=== PATIENT | male | born 1940 | race African-American/Black ===

== ENCOUNTER → 2016-07-04 | Outpatient (CLI) | payer MEDICARE | LOC: RAD 06-27 13:49 | PROVIDERS: ATTEND Internal Medicine | DX: R41.3 Other amnesia (principal) | CPT/HCPCS: 70551 ==

== ENCOUNTER → 2016-07-05 | Outpatient (CLI) | payer MEDICARE ==
[2016-07-05 15:16] LABS: ABSOLUTE EOSINOPHILS # (AUTO) 0.2 10^3/uL (0.0-0.6); ABSOLUTE MONOCYTES (AUTO) 0.3 10^3/uL (0.1-1.4); BASOPHILS % (AUTO) 0.5 % (0-2); EOSINOPHILS % (AUTO) 6.9 % (0-6); HEMATOCRIT 28.9 % (37.9-51.0); HEMOGLOBIN 9.1 g/dL (13.5-17.0); HGB HCT DIFFERENCE -1.6; LYMPHOCYTES % (AUTO) 28.4 % (13-45); MEAN CORPUSCULAR HEMOGLOBIN 24.8 pg (27.0-33.4); MEAN CORPUSCULAR HGB CONC 31.3 g/dL (32.0-36.0); MEAN CORPUSCULAR VOLUME 79 fl (80-97); MONOCYTES % (AUTO) 7.5 % (3-13); RED BLOOD COUNT 3.65 10^6/uL (4.35-5.55); RED CELL DISTRIBUTION WIDTH 19.8 % (11.5-14.0); SEGMENTED NEUTROPHILS % (AUTO) 56.7 % (42-78); WHITE BLOOD COUNT 3.6 10^3/uL (4.0-10.5)
[2016-07-05 15:27] LABS: ALBUMIN 4.4 g/dL (3.5-5.0); ANION GAP 15 (5-19); BLOOD UREA NITROGEN 38 mg/dL (7-20); CALCIUM 9.3 mg/dL (8.4-10.2); CARBON DIOXIDE 21 mmol/L (22-30); CHLORIDE 108 mmol/L (98-107); CREATININE RESULT 4.19 mg/dL (0.52-1.25); GLUCOSE 121 mg/dL (75-110); PHOSPHORUS 4.4 mg/dL (2.5-4.5); POTASSIUM 4.7 mmol/L (3.6-5.0); SODIUM 144.3 mmol/L (137-145)
[2016-07-07 10:19] LABS: VITAMIN D 25-HYDROXY 26.8 ng/mL (30.0-100.0)
== END ==
LOC: OD 14:27
PROVIDERS: ATTEND Internal Medicine Nephrology
DX: N17.9 Acute kidney failure, unspecified (principal); R80.9 Proteinuria, unspecified; N18.4 Chronic kidney disease, stage 4 (severe); D63.8 Anemia in other chronic diseases classified elsewhere; N25.81 Secondary hyperparathyroidism of renal origin; E55.9 Vitamin D deficiency, unspecified
CPT/HCPCS: 36415; 80048; 82040; 82306; 83970; 84100; 85025

== ENCOUNTER 2016-09-03 11:25 | Inpatient (IN) | payer MEDICARE ==
[2016-09-03 11:46] LABS: ABSOLUTE LYMPHOCYTES (AUTO) 0.8 10^3/uL (0.5-4.7); ABSOLUTE MONOCYTES (AUTO) 0.3 10^3/uL (0.1-1.4); ABSOLUTE NEUT (AUTO) 2.7 10^3/uL (1.7-8.2); BASOPHILS % (AUTO) 1.1 % (0-2); EOSINOPHILS % (AUTO) 0.8 % (0-6); HEMOGLOBIN 10.9 g/dL (13.5-17.0); HGB HCT DIFFERENCE -0.3; MEAN CORPUSCULAR HEMOGLOBIN 26.3 pg (27.0-33.4); MEAN CORPUSCULAR HGB CONC 33.2 g/dL (32.0-36.0); MEAN CORPUSCULAR VOLUME 79 fl (80-97); MONOCYTES % (AUTO) 6.9 % (3-13); RED BLOOD COUNT 4.16 10^6/uL (4.35-5.55); RED CELL DISTRIBUTION WIDTH 17.6 % (11.5-14.0); SEGMENTED NEUTROPHILS % (AUTO) 71.2 % (42-78); WHITE BLOOD COUNT 3.8 10^3/uL (4.0-10.5)
[2016-09-03 12:07] LABS: ALANINE AMINOTRANSFERASE 19 U/L (21-72); ALBUMIN 4.2 g/dL (3.5-5.0); ALKALINE PHOSPHATASE 61 U/L (38-126); ANION GAP 13 (5-19); ASPARTATE AMINO TRANSFERASE 20 U/L (17-59); BILIRUBIN,DIRECT 0.3 mg/dL (0.0-0.4); BILIRUBIN,TOTAL 0.7 mg/dL (0.2-1.3); BLOOD UREA NITROGEN 40 mg/dL (7-20); CALCIUM 9.3 mg/dL (8.4-10.2); CARBON DIOXIDE 22 mmol/L (22-30); CHLORIDE 116 mmol/L (98-107); CREATININE RESULT 3.61 mg/dL (0.52-1.25); GLUCOSE 122 mg/dL (75-110); POTASSIUM 3.9 mmol/L (3.6-5.0); SODIUM 151.4 mmol/L (137-145); TOTAL PROTEIN 7.9 g/dL (6.3-8.2)
[2016-09-03] MEDS ORDERED: NORMAL SALINE 1000 ML 1,000 ML IV ONE ×2 (12:22→13:32)
[2016-09-03] MEDS ORDERED: HYDRALAZINE HCL INJ/PF 20 MG/1 ML SDV IV ONE (13:35)
--- NOTE | 2016-09-03 13:39 | EKG REPORT ---
SEVERITY:- ABNORMAL ECG - SINUS RHYTHM FIRST DEGREE AV BLOCK LEFT ANTERIOR FASCICULAR BLOCK NONSPECIFIC T ABNORMALITIES, ANTERIOR LEADS BORDERLINE PROLONGED QT INTERVAL : Confirmed by: Nilson Tesfaye MD 03-Sep-2016 13:39:02
--- NOTE | 2016-09-03 14:46 | ER Document Report ---
ED General - General Chief Complaint: Diarrhea Stated Complaint: DIARRHEA,WEAKNESS Mode of Arrival: Ambulatory Information source: Patient Notes: 75-year-old male presents with complaints of one week duration of diarrhea. Patient notes that he has had decreased appetite and does not feel like he can eat anything. Patient has not eaten since . Patient denies any fevers or chills denies any vomiting but admits nausea TRAVEL OUTSIDE OF THE [place] IN LAST 30 DAYS: No - HPI Onset: Last week Onset/Duration: Persistent Quality of pain: Achy Severity: Mild Pain Level: 1 Associated symptoms: Diarrhea, Nausea, Weakness Exacerbated by: Denies Relieved by: Denies Similar symptoms previously: Yes Recently seen / treated by doctor: Yes - Related Data Allergies/Adverse Reactions: No Known Allergies Allergy (Verified 09/03/16 11:41) Past Medical History - Social History Smoking Status: Never Smoker Cigarette use (# per day): No Chew tobacco use (# tins/day): No Smoking Education Provided: No Frequency of alcohol use: None Drug Abuse: None Family History: DM Patient has suicidal ideation: No Patient has homicidal ideation: No - Past Medical History Cardiac Medical History: Reports: Hx Heart Attack - 30 years ago, Hx Hypercholesterolemia, Hx Hypertension, Hx Heart Murmur Pulmonary Medical History: Reports: Hx Pneumonia Denies: Hx Tuberculosis Renal/ Medical History: Denies: Hx Peritoneal Dialysis GI Medical History: Reports: Hx Gastroesophageal Reflux Disease, Hx Ulcer Past Surgical History: Reports: Hx Abdominal Surgery - abdominal aneurysm repair , Hx Cholecystectomy. Denies: Hx Pacemaker - Immunizations Hx Diphtheria, Pertussis, Tetanus Vaccination: - Pt unsure Hx Pneumococcal Vaccination: 06/25/07 Review of Systems - Review of Systems Notes: REVIEW OF SYSTEMS: CONSTITUTIONAL : Denies fever, chills, or sweats. Denies recent illness. EENT: Denies eye, ear, throat, or mouth pain or symptoms. Denies nasal or sinus congestion or discharge. Denies throat, tongue, or mouth swelling or difficulty swallowing. CARDIOVASCULAR: Denies chest pain. Denies palpitations or racing or irregular heart beat. Denies ankle edema. RESPIRATORY: Denies cough, cold, or chest congestion. Denies shortness of breath, difficulty breathing, or wheezing. GASTROINTESTINAL: Admits to abdominal pain nausea diarrhea GENITOURINARY: Denies difficulty urinating, painful urination, burning, frequency, blood in urine, or discharge. MUSCULOSKELETAL: Denies back or neck pain or stiffness. Denies joint pain or swelling. SKIN: Denies rash, lesions or sores. HEMATOLOGIC : Denies easy bruising or bleeding. LYMPHATIC: Denies swollen, enlarged glands. NEUROLOGICAL: Admits to generalized weakness PSYCHIATRIC: Denies anxiety or stress. Denies depression, suicidal ideation, or homicidal ideation. ALL OTHER SYSTEMS REVIEWED AND NEGATIVE. Dictation was performed using [employer] ([employer] voice recognition software PHYSICAL EXAMINATION: GENERAL: Well-appearing, well-nourished and in no acute distress. HEAD: Atraumatic, normocephalic. EYES: Pupils equal round and reactive to light, extraocular movements intact, sclera anicteric, conjunctiva are normal. ENT: Edentulous NECK: Normal range of motion, supple without lymphadenopathy LUNGS: Breath sounds clear to auscultation bilaterally and equal. No wheezes rales or rhonchi. HEART: Regular rate and rhythm without murmurs ABDOMEN: Soft, nontender, nondistended abdomen. No guarding, no rebound. No masses appreciated. Musculoskeletal: Normal range of motion, no pitting or edema. No cyanosis. NEUROLOGICAL: Cranial nerves grossly intact. Normal speech, normal gait. Normal sensory, motor exams PSYCH: Normal mood, normal affect. SKIN: Warm, Dry, normal turgor, no rashes or lesions noted. Physical Exam - Vital signs Vitals: Resp Pulse Ox 13 100 09/03/16 11:42 09/03/16 11:42 Course - Re-evaluation Re-evalutation: 09/03/16 15:16 Patient's lab work notes continued chronic kidney disease. No acute abnormalities are noted. Patient was given fluids and notes continued decreased appetite. I spoke with the patient's primary care physician who had recently seen the patient last week and he requests observation overnight - Vital Signs Vital signs: Temp Pulse Resp BP Pulse Ox 99.2 F 14 212/91 H 100 09/03/16 11:59 09/03/16 12:01 09/03/16 12:01 09/03/16 12:01 - Laboratory Result Diagrams: 09/03/16 11:35 09/03/16 11:35 Laboratory results interpreted by me: 09/03/16 09/03/16 11:35 11:35 WBC 3.8 L RBC 4.16 L Hgb 10.9 L Hct 33.0 L MCV 79 L MCH 26.3 L RDW 17.6 H Plt Count 121 L Sodium 151.4 H Chloride 116 H BUN 40 H Creatinine 3.61 H Est GFR ( Amer) 20 L Est GFR (Non-Af Amer) 17 L Glucose 122 H ALT 19 L Discharge - Discharge Clinical Impression: decreased po intake HTN (hypertension) Qualifiers: Hypertension type: essential hypertension Qualified Code(s): I10 - Essential ( primary) hypertension CKD (chronic kidney disease) Qualifiers: Chronic kidney disease stage: stage 3 (moderate) Qualified Code(s): N18.3 - Chronic kidney disease, stage 3 (moderate) Diarrhea Qualifiers: Diarrhea type: unspecified type Qualified Code(s): R19.7 - Diarrhea, unspecified Condition: Stable Disposition: ADMITTED OBSERVATION Admitting Provider: Shweta Unit Admitted: Telemetry Referrals: BETSY POOL MD [Primary Care Provider] - Follow up as needed
[2016-09-03 15:07] LABS: APPEARANCE,URINE CLEAR; BILIRUBIN,URINE NEGATIVE (NEGATIVE); GLUCOSE, URINE NEGATIVE (NEGATIVE); KETONES,URINE NEGATIVE (NEGATIVE); LEUKOCYTE ESTERASE,URINE NEGATIVE (NEGATIVE); NITRITE,URINE NEGATIVE (NEGATIVE); PROTEIN,URINE 100 mg/dL (NEGATIVE); URINE SPECIFIC GRAVITY 1.009; UROBILINOGEN,URINE NEGATIVE mg/dL (<2.0)
[2016-09-03 21:23] LABS: PARTIAL THROMBOPLASTIN TIME 31.7 SEC (23.5-35.8); PROTHROMBIN TIME 14.8 SEC (11.4-15.4)
[2016-09-03 21:37] LABS: LIPASE 97.5 U/L (23-300); MAGNESIUM 2.1 mg/dL (1.6-2.3); PHOSPHORUS 3.1 mg/dL (2.5-4.5)
[2016-09-03 21:47] LABS: CREATINE KINASE MB 0.58 ng/mL (<4.55); TROPONIN I 0.057 ng/mL
[2016-09-03 22:04] LABS: THYROID STIMULATING HORMONE 1.75 uIU/mL (0.47-4.68)
[2016-09-03] MEDS: DEXTROSE 5%-WATER 1000 ML 1,000 ML IV PRN (22:17)
[2016-09-04] MEDS: HEPARIN SOD (PORCINE) 5,000 UNIT/ML 1 ML SYRINGE SUBCUT SCH ×4 (00:02→22:33)
[2016-09-04] MEDS: NITROGLYCERIN/D5W 250 ML IV PRN (00:05)
[2016-09-04 08:03] LABS: APPEARANCE,URINE CLEAR; BILIRUBIN,URINE NEGATIVE (NEGATIVE); GLUCOSE, URINE NEGATIVE (NEGATIVE); KETONES,URINE NEGATIVE (NEGATIVE); LEUKOCYTE ESTERASE,URINE NEGATIVE (NEGATIVE); NITRITE,URINE NEGATIVE (NEGATIVE); PROTEIN,URINE >=500 mg/dL (NEGATIVE); URINE SPECIFIC GRAVITY 1.015; UROBILINOGEN,URINE NEGATIVE mg/dL (<2.0)
[2016-09-04] MEDS: DEXTROSE 5%-WATER 1000 ML 1,000 ML IV PRN ×2 (08:14→18:45)
--- NOTE | 2016-09-04 19:02 | PDOC H&P ---
History of Present Illness Admission Date/PCP: 09/03/16 20:07 BETSY POOL MD History of Present Illness: LUPE ZURITA is a 75 year old male with history of chronic kidney disease stage IV, hypertension, multiple myeloma in remission, he came to emergency room with family because he has not been eating for the last 5 days, anorexia, he also said he had diarrhea for the last couple of days. He was seen and evaluated in the emergency room. The initial blood work that was done including comprehensive metabolic panel was abnormal, serum sodium 151.4, serum creatinine 3.6, glucose 122 that was also associated hypertensive emergency the blood pressure was over 200 systolic. Family said he has not had food since last week . He has multiple comorbid conditions including history of AAA, status post endovascular grafting, mild cognitive impairment, hypernatremia is considered a poor prognostic sign because of hypernatremia is a strong stimulus for thirst and a normal functioning brain cannot maintain state of hypernatremia. Past Medical History Cardiac Medical History: Reports: Coronary Artery Disease, Myocardial Infarction - 30 years ago, Hyperlipidema, Hypertension, Heart Murmur, Other - Abdominal aortic aneurysm Pulmonary Medical History: Reports: Pneumonia Renal/ Medical History: Reports: Chronic Kidney Disease - Chronic kidney disease stage IV Malignancy Medical History: Reports: Other - History of multiple myeloma in remission GI Medical History: Reports: Gastroesophageal Reflux Disease Psychiatric Medical History: Reports: Other - Mild cognitive impairment Past Surgical History Past Surgical History: Reports: Cholecystectomy, Vascular Surgery - Abdominal aortic aneurysm repair Social History Information Source: Patient Lives with: Parents Smoking Status: Former Smoker Last Time Smoked: 06/17/2000 Frequency of Alcohol Use: None Hx Recreational Drug Use: No Drugs: None Hx Prescription Drug Abuse: No - Advance Directive Resuscitation Status: Full Code Family History Family History: DM Parental Family History Reviewed: Yes Children Family History Reviewed: Yes Sibling(s) Family History Reviewed.: Yes Medication/Allergy Home Medications: Amlodipine Besylate [Norvasc 10 mg Tablet] 10 mg PO DAILY 09/03/16 Aspirin [Aspirin 81 mg Chewable Tablet] 81 mg PO DAILY 09/03/16 Atorvastatin Calcium [Lipitor 80 mg Tablet] 80 mg PO QHS 09/03/16 Carvedilol [Coreg 25 mg Tablet] 1 tab PO Q12 09/03/16 Clopidogrel Bisulfate [Plavix 75 mg Tablet] 75 mg PO DAILY 09/03/16 Cyanocobalamin (Vitamin B-12) [Vitamin B-12 SL 2500 mcg Tablet] 2,500 mcg SL DAILY 09/03/16 Hydralazine HCl [Apresoline 50 mg Tablet] 50 mg PO Q8 09/03/16 Isosorbide Mononitrate [Isosorbide Mononitrate ER] 30 mg PO DAILY 09/03/16 Megestrol Acetate 40 mg PO BID 09/03/16 Memantine HCl/Donepezil HCl [Namzaric 28 mg-10 mg Capsule] 1 cap PO QPM Nitroglycerin [Nitrostat 0.4 mg (1/150 Gr) Tabs 25/Bottle] 1 tab SL Q2 09/03/16 Oxycodone HCl [Oxy-Ir 5 mg Tablet] 10 mg PO DAILY 09/03/16 Oxycodone HCl [Oxycontin Sr 10 mg Tablet] 10 mg PO DAILY 09/03/16 Pantoprazole Sodium [Protonix] 40 mg PO DAILY 09/03/16 Pregabalin [Lyrica 75 mg Capsule] 150 mg PO Q12 09/03/16 Allergies/Adverse Reactions: No Known Allergies Allergy (Verified 09/03/16 11:41) Review of Systems Constitutional: PRESENT: anorexia Ears: ABSENT: hearing changes Cardiovascular: ABSENT: chest pain, dyspnea on exertion, edema, orthropnea, palpitations Respiratory: ABSENT: cough, hemoptysis Gastrointestinal: PRESENT: diarrhea Genitourinary: ABSENT: dysuria, hematuria Musculoskeletal: ABSENT: joint swelling Integumentary: ABSENT: rash, wounds Neurological: ABSENT: abnormal gait, abnormal speech, confusion, dizziness, focal weakness, syncope Psychiatric: ABSENT: anxiety, depression, homidical ideation, suicidal ideation Endocrine: ABSENT: cold intolerance, heat intolerance, menstrual abnormalities, polydipsia, polyuria Hematologic/Lymphatic: ABSENT: easy bleeding, easy bruising, lymphadenopathy Physical Exam Vital Signs: Temp Pulse Resp BP Pulse Ox 98.5 F 57 L 18 149/68 H 100 09/04/16 15:57 09/04/16 18:00 09/04/16 15:57 09/04/16 18:07 09/04/16 15:57 Intake & Output 09/03/16 09/04/16 09/05/16 06:59 06:59 06:59 Intake Total 600 1050 Output Total 0 Balance 600 1050 Weight 76.2 kg General appearance: PRESENT: mild distress Head exam: PRESENT: atraumatic, normocephalic Eye exam: PRESENT: conjunctiva pink, EOMI, PERRLA Neck exam: PRESENT: full ROM Respiratory exam: PRESENT: clear to auscultation checo Cardiovascular exam: PRESENT: RRR, +S1, +S2 Vascular exam: PRESENT: normal capillary refill GI/Abdominal exam: PRESENT: normal bowel sounds, soft Rectal exam: PRESENT: deferred Neurological exam: PRESENT: alert, awake, oriented to person, oriented to place , oriented to time, oriented to situation, CN II-XII grossly intact Psychiatric exam: PRESENT: appropriate affect, normal mood Skin exam: PRESENT: dry, intact, warm Results Laboratory Results: 09/03/16 09/03/16 09/03/16 21:06 21:06 21:06 Phosphorus 3.1 Magnesium 2.1 Ammonia < 8.7 L Amylase 77 Lipase 97.5 TSH 1.75 Free T4 0.89 Urine Color Urine Appearance Urine pH Ur Specific [place] Urine Protein Urine Glucose (UA) Urine Ketones Urine Blood Urine Nitrite Ur Leukocyte Esterase Urine WBC (Auto) Urine RBC (Auto) 09/04/16 06:15 Phosphorus Magnesium Ammonia Amylase Lipase TSH Free T4 Urine Color YELLOW Urine Appearance CLEAR Urine pH 6.0 Ur Specific [place] 1.015 Urine Protein >=500 H Urine Glucose (UA) NEGATIVE Urine Ketones NEGATIVE Urine Blood NEGATIVE Urine Nitrite NEGATIVE Ur Leukocyte Esterase NEGATIVE Urine WBC (Auto) 2 Urine RBC (Auto) 2 09/03/16 09/03/16 09/03/16 21:06 21:06 21:06 Creatine Kinase 425 H CK-MB (CK-2) 0.58 Troponin I 0.057 NT-Pro-B Natriuret Pep 29 Assessment & Plan - Diagnosis (1) Hypertensive emergency Is this a current diagnosis for this admission?: YesPlan: The blood pressure is severely elevated with over 200 systolic there is associated acute kidney injury, he be started on intravenous nitroglycerin drip to control blood pressure with a goal of below 140 systolic (2) Hypernatremia Is this a current diagnosis for this admission?: YesPlan: He has hypernatremia, he be treated with 5% dextrose (3) Acute kidney injury superimposed on chronic kidney disease Is this a current diagnosis for this admission?: YesPlan: He has underlining chronic kidney disease, history of diarrhea, there is associated prerenal component (4) Diarrhea Qualifiers: Diarrhea type: unspecified type Qualified Code(s): R19.7 - Diarrhea , unspecified Is this a current diagnosis for this admission?: Yes
[2016-09-04] MEDS ORDERED: (PENDING PHARMACY ID) (Megestrol Acetate [Megestrol Acetate] 40 MG) PO SCH (19:30)
[2016-09-04] MEDS ORDERED: (PENDING PHARMACY ID) (Cyanocobalamin (Vitamin B-12) [Vitamin B-12 Sl 2500 Mcg Tablet] 2,5 SL SCH (19:30)
[2016-09-04] MEDS ORDERED: (PENDING PHARMACY ID) (Carvedilol [Coreg 25 Mg Tablet] 1 TAB) PO SCH (19:30)
[2016-09-04] MEDS ORDERED: (PENDING PHARMACY ID) (Memantine Hcl/Donepezil Hcl [Namzaric 28 Mg-10 Mg Capsule] 1 CAP) PO SCH (19:30)
[2016-09-04] MEDS ORDERED: OXYCODONE HCL SR 10 MG TABLET PO ONE (20:00)
[2016-09-04] MEDS ORDERED: PREGABALIN 75 MG CAPSULE PO ONE (20:00)
[2016-09-04] MEDS ORDERED: AMLODIPINE BESYLATE 10 MG TABLET PO ONE (20:00)
[2016-09-04] MEDS ORDERED: HYDRALAZINE HCL 50 MG TABLET PO ONE (20:00)
[2016-09-04] MEDS ORDERED: CLOPIDOGREL BISULFATE 75 MG TABLET PO ONE (20:00)
[2016-09-04] MEDS ORDERED: ISOSORBIDE MONONITRATE 30 MG TAB.ER.24H PO ONE (20:00)
[2016-09-04] MEDS ORDERED: CYANOCOBALAMIN (VITAMIN B-12) 1,000 MCG TABLET PO ONE (20:00)
[2016-09-04] MEDS ORDERED: ASPIRIN 81 MG TABLET, CHEWABLE PO ONE (20:00)
[2016-09-04 20:01] LABS: ABSOLUTE MONOCYTES (AUTO) 0.3 10^3/uL (0.1-1.4); ABSOLUTE NEUT (AUTO) 2.2 10^3/uL (1.7-8.2); BASOPHILS % (AUTO) 0.6 % (0-2); EOSINOPHILS % (AUTO) 0.9 % (0-6); HEMATOCRIT 28.9 % (37.9-51.0); HEMOGLOBIN 9.4 g/dL (13.5-17.0); HGB HCT DIFFERENCE -0.7; LYMPHOCYTES % (AUTO) 27.4 % (13-45); MEAN CORPUSCULAR HEMOGLOBIN 25.9 pg (27.0-33.4); MEAN CORPUSCULAR HGB CONC 32.5 g/dL (32.0-36.0); MEAN CORPUSCULAR VOLUME 80 fl (80-97); MONOCYTES % (AUTO) 8.3 % (3-13); RED BLOOD COUNT 3.63 10^6/uL (4.35-5.55); RED CELL DISTRIBUTION WIDTH 17.7 % (11.5-14.0); SEGMENTED NEUTROPHILS % (AUTO) 62.8 % (42-78); WHITE BLOOD COUNT 3.5 10^3/uL (4.0-10.5)
[2016-09-04 20:18] LABS: ALANINE AMINOTRANSFERASE 27 U/L (21-72); ALBUMIN 3.5 g/dL (3.5-5.0); ALKALINE PHOSPHATASE 48 U/L (38-126); ANION GAP 13 (5-19); ASPARTATE AMINO TRANSFERASE 18 U/L (17-59); BILIRUBIN,DIRECT 0.3 mg/dL (0.0-0.4); BILIRUBIN,TOTAL 0.8 mg/dL (0.2-1.3); BLOOD UREA NITROGEN 31 mg/dL (7-20); CALCIUM 8.5 mg/dL (8.4-10.2); CARBON DIOXIDE 19 mmol/L (22-30); CHLORIDE 110 mmol/L (98-107); CREATININE RESULT 3.03 mg/dL (0.52-1.25); GLUCOSE 131 mg/dL (75-110); POTASSIUM 3.7 mmol/L (3.6-5.0); SODIUM 141.9 mmol/L (137-145); TOTAL PROTEIN 6.7 g/dL (6.3-8.2)
[2016-09-04] MEDS ORDERED: MEGESTROL ACETATE 20 MG TABLET PO ONE (20:30)
--- NOTE | 2016-09-04 21:19 | PDOC PROGRESS REPORT ---
Subjective Progress Note for:: 09/04/16 Subjective:: Patient was admitted yesterday because of hypernatremia, and hypertensive emergency with acute kidney injury, he was seen by the bedside Physical Exam Vital Signs: Temp Pulse Resp BP Pulse Ox 98.8 F 57 L 20 138/69 H 99 09/04/16 20:27 09/04/16 20:27 09/04/16 20:27 09/04/16 20:27 09/04/16 20:27 Intake & Output 09/03/16 09/04/16 09/05/16 06:59 06:59 06:59 Intake Total 600 1170 Output Total 0 Balance 600 1170 Weight 76.2 kg General appearance: PRESENT: no acute distress Eye exam: PRESENT: PERRLA Respiratory exam: PRESENT: clear to auscultation checo Cardiovascular exam: PRESENT: +S1, +S2 GI/Abdominal exam: PRESENT: soft Neurological exam: PRESENT: alert, CN II-XII grossly intact Results Laboratory Results: 09/04/16 19:54 09/04/16 19:54 09/03/16 09/03/16 09/03/16 21:06 21:06 21:06 WBC RBC Hgb Hct MCV MCH MCHC RDW Plt Count Seg Neutrophils % Lymphocytes % Monocytes % Eosinophils % Basophils % Absolute Neutrophils Absolute Lymphocytes Absolute Monocytes Absolute Eosinophils Absolute Basophils Sodium Potassium Chloride Carbon Dioxide Anion Gap BUN Creatinine Est GFR ( Amer) Est GFR (Non-Af Amer) Glucose Calcium Phosphorus 3.1 Magnesium 2.1 Total Bilirubin AST ALT Alkaline Phosphatase Ammonia < 8.7 L Total Protein Albumin Amylase 77 Lipase 97.5 TSH 1.75 Free T4 0.89 Urine Color Urine Appearance Urine pH Ur Specific [place] Urine Protein Urine Glucose (UA) Urine Ketones Urine Blood Urine Nitrite Ur Leukocyte Esterase Urine WBC (Auto) Urine RBC (Auto) 09/04/16 09/04/16 09/04/16 06:15 19:54 19:54 WBC 3.5 L RBC 3.63 L Hgb 9.4 L Hct 28.9 L MCV 80 MCH 25.9 L MCHC 32.5 RDW 17.7 H Plt Count 102 L Seg Neutrophils % 62.8 Lymphocytes % 27.4 Monocytes % 8.3 Eosinophils % 0.9 Basophils % 0.6 Absolute Neutrophils 2.2 Absolute Lymphocytes 1.0 Absolute Monocytes 0.3 Absolute Eosinophils 0.0 Absolute Basophils 0.0 Sodium 141.9 Potassium 3.7 Chloride 110 H Carbon Dioxide 19 L Anion Gap 13 BUN 31 H Creatinine 3.03 H Est GFR ( Amer) 24 L Est GFR (Non-Af Amer) 20 L Glucose 131 H Calcium 8.5 Phosphorus Magnesium Total Bilirubin 0.8 AST 18 ALT 27 Alkaline Phosphatase 48 Ammonia Total Protein 6.7 Albumin 3.5 Amylase Lipase TSH Free T4 Urine Color YELLOW Urine Appearance CLEAR Urine pH 6.0 Ur Specific [place] 1.015 Urine Protein >=500 H Urine Glucose (UA) NEGATIVE Urine Ketones NEGATIVE Urine Blood NEGATIVE Urine Nitrite NEGATIVE Ur Leukocyte Esterase NEGATIVE Urine WBC (Auto) 2 Urine RBC (Auto) 2 09/03/16 09/03/16 09/03/16 21:06 21:06 21:06 Creatine Kinase 425 H CK-MB (CK-2) 0.58 Troponin I 0.057 NT-Pro-B Natriuret Pep 29 Assessment & Plan - Diagnosis (1) Hypertensive emergency Is this a current diagnosis for this admission?: YesPlan: Patient presently on nitroglycerin infusion, we start p.o. medication and gradually weaned off the nitroglycerin (2) Hypernatremia Is this a current diagnosis for this admission?: YesPlan: This is resolved with hydration (3) Acute kidney injury superimposed on chronic kidney disease Is this a current diagnosis for this admission?: YesPlan: There is improving kidney function with hydration suggesting prerenal component. (4) Diarrhea Qualifiers: Diarrhea type: unspecified type Qualified Code(s): R19.7 - Diarrhea , unspecified Is this a current diagnosis for this admission?: Yes
[2016-09-04] MEDS: ATORVASTATIN CALCIUM 80 MG TABLET PO SCH (22:33)
[2016-09-04] MEDS: CARVEDILOL 12.5 MG TABLET PO SCH (23:00)
[2016-09-05] MEDS: NITROGLYCERIN/D5W 250 ML IV PRN (00:38)
[2016-09-05] MEDS: DEXTROSE 5%-WATER 1000 ML 1,000 ML IV PRN ×2 (05:05→14:36)
[2016-09-05 05:31] LABS: HEMATOCRIT 28.7 % (37.9-51.0); HEMOGLOBIN 9.5 g/dL (13.5-17.0); HGB HCT DIFFERENCE -0.2; MEAN CORPUSCULAR HEMOGLOBIN 26.2 pg (27.0-33.4); MEAN CORPUSCULAR HGB CONC 33.2 g/dL (32.0-36.0); MEAN CORPUSCULAR VOLUME 79 fl (80-97); RED BLOOD COUNT 3.64 10^6/uL (4.35-5.55); RED CELL DISTRIBUTION WIDTH 17.2 % (11.5-14.0); WHITE BLOOD COUNT 4.5 10^3/uL (4.0-10.5)
[2016-09-05 05:49] LABS: ALANINE AMINOTRANSFERASE 18 U/L (21-72); ALBUMIN 3.6 g/dL (3.5-5.0); ALKALINE PHOSPHATASE 48 U/L (38-126); ANION GAP 11 (5-19); ASPARTATE AMINO TRANSFERASE 16 U/L (17-59); BILIRUBIN,DIRECT 0.2 mg/dL (0.0-0.4); BILIRUBIN,TOTAL 0.8 mg/dL (0.2-1.3); BLOOD UREA NITROGEN 29 mg/dL (7-20); CALCIUM 8.8 mg/dL (8.4-10.2); CARBON DIOXIDE 23 mmol/L (22-30); CHLORIDE 107 mmol/L (98-107); CREATININE RESULT 3.19 mg/dL (0.52-1.25); GLUCOSE 98 mg/dL (75-110); POTASSIUM 3.5 mmol/L (3.6-5.0); SODIUM 141.1 mmol/L (137-145); TOTAL PROTEIN 6.9 g/dL (6.3-8.2)
[2016-09-05] MEDS: HYDRALAZINE HCL 50 MG TABLET PO SCH ×3 (05:49→21:13)
[2016-09-05] MEDS: HEPARIN SOD (PORCINE) 5,000 UNIT/ML 1 ML SYRINGE SUBCUT SCH ×3 (05:52→21:15)
[2016-09-05 05:55] LABS: BASOPHILS % (MANUAL) 0 % (0-2); EOSINOPHILS % (MANUAL) 3 % (0-6); LYMPHOCYTES % (MANUAL) 33 % (13-45); NUCLEATED RED BLOOD CELLS 1 /100 WBC (0); TOTAL CELLS COUNTED 100
[2016-09-05 05:57] LABS: ANISOCYTOSIS 1+; TOXIC GRANULATION SLIGHT
[2016-09-05] MEDS: CLOPIDOGREL BISULFATE 75 MG TABLET PO SCH (09:39)
[2016-09-05] MEDS: ISOSORBIDE MONONITRATE 30 MG TAB.ER.24H PO SCH (09:40)
[2016-09-05] MEDS: MEGESTROL ACETATE 20 MG TABLET PO SCH ×2 (09:42→17:10)
[2016-09-05] MEDS: ASPIRIN 81 MG TABLET, CHEWABLE PO SCH (09:42)
[2016-09-05] MEDS: PREGABALIN 75 MG CAPSULE PO SCH ×2 (09:42→21:14)
[2016-09-05] MEDS: AMLODIPINE BESYLATE 10 MG TABLET PO SCH (09:42)
[2016-09-05] MEDS: CARVEDILOL 12.5 MG TABLET PO SCH ×2 (09:43→21:15)
[2016-09-05] MEDS: CYANOCOBALAMIN (VITAMIN B-12) 1,000 MCG TABLET PO SCH (09:43)
[2016-09-05] MEDS: OXYCODONE HCL SR 10 MG TABLET PO SCH (09:43)
--- NOTE | 2016-09-05 16:39 | PDOC PROGRESS REPORT ---
Subjective Progress Note for:: 09/05/16 Subjective:: Patient was seen by the bedside this past was in the room, his appetite is improved, the hypernatremia is improved and the kidney function is improved with hydration Physical Exam Vital Signs: Temp Pulse Resp BP Pulse Ox 98.7 F 60 18 155/64 H 97 09/05/16 12:00 09/05/16 16:00 09/05/16 12:00 09/05/16 16:01 09/05/16 12:00 Intake & Output 09/04/16 09/05/16 09/06/16 06:59 06:59 06:59 Intake Total 600 2375 711 Output Total 0 0 Balance 600 2375 711 Weight 76.2 kg 78.7 kg General appearance: PRESENT: no acute distress Head exam: PRESENT: atraumatic, normocephalic Eye exam: PRESENT: conjunctiva pink, EOMI, PERRLA Ear exam: PRESENT: normal external ear exam Mouth exam: PRESENT: moist, tongue midline Neck exam: PRESENT: full ROM Respiratory exam: PRESENT: clear to auscultation checo Cardiovascular exam: PRESENT: RRR, +S1, +S2 Pulses: PRESENT: normal dorsalis pedis pul, +2 pedal pulses bilateral Vascular exam: PRESENT: normal capillary refill GI/Abdominal exam: PRESENT: normal bowel sounds, soft Rectal exam: PRESENT: deferred Neurological exam: PRESENT: alert, awake, oriented to person, oriented to place , oriented to time, oriented to situation, CN II-XII grossly intact Psychiatric exam: PRESENT: appropriate affect, normal mood Skin exam: PRESENT: dry, intact, warm Results Laboratory Results: 09/05/16 04:26 09/05/16 04:26 09/04/16 09/04/16 09/05/16 19:54 19:54 04:26 WBC 3.5 L 4.5 RBC 3.63 L 3.64 L Hgb 9.4 L 9.5 L Hct 28.9 L 28.7 L MCV 80 79 L MCH 25.9 L 26.2 L MCHC 32.5 33.2 RDW 17.7 H 17.2 H Plt Count 102 L 108 L Seg Neutrophils % 62.8 Not Reportable Lymphocytes % 27.4 Not Reportable Monocytes % 8.3 Not Reportable Eosinophils % 0.9 Not Reportable Basophils % 0.6 Not Reportable Absolute Neutrophils 2.2 Not Reportable Absolute Lymphocytes 1.0 Not Reportable Absolute Monocytes 0.3 Not Reportable Absolute Eosinophils 0.0 Not Reportable Absolute Basophils 0.0 Not Reportable Sodium 141.9 Potassium 3.7 Chloride 110 H Carbon Dioxide 19 L Anion Gap 13 BUN 31 H Creatinine 3.03 H Est GFR ( Amer) 24 L Est GFR (Non-Af Amer) 20 L Glucose 131 H Calcium 8.5 Total Bilirubin 0.8 AST 18 ALT 27 Alkaline Phosphatase 48 Total Protein 6.7 Albumin 3.5 09/05/16 04:26 WBC RBC Hgb Hct MCV MCH MCHC RDW Plt Count Seg Neutrophils % Lymphocytes % Monocytes % Eosinophils % Basophils % Absolute Neutrophils Absolute Lymphocytes Absolute Monocytes Absolute Eosinophils Absolute Basophils Sodium 141.1 Potassium 3.5 L Chloride 107 Carbon Dioxide 23 Anion Gap 11 BUN 29 H Creatinine 3.19 H Est GFR ( Amer) 23 L Est GFR (Non-Af Amer) 19 L Glucose 98 Calcium 8.8 Total Bilirubin 0.8 AST 16 L ALT 18 L Alkaline Phosphatase 48 Total Protein 6.9 Albumin 3.6 09/03/16 09/03/16 09/03/16 21:06 21:06 21:06 Creatine Kinase 425 H CK-MB (CK-2) 0.58 Troponin I 0.057 NT-Pro-B Natriuret Pep 29 Assessment & Plan - Diagnosis (1) Hypertensive emergency Is this a current diagnosis for this admission?: YesPlan: Patient is still on nitro infusion for the blood pressure, yesterday he was started on his regular home medication for blood pressure in addition to the nitro infusion, the natural infusion is gradually being weaned off (2) Hypernatremia Is this a current diagnosis for this admission?: YesPlan: The hypernatremia is resolved (3) Acute kidney injury superimposed on chronic kidney disease Is this a current diagnosis for this admission?: Yes (4) Diarrhea Qualifiers: Diarrhea type: unspecified type Qualified Code(s): R19.7 - Diarrhea , unspecified Is this a current diagnosis for this admission?: Yes
[2016-09-05] MEDS: ATORVASTATIN CALCIUM 80 MG TABLET PO SCH (21:13)
[2016-09-06 05:17] LABS: ABSOLUTE EOSINOPHILS # (AUTO) 0.2 10^3/uL (0.0-0.6); ABSOLUTE MONOCYTES (AUTO) 0.4 10^3/uL (0.1-1.4); ABSOLUTE NEUT (AUTO) 2.7 10^3/uL (1.7-8.2); BASOPHILS % (AUTO) 0.5 % (0-2); EOSINOPHILS % (AUTO) 3.9 % (0-6); HEMATOCRIT 29.3 % (37.9-51.0); HEMOGLOBIN 9.8 g/dL (13.5-17.0); HGB HCT DIFFERENCE 0.1; LYMPHOCYTES % (AUTO) 23.9 % (13-45); MEAN CORPUSCULAR HEMOGLOBIN 25.9 pg (27.0-33.4); MEAN CORPUSCULAR HGB CONC 33.4 g/dL (32.0-36.0); MEAN CORPUSCULAR VOLUME 78 fl (80-97); MONOCYTES % (AUTO) 9.5 % (3-13); RED BLOOD COUNT 3.78 10^6/uL (4.35-5.55); RED CELL DISTRIBUTION WIDTH 17.3 % (11.5-14.0); SEGMENTED NEUTROPHILS % (AUTO) 62.2 % (42-78); WHITE BLOOD COUNT 4.3 10^3/uL (4.0-10.5)
[2016-09-06 05:30] LABS: ALANINE AMINOTRANSFERASE 19 U/L (21-72); ALBUMIN 3.2 g/dL (3.5-5.0); ALKALINE PHOSPHATASE 54 U/L (38-126); ANION GAP 11 (5-19); ASPARTATE AMINO TRANSFERASE 14 U/L (17-59); BILIRUBIN,DIRECT 0.2 mg/dL (0.0-0.4); BILIRUBIN,TOTAL 0.5 mg/dL (0.2-1.3); BLOOD UREA NITROGEN 35 mg/dL (7-20); CALCIUM 8.3 mg/dL (8.4-10.2); CARBON DIOXIDE 18 mmol/L (22-30); CHLORIDE 106 mmol/L (98-107); CREATININE RESULT 3.12 mg/dL (0.52-1.25); GLUCOSE 91 mg/dL (75-110); POTASSIUM 3.5 mmol/L (3.6-5.0); SODIUM 135.4 mmol/L (137-145); TOTAL PROTEIN 6.4 g/dL (6.3-8.2)
[2016-09-06] MEDS: HYDRALAZINE HCL 50 MG TABLET PO SCH ×3 (06:34→21:42)
[2016-09-06] MEDS: HEPARIN SOD (PORCINE) 5,000 UNIT/ML 1 ML SYRINGE SUBCUT SCH ×3 (06:35→21:43)
[2016-09-06] MEDS: DEXTROSE 5%-WATER 1000 ML 1,000 ML IV PRN ×2 (07:33→16:01)
[2016-09-06] MEDS: CLOPIDOGREL BISULFATE 75 MG TABLET PO SCH (10:56)
[2016-09-06] MEDS: PREGABALIN 75 MG CAPSULE PO SCH ×2 (10:56→21:43)
[2016-09-06] MEDS: OXYCODONE HCL SR 10 MG TABLET PO SCH (10:57)
[2016-09-06] MEDS: AMLODIPINE BESYLATE 10 MG TABLET PO SCH (10:57)
[2016-09-06] MEDS: MEGESTROL ACETATE 20 MG TABLET PO SCH ×2 (10:57→17:13)
[2016-09-06] MEDS: CARVEDILOL 12.5 MG TABLET PO SCH ×2 (10:58→21:42)
[2016-09-06] MEDS: ISOSORBIDE MONONITRATE 30 MG TAB.ER.24H PO SCH (10:58)
[2016-09-06] MEDS: CYANOCOBALAMIN (VITAMIN B-12) 1,000 MCG TABLET PO SCH (10:59)
[2016-09-06] MEDS: ASPIRIN 81 MG TABLET, CHEWABLE PO SCH (10:59)
[2016-09-06] MEDS: ATORVASTATIN CALCIUM 80 MG TABLET PO SCH (21:43)
[2016-09-07] MEDS: HEPARIN SOD (PORCINE) 5,000 UNIT/ML 1 ML SYRINGE SUBCUT SCH ×2 (05:24→13:47)
[2016-09-07] MEDS: DEXTROSE 5%-WATER 1000 ML 1,000 ML IV PRN ×2 (05:24→15:29)
[2016-09-07] MEDS: HYDRALAZINE HCL 50 MG TABLET PO SCH ×2 (05:24→13:48)
[2016-09-07] MEDS: PREGABALIN 75 MG CAPSULE PO SCH (09:32)
[2016-09-07] MEDS: MEGESTROL ACETATE 20 MG TABLET PO SCH ×2 (09:33→17:16)
[2016-09-07] MEDS: CARVEDILOL 12.5 MG TABLET PO SCH (09:33)
[2016-09-07] MEDS: CLOPIDOGREL BISULFATE 75 MG TABLET PO SCH (09:33)
[2016-09-07] MEDS: OXYCODONE HCL SR 10 MG TABLET PO SCH (09:34)
[2016-09-07] MEDS: ASPIRIN 81 MG TABLET, CHEWABLE PO SCH (09:34)
[2016-09-07] MEDS: AMLODIPINE BESYLATE 10 MG TABLET PO SCH (09:34)
[2016-09-07] MEDS: CYANOCOBALAMIN (VITAMIN B-12) 1,000 MCG TABLET PO SCH (09:35)
[2016-09-07] MEDS: ISOSORBIDE MONONITRATE 30 MG TAB.ER.24H PO SCH (09:35)
[2016-09-07 16:41] VITALS: BP 132/60
[2016-09-07 18:48] LABS: ABSOLUTE EOSINOPHILS # (AUTO) 0.2 10^3/uL (0.0-0.6); ABSOLUTE MONOCYTES (AUTO) 0.4 10^3/uL (0.1-1.4); ABSOLUTE NEUT (AUTO) 2.6 10^3/uL (1.7-8.2); BASOPHILS % (AUTO) 0.4 % (0-2); EOSINOPHILS % (AUTO) 4.3 % (0-6); HEMATOCRIT 28.7 % (37.9-51.0); HEMOGLOBIN 9.4 g/dL (13.5-17.0); HGB HCT DIFFERENCE -0.5; LYMPHOCYTES % (AUTO) 23.4 % (13-45); MEAN CORPUSCULAR HEMOGLOBIN 25.8 pg (27.0-33.4); MEAN CORPUSCULAR HGB CONC 32.7 g/dL (32.0-36.0); MEAN CORPUSCULAR VOLUME 79 fl (80-97); MONOCYTES % (AUTO) 9.6 % (3-13); RED BLOOD COUNT 3.64 10^6/uL (4.35-5.55); RED CELL DISTRIBUTION WIDTH 17.4 % (11.5-14.0); SEGMENTED NEUTROPHILS % (AUTO) 62.3 % (42-78); WHITE BLOOD COUNT 4.2 10^3/uL (4.0-10.5)
[2016-09-07 19:09] LABS: ALANINE AMINOTRANSFERASE 18 U/L (21-72); ALBUMIN 3.4 g/dL (3.5-5.0); ALKALINE PHOSPHATASE 63 U/L (38-126); ANION GAP 13 (5-19); ASPARTATE AMINO TRANSFERASE 13 U/L (17-59); BILIRUBIN,DIRECT 0.3 mg/dL (0.0-0.4); BILIRUBIN,TOTAL 0.3 mg/dL (0.2-1.3); BLOOD UREA NITROGEN 44 mg/dL (7-20); CALCIUM 8.6 mg/dL (8.4-10.2); CARBON DIOXIDE 17 mmol/L (22-30); CHLORIDE 105 mmol/L (98-107); CREATININE RESULT 3.48 mg/dL (0.52-1.25); GLUCOSE 112 mg/dL (75-110); POTASSIUM 3.8 mmol/L (3.6-5.0); SODIUM 135.3 mmol/L (137-145); TOTAL PROTEIN 6.5 g/dL (6.3-8.2)
--- NOTE | 2016-09-07 19:23 | PDOC PROGRESS REPORT ---
Subjective Progress Note for:: 09/06/16 Subjective:: Patient seen by the bedside he continues to improve with hydration, hopefully he will be discharged home in 24 hours Physical Exam Vital Signs: Temp Pulse Resp BP Pulse Ox 98.4 F 67 18 132/60 H 100 09/07/16 18:16 09/07/16 18:16 09/07/16 18:16 09/07/16 18:16 09/07/16 18:16 Intake & Output 09/06/16 09/07/16 09/08/16 06:59 06:59 06:59 Intake Total 3624 3341 1100 Output Total 100 450 200 Balance 3524 2891 900 Weight 78.7 kg 81.1 kg General appearance: PRESENT: no acute distress Eye exam: PRESENT: PERRLA Cardiovascular exam: PRESENT: +S1, +S2 GI/Abdominal exam: PRESENT: soft Neurological exam: PRESENT: alert Results Laboratory Results: 09/07/16 18:30 09/07/16 18:30 09/07/16 09/07/16 18:30 18:30 WBC 4.2 RBC 3.64 L Hgb 9.4 L Hct 28.7 L MCV 79 L MCH 25.8 L MCHC 32.7 RDW 17.4 H Plt Count 131 L Seg Neutrophils % 62.3 Lymphocytes % 23.4 Monocytes % 9.6 Eosinophils % 4.3 Basophils % 0.4 Absolute Neutrophils 2.6 Absolute Lymphocytes 1.0 Absolute Monocytes 0.4 Absolute Eosinophils 0.2 Absolute Basophils 0.0 Sodium 135.3 L Potassium 3.8 Chloride 105 Carbon Dioxide 17 L Anion Gap 13 BUN 44 H Creatinine 3.48 H Est GFR ( Amer) 21 L Est GFR (Non-Af Amer) 17 L Glucose 112 H Calcium 8.6 Total Bilirubin 0.3 AST 13 L ALT 18 L Alkaline Phosphatase 63 Total Protein 6.5 Albumin 3.4 L 09/03/16 09/03/16 09/03/16 21:06 21:06 21:06 Creatine Kinase 425 H CK-MB (CK-2) 0.58 Troponin I 0.057 NT-Pro-B Natriuret Pep 29 Assessment & Plan - Diagnosis (1) Hypertensive emergency Is this a current diagnosis for this admission?: Yes (2) Hypernatremia Is this a current diagnosis for this admission?: Yes (3) Acute kidney injury superimposed on chronic kidney disease Is this a current diagnosis for this admission?: Yes (4) Diarrhea Qualifiers: Diarrhea type: unspecified type Qualified Code(s): R19.7 - Diarrhea , unspecified Is this a current diagnosis for this admission?: Yes
--- NOTE | 2016-09-07 19:27 | PDOC DISCHARGE SUMMARY ---
General - Admit/Disc Date/PCP Admission Date/Primary Care Provider: 09/03/16 20:07 BETSY POOL MD Discharge Date: 09/07/16 - Discharge Diagnosis (1) Hypertensive emergency Is this a current diagnosis for this admission?: Yes (2) Hypernatremia Is this a current diagnosis for this admission?: Yes (3) Acute kidney injury superimposed on chronic kidney disease Is this a current diagnosis for this admission?: Yes (4) Diarrhea Is this a current diagnosis for this admission?: Yes (5) Anorexia Is this a current diagnosis for this admission?: YesSummary: The anorexia is most likely due to his chronic kidney disease - Additional Information Resuscitation Status: Full Code Discharge Activity: Activity As Tolerated Home Medications: Amlodipine Besylate [Norvasc 10 mg Tablet] 10 mg PO DAILY 09/03/16 Aspirin [Aspirin 81 mg Chewable Tablet] 81 mg PO DAILY 09/03/16 Atorvastatin Calcium [Lipitor 80 mg Tablet] 80 mg PO QHS 09/03/16 Carvedilol [Coreg 25 mg Tablet] 1 tab PO Q12 09/03/16 Clopidogrel Bisulfate [Plavix 75 mg Tablet] 75 mg PO DAILY 09/03/16 Cyanocobalamin (Vitamin B-12) [Vitamin B-12 SL 2500 mcg Tablet] 2,500 mcg SL DAILY 09/03/16 Hydralazine HCl [Apresoline 50 mg Tablet] 50 mg PO Q8 09/03/16 Isosorbide Mononitrate [Isosorbide Mononitrate ER] 30 mg PO DAILY 09/03/16 Megestrol Acetate 40 mg PO BID 09/03/16 Memantine HCl/Donepezil HCl [Namzaric 28 mg-10 mg Capsule] 1 cap PO QPM Nitroglycerin [Nitrostat 0.4 mg (1/150 Gr) Tabs 25/Bottle] 1 tab SL Q2 09/03/16 Oxycodone HCl [Oxy-Ir 5 mg Tablet] 10 mg PO DAILY 09/03/16 Oxycodone HCl [Oxycontin Sr 10 mg Tablet] 10 mg PO DAILY 09/03/16 Pantoprazole Sodium [Protonix] 40 mg PO DAILY 09/03/16 Pregabalin [Lyrica 75 mg Capsule] 150 mg PO Q12 09/03/16 Pregabalin [Lyrica 75 mg Capsule] 150 mg PO Q12 #0 capsule 09/07/16 History of Present Illness History of Present Illness: LUPE ZURITA is a 75 year old male with history of chronic kidney disease stage IV, hypertension, multiple myeloma in remission, he came to emergency room with family because he has not been eating for the last 5 days, anorexia, he also said he had diarrhea for the last couple of days. He was seen and evaluated in the emergency room. The initial blood work that was done including comprehensive metabolic panel was abnormal, serum sodium 151.4, serum creatinine 3.6, glucose 122 that was also associated hypertensive emergency the blood pressure was over 200 systolic. Family said he has not had food since last week . He has multiple comorbid conditions including history of AAA, status post endovascular grafting, mild cognitive impairment, hypernatremia is considered a poor prognostic sign because of hypernatremia is a strong stimulus for thirst and a normal functioning brain cannot maintain state of hypernatremia. Hospital Course Hospital Course: Patient was admitted into the hospital because of, hypernatremia, hypertensive emergency, acute kidney injury and diarrhea. He was treated with intravenous nitroglycerin infusion for the hypertensive emergency, he also added 5% dextrose for correction of the hyper.natremia patient is known to have baseline chronic kidney disease that was superimposed acute kidney injury which is prerenal, with hydration there was improvement in kidney function. He was ultimately transitioned to his p.o. medication for the control of his blood pressure, and he was slowly weaned off the nitroglycerin infusion. On admission he had loss of appetite is appetite improved on this admission Physical Exam Vital Signs: Temp Pulse Resp BP Pulse Ox 98.4 F 67 18 132/60 H 100 09/07/16 18:16 09/07/16 18:16 09/07/16 18:16 09/07/16 18:16 09/07/16 18:16 Intake & Output 09/06/16 09/07/16 09/08/16 06:59 06:59 06:59 Intake Total 3624 3341 1100 Output Total 100 450 200 Balance 3524 2891 900 Weight 78.7 kg 81.1 kg General appearance: PRESENT: no acute distress Head exam: PRESENT: atraumatic, normocephalic Neck exam: PRESENT: full ROM Cardiovascular exam: PRESENT: RRR, +S1, +S2 Vascular exam: PRESENT: normal capillary refill GI/Abdominal exam: PRESENT: normal bowel sounds, soft Rectal exam: PRESENT: deferred Neurological exam: PRESENT: alert. ABSENT: motor sensory deficit Skin exam: PRESENT: dry, intact, warm Results Laboratory Results: 09/07/16 18:30 09/07/16 18:30 09/07/16 09/07/16 18:30 18:30 WBC 4.2 RBC 3.64 L Hgb 9.4 L Hct 28.7 L MCV 79 L MCH 25.8 L MCHC 32.7 RDW 17.4 H Plt Count 131 L Seg Neutrophils % 62.3 Lymphocytes % 23.4 Monocytes % 9.6 Eosinophils % 4.3 Basophils % 0.4 Absolute Neutrophils 2.6 Absolute Lymphocytes 1.0 Absolute Monocytes 0.4 Absolute Eosinophils 0.2 Absolute Basophils 0.0 Sodium 135.3 L Potassium 3.8 Chloride 105 Carbon Dioxide 17 L Anion Gap 13 BUN 44 H Creatinine 3.48 H Est GFR ( Amer) 21 L Est GFR (Non-Af Amer) 17 L Glucose 112 H Calcium 8.6 Total Bilirubin 0.3 AST 13 L ALT 18 L Alkaline Phosphatase 63 Total Protein 6.5 Albumin 3.4 L 09/03/16 09/03/16 09/03/16 21:06 21:06 21:06 Creatine Kinase 425 H CK-MB (CK-2) 0.58 Troponin I 0.057 NT-Pro-B Natriuret Pep 29
== END 2016-09-07 19:50 | disposition home health service (06) | DRG 305 ==
LOC: ER 11:25 → UNDOADMIN 15:12 → EH 15:12 → 4W 20:02 → EH 20:02 → 4W 20:07 → 3N 22:27 → 4S 09-07 11:15
PROVIDERS: ADMIT Internal Medicine; ATTEND Internal Medicine
DX: I16.1 Hypertensive emergency (principal); N18.4 Chronic kidney disease, stage 4 (severe); N17.9 Acute kidney failure, unspecified; E87.0 Hyperosmolality and hypernatremia; C90.01 Multiple myeloma in remission; I12.9 Hypertensive chronic kidney disease with stage 1 through stage 4 chronic kidney disease, or unspecified chronic kidney disease; R19.7 Diarrhea, unspecified; R63.0 Anorexia; Z68.26 Body mass index [BMI] 26.0-26.9, adult; I25.10 Atherosclerotic heart disease of native coronary artery without angina pectoris; I25.2 Old myocardial infarction; E78.5 Hyperlipidemia, unspecified; R01.1 Cardiac murmur, unspecified; K21.9 Gastro-esophageal reflux disease without esophagitis; Z90.49 Acquired absence of other specified parts of digestive tract; Z79.899 Other long term (current) drug therapy; Z87.891 Personal history of nicotine dependence; Z83.3 Family history of diabetes mellitus; Z79.82 Long term (current) use of aspirin
CPT/HCPCS: 36415; 80048; 80053; 80076; 81001; 82140; 82150; 82550; 82553; 83690; 83735; 83880; 84100; 84439; 84443; 84484; 85025; 85610; 85730; 87040; 87077; 87086; 87088; 87186; 93005; 93010; 96374; 99285; J0360; J1644; J3490; J7030; J7060

== ENCOUNTER 2016-10-10 19:51 | Inpatient (IN) | payer MEDICARE ==
[2016-10-10] MEDS ORDERED: IPRATROPIUM/ALBUTEROL 0.5-2.5 MG/3 ML AMPUL NEB ONE (20:08)
[2016-10-10] MEDS ORDERED: METHYLPREDNISOLONE INJ 125 MG/2 ML SDV IV ONE (20:08)
--- NOTE | 2016-10-10 20:13 | ER Document Report ---
ED General - General Stated Complaint: WEAKNESS Time seen by provider: 20:05 Notes: Patient is a 75-year-old male that comes by EMS for chief complaint of cough and feeling progressively weaker for one week, he states he has started to cough up colored sputum, he also has some runny nose, he denies fever, he reports some shortness of breath. Patient denies chest pain, abdominal pain, headache, or any sources of pain. He is a former smoker, denies COPD. He lives at home with his family. Past medical history including chronic kidney disease, hypertension, CAD, multiple myeloma in remission, AAA graft, mild MR. TRAVEL OUTSIDE OF THE [place] IN LAST 30 DAYS: No - Related Data Allergies/Adverse Reactions: No Known Allergies Allergy (Verified 09/03/16 11:41) Home Medications: Current Home Medications Amlodipine Besylate [Norvasc 5 mg Tablet] 5 mg PO DAILY 10/10/16 [History] Cholecalciferol (Vitamin D3) [Vitamin D3 1000 Unit Tablet] 1,000 unit PO DAILY 10/10/16 [History] Cyanocobalamin (Vitamin B-12) [Vitamin B-12 1000 Mcg Tablet] 1,000 mcg PO DAILY 10/10/16 [History] Ferrous Sulfate [Feosol 325 mg Tablet] 325 mg PO DAILY 10/10/16 [History] Pregabalin [Lyrica] 150 mg PO Q12 10/10/16 [History] Vitamin E (Dl, Acetate) [Vitamin E 400 Unit Capsule] 400 unit PO DAILY 10/10/16 [History] Past Medical History - General Information source: Patient, Emergency Med Personnel - Social History Smoking Status: Former Smoker Frequency of alcohol use: None Drug Abuse: None Lives with: Family Family History: Reviewed & Not Pertinent, DM - Past Medical History Cardiac Medical History: Reports: Hx Coronary Artery Disease, Hx Heart Attack - 30 years ago, Hx Hypercholesterolemia, Hx Hypertension, Hx Heart Murmur Pulmonary Medical History: Reports: Hx Pneumonia Denies: Hx Tuberculosis Renal/ Medical History: Denies: Hx Peritoneal Dialysis GI Medical History: Reports: Hx Gastroesophageal Reflux Disease, Hx Ulcer Past Surgical History: Reports: Hx Abdominal Surgery - abdominal aneurysm repair , Hx Cholecystectomy, Hx Vascular Surgery - Abdominal aortic aneurysm repair. Denies: Hx Pacemaker - Immunizations Hx Diphtheria, Pertussis, Tetanus Vaccination: - Pt unsure Hx Pneumococcal Vaccination: 06/25/07 Review of Systems - Review of Systems Constitutional: See HPI EENT: See HPI Cardiovascular: No symptoms reported Respiratory: See HPI Gastrointestinal: No symptoms reported Genitourinary: No symptoms reported Male Genitourinary: No symptoms reported Musculoskeletal: No symptoms reported Skin: No symptoms reported Hematologic/Lymphatic: No symptoms reported Neurological/Psychological: No symptoms reported Physical Exam - Vital signs Vitals: Temp Pulse Resp BP Pulse Ox 98.9 F 80 24 H 180/85 H 91 L 10/10/16 20:05 10/10/16 20:05 10/10/16 20:05 10/10/16 20:05 10/10/16 20:05 Interpretation: Normal - General General appearance: Other - Patient appears somewhat under the weather, however he is alert and cooperative and does not appear to be in distress - HEENT Head: Normocephalic, Atraumatic Eyes: Normal Conjunctiva: Other - Small amount of discolored discharge noted at the medial canthus bilaterally, no significant injection, no persistent discharge Extraocular movements intact: Yes Eyelashes: Normal Pupils: PERRL Sinus: Normal Nasal: Normal Mouth/Lips: Normal Mucous membranes: Normal Pharynx: Erythema - Very mild Neck: Normal - Respiratory Respiratory status: Tachypnea - Mild tachypnea Chest status: Nontender Breath sounds: Decreased air movement - Decreased with scattered rhonchi and expiratory wheezes throughout, Nonproductive cough - Fairly frequent nonproductive cough on examination, Rhonchi, Wheezing Chest palpation: Normal - Cardiovascular Rhythm: Regular. No: Tachycardia Heart sounds: Normal auscultation, S1 appreciated, S2 appreciated Murmur: Yes - Abdominal Inspection: Normal Distension: No distension Bowel sounds: Normal Tenderness: Nontender. No: Tender Organomegaly: No organomegaly - Back Back: Normal, Nontender - Extremities General upper extremity: Normal inspection, Nontender, Normal color, Normal ROM , Normal temperature General lower extremity: Other - no swelling, good distal pulses/sensation, able to lift both legs off the bed but not able to ambulate at initial evaluation - Neurological Neuro grossly intact: Yes Cognition: Normal Orientation: AAOx4 Ricky Coma Scale Eye Opening: Spontaneous [place] Coma Scale Verbal: Oriented [place] Coma Scale Motor: Obeys Commands Ricky Coma Scale Total: 15 Speech: Normal Motor strength normal: LUE, RUE, LLE, RLE Sensory: Normal - Psychological Associated symptoms: Normal affect, Normal mood - Skin Skin Temperature: Warm Skin Moisture: Dry Skin Color: Normal Course - Re-evaluation Re-evalutation: On examination patient with tachypnea, wheezing, rhonchi, mild hypoxia on room air. Patient placed on nasal cannula oxygen, provided with DuoNeb, Solu-Medrol , on reexamination wheezing has almost completely resolved, tachypnea has resolved, patient is resting much more comfortably. No leukocytosis, however chest x-ray with obvious right-sided pneumonia per my read, confirmed infiltrate by radiologist. Patient clinically presents with pneumonia symptoms. Patient is very weak, he is unable to stand. Patient was hospitalized about 30 days ago, as a result he will be covered for hospital- acquired pneumonia. Blood cultures pending. Blood gas does not show elevated CO2 or low oxygen. Renal functioning is slightly worse than before with patient 's chronic kidney disease, bicarbonate is low. Potassium is normal. Patient given 500 cc bolus. Because of weakness, pneumonia, comorbidities, patient was discussed with family and also with his provider Dr. Rock. Discussed with Dr. Shook. Patient will be admitted to the hospital. - Vital Signs Vital signs: Temp Pulse Resp BP Pulse Ox 98.9 F 80 18 144/74 H 97 10/10/16 20:05 10/10/16 20:05 10/10/16 23:01 10/10/16 23:01 10/10/16 23:01 - Laboratory Result Diagrams: 10/10/16 21:00 10/10/16 21:43 Laboratory results interpreted by me: 10/10/16 10/10/16 10/10/16 21:00 21:43 21:43 RBC 3.94 L Hgb 9.8 L Hct 30.5 L MCV 78 L MCH 25.0 L RDW 18.0 H Seg Neutrophils % 78.2 H Lymphocytes % 9.2 L VBG pCO2 34.1 L VBG HCO3 17.2 L Sodium 149.7 H Chloride 114 H Carbon Dioxide 17 L BUN 48 H Creatinine 4.87 H Est GFR ( Amer) 14 L Est GFR (Non-Af Amer) 12 L Glucose 130 H Direct Bilirubin 0.6 H Discharge - Discharge Clinical Impression: Weakness, Productive cough, [id number] renal failure Pneumonia Qualifiers: Pneumonia type: due to unspecified organism Laterality: right Lung location: unspecified part of lung Qualified Code(s): J18.9 - Pneumonia, unspecified organism Condition: Stable Disposition: ADMITTED INPATIENT Admitting Provider: [facility] Admitted: Telemetry
[2016-10-10 21:14] LABS: ABSOLUTE LYMPHOCYTES (AUTO) 0.9 10^3/uL (0.5-4.7); ABSOLUTE MONOCYTES (AUTO) 1.1 10^3/uL (0.1-1.4); ABSOLUTE NEUT (AUTO) 7.6 10^3/uL (1.7-8.2); BASOPHILS % (AUTO) 0.5 % (0-2); EOSINOPHILS % (AUTO) 0.3 % (0-6); HEMATOCRIT 30.5 % (37.9-51.0); HEMOGLOBIN 9.8 g/dL (13.5-17.0); HGB HCT DIFFERENCE -1.1; LYMPHOCYTES % (AUTO) 9.2 % (13-45); MEAN CORPUSCULAR HGB CONC 32.2 g/dL (32.0-36.0); MEAN CORPUSCULAR VOLUME 78 fl (80-97); MONOCYTES % (AUTO) 11.8 % (3-13); RED BLOOD COUNT 3.94 10^6/uL (4.35-5.55); SEGMENTED NEUTROPHILS % (AUTO) 78.2 % (42-78); WHITE BLOOD COUNT 9.7 10^3/uL (4.0-10.5)
--- NOTE | 2016-10-10 21:16 | EKG REPORT ---
SEVERITY:- ABNORMAL ECG - SINUS RHYTHM LEFT ANTERIOR FASCICULAR BLOCK BORDERLINE PROLONGED QT INTERVAL : Confirmed by: Tonia Diaz 10-Oct-2016 21:15:10
[2016-10-10] MEDS ORDERED: LEVOFLOXACIN 750 MG/D5W RTU 150 ML IV ONE (21:19)
[2016-10-10 22:00] LABS: VENOUS BLOOD BASE EXCESS -7.6 mmol/L; VENOUS BLOOD HCO3 17.2 mmol/L (20-32); VENOUS BLOOD PCO2 34.1 mmHg (35-63); VENOUS BLOOD PH 7.32 (7.30-7.42)
[2016-10-10 22:19] LABS: ALANINE AMINOTRANSFERASE 22 U/L (21-72); ALBUMIN 3.6 g/dL (3.5-5.0); ALKALINE PHOSPHATASE 91 U/L (38-126); ASPARTATE AMINO TRANSFERASE 21 U/L (17-59); BILIRUBIN,DIRECT 0.6 mg/dL (0.0-0.4); BILIRUBIN,TOTAL 0.8 mg/dL (0.2-1.3); BLOOD UREA NITROGEN 48 mg/dL (7-20); CALCIUM 8.8 mg/dL (8.4-10.2); CREATINE KINASE 88 U/L (55-170); CREATININE RESULT 4.87 mg/dL (0.52-1.25); GLUCOSE 130 mg/dL (75-110)
[2016-10-10 22:28] LABS: ANION GAP 19 (5-19); CARBON DIOXIDE 17 mmol/L (22-30); CHLORIDE 114 mmol/L (98-107); SODIUM 149.7 mmol/L (137-145)
[2016-10-10 22:31] LABS: CREATINE KINASE MB 1.32 ng/mL (<4.55); TROPONIN I 0.06 ng/mL
[2016-10-10] MEDS ORDERED: CEFEPIME 2 GM/D5W RTU 50 ML IV ONE (22:52)
[2016-10-10] MEDS ORDERED: NORMAL SALINE 1000 ML 500 ML IV ONE (23:41)
[2016-10-11] MEDS ORDERED: IPRATROPIUM/ALBUTEROL 0.5-2.5 MG/3 ML AMPUL NEB PRN (06:16)
[2016-10-11] MEDS: LANSOPRAZOLE 30 MG TAB.RAP.DR PO SCH (07:03)
[2016-10-11] MEDS: VITAMIN E (DL, ACETATE) 400 UNIT CAPSULE PO SCH (11:00)
[2016-10-11] MEDS: AMLODIPINE BESYLATE 5 MG TABLET PO SCH (11:01)
[2016-10-11] MEDS: CHOLECALCIFEROL (D3) 1,000 UNIT TABLET PO SCH (11:01)
[2016-10-11] MEDS: MEGESTROL ACETATE 20 MG TABLET PO SCH ×2 (11:01→17:43)
[2016-10-11] MEDS: OXYCODONE HCL SR 10 MG TABLET PO SCH (11:01)
[2016-10-11] MEDS: CARVEDILOL 12.5 MG TABLET PO SCH ×2 (11:02→22:42)
[2016-10-11] MEDS: ASPIRIN 81 MG TABLET, CHEWABLE PO SCH (11:02)
[2016-10-11] MEDS: ISOSORBIDE MONONITRATE 30 MG TAB.ER.24H PO SCH (11:33)
[2016-10-11] MEDS: CYANOCOBALAMIN (VITAMIN B-12) 1,000 MCG TABLET PO SCH (11:34)
[2016-10-11] MEDS: FERROUS SULFATE 325 MG TABLET PO SCH (11:34)
[2016-10-11] MEDS: HYDRALAZINE HCL 50 MG TABLET PO SCH ×2 (11:34→22:45)
[2016-10-11] MEDS: PREGABALIN 75 MG CAPSULE PO SCH ×2 (11:35→22:41)
[2016-10-11] MEDS: AZITHROMYCIN 500 MG in DEXTROSE 5%-WATER 250 ML IV SCH (12:54)
[2016-10-11] MEDS: CEFEPIME HCL 2 GM in DEXTROSE 5%-WATER 50 ML IV SCH (15:25)
[2016-10-11 19:23] LABS: HEMATOCRIT 27.6 % (37.9-51.0); HGB HCT DIFFERENCE -0.6; MEAN CORPUSCULAR HEMOGLOBIN 25.2 pg (27.0-33.4); MEAN CORPUSCULAR HGB CONC 32.5 g/dL (32.0-36.0); MEAN CORPUSCULAR VOLUME 78 fl (80-97); RED BLOOD COUNT 3.56 10^6/uL (4.35-5.55); RED CELL DISTRIBUTION WIDTH 18.8 % (11.5-14.0); WHITE BLOOD COUNT 7.4 10^3/uL (4.0-10.5)
[2016-10-11 19:32] LABS: PROTHROMBIN TIME 17.5 SEC (11.4-15.4)
[2016-10-11 19:33] LABS: PARTIAL THROMBOPLASTIN TIME 42.1 SEC (23.5-35.8)
[2016-10-11 19:42] LABS: CREATININE RESULT 4.72 mg/dL (0.52-1.25)
--- NOTE | 2016-10-11 20:59 | PDOC H&P ---
History of Present Illness Admission Date/PCP: 10/10/16 23:10 BETSY POOL MD History of Present Illness: LUPE ZURITA is a 75 year old male, is well-known to me he can emergency room because of cough, shortness of breath, chest x-ray was done he showed patchy consolidation in the right lung, multifocal type. He has multiple comorbid conditions including chronic kidney disease stage IV, hypertension, mild dementia, abdominal aortic aneurysm status post repair, history of multiple myeloma in remission, chronic pain syndrome Past Medical History Cardiac Medical History: Reports: Coronary Artery Disease, Myocardial Infarction - 30 years ago, Hyperlipidema, Hypertension, Heart Murmur Pulmonary Medical History: Reports: Pneumonia Malignancy Medical History: Reports: Other - Multiple myeloma in remission GI Medical History: Reports: Gastroesophageal Reflux Disease Past Surgical History Past Surgical History: Reports: Cholecystectomy, Vascular Surgery - Abdominal aortic aneurysm repair Denies: Pacemaker Social History Lives with: Family Smoking Status: Former Smoker Frequency of Alcohol Use: None Hx Recreational Drug Use: No Drugs: None Hx Prescription Drug Abuse: No - Advance Directive Resuscitation Status: Full Code Family History Family History: Reviewed & Not Pertinent, DM Parental Family History Reviewed: Yes Children Family History Reviewed: Yes Sibling(s) Family History Reviewed.: Yes Medication/Allergy Home Medications: Aspirin [Aspirin 81 mg Chewable Tablet] 81 mg PO DAILY 09/03/16 Atorvastatin Calcium [Lipitor 80 mg Tablet] 80 mg PO QHS 09/03/16 Carvedilol [Coreg 25 mg Tablet] 25 mg PO Q12 09/03/16 Hydralazine HCl [Apresoline 50 mg Tablet] 50 mg PO Q12 09/03/16 Isosorbide Mononitrate [Isosorbide Mononitrate ER] 30 mg PO DAILY 09/03/16 Megestrol Acetate 40 mg PO BID 09/03/16 Memantine HCl/Donepezil HCl [Namzaric 28 mg-10 mg Capsule] 1 cap PO QPM Oxycodone HCl [Oxycontin Sr 10 mg Tablet] 10 mg PO DAILY 09/03/16 Pantoprazole Sodium [Protonix] 40 mg PO DAILY 09/03/16 Amlodipine Besylate [Norvasc 5 mg Tablet] 5 mg PO DAILY 10/10/16 Cholecalciferol (Vitamin D3) [Vitamin D3 1000 Unit Tablet] 1,000 unit PO DAILY 10/10/16 Cyanocobalamin (Vitamin B-12) [Vitamin B-12 1000 Mcg Tablet] 1,000 mcg PO DAILY 10/10/16 Ferrous Sulfate [Feosol 325 mg Tablet] 325 mg PO DAILY 10/10/16 Pregabalin [Lyrica] 150 mg PO Q12 10/10/16 Vitamin E (Dl, Acetate) [Vitamin E 400 Unit Capsule] 400 unit PO DAILY 10/10/16 Allergies/Adverse Reactions: No Known Allergies Allergy (Verified 09/03/16 11:41) Review of Systems Constitutional: ABSENT: chills, fever(s), headache(s), weight gain, weight loss Eyes: ABSENT: visual disturbances Ears: ABSENT: hearing changes Cardiovascular: ABSENT: chest pain, dyspnea on exertion, edema, orthropnea, palpitations Respiratory: PRESENT: cough Gastrointestinal: ABSENT: abdominal pain, constipation, diarrhea, hematemesis, hematochezia, nausea, vomiting Genitourinary: ABSENT: dysuria, hematuria Musculoskeletal: ABSENT: joint swelling Integumentary: ABSENT: rash, wounds Neurological: ABSENT: abnormal gait, abnormal speech, confusion, dizziness, focal weakness, syncope Psychiatric: ABSENT: anxiety, depression, homidical ideation, suicidal ideation Endocrine: ABSENT: cold intolerance, heat intolerance, menstrual abnormalities, polydipsia, polyuria Hematologic/Lymphatic: ABSENT: easy bleeding, easy bruising, lymphadenopathy Physical Exam Vital Signs: Temp Pulse Resp BP Pulse Ox 98.0 F 72 20 126/51 H 98 10/11/16 15:28 10/11/16 15:28 10/11/16 15:28 10/11/16 15:28 10/11/16 15:28 Intake & Output 10/10/16 10/11/16 10/12/16 06:59 06:59 06:59 Intake Total 0 650 Output Total 300 Balance 0 350 Weight 75.6 kg General appearance: PRESENT: mild distress Head exam: PRESENT: atraumatic, normocephalic Eye exam: PRESENT: PERRLA Mouth exam: PRESENT: moist Neck exam: PRESENT: full ROM Respiratory exam: PRESENT: crackles Cardiovascular exam: PRESENT: RRR, +S1, +S2 GI/Abdominal exam: PRESENT: normal bowel sounds Rectal exam: PRESENT: deferred Neurological exam: PRESENT: alert, awake, oriented to person, oriented to place , oriented to time, oriented to situation, CN II-XII grossly intact Psychiatric exam: PRESENT: appropriate affect, normal mood Skin exam: PRESENT: dry, intact, warm Results Laboratory Results: 10/11/16 19:10 10/11/16 19:10 10/11/16 10/11/16 19:10 19:10 WBC 7.4 RBC 3.56 L Hgb 9.0 L Hct 27.6 L MCV 78 L MCH 25.2 L MCHC 32.5 RDW 18.8 H Plt Count 151 Creatinine 4.72 H Est GFR ( Amer) 15 L Est GFR (Non-Af Amer) 12 L Impressions: Chest X-Ray 10/10/16 20:06 IMPRESSION: Patchy consolidation in the right lung, multifocal. Assessment & Plan - Diagnosis (1) Multifocal pneumonia Is this a current diagnosis for this admission?: YesPlan: Patient is admitted to be treated for community-acquired pneumonia (2) Pneumonia Qualifiers: Pneumonia type: due to unspecified organism Laterality: right Lung location: middle lobe of lung Qualified Code(s): J18.1 - Lobar pneumonia , unspecified organism Is this a current diagnosis for this admission?: Yes
[2016-10-11] MEDS: ATORVASTATIN CALCIUM 80 MG TABLET PO SCH (22:40)
[2016-10-11] MEDS: HEPARIN SOD (PORCINE) 5,000 UNIT/ML 1 ML SYRINGE SUBCUT SCH (22:46)
[2016-10-12] MEDS: IPRATROPIUM/ALBUTEROL 0.5-2.5 MG/3 ML AMPUL NEB PRN ×2 (00:46→22:49)
[2016-10-12] MEDS: HEPARIN SOD (PORCINE) 5,000 UNIT/ML 1 ML SYRINGE SUBCUT SCH ×3 (05:08→21:54)
[2016-10-12] MEDS: LANSOPRAZOLE 30 MG TAB.RAP.DR PO SCH (05:30)
[2016-10-12] MEDS: ASPIRIN 81 MG TABLET, CHEWABLE PO SCH (10:38)
[2016-10-12] MEDS: OXYCODONE HCL SR 10 MG TABLET PO SCH (10:38)
[2016-10-12] MEDS: PREGABALIN 75 MG CAPSULE PO SCH ×2 (10:38→21:40)
[2016-10-12] MEDS: MEGESTROL ACETATE 20 MG TABLET PO SCH ×2 (10:38→18:03)
[2016-10-12] MEDS: FERROUS SULFATE 325 MG TABLET PO SCH (10:39)
[2016-10-12] MEDS: CARVEDILOL 12.5 MG TABLET PO SCH ×2 (10:39→21:41)
[2016-10-12] MEDS: CHOLECALCIFEROL (D3) 1,000 UNIT TABLET PO SCH (10:39)
[2016-10-12] MEDS: AMLODIPINE BESYLATE 5 MG TABLET PO SCH (10:39)
[2016-10-12] MEDS: AZITHROMYCIN 500 MG in DEXTROSE 5%-WATER 250 ML IV SCH (10:40)
[2016-10-12] MEDS: ISOSORBIDE MONONITRATE 30 MG TAB.ER.24H PO SCH (10:40)
[2016-10-12] MEDS: CEFEPIME HCL 2 GM in DEXTROSE 5%-WATER 50 ML IV SCH (10:40)
[2016-10-12] MEDS: HYDRALAZINE HCL 50 MG TABLET PO SCH ×2 (10:40→21:41)
[2016-10-12] MEDS: CYANOCOBALAMIN (VITAMIN B-12) 1,000 MCG TABLET PO SCH (10:40)
[2016-10-12] MEDS: VITAMIN E (DL, ACETATE) 400 UNIT CAPSULE PO SCH (10:42)
[2016-10-12 15:18] LABS: ABSOLUTE LYMPHOCYTES (AUTO) 1.1 10^3/uL (0.5-4.7); ABSOLUTE MONOCYTES (AUTO) 0.8 10^3/uL (0.1-1.4); ABSOLUTE NEUT (AUTO) 12.4 10^3/uL (1.7-8.2); BASOPHILS % (AUTO) 0.1 % (0-2); HEMATOCRIT 26.3 % (37.9-51.0); HEMOGLOBIN 8.6 g/dL (13.5-17.0); HGB HCT DIFFERENCE -0.5; LYMPHOCYTES % (AUTO) 7.7 % (13-45); MEAN CORPUSCULAR HEMOGLOBIN 25.1 pg (27.0-33.4); MEAN CORPUSCULAR HGB CONC 32.7 g/dL (32.0-36.0); MEAN CORPUSCULAR VOLUME 77 fl (80-97); MONOCYTES % (AUTO) 5.8 % (3-13); RED BLOOD COUNT 3.42 10^6/uL (4.35-5.55); RED CELL DISTRIBUTION WIDTH 18.3 % (11.5-14.0); SEGMENTED NEUTROPHILS % (AUTO) 86.4 % (42-78); WHITE BLOOD COUNT 14.4 10^3/uL (4.0-10.5)
[2016-10-12 15:41] LABS: ALANINE AMINOTRANSFERASE 22 U/L (21-72); ALKALINE PHOSPHATASE 67 U/L (38-126); ANION GAP 16 (5-19); ASPARTATE AMINO TRANSFERASE 17 U/L (17-59); BILIRUBIN,DIRECT 0.4 mg/dL (0.0-0.4); BILIRUBIN,TOTAL 0.4 mg/dL (0.2-1.3); BLOOD UREA NITROGEN 53 mg/dL (7-20); CARBON DIOXIDE 17 mmol/L (22-30); CHLORIDE 110 mmol/L (98-107); CREATININE RESULT 4.94 mg/dL (0.52-1.25); GLUCOSE 179 mg/dL (75-110); POTASSIUM 4.2 mmol/L (3.6-5.0); SODIUM 143.1 mmol/L (137-145); TOTAL PROTEIN 6.7 g/dL (6.3-8.2)
--- NOTE | 2016-10-12 20:49 | PDOC PROGRESS REPORT ---
Subjective Progress Note for:: 10/12/16 Subjective:: Patient was seen by the bedside he was admitted yesterday because of acquired pneumonia sputum culture grew haemophilus influenza Physical Exam Vital Signs: Temp Pulse Resp BP Pulse Ox 98.2 F 71 18 148/63 H 99 10/12/16 19:38 10/12/16 19:38 10/12/16 19:38 10/12/16 19:38 10/12/16 19:38 Intake & Output 10/11/16 10/12/16 10/13/16 06:59 06:59 06:59 Intake Total 0 1116 560 Output Total 700 Balance 0 416 560 Weight 75.6 kg General appearance: PRESENT: mild distress Eye exam: PRESENT: PERRLA Respiratory exam: PRESENT: crackles Cardiovascular exam: PRESENT: +S1, +S2 GI/Abdominal exam: PRESENT: soft Neurological exam: PRESENT: alert Results Laboratory Results: 10/12/16 15:05 10/12/16 15:05 10/12/16 10/12/16 15:05 15:05 WBC 14.4 H RBC 3.42 L Hgb 8.6 L Hct 26.3 L MCV 77 L MCH 25.1 L MCHC 32.7 RDW 18.3 H Plt Count 160 Seg Neutrophils % 86.4 H Lymphocytes % 7.7 L Monocytes % 5.8 Eosinophils % 0.0 Basophils % 0.1 Absolute Neutrophils 12.4 H Absolute Lymphocytes 1.1 Absolute Monocytes 0.8 Absolute Eosinophils 0.0 Absolute Basophils 0.0 Sodium 143.1 Potassium 4.2 Chloride 110 H Carbon Dioxide 17 L Anion Gap 16 BUN 53 H Creatinine 4.94 H Est GFR ( Amer) 14 L Est GFR (Non-Af Amer) 11 L Glucose 179 H Calcium 8.0 L Total Bilirubin 0.4 AST 17 ALT 22 Alkaline Phosphatase 67 Total Protein 6.7 Albumin 3.0 L Impressions: Chest X-Ray 10/10/16 20:06 IMPRESSION: Patchy consolidation in the right lung, multifocal. Assessment & Plan - Diagnosis (1) Multifocal pneumonia Is this a current diagnosis for this admission?: YesPlan: Continue IV antibiotic (2) Pneumonia Qualifiers: Pneumonia type: due to unspecified organism Laterality: right Lung location: middle lobe of lung Qualified Code(s): J18.1 - Lobar pneumonia , unspecified organism Is this a current diagnosis for this admission?: Yes
[2016-10-12] MEDS: ATORVASTATIN CALCIUM 80 MG TABLET PO SCH (21:41)
[2016-10-13] MEDS: HEPARIN SOD (PORCINE) 5,000 UNIT/ML 1 ML SYRINGE SUBCUT SCH ×3 (05:38→22:08)
[2016-10-13] MEDS: LANSOPRAZOLE 30 MG TAB.RAP.DR PO SCH (06:16)
[2016-10-13 08:05] LABS: ABSOLUTE LYMPHOCYTES (AUTO) 1.6 10^3/uL (0.5-4.7); ABSOLUTE NEUT (AUTO) 10.3 10^3/uL (1.7-8.2); BASOPHILS % (AUTO) 0.1 % (0-2); EOSINOPHILS % (AUTO) 0.3 % (0-6); HEMATOCRIT 26.3 % (37.9-51.0); HEMOGLOBIN 8.6 g/dL (13.5-17.0); HGB HCT DIFFERENCE -0.5; LYMPHOCYTES % (AUTO) 12.6 % (13-45); MEAN CORPUSCULAR HEMOGLOBIN 24.9 pg (27.0-33.4); MEAN CORPUSCULAR HGB CONC 32.6 g/dL (32.0-36.0); MEAN CORPUSCULAR VOLUME 76 fl (80-97); MONOCYTES % (AUTO) 7.6 % (3-13); RED BLOOD COUNT 3.45 10^6/uL (4.35-5.55); RED CELL DISTRIBUTION WIDTH 18.1 % (11.5-14.0); SEGMENTED NEUTROPHILS % (AUTO) 79.4 % (42-78)
[2016-10-13 08:28] LABS: ALANINE AMINOTRANSFERASE 24 U/L (21-72); ALBUMIN 2.8 g/dL (3.5-5.0); ALKALINE PHOSPHATASE 64 U/L (38-126); ANION GAP 15 (5-19); ASPARTATE AMINO TRANSFERASE 17 U/L (17-59); BILIRUBIN,DIRECT 0.2 mg/dL (0.0-0.4); BILIRUBIN,TOTAL 0.3 mg/dL (0.2-1.3); BLOOD UREA NITROGEN 57 mg/dL (7-20); CALCIUM 8.2 mg/dL (8.4-10.2); CARBON DIOXIDE 18 mmol/L (22-30); CHLORIDE 111 mmol/L (98-107); CREATININE RESULT 4.67 mg/dL (0.52-1.25); GLUCOSE 91 mg/dL (75-110); POTASSIUM 3.8 mmol/L (3.6-5.0); SODIUM 144.3 mmol/L (137-145); TOTAL PROTEIN 6.1 g/dL (6.3-8.2)
[2016-10-13] MEDS: AZITHROMYCIN 500 MG in DEXTROSE 5%-WATER 250 ML IV SCH (09:41)
[2016-10-13] MEDS: CEFEPIME HCL 2 GM in DEXTROSE 5%-WATER 50 ML IV SCH (09:42)
[2016-10-13] MEDS: CYANOCOBALAMIN (VITAMIN B-12) 1,000 MCG TABLET PO SCH (09:43)
[2016-10-13] MEDS: PREGABALIN 75 MG CAPSULE PO SCH ×2 (09:43→22:07)
[2016-10-13] MEDS: FERROUS SULFATE 325 MG TABLET PO SCH (09:43)
[2016-10-13] MEDS: ASPIRIN 81 MG TABLET, CHEWABLE PO SCH (09:43)
[2016-10-13] MEDS: CARVEDILOL 12.5 MG TABLET PO SCH ×2 (09:43→22:07)
[2016-10-13] MEDS: HYDRALAZINE HCL 50 MG TABLET PO SCH ×2 (09:44→22:07)
[2016-10-13] MEDS: MEGESTROL ACETATE 20 MG TABLET PO SCH ×2 (09:44→18:07)
[2016-10-13] MEDS: AMLODIPINE BESYLATE 5 MG TABLET PO SCH (09:45)
[2016-10-13] MEDS: VITAMIN E (DL, ACETATE) 400 UNIT CAPSULE PO SCH (09:45)
[2016-10-13] MEDS: ISOSORBIDE MONONITRATE 30 MG TAB.ER.24H PO SCH (09:45)
[2016-10-13] MEDS: CHOLECALCIFEROL (D3) 1,000 UNIT TABLET PO SCH (09:45)
[2016-10-13] MEDS: OXYCODONE HCL SR 10 MG TABLET PO SCH (09:45)
--- NOTE | 2016-10-13 17:06 | PDOC PROGRESS REPORT ---
Subjective Progress Note for:: 10/13/16 Subjective:: He has chronic kidney disease stage IV, he was admitted because of hemophilius influenza the pneumonia of the right lung he complaint of insomnia Physical Exam Vital Signs: Temp Pulse Resp BP Pulse Ox 98.1 F 71 17 138/60 H 100 10/13/16 15:09 10/13/16 15:09 10/13/16 15:09 10/13/16 15:09 10/13/16 15:09 Intake & Output 10/12/16 10/13/16 10/14/16 06:59 06:59 06:59 Intake Total 1116 1240 360 Output Total 700 200 200 Balance 416 1040 160 General appearance: PRESENT: no acute distress Eye exam: PRESENT: PERRLA Respiratory exam: PRESENT: rhonchi Cardiovascular exam: PRESENT: +S1, +S2 GI/Abdominal exam: PRESENT: soft Neurological exam: PRESENT: alert Results Laboratory Results: 10/13/16 07:28 10/13/16 07:28 10/13/16 10/13/16 07:28 07:28 WBC 13.0 H RBC 3.45 L Hgb 8.6 L Hct 26.3 L MCV 76 L MCH 24.9 L MCHC 32.6 RDW 18.1 H Plt Count 170 Seg Neutrophils % 79.4 H Lymphocytes % 12.6 L Monocytes % 7.6 Eosinophils % 0.3 Basophils % 0.1 Absolute Neutrophils 10.3 H Absolute Lymphocytes 1.6 Absolute Monocytes 1.0 Absolute Eosinophils 0.0 Absolute Basophils 0.0 Sodium 144.3 Potassium 3.8 Chloride 111 H Carbon Dioxide 18 L Anion Gap 15 BUN 57 H Creatinine 4.67 H Est GFR ( Amer) 15 L Est GFR (Non-Af Amer) 12 L Glucose 91 Calcium 8.2 L Total Bilirubin 0.3 AST 17 ALT 24 Alkaline Phosphatase 64 Total Protein 6.1 L Albumin 2.8 L Impressions: Chest X-Ray 10/10/16 20:06 IMPRESSION: Patchy consolidation in the right lung, multifocal. Assessment & Plan - Diagnosis (1) Haemophilus influenzae pneumonia Qualifiers: Laterality: right Lung location: middle lobe of lung Qualified Code(s): J14 - Pneumonia due to Hemophilus influenzae Is this a current diagnosis for this admission?: YesPlan: We will continue present IV antibiotic (2) Multifocal pneumonia Is this a current diagnosis for this admission?: Yes (3) Chronic kidney disease, stage IV (severe) Is this a current diagnosis for this admission?: Yes
[2016-10-13] MEDS: ATORVASTATIN CALCIUM 80 MG TABLET PO SCH (22:07)
[2016-10-13] MEDS: DOXEPIN HCL 10 MG CAPSULE PO SCH (22:07)
[2016-10-14] MEDS: HEPARIN SOD (PORCINE) 5,000 UNIT/ML 1 ML SYRINGE SUBCUT SCH ×3 (06:00→21:18)
[2016-10-14] MEDS: LANSOPRAZOLE 30 MG TAB.RAP.DR PO SCH (06:05)
[2016-10-14 08:30] LABS: HEMATOCRIT 27.7 % (37.9-51.0); HGB HCT DIFFERENCE -0.7; MEAN CORPUSCULAR HEMOGLOBIN 24.7 pg (27.0-33.4); MEAN CORPUSCULAR HGB CONC 32.4 g/dL (32.0-36.0); MEAN CORPUSCULAR VOLUME 76 fl (80-97); RED BLOOD COUNT 3.63 10^6/uL (4.35-5.55); RED CELL DISTRIBUTION WIDTH 18.1 % (11.5-14.0); WHITE BLOOD COUNT 11.9 10^3/uL (4.0-10.5)
[2016-10-14 08:49] LABS: BASOPHILS % (MANUAL) 0 % (0-2); EOSINOPHILS % (MANUAL) 0 % (0-6); LYMPHOCYTES % (MANUAL) 13 % (13-45); TOTAL CELLS COUNTED 100
[2016-10-14 08:50] LABS: HYPOCHROMASIA SLIGHT
[2016-10-14 08:51] LABS: ANISOCYTOSIS 1+; BURR CELLS SLIGHT; HELMET CELLS SLIGHT; MICROCYTOSIS 1+; OVALOCYTES SLIGHT; POIKILOCYTOSIS 1+
[2016-10-14 08:55] LABS: ALANINE AMINOTRANSFERASE 19 U/L (21-72); ALBUMIN 2.8 g/dL (3.5-5.0); ALKALINE PHOSPHATASE 59 U/L (38-126); ANION GAP 16 (5-19); ASPARTATE AMINO TRANSFERASE 18 U/L (17-59); BILIRUBIN,DIRECT 0.2 mg/dL (0.0-0.4); BILIRUBIN,TOTAL 0.3 mg/dL (0.2-1.3); BLOOD UREA NITROGEN 63 mg/dL (7-20); CALCIUM 8.5 mg/dL (8.4-10.2); CARBON DIOXIDE 17 mmol/L (22-30); CHLORIDE 113 mmol/L (98-107); CREATININE RESULT 4.64 mg/dL (0.52-1.25); GLUCOSE 86 mg/dL (75-110); POTASSIUM 4.2 mmol/L (3.6-5.0); SODIUM 146.1 mmol/L (137-145); TOTAL PROTEIN 6.2 g/dL (6.3-8.2)
[2016-10-14] MEDS: AZITHROMYCIN 500 MG in DEXTROSE 5%-WATER 250 ML IV SCH (09:39)
[2016-10-14] MEDS: CEFEPIME HCL 2 GM in DEXTROSE 5%-WATER 50 ML IV SCH (09:39)
[2016-10-14] MEDS: CARVEDILOL 12.5 MG TABLET PO SCH ×2 (09:40→21:12)
[2016-10-14] MEDS: PREGABALIN 75 MG CAPSULE PO SCH ×2 (09:40→21:12)
[2016-10-14] MEDS: VITAMIN E (DL, ACETATE) 400 UNIT CAPSULE PO SCH (09:40)
[2016-10-14] MEDS: ASPIRIN 81 MG TABLET, CHEWABLE PO SCH (09:40)
[2016-10-14] MEDS: OXYCODONE HCL SR 10 MG TABLET PO SCH (09:41)
[2016-10-14] MEDS: CYANOCOBALAMIN (VITAMIN B-12) 1,000 MCG TABLET PO SCH (09:41)
[2016-10-14] MEDS: CHOLECALCIFEROL (D3) 1,000 UNIT TABLET PO SCH (09:42)
[2016-10-14] MEDS: MEGESTROL ACETATE 20 MG TABLET PO SCH ×2 (09:42→17:46)
[2016-10-14] MEDS: ISOSORBIDE MONONITRATE 30 MG TAB.ER.24H PO SCH (09:42)
[2016-10-14] MEDS: HYDRALAZINE HCL 50 MG TABLET PO SCH ×2 (09:42→21:12)
[2016-10-14] MEDS: FERROUS SULFATE 325 MG TABLET PO SCH (09:43)
[2016-10-14] MEDS: AMLODIPINE BESYLATE 5 MG TABLET PO SCH (09:43)
[2016-10-14] MEDS: IPRATROPIUM/ALBUTEROL 0.5-2.5 MG/3 ML AMPUL NEB PRN (14:51)
--- NOTE | 2016-10-14 18:14 | PDOC PROGRESS REPORT ---
Subjective Progress Note for:: 10/14/16 Subjective:: The nurses said he was very weak and it took many hospital staff to transferring from bed to chair, he may need rehabilitation on discharge. His GFR is 14-15 consistent with CKD stage V though no immediate need for renal replacement therapy, he has been following with Dr. Mckeon nephrology I will get consultation from her Physical Exam Vital Signs: Temp Pulse Resp BP Pulse Ox 98.3 F 84 15 144/86 H 97 10/14/16 15:40 10/14/16 15:40 10/14/16 15:40 10/14/16 15:40 10/14/16 15:40 Intake & Output 10/13/16 10/14/16 10/15/16 06:59 06:59 06:59 Intake Total 1240 1450 360 Output Total 200 200 Balance 1040 1250 360 General appearance: PRESENT: no acute distress Eye exam: PRESENT: PERRLA Respiratory exam: PRESENT: crackles, rhonchi Cardiovascular exam: PRESENT: +S1, +S2 GI/Abdominal exam: PRESENT: soft Neurological exam: PRESENT: alert Results Laboratory Results: 10/14/16 08:09 10/14/16 08:09 10/14/16 10/14/16 08:09 08:09 WBC 11.9 H RBC 3.63 L Hgb 9.0 L Hct 27.7 L MCV 76 L MCH 24.7 L MCHC 32.4 RDW 18.1 H Plt Count 176 Seg Neutrophils % Not Reportable Lymphocytes % Not Reportable Monocytes % Not Reportable Eosinophils % Not Reportable Basophils % Not Reportable Absolute Neutrophils Not Reportable Absolute Lymphocytes Not Reportable Absolute Monocytes Not Reportable Absolute Eosinophils Not Reportable Absolute Basophils Not Reportable Sodium 146.1 H Potassium 4.2 Chloride 113 H Carbon Dioxide 17 L Anion Gap 16 BUN 63 H Creatinine 4.64 H Est GFR ( Amer) 15 L Est GFR (Non-Af Amer) 12 L Glucose 86 Calcium 8.5 Total Bilirubin 0.3 AST 18 ALT 19 L Alkaline Phosphatase 59 Total Protein 6.2 L Albumin 2.8 L Impressions: Chest X-Ray 10/10/16 20:06 IMPRESSION: Patchy consolidation in the right lung, multifocal. Assessment & Plan - Diagnosis (1) Haemophilus influenzae pneumonia Qualifiers: Laterality: right Lung location: middle lobe of lung Qualified Code(s): J14 - Pneumonia due to Hemophilus influenzae Is this a current diagnosis for this admission?: YesPlan: Continue present IV antibiotic, the haemophilus influenza bacteria that was cultured is positive for beta-lactamase ,patient is on intravenous cefepime and azithromycin, we still continue the cefepime because gram-negative organisms were also cultured in the sputum (2) Multifocal pneumonia Is this a current diagnosis for this admission?: Yes (3) Chronic kidney disease (CKD) stage G5/A1, glomerular filtration rate (GFR) less than or equal to 15 mL/min/1.73 square meter and albuminuria creatinine ratio less than 30 mg/g Is this a current diagnosis for this admission?: YesPlan: Consultation from nephrology will be ordered
[2016-10-14] MEDS: DOXEPIN HCL 10 MG CAPSULE PO SCH (21:12)
[2016-10-14] MEDS: ATORVASTATIN CALCIUM 80 MG TABLET PO SCH (21:12)
[2016-10-15] MEDS: HEPARIN SOD (PORCINE) 5,000 UNIT/ML 1 ML SYRINGE SUBCUT SCH ×3 (05:21→22:26)
[2016-10-15] MEDS: LANSOPRAZOLE 30 MG TAB.RAP.DR PO SCH (06:47)
[2016-10-15 07:30] LABS: ABSOLUTE EOSINOPHILS # (AUTO) 0.3 10^3/uL (0.0-0.6); ABSOLUTE LYMPHOCYTES (AUTO) 1.6 10^3/uL (0.5-4.7); BASOPHILS % (AUTO) 0.3 % (0-2); EOSINOPHILS % (AUTO) 2.6 % (0-6); HEMATOCRIT 25.8 % (37.9-51.0); HEMOGLOBIN 8.6 g/dL (13.5-17.0); LYMPHOCYTES % (AUTO) 13.5 % (13-45); MEAN CORPUSCULAR HEMOGLOBIN 25.1 pg (27.0-33.4); MEAN CORPUSCULAR HGB CONC 33.2 g/dL (32.0-36.0); MEAN CORPUSCULAR VOLUME 76 fl (80-97); MONOCYTES % (AUTO) 8.4 % (3-13); RED BLOOD COUNT 3.41 10^6/uL (4.35-5.55); RED CELL DISTRIBUTION WIDTH 17.9 % (11.5-14.0); SEGMENTED NEUTROPHILS % (AUTO) 75.2 % (42-78)
[2016-10-15 07:48] LABS: ALANINE AMINOTRANSFERASE 33 U/L (21-72); ALBUMIN 2.7 g/dL (3.5-5.0); ALKALINE PHOSPHATASE 65 U/L (38-126); ANION GAP 16 (5-19); ASPARTATE AMINO TRANSFERASE 33 U/L (17-59); BILIRUBIN,DIRECT 0.4 mg/dL (0.0-0.4); BILIRUBIN,TOTAL 0.4 mg/dL (0.2-1.3); BLOOD UREA NITROGEN 77 mg/dL (7-20); CALCIUM 8.5 mg/dL (8.4-10.2); CARBON DIOXIDE 16 mmol/L (22-30); CHLORIDE 112 mmol/L (98-107); CREATININE RESULT 5.13 mg/dL (0.52-1.25); GLUCOSE 84 mg/dL (75-110); POTASSIUM 4.5 mmol/L (3.6-5.0); SODIUM 144.2 mmol/L (137-145); TOTAL PROTEIN 6.4 g/dL (6.3-8.2)
[2016-10-15] MEDS: AMLODIPINE BESYLATE 5 MG TABLET PO SCH (09:32)
[2016-10-15] MEDS: CARVEDILOL 12.5 MG TABLET PO SCH ×2 (09:32→22:26)
[2016-10-15] MEDS: VITAMIN E (DL, ACETATE) 400 UNIT CAPSULE PO SCH (09:33)
[2016-10-15] MEDS: MEGESTROL ACETATE 20 MG TABLET PO SCH ×2 (09:33→18:02)
[2016-10-15] MEDS: ASPIRIN 81 MG TABLET, CHEWABLE PO SCH (09:33)
[2016-10-15] MEDS: OXYCODONE HCL SR 10 MG TABLET PO SCH (09:33)
[2016-10-15] MEDS: ISOSORBIDE MONONITRATE 30 MG TAB.ER.24H PO SCH (09:33)
[2016-10-15] MEDS: HYDRALAZINE HCL 50 MG TABLET PO SCH ×2 (09:33→22:26)
[2016-10-15] MEDS: PREGABALIN 75 MG CAPSULE PO SCH ×3 (09:34→22:27)
[2016-10-15] MEDS: FERROUS SULFATE 325 MG TABLET PO SCH (09:34)
[2016-10-15] MEDS: CYANOCOBALAMIN (VITAMIN B-12) 1,000 MCG TABLET PO SCH (09:34)
[2016-10-15] MEDS: CHOLECALCIFEROL (D3) 1,000 UNIT TABLET PO SCH (09:34)
[2016-10-15] MEDS: AZITHROMYCIN 500 MG in DEXTROSE 5%-WATER 250 ML IV SCH (09:42)
[2016-10-15] MEDS: CEFEPIME HCL 2 GM in DEXTROSE 5%-WATER 50 ML IV SCH (09:43)
[2016-10-15] MEDS ORDERED: CYANOCOBALAMIN (VITAMIN B-12) 1,000 MCG TABLET PO SCH (18:45)
[2016-10-15] MEDS ORDERED: (PENDING PHARMACY ID) (Memantine Hcl/Donepezil Hcl [Namzaric 28 Mg-10 Mg Capsule] 1 CAP) PO SCH (18:45)
[2016-10-15 19:24] LABS: ARTERIAL BLOOD BASE EXCESS -11.2 mmol/L; ARTERIAL BLOOD O2 SATURATION 96.7 % (94-98)
--- NOTE | 2016-10-15 20:13 | PDOC PROGRESS REPORT ---
Subjective Progress Note for:: 10/15/16 Subjective:: Patient looks very drowsy and sleepy, a stat ABG was done in room air, pH 7.33, PO2 92.3, PCO2 25.9, bicarbonate 13.2, this suggests metabolic acidosis with respiratory compensation, a stat CT head is ordered and also CT Chest Physical Exam Vital Signs: Temp Pulse Resp BP Pulse Ox 98.2 F 73 18 130/54 H 99 10/15/16 16:09 10/15/16 16:09 10/15/16 16:09 10/15/16 16:09 10/15/16 16:09 Intake & Output 10/14/16 10/15/16 10/16/16 06:59 06:59 06:59 Intake Total 1450 760 225 Output Total 200 Balance 1250 760 225 General appearance: PRESENT: mild distress Eye exam: PRESENT: PERRLA Respiratory exam: PRESENT: wheezes Cardiovascular exam: PRESENT: +S1, +S2 GI/Abdominal exam: PRESENT: soft Neurological exam: PRESENT: altered Results Laboratory Results: 10/15/16 07:00 10/15/16 07:00 10/15/16 10/15/16 10/15/16 07:00 07:00 19:10 WBC 12.0 H RBC 3.41 L Hgb 8.6 L Hct 25.8 L MCV 76 L MCH 25.1 L MCHC 33.2 RDW 17.9 H Plt Count 164 Seg Neutrophils % 75.2 Lymphocytes % 13.5 Monocytes % 8.4 Eosinophils % 2.6 Basophils % 0.3 Absolute Neutrophils 9.0 H Absolute Lymphocytes 1.6 Absolute Monocytes 1.0 Absolute Eosinophils 0.3 Absolute Basophils 0.0 Carbonic Acid 0.78 L HCO3/H2CO3 Ratio 16:1 ABG pH 7.33 L ABG pCO2 25.9 L ABG pO2 92.3 ABG HCO3 13.2 L ABG O2 Saturation 96.7 ABG Base Excess -11.2 FiO2 ROOM AIR Sodium 144.2 Potassium 4.5 Chloride 112 H Carbon Dioxide 16 L Anion Gap 16 BUN 77 H Creatinine 5.13 H Est GFR ( Amer) 13 L Est GFR (Non-Af Amer) 11 L Glucose 84 Calcium 8.5 Total Bilirubin 0.4 AST 33 ALT 33 Alkaline Phosphatase 65 Total Protein 6.4 Albumin 2.7 L Impressions: Chest X-Ray 10/10/16 20:06 IMPRESSION: Patchy consolidation in the right lung, multifocal. Assessment & Plan - Diagnosis (1) Haemophilus influenzae pneumonia Qualifiers: Laterality: right Lung location: middle lobe of lung Qualified Code(s): J14 - Pneumonia due to Hemophilus influenzae Is this a current diagnosis for this admission?: Yes (2) Multifocal pneumonia Is this a current diagnosis for this admission?: Yes (3) Chronic kidney disease (CKD) stage G5/A1, glomerular filtration rate (GFR) less than or equal to 15 mL/min/1.73 square meter and albuminuria creatinine ratio less than 30 mg/g Is this a current diagnosis for this admission?: Yes (4) Wheezing Is this a current diagnosis for this admission?: YesPlan: Start DuoNeb every 2 hours for 24 hours then every 6 as needed
[2016-10-15] MEDS: IPRATROPIUM/ALBUTEROL 0.5-2.5 MG/3 ML AMPUL NEB SCH (21:45)
[2016-10-15] MEDS: ATORVASTATIN CALCIUM 80 MG TABLET PO SCH ×2 (22:26→22:27)
[2016-10-15] MEDS: DOXEPIN HCL 10 MG CAPSULE PO SCH (22:26)
[2016-10-16] MEDS: IPRATROPIUM/ALBUTEROL 0.5-2.5 MG/3 ML AMPUL NEB SCH ×6 (00:07→10:33)
[2016-10-16] MEDS: IPRATROPIUM/ALBUTEROL 0.5-2.5 MG/3 ML AMPUL NEB PRN (04:04)
[2016-10-16] MEDS: LANSOPRAZOLE 30 MG TAB.RAP.DR PO SCH (06:10)
[2016-10-16] MEDS: HEPARIN SOD (PORCINE) 5,000 UNIT/ML 1 ML SYRINGE SUBCUT SCH ×3 (06:11→22:59)
[2016-10-16 09:23] LABS: ABSOLUTE BASOPHILS # (AUTO) 0.1 10^3/uL (0.0-0.2); ABSOLUTE EOSINOPHILS # (AUTO) 0.3 10^3/uL (0.0-0.6); ABSOLUTE LYMPHOCYTES (AUTO) 1.6 10^3/uL (0.5-4.7); ABSOLUTE MONOCYTES (AUTO) 0.9 10^3/uL (0.1-1.4); ABSOLUTE NEUT (AUTO) 7.7 10^3/uL (1.7-8.2); BASOPHILS % (AUTO) 0.5 % (0-2); EOSINOPHILS % (AUTO) 2.7 % (0-6); HEMATOCRIT 25.6 % (37.9-51.0); HEMOGLOBIN 8.6 g/dL (13.5-17.0); HGB HCT DIFFERENCE 0.2; LYMPHOCYTES % (AUTO) 15.4 % (13-45); MEAN CORPUSCULAR HEMOGLOBIN 25.2 pg (27.0-33.4); MEAN CORPUSCULAR HGB CONC 33.5 g/dL (32.0-36.0); MEAN CORPUSCULAR VOLUME 75 fl (80-97); MONOCYTES % (AUTO) 8.4 % (3-13); RED CELL DISTRIBUTION WIDTH 18.5 % (11.5-14.0); WHITE BLOOD COUNT 10.5 10^3/uL (4.0-10.5)
[2016-10-16 09:43] LABS: ALANINE AMINOTRANSFERASE 32 U/L (21-72); ALBUMIN 2.8 g/dL (3.5-5.0); ALKALINE PHOSPHATASE 65 U/L (38-126); ANION GAP 15 (5-19); ASPARTATE AMINO TRANSFERASE 27 U/L (17-59); BILIRUBIN,DIRECT 0.4 mg/dL (0.0-0.4); BILIRUBIN,TOTAL 0.4 mg/dL (0.2-1.3); BLOOD UREA NITROGEN 85 mg/dL (7-20); CALCIUM 8.9 mg/dL (8.4-10.2); CARBON DIOXIDE 16 mmol/L (22-30); CHLORIDE 113 mmol/L (98-107); CREATININE RESULT 5.52 mg/dL (0.52-1.25); GLUCOSE 82 mg/dL (75-110); POTASSIUM 4.9 mmol/L (3.6-5.0); SODIUM 144.2 mmol/L (137-145); TOTAL PROTEIN 6.6 g/dL (6.3-8.2)
[2016-10-16] MEDS ORDERED: CHOLECALCIFEROL (D3) 1,000 UNIT TABLET PO SCH (10:00)
[2016-10-16] MEDS ORDERED: CYANOCOBALAMIN (VITAMIN B-12) 1,000 MCG TABLET PO SCH (10:00)
[2016-10-16] MEDS: HYDRALAZINE HCL 50 MG TABLET PO SCH ×2 (10:28→22:57)
[2016-10-16] MEDS: MEGESTROL ACETATE 20 MG TABLET PO SCH ×2 (10:28→17:14)
[2016-10-16] MEDS: VITAMIN E (DL, ACETATE) 400 UNIT CAPSULE PO SCH (10:28)
[2016-10-16] MEDS: ISOSORBIDE MONONITRATE 30 MG TAB.ER.24H PO SCH (10:29)
[2016-10-16] MEDS: AZITHROMYCIN 250 MG TABLET PO SCH (10:29)
[2016-10-16] MEDS: AMLODIPINE BESYLATE 5 MG TABLET PO SCH (10:29)
[2016-10-16] MEDS: CHOLECALCIFEROL (D3) 1,000 UNIT TABLET PO SCH (10:29)
[2016-10-16] MEDS: FERROUS SULFATE 325 MG TABLET PO SCH (10:29)
[2016-10-16] MEDS: PREGABALIN 75 MG CAPSULE PO SCH ×4 (10:29→22:59)
[2016-10-16] MEDS: ASPIRIN 81 MG TABLET, CHEWABLE PO SCH (10:30)
[2016-10-16] MEDS: CARVEDILOL 12.5 MG TABLET PO SCH ×2 (10:30→22:57)
[2016-10-16] MEDS: CYANOCOBALAMIN (VITAMIN B-12) 1,000 MCG TABLET PO SCH (10:30)
[2016-10-16] MEDS: OXYCODONE HCL SR 10 MG TABLET PO SCH (10:33)
[2016-10-16] MEDS: CEFEPIME HCL 2 GM in DEXTROSE 5%-WATER 50 ML IV SCH (10:34)
--- NOTE | 2016-10-16 20:32 | PDOC PROGRESS REPORT ---
Subjective Progress Note for:: 10/16/16 Subjective:: Patient was seen by the bedside, is acidotic he was seen today by nephrology Dr. Mckeon, he would need hemodialysis on this admission Physical Exam Vital Signs: Temp Pulse Resp BP Pulse Ox 98.6 F 74 16 121/51 L 94 10/16/16 15:40 10/16/16 18:42 10/16/16 18:42 10/16/16 15:40 10/16/16 18:42 Intake & Output 10/15/16 10/16/16 10/17/16 06:59 06:59 06:59 Intake Total 760 225 60 Balance 760 225 60 Weight 71.6 kg General appearance: PRESENT: no acute distress Eye exam: PRESENT: PERRLA Cardiovascular exam: PRESENT: +S1, +S2 GI/Abdominal exam: PRESENT: soft Neurological exam: PRESENT: alert, CN II-XII grossly intact Results Laboratory Results: 10/16/16 08:46 10/16/16 08:46 10/16/16 10/16/16 08:46 08:46 WBC 10.5 RBC 3.40 L Hgb 8.6 L Hct 25.6 L MCV 75 L MCH 25.2 L MCHC 33.5 RDW 18.5 H Plt Count 148 L Seg Neutrophils % 73.0 Lymphocytes % 15.4 Monocytes % 8.4 Eosinophils % 2.7 Basophils % 0.5 Absolute Neutrophils 7.7 Absolute Lymphocytes 1.6 Absolute Monocytes 0.9 Absolute Eosinophils 0.3 Absolute Basophils 0.1 Sodium 144.2 Potassium 4.9 Chloride 113 H Carbon Dioxide 16 L Anion Gap 15 BUN 85 H Creatinine 5.52 H Est GFR ( Amer) 12 L Est GFR (Non-Af Amer) 10 L Glucose 82 Calcium 8.9 Total Bilirubin 0.4 AST 27 ALT 32 Alkaline Phosphatase 65 Total Protein 6.6 Albumin 2.8 L Impressions: Chest X-Ray 10/10/16 20:06 IMPRESSION: Patchy consolidation in the right lung, multifocal. Chest CT 10/15/16 00:00 IMPRESSION: Patchy airspace disease is present in the right lower lobe and posterior aspects of the right upper and middle lobe. Small right pleural effusion. Head CT 10/15/16 00:00 IMPRESSION: CHRONIC CHANGES OF ATROPHY AND MICROVASCULAR ISCHEMIA. Law- sinusitis. Assessment & Plan - Diagnosis (1) Haemophilus influenzae pneumonia Qualifiers: Laterality: right Lung location: middle lobe of lung Qualified Code(s): J14 - Pneumonia due to Hemophilus influenzae Is this a current diagnosis for this admission?: Yes (2) Multifocal pneumonia Is this a current diagnosis for this admission?: Yes (3) Chronic kidney disease (CKD) stage G5/A1, glomerular filtration rate (GFR) less than or equal to 15 mL/min/1.73 square meter and albuminuria creatinine ratio less than 30 mg/g Is this a current diagnosis for this admission?: Yes (4) Wheezing Is this a current diagnosis for this admission?: Yes - Plan Summary Plan Summary: Patient seen by the bedside ,consultation from nephrology appreciated
--- NOTE | 2016-10-16 21:10 | PDOC CONSULTATION ---
Consultation Consult Date: 10/16/16 Attending physician:: BETSY POOL Consult reason:: I was asked by Dr. Pool to see this patient because of progressive worsening of kidney function with persistent metabolic acidosis. History of Present Illness Admission Date/PCP: 10/10/16 23:10 BETSY POOL MD History of Present Illness: The patient is a 75-year-old -Irish gentleman known to me with history of chronic kidney disease baseline stage IV, coronary artery disease, hypertension, multiple myeloma in remission who was admitted on October 10 for multilobar pneumonia. Patient has been treated with IV antibiotics since admission. The patient and his and daughter at bedside confirms to me that the patient has been feeling weak and worse for the last 3 weeks prior to admission. Daughter describes the patient is unable to feed himself, unable to get up, and unable to walk. In about few days prior to admission he developed cough productive of greenish phlegm without any fever nor chills nor shortness of breath. Patient denies any nausea nor vomiting nor diarrhea. He also denies any problems with urination although he does seem to be incontinent. Patient has a very noticeable hand tremors which according to the has been getting worse recently. Patient has baseline chronic kidney disease stage IV which has been progressive for the last several years. On 09/07/2016 he had a BUN of 44 creatinine 3.48 with estimated GFR of 21. Upon admission on the October 10, he has a BUN of 48 and creatinine of 4.87 with estimated GFR 14. Today he has a BUN of 85 and creatinine of 5.52 with estimated GFR of only 12. There are nor precipitating or triggering factors for worsening of kidney function. He seems to be euvolemic and normotensive. He has not had any nephrotoxic medications. Patient has also been persistently acidotic. He also has chronic anemia. Dr. Pool is concerned that patient might need dialysis during this admission. Past Medical History Cardiac Medical History: Reports: Coronary Artery Disease, Heart Murmur, Hyperlipidemia, Hypertension-primary, Myocardial Infarction - 30 years ago Pulmonary Medical History: Reports: Pneumonia Malignancy Medical History: Reports: Other - Multiple myeloma in remission GI Medical History: Reports: Gastroesophageal Reflux Disease Past Surgical History Past Surgical History: Reports: Cholecystectomy, Vascular Surgery - Abdominal aortic aneurysm repair Social History Lives with: Family - and daughter Smoking Status: Former Smoker Frequency of Alcohol Use: None Hx Recreational Drug Use: No Drugs: None Hx Prescription Drug Abuse: No - Advance Directive Resuscitation Status: Full Code Family History Family History: Reviewed & Not Pertinent Parental Family History Reviewed: Yes Children Family History Reviewed: Yes Sibling(s) Family History Reviewed.: Yes Medication/Allergy Home Medications: Aspirin [Aspirin 81 mg Chewable Tablet] 81 mg PO DAILY 09/03/16 Atorvastatin Calcium [Lipitor 80 mg Tablet] 80 mg PO QHS 09/03/16 Carvedilol [Coreg 25 mg Tablet] 25 mg PO Q12 09/03/16 Hydralazine HCl [Apresoline 50 mg Tablet] 50 mg PO Q12 09/03/16 Isosorbide Mononitrate [Isosorbide Mononitrate ER] 30 mg PO DAILY 09/03/16 Megestrol Acetate 40 mg PO BID 09/03/16 Memantine HCl/Donepezil HCl [Namzaric 28 mg-10 mg Capsule] 1 cap PO QPM Oxycodone HCl [Oxycontin Sr 10 mg Tablet] 10 mg PO DAILY 09/03/16 Pantoprazole Sodium [Protonix] 40 mg PO DAILY 09/03/16 Amlodipine Besylate [Norvasc 5 mg Tablet] 5 mg PO DAILY 10/10/16 Cholecalciferol (Vitamin D3) [Vitamin D3 1000 Unit Tablet] 1,000 unit PO DAILY 10/10/16 Cyanocobalamin (Vitamin B-12) [Vitamin B-12 1000 Mcg Tablet] 1,000 mcg PO DAILY 10/10/16 Ferrous Sulfate [Feosol 325 mg Tablet] 325 mg PO DAILY 10/10/16 Pregabalin [Lyrica] 150 mg PO Q12 10/10/16 Vitamin E (Dl, Acetate) [Vitamin E 400 Unit Capsule] 400 unit PO DAILY 10/10/16 Allergies/Adverse Reactions: No Known Allergies Allergy (Verified 09/03/16 11:41) Review of Systems All systems: reviewed and no additional remarkable complaints except as stated Review of Systems: Constitutional: ABSENT: chills, fever(s), headache(s), weight gain, weight loss ; admits fatigue and progressive weakness Eyes: ABSENT: visual disturbances Ears: ABSENT: hearing changes Cardiovascular: ABSENT: chest pain, dyspnea on exertion, edema, orthropnea, palpitations Respiratory: ABSENT: dyspnea, hemoptysis; admits cough Gastrointestinal: ABSENT: abdominal pain, constipation, diarrhea, hematemesis, hematochezia, nausea, vomiting Genitourinary: ABSENT: dysuria, hematuria Musculoskeletal: ABSENT: joint swelling Integumentary: ABSENT: rash, wounds Neurological: ABSENT: abnormal gait, abnormal speech, confusion, dizziness, focal weakness, numbness, syncope; admits tremors Psychiatric: ABSENT: anxiety, depression Endocrine: ABSENT: cold intolerance, heat intolerance, polydipsia, polyuria Hematologic/Lymphatic: ABSENT: easy bleeding, easy bruising, lymphadenopathy Physical Exam Vital Signs: Temp Pulse Resp BP Pulse Ox 98.6 F 74 16 121/51 L 94 10/16/16 15:40 10/16/16 18:42 10/16/16 18:42 10/16/16 15:40 10/16/16 18:42 Intake & Output 10/15/16 10/16/16 10/17/16 06:59 06:59 06:59 Intake Total 760 225 60 Balance 760 225 60 Weight 71.6 kg Exam: General appearance: no acute distress, cooperative, well-developed, well- nourished Head exam: PRESENT: atraumatic, normocephalic Eye exam: PRESENT: Conjunctiva pale, EOMI, PERRLA. ABSENT: conjunctival injection, scleral icterus Mouth exam: PRESENT: moist, neck supple, tongue midline Neck exam: PRESENT: full ROM. ABSENT: carotid bruit, JVD, lymphadenopathy, thyromegaly Respiratory exam: PRESENT: Diminished to auscultation bilaterally. ABSENT: rales, rhonchi, stridor, wheezes Cardiovascular exam: PRESENT: RRR, +S1, +S2. ABSENT: systolic murmur Pulses: PRESENT: normal radial pulses, normal dorsalis pedis pulses GI/Abdominal exam: PRESENT: normal bowel sounds, soft. ABSENT: guarding, mass, tenderness Rectal exam: deferred Extremities exam: PRESENT: full ROM. ABSENT: calf tenderness, pedal edema Musculoskeletal: PRESENT: full ROM. ABSENT: deformity Neurological exam: PRESENT: alert, Awake, Oriented to person, Oriented to place , Oriented to time, reflexes normal, CN II-XII grossly intact. He has asterixis bilateral arms and hands ABSENT: motor sensory deficit Psychiatric exam: PRESENT: appropriate affect, normal mood. ABSENT: homicidal ideation, suicidal ideation Skin exam: PRESENT: intact, dry, warm. ABSENT: rash Results Laboratory Results: 10/16/16 08:46 10/16/16 08:46 10/16/16 10/16/16 08:46 08:46 WBC 10.5 RBC 3.40 L Hgb 8.6 L Hct 25.6 L MCV 75 L MCH 25.2 L MCHC 33.5 RDW 18.5 H Plt Count 148 L Seg Neutrophils % 73.0 Lymphocytes % 15.4 Monocytes % 8.4 Eosinophils % 2.7 Basophils % 0.5 Absolute Neutrophils 7.7 Absolute Lymphocytes 1.6 Absolute Monocytes 0.9 Absolute Eosinophils 0.3 Absolute Basophils 0.1 Sodium 144.2 Potassium 4.9 Chloride 113 H Carbon Dioxide 16 L Anion Gap 15 BUN 85 H Creatinine 5.52 H Est GFR ( Amer) 12 L Est GFR (Non-Af Amer) 10 L Glucose 82 Calcium 8.9 Total Bilirubin 0.4 AST 27 ALT 32 Alkaline Phosphatase 65 Total Protein 6.6 Albumin 2.8 L Impressions: Chest X-Ray 10/10/16 20:06 IMPRESSION: Patchy consolidation in the right lung, multifocal. Chest CT 10/15/16 00:00 IMPRESSION: Patchy airspace disease is present in the right lower lobe and posterior aspects of the right upper and middle lobe. Small right pleural effusion. Head CT 10/15/16 00:00 IMPRESSION: CHRONIC CHANGES OF ATROPHY AND MICROVASCULAR ISCHEMIA. Law- sinusitis. Assessment & Plan - Diagnosis (1) Chronic kidney disease, stage V requiring chronic dialysis Is this a current diagnosis for this admission?: YesPlan: The patient is progressively deteriorating kidney function for several years. Currently there is no acute precipitating factor for worsening of the kidney function. I think the patient's worsening kidney function is just a natural deterioration this progressive kidney disease. Patient has some starting uremic symptoms including weakness and asterixis. He also has severe metabolic acidosis and anemia. All of these are complications of progressive deterioration of his chronic kidney disease currently now at a stage V. Currently is not fluid overloaded. So today I talked to the patient in the presence of his and daughter regarding initiation of renal replacement therapy in the form of hemodialysis. Discussed benefits and risk to include but not limited to bleeding, infection, hemodynamic instability during dialysis which infrequently could also lead to . The benefits of which is to improve his sense of well-being through solute and volume clearance. Patient, his and daughter all agreed to proceed with hemodialysis. I answered all their questions. So tonight I consulted our vascular surgeon Dr. Cuca Bertrand. He told me that he will place a vascular access tomorrow for dialysis. I also talked to Dr. Pool who is in agreement with the plan. I will get a kidney ultrasound just to make sure there is no obstructive uropathy. We will get hepatitis panel and check the patient's PTH, phosphorus, and urine for protein and creatinine. Will place PPD in preparation for chronic outpatient hemodialysis. (2) Uremia Is this a current diagnosis for this admission?: YesPlan: Plan for initiation of hemodialysis as above. (3) Metabolic acidosis Is this a current diagnosis for this admission?: YesPlan: Dialysis would help this. (4) Anemia in chronic kidney disease (CKD) Is this a current diagnosis for this admission?: YesPlan: We'll start the patient on Procrit on dialysis. We will also check his iron panel. (5) Haemophilus influenzae pneumonia Qualifiers: Laterality: right Lung location: middle lobe of lung Qualified Code(s): J14 - Pneumonia due to Hemophilus influenzae Is this a current diagnosis for this admission?: Yes (6) Multifocal pneumonia Is this a current diagnosis for this admission?: Yes - Notes Notes: Thank you very much for this consultation. I will follow the patient with you. - Time Time Spent: Greater than 70 Minutes
[2016-10-16] MEDS ORDERED: TUBERCULIN,PURIF.PROT.DERIV. 5 TU/0.1 ML TEST 1 ML VIAL ID ONE (22:00)
[2016-10-16] MEDS: ATORVASTATIN CALCIUM 80 MG TABLET PO SCH ×2 (22:57→22:59)
[2016-10-16] MEDS: DOXEPIN HCL 10 MG CAPSULE PO SCH (22:59)
[2016-10-17 05:03] LABS: HEMATOCRIT 23.8 % (37.9-51.0); HGB HCT DIFFERENCE 0.2; MEAN CORPUSCULAR HEMOGLOBIN 25.4 pg (27.0-33.4); MEAN CORPUSCULAR HGB CONC 33.6 g/dL (32.0-36.0); MEAN CORPUSCULAR VOLUME 76 fl (80-97); RED BLOOD COUNT 3.15 10^6/uL (4.35-5.55); RED CELL DISTRIBUTION WIDTH 18.1 % (11.5-14.0); WHITE BLOOD COUNT 9.5 10^3/uL (4.0-10.5)
[2016-10-17 05:06] LABS: ALANINE AMINOTRANSFERASE 33 U/L (21-72); ALBUMIN 2.7 g/dL (3.5-5.0); ALKALINE PHOSPHATASE 62 U/L (38-126); ANION GAP 16 (5-19); ASPARTATE AMINO TRANSFERASE 30 U/L (17-59); BILIRUBIN,DIRECT 0.5 mg/dL (0.0-0.4); BILIRUBIN,TOTAL 0.5 mg/dL (0.2-1.3); BLOOD UREA NITROGEN 91 mg/dL (7-20); CALCIUM 8.5 mg/dL (8.4-10.2); CARBON DIOXIDE 16 mmol/L (22-30); CHLORIDE 111 mmol/L (98-107); CREATININE RESULT 6.21 mg/dL (0.52-1.25); GLUCOSE 94 mg/dL (75-110); MAGNESIUM 1.9 mg/dL (1.6-2.3); PHOSPHORUS 8.2 mg/dL (2.5-4.5); SODIUM 142.9 mmol/L (137-145); TOTAL PROTEIN 6.6 g/dL (6.3-8.2)
[2016-10-17 05:56] LABS: BASOPHILS % (MANUAL) 0 % (0-2); EOSINOPHILS % (MANUAL) 4 % (0-6); LYMPHOCYTES % (MANUAL) 14 % (13-45); MICROCYTOSIS 1+; TOTAL CELLS COUNTED 100
[2016-10-17] MEDS: LANSOPRAZOLE 30 MG TAB.RAP.DR PO SCH (05:56)
[2016-10-17] MEDS: HEPARIN SOD (PORCINE) 5,000 UNIT/ML 1 ML SYRINGE SUBCUT SCH ×3 (05:56→22:28)
[2016-10-17 05:57] LABS: ANISOCYTOSIS 1+; BURR CELLS SLIGHT; HYPOCHROMASIA SLIGHT; OVALOCYTES SLIGHT; POIKILOCYTOSIS 1+; POLYCHROMASIA SLIGHT; SCHISTOCYTES SLIGHT; TEAR DROP CELLS SLIGHT
[2016-10-17 06:10] LABS: FOLATE 6.39 ng/mL (>2.76)
[2016-10-17] MEDS ORDERED: LIDOCAINE 0.5% INJ-PF (5 MG/ML) 50 ML SDV ONE (07:23)
[2016-10-17] MEDS: VITAMIN E (DL, ACETATE) 400 UNIT CAPSULE PO SCH (09:03)
[2016-10-17] MEDS: HYDRALAZINE HCL 50 MG TABLET PO SCH ×2 (09:03→22:27)
[2016-10-17] MEDS: AMLODIPINE BESYLATE 5 MG TABLET PO SCH (09:04)
[2016-10-17] MEDS: OXYCODONE HCL SR 10 MG TABLET PO SCH (09:04)
[2016-10-17] MEDS: MEGESTROL ACETATE 20 MG TABLET PO SCH ×2 (09:04→17:20)
[2016-10-17] MEDS: CARVEDILOL 12.5 MG TABLET PO SCH ×2 (09:04→22:27)
[2016-10-17] MEDS: AZITHROMYCIN 250 MG TABLET PO SCH (09:05)
[2016-10-17] MEDS: CHOLECALCIFEROL (D3) 1,000 UNIT TABLET PO SCH (09:05)
[2016-10-17] MEDS: PREGABALIN 75 MG CAPSULE PO SCH ×4 (09:05→22:28)
[2016-10-17] MEDS: ASPIRIN 81 MG TABLET, CHEWABLE PO SCH (09:05)
[2016-10-17] MEDS: CYANOCOBALAMIN (VITAMIN B-12) 1,000 MCG TABLET PO SCH (09:05)
[2016-10-17] MEDS: FERROUS SULFATE 325 MG TABLET PO SCH (09:05)
[2016-10-17] MEDS: ISOSORBIDE MONONITRATE 30 MG TAB.ER.24H PO SCH (09:05)
[2016-10-17] MEDS: CEFEPIME HCL 2 GM in DEXTROSE 5%-WATER 50 ML IV SCH (09:13)
[2016-10-17] MEDS ORDERED: EPOETIN ALFA INJ 20000 UNIT/1 ML VIAL (RENAL) IV PRN (10:46)
--- NOTE | 2016-10-17 16:04 | PDOC PROGRESS REPORT ---
Subjective Progress Note for:: 10/17/16 Subjective:: Patient is getting hemodialysis today Physical Exam Vital Signs: Temp Pulse Resp BP Pulse Ox 98.3 F 75 18 112/54 L 96 10/17/16 11:32 10/17/16 14:25 10/17/16 14:25 10/17/16 11:32 10/17/16 14:25 Intake & Output 10/16/16 10/17/16 10/18/16 06:59 06:59 06:59 Intake Total 225 300 120 Balance 225 300 120 Weight 71.6 kg General appearance: PRESENT: no acute distress Eye exam: PRESENT: PERRLA Respiratory exam: PRESENT: rhonchi Cardiovascular exam: PRESENT: +S1, +S2 Neurological exam: PRESENT: alert Results Laboratory Results: 10/17/16 04:29 10/17/16 04:29 10/17/16 10/17/16 10/17/16 04:29 04:29 09:22 WBC 9.5 RBC 3.15 L Hgb 8.0 L Hct 23.8 L MCV 76 L MCH 25.4 L MCHC 33.6 RDW 18.1 H Plt Count 136 L Seg Neutrophils % Not Reportable Lymphocytes % Not Reportable Monocytes % Not Reportable Eosinophils % Not Reportable Basophils % Not Reportable Absolute Neutrophils Not Reportable Absolute Lymphocytes Not Reportable Absolute Monocytes Not Reportable Absolute Eosinophils Not Reportable Absolute Basophils Not Reportable Retic Count (auto) 0.90 Absolute Retic 0.028 Sodium 142.9 Potassium 5.0 Chloride 111 H Carbon Dioxide 16 L Anion Gap 16 BUN 91 H Creatinine 6.21 H Est GFR ( Amer) 11 L Est GFR (Non-Af Amer) 9 L Glucose 94 Calcium 8.5 Phosphorus 8.2 H Magnesium 1.9 Iron 23.4 L TIBC 192 L % Saturation 12 Ferritin 177.00 Total Bilirubin 0.5 AST 30 ALT 33 Alkaline Phosphatase 62 Total Protein 6.6 Albumin 2.7 L Vitamin B12 > 1000.0 H Folate 6.39 Blood Type O POSITIVE Antibody Screen NEGATIVE Impressions: Chest X-Ray 10/10/16 20:06 IMPRESSION: Patchy consolidation in the right lung, multifocal. Chest CT 10/15/16 00:00 IMPRESSION: Patchy airspace disease is present in the right lower lobe and posterior aspects of the right upper and middle lobe. Small right pleural effusion. Head CT 10/15/16 00:00 IMPRESSION: CHRONIC CHANGES OF ATROPHY AND MICROVASCULAR ISCHEMIA. Law- sinusitis. Renal Ultrasound 10/16/16 00:00 IMPRESSION: No evidence for hydronephrosis is seen. There is bilateral cortical thinning. Other findings as noted above Assessment & Plan - Diagnosis (1) Haemophilus influenzae pneumonia Qualifiers: Laterality: right Lung location: middle lobe of lung Qualified Code(s): J14 - Pneumonia due to Hemophilus influenzae Is this a current diagnosis for this admission?: Yes (2) Multifocal pneumonia Is this a current diagnosis for this admission?: Yes (3) Chronic kidney disease (CKD) stage G5/A1, glomerular filtration rate (GFR) less than or equal to 15 mL/min/1.73 square meter and albuminuria creatinine ratio less than 30 mg/g Is this a current diagnosis for this admission?: Yes (4) Wheezing Is this a current diagnosis for this admission?: Yes
[2016-10-17 16:43] LABS: AMORPHOUS SEDIMENT,URINE TRACE /HPF; APPEARANCE,URINE CLOUDY; BILIRUBIN,URINE NEGATIVE (NEGATIVE); GLUCOSE, URINE NEGATIVE (NEGATIVE); KETONES,URINE NEGATIVE (NEGATIVE); LEUKOCYTE ESTERASE,URINE NEGATIVE (NEGATIVE); NITRITE,URINE NEGATIVE (NEGATIVE); PROTEIN,URINE 100 mg/dL (NEGATIVE); URINE SPECIFIC GRAVITY 1.012; UROBILINOGEN,URINE NEGATIVE mg/dL (<2.0)
[2016-10-17 17:01] LABS: URINE CREATININE 123.5 mg/dL (22-328); URINE PROTEIN 144.7 mg/dL (<12)
--- NOTE | 2016-10-17 17:42 | PDOC PROGRESS REPORT ---
Subjective Progress Note for:: 10/17/16 Subjective:: I'm seeing the patient during his first hemodialysis treatment. He said he is scared because he doesn't know what to expect but otherwise comfortable. We are giving blood transfusion with 2 units packed RBC during dialysis today. Patient understood the dialysis process. He'll be monitored closely during dialysis treatment and blood transfusion. He denies any chest pain or shortness of breath and has been answering questions appropriately. Physical Exam Vital Signs: Temp Pulse Resp BP Pulse Ox 97.5 F 74 14 139/59 H 97 10/17/16 17:15 10/17/16 17:15 10/17/16 17:15 10/17/16 17:15 10/17/16 17:15 Intake & Output 10/16/16 10/17/16 10/18/16 06:59 06:59 06:59 Intake Total 225 300 520 Balance 225 300 520 Weight 71.6 kg Vital signs during dialysis: Blood pressure 141/77, heart rate 73, blood flow rate of 200 mL per minute, dialysate flow rate 500 mL per minute. Exam: General appearance: PRESENT: no acute distress, cooperative, well-developed, well-nourished Head exam: PRESENT: atraumatic, normocephalic Eye exam: PRESENT: conjunctiva pale, PERRLA. ABSENT: scleral icterus Neck exam: ABSENT: JVD Respiratory exam: PRESENT: Diminished breath sounds. ABSENT: crackles, rales, rhonchi, unlabored, wheezes Cardiovascular exam: PRESENT: Regular rate rhythm -+S1, +S2. ABSENT: diastolic murmur, systolic murmur GI/Abdominal exam: PRESENT: normal bowel sounds, soft. ABSENT: guarding, mass, tenderness Extremities exam: ABSENT: No edema Neurological exam: PRESENT: alert, awake, oriented to person, place and time. Skin exam: PRESENT: dry, warm, Results Laboratory Results: 10/17/16 04:29 10/17/16 04:29 10/17/16 10/17/16 10/17/16 04:29 04:29 09:22 WBC 9.5 RBC 3.15 L Hgb 8.0 L Hct 23.8 L MCV 76 L MCH 25.4 L MCHC 33.6 RDW 18.1 H Plt Count 136 L Seg Neutrophils % Not Reportable Lymphocytes % Not Reportable Monocytes % Not Reportable Eosinophils % Not Reportable Basophils % Not Reportable Absolute Neutrophils Not Reportable Absolute Lymphocytes Not Reportable Absolute Monocytes Not Reportable Absolute Eosinophils Not Reportable Absolute Basophils Not Reportable Retic Count (auto) 0.90 Absolute Retic 0.028 Sodium 142.9 Potassium 5.0 Chloride 111 H Carbon Dioxide 16 L Anion Gap 16 BUN 91 H Creatinine 6.21 H Est GFR ( Amer) 11 L Est GFR (Non-Af Amer) 9 L Glucose 94 Calcium 8.5 Phosphorus 8.2 H Magnesium 1.9 Iron 23.4 L TIBC 192 L % Saturation 12 Ferritin 177.00 Total Bilirubin 0.5 AST 30 ALT 33 Alkaline Phosphatase 62 Total Protein 6.6 Albumin 2.7 L Vitamin B12 > 1000.0 H Folate 6.39 Urine Color Urine Appearance Urine pH Ur Specific [place] Urine Protein Urine Glucose (UA) Urine Ketones Urine Blood Urine Nitrite Ur Leukocyte Esterase Urine WBC (Auto) Urine RBC (Auto) Blood Type O POSITIVE Antibody Screen NEGATIVE 10/17/16 16:00 WBC RBC Hgb Hct MCV MCH MCHC RDW Plt Count Seg Neutrophils % Lymphocytes % Monocytes % Eosinophils % Basophils % Absolute Neutrophils Absolute Lymphocytes Absolute Monocytes Absolute Eosinophils Absolute Basophils Retic Count (auto) Absolute Retic Sodium Potassium Chloride Carbon Dioxide Anion Gap BUN Creatinine Est GFR ( Amer) Est GFR (Non-Af Amer) Glucose Calcium Phosphorus Magnesium Iron TIBC % Saturation Ferritin Total Bilirubin AST ALT Alkaline Phosphatase Total Protein Albumin Vitamin B12 Folate Urine Color YELLOW Urine Appearance CLOUDY Urine pH 5.0 Ur Specific [place] 1.012 Urine Protein 100 H Urine Glucose (UA) NEGATIVE Urine Ketones NEGATIVE Urine Blood NEGATIVE Urine Nitrite NEGATIVE Ur Leukocyte Esterase NEGATIVE Urine WBC (Auto) 4 Urine RBC (Auto) 4 Blood Type Antibody Screen Impressions: Chest X-Ray 10/10/16 20:06 IMPRESSION: Patchy consolidation in the right lung, multifocal. Chest CT 10/15/16 00:00 IMPRESSION: Patchy airspace disease is present in the right lower lobe and posterior aspects of the right upper and middle lobe. Small right pleural effusion. Head CT 10/15/16 00:00 IMPRESSION: CHRONIC CHANGES OF ATROPHY AND MICROVASCULAR ISCHEMIA. Law- sinusitis. Renal Ultrasound 10/16/16 00:00 IMPRESSION: No evidence for hydronephrosis is seen. There is bilateral cortical thinning. Other findings as noted above Assessment & Plan - Diagnosis (1) Chronic kidney disease, stage V requiring chronic dialysis Is this a current diagnosis for this admission?: YesPlan: The patient has progressively deteriorating kidney function for several years. Currently there is no acute precipitating factor for worsening of the kidney function. I think the patient's worsening kidney function is just a natural deterioration this progressive kidney disease. Patient has some starting uremic symptoms including weakness and asterixis. He also has severe metabolic acidosis and anemia. All of these are complications of progressive deterioration of his chronic kidney disease currently now at a stage V. Currently is not fluid overloaded. He has urine protein/ creatinine ratio of 1.2. We will do dialysis today for 2.5 hours, using the patient's right femoral trialysis catheter, with 2 potassium bath, blood flow rate of 200-250 mL per minute, dialysate flow rate of 500 mL per minute, ultrafiltration 1 L as tolerated, no heparin and Procrit with 20,000 units during dialysis intravenously. Monitor the patient during dialysis. We'll continue hemodialysis support while here in the hospital. We'll consult certifed refrigeration operator to arrange outpatient dialysis at [facility]. (2) Uremia Is this a current diagnosis for this admission?: YesPlan: Hemodialysis today. (3) Metabolic acidosis Is this a current diagnosis for this admission?: YesPlan: Dialysis would help this. (4) Anemia in chronic kidney disease (CKD) Is this a current diagnosis for this admission?: YesPlan: We'll start the patient on Procrit on dialysis. He will receive 2 units packed RBC during dialysis today. We will start him on IV iron during next dialysis treatment. (5) Iron deficiency anemia Is this a current diagnosis for this admission?: YesPlan: As above. (6) Hyperphosphatemia Is this a current diagnosis for this admission?: YesPlan: Start PhosLo 2 capsules with meals. (7) Haemophilus influenzae pneumonia Qualifiers: Laterality: right Lung location: middle lobe of lung Qualified Code(s): J14 - Pneumonia due to Hemophilus influenzae Is this a current diagnosis for this admission?: Yes (8) Multifocal pneumonia Is this a current diagnosis for this admission?: Yes - Time Time with patient: 15-25 minutes
[2016-10-17] MEDS ORDERED: HEPARIN SOD (PORCINE) 1,000 UNIT/ML 10 ML VIAL IV PRN (17:45)
[2016-10-17] MEDS ORDERED: CALCIUM ACETATE 667 MG CAPSULE PO ONE (18:30)
[2016-10-17] MEDS: ATORVASTATIN CALCIUM 80 MG TABLET PO SCH (22:26)
[2016-10-17] MEDS: DOXEPIN HCL 10 MG CAPSULE PO SCH (22:27)
[2016-10-18] MEDS: LANSOPRAZOLE 30 MG TAB.RAP.DR PO SCH (05:39)
[2016-10-18] MEDS: HEPARIN SOD (PORCINE) 5,000 UNIT/ML 1 ML SYRINGE SUBCUT SCH ×3 (05:39→22:00)
[2016-10-18 07:34] LABS: TRANSFERRIN 143 mg/dL (200-370)
[2016-10-18 08:05] LABS: ABSOLUTE BASOPHILS # (AUTO) 0.1 10^3/uL (0.0-0.2); ABSOLUTE EOSINOPHILS # (AUTO) 0.2 10^3/uL (0.0-0.6); ABSOLUTE LYMPHOCYTES (AUTO) 1.4 10^3/uL (0.5-4.7); ABSOLUTE MONOCYTES (AUTO) 1.1 10^3/uL (0.1-1.4); ABSOLUTE NEUT (AUTO) 5.7 10^3/uL (1.7-8.2); BASOPHILS % (AUTO) 0.6 % (0-2); EOSINOPHILS % (AUTO) 2.4 % (0-6); HGB HCT DIFFERENCE 0.3; LYMPHOCYTES % (AUTO) 16.7 % (13-45); MEAN CORPUSCULAR HEMOGLOBIN 26.3 pg (27.0-33.4); MEAN CORPUSCULAR HGB CONC 33.7 g/dL (32.0-36.0); MEAN CORPUSCULAR VOLUME 78 fl (80-97); MONOCYTES % (AUTO) 12.7 % (3-13); RED BLOOD COUNT 3.84 10^6/uL (4.35-5.55); RED CELL DISTRIBUTION WIDTH 18.3 % (11.5-14.0); SEGMENTED NEUTROPHILS % (AUTO) 67.6 % (42-78); WHITE BLOOD COUNT 8.4 10^3/uL (4.0-10.5)
[2016-10-18 08:20] LABS: HEMOGLOBIN 10.1 g/dL (13.5-17.0)
[2016-10-18 08:29] LABS: ALANINE AMINOTRANSFERASE 56 U/L (21-72); ALBUMIN 2.9 g/dL (3.5-5.0); ALKALINE PHOSPHATASE 67 U/L (38-126); ANION GAP 18 (5-19); ASPARTATE AMINO TRANSFERASE 71 U/L (17-59); BILIRUBIN,DIRECT 0.4 mg/dL (0.0-0.4); BILIRUBIN,TOTAL 0.5 mg/dL (0.2-1.3); BLOOD UREA NITROGEN 71 mg/dL (7-20); CALCIUM 8.5 mg/dL (8.4-10.2); CARBON DIOXIDE 21 mmol/L (22-30); CHLORIDE 104 mmol/L (98-107); CREATININE RESULT 5.34 mg/dL (0.52-1.25); GLUCOSE 87 mg/dL (75-110); POTASSIUM 4.7 mmol/L (3.6-5.0); SODIUM 142.6 mmol/L (137-145); TOTAL PROTEIN 6.9 g/dL (6.3-8.2)
[2016-10-18] MEDS: CALCIUM ACETATE 667 MG CAPSULE PO SCH ×3 (08:35→18:32)
[2016-10-18 10:59] LABS: PTH INTACT 111 pg/mL (15-65)
[2016-10-18] MEDS: MEGESTROL ACETATE 20 MG TABLET PO SCH ×2 (12:50→18:03)
[2016-10-18] MEDS: HYDRALAZINE HCL 50 MG TABLET PO SCH ×2 (12:50→22:54)
[2016-10-18] MEDS: CHOLECALCIFEROL (D3) 1,000 UNIT TABLET PO SCH (12:50)
[2016-10-18] MEDS: VITAMIN E (DL, ACETATE) 400 UNIT CAPSULE PO SCH (12:51)
[2016-10-18] MEDS: CYANOCOBALAMIN (VITAMIN B-12) 1,000 MCG TABLET PO SCH (12:51)
[2016-10-18] MEDS: FERROUS SULFATE 325 MG TABLET PO SCH (12:51)
[2016-10-18] MEDS: ISOSORBIDE MONONITRATE 30 MG TAB.ER.24H PO SCH (12:51)
[2016-10-18] MEDS: PREGABALIN 75 MG CAPSULE PO SCH ×3 (12:51→22:54)
[2016-10-18] MEDS: ASPIRIN 81 MG TABLET, CHEWABLE PO SCH (12:57)
[2016-10-18] MEDS: CARVEDILOL 12.5 MG TABLET PO SCH ×2 (12:57→22:54)
[2016-10-18] MEDS: AMLODIPINE BESYLATE 5 MG TABLET PO SCH (13:00)
--- NOTE | 2016-10-18 14:00 | Operative Report ---
Operative Report DATE OF SURGERY: 10/17/16 PREOPERATIVE DIAGNOSIS: #1 renal failure. POSTOPERATIVE DIAGNOSIS: #1 renal failure. OPERATION: #1 ultrasound evaluation of the right common femoral vein. #2 ultrasound-guided real-time access in right femoral vein. #3 temperature dialysis catheter insertion via right femoral vein. SURGEON: AISSATOU QUIÑONES IMPORT CUSTOMER SERVICE MANAGER: none ANESTHESIA: Local TISSUE REMOVED OR ALTERED: Not applicable. COMPLICATIONS: None ESTIMATED BLOOD LOSS: 5 mL. INTRAOPERATIVE FINDINGS: Of a satisfactory right femoral vein to support catheter, estimated to be about 2 cm in diameter. Satisfactory access in position. Easy egress of blood and ingress of heparinized solution through all 3 ports. Overall the procedure well tolerated. PROCEDURE: After obtaining informed consent, the patient was positioned supine at bedside. The left groin and adjacent areas] were prepared with chlorhexidine and draped out with sterile linen. After the universal timeout the procedure commenced. A steriley sheathed ultrasound probe was used to evaluate the right femoral vein. Local anesthesia was infiltrated adjacent to the probe. Access into the right femoral was accomplished using a micropuncture needle followed, by micropuncture wire and then with a micropuncture catheter. This was followed by introduction of a 0.035 guidewire, the skin opening was enlarged slightly, serially larger dilators were now placed followed by introduction of a triaysis catheter. All of these transitions were smooth. Each lumen was aspirated of blood and irrigated with heparinized solution. The catheter was now sutured to the skin using 3-0 nylon. A Bio A patch was now applied, followed by sterile dressings. Caps were placed on the end of the each of the lumens. The procedure concluded. Copies dictated operative report to Dr. Aissatou Bertrand MD.
--- NOTE | 2016-10-18 19:11 | PDOC PROGRESS REPORT ---
Subjective Progress Note for:: 10/18/16 Subjective:: Patient was seen by the bedside, he has some tremors, he was hemodialyzed yesterday Physical Exam Vital Signs: Temp Pulse Resp BP Pulse Ox 98.6 F 66 20 118/58 L 98 10/18/16 16:18 10/18/16 16:18 10/18/16 16:18 10/18/16 16:18 10/18/16 16:18 Intake & Output 10/17/16 10/18/16 10/19/16 06:59 06:59 06:59 Intake Total 300 1140 160 Output Total 1800 Balance 300 -660 160 Weight 70.8 kg General appearance: PRESENT: no acute distress Eye exam: PRESENT: PERRLA Respiratory exam: PRESENT: clear to auscultation checo Cardiovascular exam: PRESENT: +S1, +S2 Neurological exam: PRESENT: alert, CN II-XII grossly intact Results Laboratory Results: 10/18/16 07:43 10/18/16 07:43 10/17/16 10/17/16 10/18/16 04:29 09:22 07:43 WBC 8.4 RBC 3.84 L Hgb 10.1 L D Hct 30.0 L MCV 78 L MCH 26.3 L MCHC 33.7 RDW 18.3 H Plt Count 133 L Seg Neutrophils % 67.6 Lymphocytes % 16.7 Monocytes % 12.7 Eosinophils % 2.4 Basophils % 0.6 Absolute Neutrophils 5.7 Absolute Lymphocytes 1.4 Absolute Monocytes 1.1 Absolute Eosinophils 0.2 Absolute Basophils 0.1 Sodium Potassium Chloride Carbon Dioxide Anion Gap BUN Creatinine Est GFR ( Amer) Est GFR (Non-Af Amer) Glucose Calcium Transferrin 143 L Total Bilirubin AST ALT Alkaline Phosphatase Total Protein Albumin PTH Intact 111 H Blood Type O POSITIVE Antibody Screen NEGATIVE 10/18/16 07:43 WBC RBC Hgb Hct MCV MCH MCHC RDW Plt Count Seg Neutrophils % Lymphocytes % Monocytes % Eosinophils % Basophils % Absolute Neutrophils Absolute Lymphocytes Absolute Monocytes Absolute Eosinophils Absolute Basophils Sodium 142.6 Potassium 4.7 Chloride 104 Carbon Dioxide 21 L Anion Gap 18 BUN 71 H Creatinine 5.34 H Est GFR ( Amer) 13 L Est GFR (Non-Af Amer) 11 L Glucose 87 Calcium 8.5 Transferrin Total Bilirubin 0.5 AST 71 H ALT 56 Alkaline Phosphatase 67 Total Protein 6.9 Albumin 2.9 L PTH Intact Blood Type Antibody Screen Impressions: Chest X-Ray 10/10/16 20:06 IMPRESSION: Patchy consolidation in the right lung, multifocal. Chest CT 10/15/16 00:00 IMPRESSION: Patchy airspace disease is present in the right lower lobe and posterior aspects of the right upper and middle lobe. Small right pleural effusion. Head CT 10/15/16 00:00 IMPRESSION: CHRONIC CHANGES OF ATROPHY AND MICROVASCULAR ISCHEMIA. Law- sinusitis. Renal Ultrasound 10/16/16 00:00 IMPRESSION: No evidence for hydronephrosis is seen. There is bilateral cortical thinning. Other findings as noted above Assessment & Plan - Diagnosis (1) Haemophilus influenzae pneumonia Qualifiers: Laterality: right Lung location: middle lobe of lung Qualified Code(s): J14 - Pneumonia due to Hemophilus influenzae Is this a current diagnosis for this admission?: Yes (2) Multifocal pneumonia Is this a current diagnosis for this admission?: Yes (3) Chronic kidney disease (CKD) stage G5/A1, glomerular filtration rate (GFR) less than or equal to 15 mL/min/1.73 square meter and albuminuria creatinine ratio less than 30 mg/g Is this a current diagnosis for this admission?: Yes (4) Wheezing Is this a current diagnosis for this admission?: Yes
[2016-10-18] MEDS: ATORVASTATIN CALCIUM 80 MG TABLET PO SCH (22:54)
[2016-10-18] MEDS: DOXEPIN HCL 10 MG CAPSULE PO SCH (22:54)
[2016-10-19 05:38] LABS: ABSOLUTE BASOPHILS # (AUTO) 0.1 10^3/uL (0.0-0.2); ABSOLUTE EOSINOPHILS # (AUTO) 0.2 10^3/uL (0.0-0.6); ABSOLUTE LYMPHOCYTES (AUTO) 1.9 10^3/uL (0.5-4.7); ABSOLUTE MONOCYTES (AUTO) 0.9 10^3/uL (0.1-1.4); ABSOLUTE NEUT (AUTO) 4.9 10^3/uL (1.7-8.2); EOSINOPHILS % (AUTO) 2.9 % (0-6); HEMATOCRIT 32.1 % (37.9-51.0); HEMOGLOBIN 10.6 g/dL (13.5-17.0); HGB HCT DIFFERENCE -0.3; LYMPHOCYTES % (AUTO) 23.7 % (13-45); MEAN CORPUSCULAR HEMOGLOBIN 26.2 pg (27.0-33.4); MEAN CORPUSCULAR HGB CONC 33.2 g/dL (32.0-36.0); MEAN CORPUSCULAR VOLUME 79 fl (80-97); MONOCYTES % (AUTO) 11.3 % (3-13); RED BLOOD COUNT 4.06 10^6/uL (4.35-5.55); RED CELL DISTRIBUTION WIDTH 18.3 % (11.5-14.0); SEGMENTED NEUTROPHILS % (AUTO) 61.1 % (42-78); WHITE BLOOD COUNT 8.1 10^3/uL (4.0-10.5)
[2016-10-19 05:55] LABS: ALANINE AMINOTRANSFERASE 64 U/L (21-72); ALBUMIN 3.1 g/dL (3.5-5.0); ALKALINE PHOSPHATASE 72 U/L (38-126); ASPARTATE AMINO TRANSFERASE 63 U/L (17-59); BILIRUBIN,DIRECT 0.4 mg/dL (0.0-0.4); BILIRUBIN,TOTAL 0.4 mg/dL (0.2-1.3); CALCIUM 8.8 mg/dL (8.4-10.2); CREATININE RESULT 6.22 mg/dL (0.52-1.25); GLUCOSE 90 mg/dL (75-110); POTASSIUM 5.4 mmol/L (3.6-5.0); TOTAL PROTEIN 7.3 g/dL (6.3-8.2)
[2016-10-19 06:06] LABS: BLOOD UREA NITROGEN 93 mg/dL (7-20)
[2016-10-19 06:11] LABS: CARBON DIOXIDE 17 mmol/L (22-30); CHLORIDE 106 mmol/L (98-107); SODIUM 142.7 mmol/L (137-145)
[2016-10-19 06:14] LABS: ANION GAP 20 (5-19)
[2016-10-19] MEDS ORDERED: HEPARIN SOD (PORCINE) 1,000 UNIT/ML 10 ML VIAL MC PRN (08:40)
[2016-10-19] MEDS: CALCIUM ACETATE 667 MG CAPSULE PO SCH ×3 (08:49→17:29)
[2016-10-19] MEDS: LANSOPRAZOLE 30 MG TAB.RAP.DR PO SCH (08:55)
[2016-10-19] MEDS: HEPARIN SOD (PORCINE) 5,000 UNIT/ML 1 ML SYRINGE SUBCUT SCH ×3 (08:55→22:29)
[2016-10-19] MEDS: PREGABALIN 75 MG CAPSULE PO SCH ×2 (10:34→17:30)
[2016-10-19] MEDS: MEGESTROL ACETATE 20 MG TABLET PO SCH ×2 (10:34→17:30)
[2016-10-19] MEDS: HYDRALAZINE HCL 50 MG TABLET PO SCH ×2 (10:34→22:31)
[2016-10-19] MEDS: CHOLECALCIFEROL (D3) 1,000 UNIT TABLET PO SCH (10:34)
[2016-10-19] MEDS: ASPIRIN 81 MG TABLET, CHEWABLE PO SCH (10:34)
[2016-10-19] MEDS: CYANOCOBALAMIN (VITAMIN B-12) 1,000 MCG TABLET PO SCH (10:34)
[2016-10-19] MEDS: ISOSORBIDE MONONITRATE 30 MG TAB.ER.24H PO SCH (10:34)
[2016-10-19] MEDS: FERROUS SULFATE 325 MG TABLET PO SCH (10:34)
[2016-10-19] MEDS: CARVEDILOL 12.5 MG TABLET PO SCH ×2 (10:34→22:30)
[2016-10-19] MEDS: VITAMIN E (DL, ACETATE) 400 UNIT CAPSULE PO SCH (10:34)
[2016-10-19] MEDS: AMLODIPINE BESYLATE 5 MG TABLET PO SCH (10:34)
--- NOTE | 2016-10-19 14:38 | PDOC PROGRESS REPORT ---
Subjective Progress Note for:: 10/19/16 Subjective:: I saw the patient is morning during dialysis at around 8:45 AM. Patient is doing well on dialysis and has no complaints. He claims that he feels better after dialysis 2 days ago. His tremors seems better. He is tolerating dialysis well. Physical Exam Vital Signs: Temp Pulse Resp BP Pulse Ox 99.1 F 71 19 151/73 H 94 10/19/16 12:47 10/19/16 12:47 10/19/16 12:47 10/19/16 12:47 10/19/16 12:47 Intake & Output 10/18/16 10/19/16 10/20/16 06:59 06:59 06:59 Intake Total 1140 170 118 Output Total 1800 1800 Balance -660 170 -1682 Weight 70.8 kg 74.8 kg Vitals during dialysis this morning: Blood pressure 160/80, heart rate 75, blood flow rate of 250 mL per minute using his trialysis catheter, dialysate flow rate of 500 mL per minute. Exam: General appearance: PRESENT: no acute distress, cooperative, well-developed, well-nourished Head exam: PRESENT: atraumatic, normocephalic Eye exam: PRESENT: conjunctiva slightly pale, PERRLA. ABSENT: scleral icterus Neck exam: ABSENT: JVD Respiratory exam: PRESENT: Diminished breath sounds. ABSENT: crackles, rales, rhonchi, unlabored, wheezes Cardiovascular exam: PRESENT: Regular rate rhythm -+S1, +S2. ABSENT: diastolic murmur, systolic murmur GI/Abdominal exam: PRESENT: normal bowel sounds, soft. ABSENT: guarding, mass, tenderness Extremities exam: ABSENT: No edema Neurological exam: PRESENT: alert, awake, oriented to person, place and time. He has less tremors and asterixis. Skin exam: PRESENT: dry, warm, Results Laboratory Results: 10/19/16 05:26 10/19/16 05:26 10/19/16 10/19/16 05:26 05:26 WBC 8.1 RBC 4.06 L Hgb 10.6 L Hct 32.1 L MCV 79 L MCH 26.2 L MCHC 33.2 RDW 18.3 H Plt Count 152 Seg Neutrophils % 61.1 Lymphocytes % 23.7 Monocytes % 11.3 Eosinophils % 2.9 Basophils % 1.0 Absolute Neutrophils 4.9 Absolute Lymphocytes 1.9 Absolute Monocytes 0.9 Absolute Eosinophils 0.2 Absolute Basophils 0.1 Sodium 142.7 Potassium 5.4 H Chloride 106 Carbon Dioxide 17 L Anion Gap 20 H BUN 93 H D Creatinine 6.22 H Est GFR ( Amer) 11 L Est GFR (Non-Af Amer) 9 L Glucose 90 Calcium 8.8 Total Bilirubin 0.4 AST 63 H ALT 64 Alkaline Phosphatase 72 Total Protein 7.3 Albumin 3.1 L Impressions: Chest X-Ray 10/10/16 20:06 IMPRESSION: Patchy consolidation in the right lung, multifocal. Chest CT 10/15/16 00:00 IMPRESSION: Patchy airspace disease is present in the right lower lobe and posterior aspects of the right upper and middle lobe. Small right pleural effusion. Head CT 10/15/16 00:00 IMPRESSION: CHRONIC CHANGES OF ATROPHY AND MICROVASCULAR ISCHEMIA. Law- sinusitis. Renal Ultrasound 10/16/16 00:00 IMPRESSION: No evidence for hydronephrosis is seen. There is bilateral cortical thinning. Other findings as noted above Assessment & Plan - Diagnosis (1) Chronic kidney disease, stage V requiring chronic dialysis Is this a current diagnosis for this admission?: YesPlan: The patient has progressively deteriorating kidney function for several years. Currently there is no acute precipitating factor for worsening of the kidney function. I think the patient's worsening kidney function is just a natural deterioration this progressive kidney disease. Patient has some starting uremic symptoms including weakness and asterixis. He also has severe metabolic acidosis and anemia. All of these are complications of progressive deterioration of his chronic kidney disease currently now at a stage V. Currently is not fluid overloaded. He has urine protein/ creatinine ratio of 1.2. We will do dialysis today for 3 hours, using the patient's right femoral trialysis catheter, with 2 potassium bath, blood flow rate of 200-250 mL per minute, dialysate flow rate of 500 mL per minute, ultrafiltration 1-2 L as tolerated, no heparin and no Procrit during dialysis. Monitor the patient during dialysis. We'll continue hemodialysis support while here in the hospital. Patient will have a PermCath placement on Saturday by Dr. Bertrand. Once the patient is arranged for rehabilitation placement and PermCath is placed, I think he can be discharged. We'll consult party planner to arrange outpatient dialysis at [facility]. (2) Uremia Is this a current diagnosis for this admission?: YesPlan: Hemodialysis today. Much improved. (3) Metabolic acidosis Is this a current diagnosis for this admission?: YesPlan: Dialysis would help this. (4) Anemia in chronic kidney disease (CKD) Is this a current diagnosis for this admission?: YesPlan: Procrit as needed during dialysis. (5) Iron deficiency anemia Is this a current diagnosis for this admission?: YesPlan: As above. (6) Hyperphosphatemia Is this a current diagnosis for this admission?: YesPlan: Start PhosLo 2 capsules with meals. (7) Haemophilus influenzae pneumonia Qualifiers: Laterality: right Lung location: middle lobe of lung Qualified Code(s): J14 - Pneumonia due to Hemophilus influenzae Is this a current diagnosis for this admission?: Yes (8) Multifocal pneumonia Is this a current diagnosis for this admission?: Yes - Time Time with patient: 15-25 minutes
[2016-10-19 15:38] LABS: HEPATITIS C QUANTITATION HCV Not Detected IU/mL (.)
--- NOTE | 2016-10-19 19:01 | PDOC PROGRESS REPORT ---
Subjective Progress Note for:: 10/19/16 Subjective:: He had hemodialysis today, he will need rehabilitation on discharge Physical Exam Vital Signs: Temp Pulse Resp BP Pulse Ox 99.1 F 77 19 151/73 H 94 10/19/16 12:47 10/19/16 14:00 10/19/16 12:47 10/19/16 12:47 10/19/16 12:47 Intake & Output 10/18/16 10/19/16 10/20/16 06:59 06:59 06:59 Intake Total 1140 170 738 Output Total 1800 2000 Balance -660 170 -1262 Weight 70.8 kg 74.8 kg General appearance: PRESENT: no acute distress Head exam: PRESENT: atraumatic, normocephalic Eye exam: PRESENT: PERRLA Ear exam: PRESENT: normal external ear exam Mouth exam: PRESENT: moist, tongue midline Neck exam: PRESENT: full ROM Respiratory exam: PRESENT: clear to auscultation checo Cardiovascular exam: PRESENT: +S1, +S2 Pulses: PRESENT: normal dorsalis pedis pul, +2 pedal pulses bilateral Vascular exam: PRESENT: normal capillary refill GI/Abdominal exam: PRESENT: soft Rectal exam: PRESENT: deferred Neurological exam: PRESENT: alert, CN II-XII grossly intact Psychiatric exam: PRESENT: appropriate affect, normal mood. ABSENT: homicidal ideation, suicidal ideation Skin exam: PRESENT: dry, intact, warm Results Laboratory Results: 10/19/16 05:26 10/19/16 05:26 10/19/16 10/19/16 05:26 05:26 WBC 8.1 RBC 4.06 L Hgb 10.6 L Hct 32.1 L MCV 79 L MCH 26.2 L MCHC 33.2 RDW 18.3 H Plt Count 152 Seg Neutrophils % 61.1 Lymphocytes % 23.7 Monocytes % 11.3 Eosinophils % 2.9 Basophils % 1.0 Absolute Neutrophils 4.9 Absolute Lymphocytes 1.9 Absolute Monocytes 0.9 Absolute Eosinophils 0.2 Absolute Basophils 0.1 Sodium 142.7 Potassium 5.4 H Chloride 106 Carbon Dioxide 17 L Anion Gap 20 H BUN 93 H D Creatinine 6.22 H Est GFR ( Amer) 11 L Est GFR (Non-Af Amer) 9 L Glucose 90 Calcium 8.8 Total Bilirubin 0.4 AST 63 H ALT 64 Alkaline Phosphatase 72 Total Protein 7.3 Albumin 3.1 L Impressions: Chest X-Ray 10/10/16 20:06 IMPRESSION: Patchy consolidation in the right lung, multifocal. Chest CT 10/15/16 00:00 IMPRESSION: Patchy airspace disease is present in the right lower lobe and posterior aspects of the right upper and middle lobe. Small right pleural effusion. Head CT 10/15/16 00:00 IMPRESSION: CHRONIC CHANGES OF ATROPHY AND MICROVASCULAR ISCHEMIA. Law- sinusitis. Renal Ultrasound 10/16/16 00:00 IMPRESSION: No evidence for hydronephrosis is seen. There is bilateral cortical thinning. Other findings as noted above Assessment & Plan - Diagnosis (1) Haemophilus influenzae pneumonia Qualifiers: Laterality: right Lung location: middle lobe of lung Qualified Code(s): J14 - Pneumonia due to Hemophilus influenzae Is this a current diagnosis for this admission?: Yes (2) Multifocal pneumonia Is this a current diagnosis for this admission?: Yes (3) Chronic kidney disease (CKD) stage G5/A1, glomerular filtration rate (GFR) less than or equal to 15 mL/min/1.73 square meter and albuminuria creatinine ratio less than 30 mg/g Is this a current diagnosis for this admission?: Yes (4) Wheezing Is this a current diagnosis for this admission?: Yes - Plan Summary Plan Summary: Continue present treatment
[2016-10-19] MEDS: ATORVASTATIN CALCIUM 80 MG TABLET PO SCH (22:29)
[2016-10-19] MEDS: DOXEPIN HCL 10 MG CAPSULE PO SCH (22:30)
[2016-10-20] MEDS: LANSOPRAZOLE 30 MG TAB.RAP.DR PO SCH (05:32)
[2016-10-20] MEDS: HEPARIN SOD (PORCINE) 5,000 UNIT/ML 1 ML SYRINGE SUBCUT SCH ×3 (05:33→21:45)
[2016-10-20 07:44] LABS: ABSOLUTE BASOPHILS # (AUTO) 0.1 10^3/uL (0.0-0.2); ABSOLUTE EOSINOPHILS # (AUTO) 0.2 10^3/uL (0.0-0.6); ABSOLUTE LYMPHOCYTES (AUTO) 1.8 10^3/uL (0.5-4.7); ABSOLUTE MONOCYTES (AUTO) 1.1 10^3/uL (0.1-1.4); ABSOLUTE NEUT (AUTO) 4.8 10^3/uL (1.7-8.2); BASOPHILS % (AUTO) 0.6 % (0-2); EOSINOPHILS % (AUTO) 2.1 % (0-6); HEMATOCRIT 33.5 % (37.9-51.0); HEMOGLOBIN 11.3 g/dL (13.5-17.0); HGB HCT DIFFERENCE 0.4; LYMPHOCYTES % (AUTO) 22.8 % (13-45); MEAN CORPUSCULAR HGB CONC 33.6 g/dL (32.0-36.0); MEAN CORPUSCULAR VOLUME 78 fl (80-97); RED BLOOD COUNT 4.33 10^6/uL (4.35-5.55); RED CELL DISTRIBUTION WIDTH 18.5 % (11.5-14.0); SEGMENTED NEUTROPHILS % (AUTO) 60.5 % (42-78)
[2016-10-20 08:00] LABS: ALANINE AMINOTRANSFERASE 89 U/L (21-72); ALBUMIN 3.3 g/dL (3.5-5.0); ALKALINE PHOSPHATASE 77 U/L (38-126); ANION GAP 18 (5-19); ASPARTATE AMINO TRANSFERASE 90 U/L (17-59); BILIRUBIN,DIRECT 0.4 mg/dL (0.0-0.4); BILIRUBIN,TOTAL 0.4 mg/dL (0.2-1.3); BLOOD UREA NITROGEN 72 mg/dL (7-20); CARBON DIOXIDE 23 mmol/L (22-30); CHLORIDE 101 mmol/L (98-107); CREATININE RESULT 5.37 mg/dL (0.52-1.25); GLUCOSE 91 mg/dL (75-110); POTASSIUM 4.6 mmol/L (3.6-5.0); SODIUM 141.9 mmol/L (137-145); TOTAL PROTEIN 7.8 g/dL (6.3-8.2)
[2016-10-20] MEDS: CALCIUM ACETATE 667 MG CAPSULE PO SCH ×3 (08:36→16:20)
[2016-10-20] MEDS: CHOLECALCIFEROL (D3) 1,000 UNIT TABLET PO SCH (09:33)
[2016-10-20] MEDS: PREGABALIN 75 MG CAPSULE PO SCH ×2 (09:33→17:22)
[2016-10-20] MEDS: HYDRALAZINE HCL 50 MG TABLET PO SCH ×2 (09:33→21:44)
[2016-10-20] MEDS: AMLODIPINE BESYLATE 5 MG TABLET PO SCH (09:34)
[2016-10-20] MEDS: CYANOCOBALAMIN (VITAMIN B-12) 1,000 MCG TABLET PO SCH (09:34)
[2016-10-20] MEDS: CARVEDILOL 12.5 MG TABLET PO SCH ×2 (09:34→21:44)
[2016-10-20] MEDS: MEGESTROL ACETATE 20 MG TABLET PO SCH ×2 (09:37→17:22)
[2016-10-20] MEDS: ASPIRIN 81 MG TABLET, CHEWABLE PO SCH (09:37)
[2016-10-20] MEDS: FERROUS SULFATE 325 MG TABLET PO SCH (09:37)
[2016-10-20] MEDS: ISOSORBIDE MONONITRATE 30 MG TAB.ER.24H PO SCH (09:37)
[2016-10-20] MEDS: VITAMIN E (DL, ACETATE) 400 UNIT CAPSULE PO SCH (09:38)
--- NOTE | 2016-10-20 10:49 | PDOC PROGRESS REPORT ---
Subjective Progress Note for:: 10/20/16 Subjective:: Patient reported improvement in his breathing. No significant coughing. No fever or chills. No chest pain. Tolerating oral feeding. Less tremor. Tolerating hemodialysis session. Awaiting PermCath placement on 10/22/16. Physical Exam Vital Signs: Temp Pulse Resp BP Pulse Ox 98.7 F 66 18 144/62 H 93 10/20/16 07:21 10/20/16 07:21 10/20/16 07:21 10/20/16 07:21 10/20/16 07:21 Intake & Output 10/19/16 10/20/16 10/21/16 06:59 06:59 06:59 Intake Total 170 1098 Output Total 2000 Balance 170 -902 Weight 74.8 kg 78.1 kg General appearance: PRESENT: no acute distress, well-developed, well-nourished Head exam: PRESENT: atraumatic, normocephalic Eye exam: PRESENT: conjunctiva pink, EOMI, PERRLA. ABSENT: scleral icterus Mouth exam: PRESENT: moist Neck exam: PRESENT: full ROM. ABSENT: carotid bruit, JVD, lymphadenopathy, thyromegaly Respiratory exam: PRESENT: clear to auscultation checo, decreased breath sounds - at lung bases Cardiovascular exam: PRESENT: RRR. ABSENT: diastolic murmur, rubs, systolic murmur GI/Abdominal exam: PRESENT: normal bowel sounds, soft. ABSENT: distended, guarding, mass, organolmegaly, rebound, tenderness Extremities exam: ABSENT: full ROM, calf tenderness, joint swelling, pedal edema Musculoskeletal exam: PRESENT: deformity - related to multiple joints involvement with arthritis Neurological exam: PRESENT: alert, awake, oriented to person, oriented to place , oriented to time, oriented to situation, CN II-XII grossly intact. ABSENT: motor sensory deficit Psychiatric exam: PRESENT: appropriate affect, normal mood. ABSENT: homicidal ideation, suicidal ideation Skin exam: PRESENT: dry, intact, warm. ABSENT: cyanosis, rash Results Laboratory Results: 10/20/16 07:31 10/20/16 07:31 10/20/16 10/20/16 07:31 07:31 WBC 8.0 RBC 4.33 L Hgb 11.3 L Hct 33.5 L MCV 78 L MCH 26.0 L MCHC 33.6 RDW 18.5 H Plt Count 192 Seg Neutrophils % 60.5 Lymphocytes % 22.8 Monocytes % 14.0 H Eosinophils % 2.1 Basophils % 0.6 Absolute Neutrophils 4.8 Absolute Lymphocytes 1.8 Absolute Monocytes 1.1 Absolute Eosinophils 0.2 Absolute Basophils 0.1 Sodium 141.9 Potassium 4.6 Chloride 101 Carbon Dioxide 23 Anion Gap 18 BUN 72 H Creatinine 5.37 H Est GFR ( Amer) 13 L Est GFR (Non-Af Amer) 10 L Glucose 91 Calcium 9.0 Total Bilirubin 0.4 AST 90 H ALT 89 H Alkaline Phosphatase 77 Total Protein 7.8 Albumin 3.3 L Impressions: Chest X-Ray 10/10/16 20:06 IMPRESSION: Patchy consolidation in the right lung, multifocal. Chest CT 10/15/16 00:00 IMPRESSION: Patchy airspace disease is present in the right lower lobe and posterior aspects of the right upper and middle lobe. Small right pleural effusion. Head CT 10/15/16 00:00 IMPRESSION: CHRONIC CHANGES OF ATROPHY AND MICROVASCULAR ISCHEMIA. Law- sinusitis. Renal Ultrasound 10/16/16 00:00 IMPRESSION: No evidence for hydronephrosis is seen. There is bilateral cortical thinning. Other findings as noted above Assessment & Plan - Diagnosis (1) Chronic kidney disease, stage V requiring chronic dialysis Is this a current diagnosis for this admission?: YesPlan: Continue with dialysis supplementation. (2) HTN (hypertension) Qualifiers: Hypertension type: essential hypertension Qualified Code(s): I10 - Essential (primary) hypertension Is this a current diagnosis for this admission?: YesPlan: Continue current medication management - Time Time Spent with patient: 25-34 minutes Medications reviewed and adjusted accordingly: Yes Anticipated discharge: SNF - Inpatient Certification Medical Necessity: Need Close Monitoring Due to Risk of Patient Decompensation, Need For Continuous Telemetry Monitoring, Risk of Complication if Not Cared For in Hospital Post Hospital Care: D/C or Transfer Summary - Plan Summary Plan Summary: See covering attending physician orders.
[2016-10-20] MEDS: DOXEPIN HCL 10 MG CAPSULE PO SCH (21:44)
[2016-10-20] MEDS: ATORVASTATIN CALCIUM 80 MG TABLET PO SCH (21:44)
[2016-10-21] MEDS: LANSOPRAZOLE 30 MG TAB.RAP.DR PO SCH (05:55)
[2016-10-21] MEDS: HEPARIN SOD (PORCINE) 5,000 UNIT/ML 1 ML SYRINGE SUBCUT SCH ×3 (05:56→22:44)
[2016-10-21] MEDS: MEGESTROL ACETATE 20 MG TABLET PO SCH ×2 (10:15→17:09)
[2016-10-21] MEDS: AMLODIPINE BESYLATE 5 MG TABLET PO SCH (10:15)
[2016-10-21] MEDS: ASPIRIN 81 MG TABLET, CHEWABLE PO SCH (10:15)
[2016-10-21] MEDS: HYDRALAZINE HCL 50 MG TABLET PO SCH ×2 (10:15→22:40)
[2016-10-21] MEDS: ISOSORBIDE MONONITRATE 30 MG TAB.ER.24H PO SCH (10:15)
[2016-10-21] MEDS: CHOLECALCIFEROL (D3) 1,000 UNIT TABLET PO SCH (10:15)
[2016-10-21] MEDS: CYANOCOBALAMIN (VITAMIN B-12) 1,000 MCG TABLET PO SCH (10:15)
[2016-10-21] MEDS: PREGABALIN 75 MG CAPSULE PO SCH ×2 (10:16→17:09)
[2016-10-21] MEDS: FERROUS SULFATE 325 MG TABLET PO SCH (10:16)
[2016-10-21] MEDS: CALCIUM ACETATE 667 MG CAPSULE PO SCH ×3 (10:16→17:09)
[2016-10-21] MEDS: CARVEDILOL 12.5 MG TABLET PO SCH ×2 (10:16→22:43)
[2016-10-21] MEDS: VITAMIN E (DL, ACETATE) 400 UNIT CAPSULE PO SCH (10:16)
--- NOTE | 2016-10-21 13:11 | PDOC PROGRESS REPORT ---
Subjective Progress Note for:: 10/21/16 Subjective:: Patient reported improvement in his breathing. No significant coughing. No fever or chills. No chest pain. Tolerating oral feeding. Less tremor. Tolerating hemodialysis session. Awaiting PermCath placement on 10/22/16. Physical Exam Vital Signs: Temp Pulse Resp BP Pulse Ox 98.9 F 69 18 153/69 H 97 10/21/16 08:00 10/21/16 08:00 10/21/16 08:00 10/21/16 08:00 10/21/16 08:00 Intake & Output 10/20/16 10/21/16 10/22/16 06:59 06:59 06:59 Intake Total 1098 1189 Output Total 2000 Balance -902 1189 Weight 78.1 kg 77 kg Physical Exam: General appearance: PRESENT: no acute distress, well-developed, well-nourished Head exam: PRESENT: atraumatic, normocephalic Eye exam: PRESENT: conjunctiva pink, EOMI, PERRLA. ABSENT: scleral icterus Mouth exam: PRESENT: moist Neck exam: PRESENT: full ROM. ABSENT: carotid bruit, JVD, lymphadenopathy, thyromegaly Respiratory exam: PRESENT: clear to auscultation checo, decreased breath sounds - at lung bases Cardiovascular exam: PRESENT: RRR. ABSENT: diastolic murmur, rubs, systolic murmur GI/Abdominal exam: PRESENT: normal bowel sounds, soft. ABSENT: distended, guarding, mass, organomegaly, rebound, tenderness Extremities exam: ABSENT: full ROM, calf tenderness, joint swelling, pedal edema Musculoskeletal exam: PRESENT: deformity - related to multiple joints involvement with arthritis Neurological exam: PRESENT: alert, awake, oriented to person, oriented to place , oriented to time, oriented to situation, CN II-XII grossly intact. ABSENT: motor sensory deficit Psychiatric exam: PRESENT: appropriate affect, normal mood. ABSENT: homicidal ideation, suicidal ideation Skin exam: PRESENT: dry, intact, warm. ABSENT: cyanosis, rash Results Laboratory Results: 10/20/16 07:31 10/20/16 07:31 Impressions: Chest X-Ray 10/10/16 20:06 IMPRESSION: Patchy consolidation in the right lung, multifocal. Chest CT 10/15/16 00:00 IMPRESSION: Patchy airspace disease is present in the right lower lobe and posterior aspects of the right upper and middle lobe. Small right pleural effusion. Head CT 10/15/16 00:00 IMPRESSION: CHRONIC CHANGES OF ATROPHY AND MICROVASCULAR ISCHEMIA. Law- sinusitis. Renal Ultrasound 10/16/16 00:00 IMPRESSION: No evidence for hydronephrosis is seen. There is bilateral cortical thinning. Other findings as noted above Assessment & Plan - Diagnosis (1) Chronic kidney disease, stage V requiring chronic dialysis Is this a current diagnosis for this admission?: Yes (2) HTN (hypertension) Qualifiers: Hypertension type: essential hypertension Qualified Code(s): I10 - Essential (primary) hypertension Is this a current diagnosis for this admission?: Yes - Time Time Spent with patient: 25-34 minutes Medications reviewed and adjusted accordingly: Yes Anticipated discharge: Home with Homehealth Within: Other - Inpatient Certification Based on my medical assessment, after consideration of the patient's comorbidities, presenting symptoms, or acuity I expect that the services needed warrant INPATIENT care.: Yes I certify that my determination is in accordance with my understanding of Medicare's requirements for reasonable and necessary INPATIENT services [42 CFR 412.3e].: Yes Medical Necessity: Need Close Monitoring Due to Risk of Patient Decompensation, Need For Continuous Telemetry Monitoring, Risk of Complication if Not Cared For in Hospital Post Hospital Care: D/C Information Technology Security Analyst Documentation - Plan Summary Plan Summary: See covering attending physician orders.
[2016-10-21] MEDS: ATORVASTATIN CALCIUM 80 MG TABLET PO SCH (22:43)
[2016-10-21] MEDS: DOXEPIN HCL 10 MG CAPSULE PO SCH (22:44)
[2016-10-22] MEDS: LANSOPRAZOLE 30 MG TAB.RAP.DR PO SCH (05:32)
[2016-10-22] MEDS: HEPARIN SOD (PORCINE) 5,000 UNIT/ML 1 ML SYRINGE SUBCUT SCH ×3 (05:33→22:53)
[2016-10-22 07:10] LABS: ABSOLUTE BASOPHILS # (AUTO) 0.1 10^3/uL (0.0-0.2); ABSOLUTE EOSINOPHILS # (AUTO) 0.3 10^3/uL (0.0-0.6); ABSOLUTE LYMPHOCYTES (AUTO) 2.1 10^3/uL (0.5-4.7); ABSOLUTE MONOCYTES (AUTO) 0.7 10^3/uL (0.1-1.4); EOSINOPHILS % (AUTO) 3.6 % (0-6); HEMATOCRIT 31.6 % (37.9-51.0); HEMOGLOBIN 10.6 g/dL (13.5-17.0); HGB HCT DIFFERENCE 0.2; LYMPHOCYTES % (AUTO) 25.4 % (13-45); MEAN CORPUSCULAR HEMOGLOBIN 26.2 pg (27.0-33.4); MEAN CORPUSCULAR HGB CONC 33.4 g/dL (32.0-36.0); MEAN CORPUSCULAR VOLUME 79 fl (80-97); MONOCYTES % (AUTO) 8.5 % (3-13); RED BLOOD COUNT 4.02 10^6/uL (4.35-5.55); RED CELL DISTRIBUTION WIDTH 18.7 % (11.5-14.0); SEGMENTED NEUTROPHILS % (AUTO) 61.5 % (42-78); WHITE BLOOD COUNT 8.1 10^3/uL (4.0-10.5)
[2016-10-22 07:25] LABS: ALANINE AMINOTRANSFERASE 78 U/L (21-72); ALBUMIN 3.5 g/dL (3.5-5.0); ALKALINE PHOSPHATASE 81 U/L (38-126); ASPARTATE AMINO TRANSFERASE 55 U/L (17-59); BILIRUBIN,DIRECT 0.5 mg/dL (0.0-0.4); BILIRUBIN,TOTAL 0.6 mg/dL (0.2-1.3); CHLORIDE 98 mmol/L (98-107); GLUCOSE 90 mg/dL (75-110); POTASSIUM 5.4 mmol/L (3.6-5.0); SODIUM 137.3 mmol/L (137-145); TOTAL PROTEIN 7.9 g/dL (6.3-8.2)
[2016-10-22 07:31] LABS: CREATININE RESULT 8.95 mg/dL (0.52-1.25)
[2016-10-22 07:33] LABS: BLOOD UREA NITROGEN 125 mg/dL (7-20)
[2016-10-22] MEDS ORDERED: BACITRACIN INJ 50,000 UNIT VIAL IR SCH ×2 (07:45→08:00)
[2016-10-22] MEDS ORDERED: FENTANYL CITRATE INJ/PF 100 MCG/2 ML AMPUL ONE (07:47)
[2016-10-22] MEDS ORDERED: CEFAZOLIN INJ 1 GM VIAL ONE (07:47)
[2016-10-22] MEDS ORDERED: MIDAZOLAM 2 MG/2 ML INJ ONE (07:47)
[2016-10-22] MEDS ORDERED: LIDOCAINE 0.5% INJ-PF (5 MG/ML) 50 ML SDV ONE (07:49)
[2016-10-22 07:55] LABS: ANION GAP 19 (5-19); CARBON DIOXIDE 20 mmol/L (22-30)
--- NOTE | 2016-10-22 09:04 | Operative Report ---
Operative Report DATE OF SURGERY: 10/22/16 PREOPERATIVE DIAGNOSIS: #1 renal failure. POSTOPERATIVE DIAGNOSIS: #1 renal failure. OPERATION: #1 ultrasound evaluation of the right internal jugular vein. #2 ultrasound-guided real-time access in right internal jugular vein. #3 perm catheter insertion via right femoral vein. SURGEON: AISSATOU QUIÑONES MEDICAL MANAGER: none ANESTHESIA: Moderate Sedation TISSUE REMOVED OR ALTERED: Not applicable. COMPLICATIONS: None ESTIMATED BLOOD LOSS: 5 mL. INTRAOPERATIVE FINDINGS: Of a satisfactory right internal jugular vein to support catheter, estimated to be about 1.2 cm in diameter. Satisfactory access in position. Easy egress of blood and ingress of heparinized solution through both ports. Overall the procedure well tolerated. Smooth flow of contrast through the right atrium, ventricle and pulmonary outflow tract. The tip of the catheter well positioned in the atrial pool. PROCEDURE: After obtaining informed consent, the patient was taken to the Diesel Automotive Technician and positioned supine. The right neck and chest were prepared with chlorhexidine and draped out with sterile linen. After the " universal timeout", in which it was verified that the patient continued to receive antibiotic, the procedure commenced. A steriley sheathed ultrasound probe was used to evaluate the right internal jugular vein. Local anesthesia was infiltrated adjacent to the probe. Access into the right internal jugular vein was obtained using a micropuncture needle, followed by micropuncture wire and then a micropuncture catheter. This was followed by introduction of a 0.035 guidewire the tip of which was placed down into the inferior vena cava . A 23 cm long split catheter was now positioned over the chest and an exit site marked and locally anesthetized ,the catheter was placed between the 2 incisions. Proximally, the catheter was now positioned using a peel-away sheath, after dilation. Easy ingress of heparinized solution and egress of blood obtained through both ports. A completion angiogram was done by injecting contrast. The findings were as dictated. The neck incision was now closed using interrupted 3-0 PDS to the subcutaneous tissues, the catheter was anchored at the exit site using 3- 0 PDS. A Biopatch device was now placed adjacent to the catheter. Dressings were applied and the procedure concluded. Exposure time: 0.1 minutes. Exposure: 26 cGy per centimeters squared. Contrast amount: 5 mL of [id number] low osmolality. Copies of the dictated operative report for Dr. Aissatou Bertrand MD.concluded. Copies of the dictated operative report for Dr. Aissatou Bertrand MD.
[2016-10-22] MEDS: CYANOCOBALAMIN (VITAMIN B-12) 1,000 MCG TABLET PO SCH (10:24)
[2016-10-22] MEDS: CALCIUM ACETATE 667 MG CAPSULE PO SCH ×3 (10:24→17:56)
[2016-10-22] MEDS: ASPIRIN 81 MG TABLET, CHEWABLE PO SCH (10:24)
[2016-10-22] MEDS: AMLODIPINE BESYLATE 5 MG TABLET PO SCH (10:24)
[2016-10-22] MEDS: ISOSORBIDE MONONITRATE 30 MG TAB.ER.24H PO SCH (10:25)
[2016-10-22] MEDS: CARVEDILOL 12.5 MG TABLET PO SCH ×2 (10:25→22:27)
[2016-10-22] MEDS: PREGABALIN 75 MG CAPSULE PO SCH ×2 (10:25→17:55)
[2016-10-22] MEDS: HYDRALAZINE HCL 50 MG TABLET PO SCH ×2 (10:25→22:27)
[2016-10-22] MEDS: MEGESTROL ACETATE 20 MG TABLET PO SCH ×2 (10:25→17:56)
[2016-10-22] MEDS: CHOLECALCIFEROL (D3) 1,000 UNIT TABLET PO SCH (10:25)
[2016-10-22] MEDS: VITAMIN E (DL, ACETATE) 400 UNIT CAPSULE PO SCH (10:27)
[2016-10-22] MEDS: FERROUS SULFATE 325 MG TABLET PO SCH (10:30)
--- NOTE | 2016-10-22 12:56 | PDOC PROGRESS REPORT ---
Subjective Progress Note for:: 10/22/16 Subjective:: Patient seen on hemodialysis at this time. He is tolerating dialysis well and he claims he feels better. His tremors he said are gone. He doesn't have any complaints. Patient underwent PermCath placement this morning by Dr. Bertrand and it was uneventful. Currently are using the newly placed PermCath and it seems to be functioning well. Physical Exam Vital Signs: Temp Pulse Resp BP Pulse Ox 98.1 F 86 20 154/82 H 100 10/22/16 11:23 10/22/16 11:23 10/22/16 11:23 10/22/16 11:23 10/22/16 11:23 Intake & Output 10/21/16 10/22/16 10/23/16 06:59 06:59 06:59 Intake Total 1189 1076 237 Output Total 0 Balance 1189 1076 237 Weight 77 kg 78.9 kg Vital signs now on dialysis: Blood pressure 141/76, heart rate 76, blood flow rate 300 mL per minute and dialysate flow rate 500 mL per minute. Exam: General appearance: PRESENT: no acute distress, cooperative, well-developed, well-nourished Head exam: PRESENT: atraumatic, normocephalic Eye exam: PRESENT: conjunctiva slightly pale, PERRLA. ABSENT: scleral icterus Neck exam: ABSENT: JVD Respiratory exam: PRESENT: Normal breath sounds. ABSENT: crackles, rales, rhonchi, unlabored, wheezes Cardiovascular exam: PRESENT: Regular rate rhythm -+S1, +S2. ABSENT: diastolic murmur, systolic murmur GI/Abdominal exam: PRESENT: normal bowel sounds, soft. ABSENT: guarding, mass, tenderness Extremities exam: ABSENT: No edema Neurological exam: PRESENT: alert, awake, oriented to person, place and time. Skin exam: PRESENT: dry, warm, Results Laboratory Results: 10/22/16 06:47 10/22/16 06:47 10/22/16 10/22/16 06:47 06:47 WBC 8.1 RBC 4.02 L Hgb 10.6 L Hct 31.6 L MCV 79 L MCH 26.2 L MCHC 33.4 RDW 18.7 H Plt Count 221 Seg Neutrophils % 61.5 Lymphocytes % 25.4 Monocytes % 8.5 Eosinophils % 3.6 Basophils % 1.0 Absolute Neutrophils 5.0 Absolute Lymphocytes 2.1 Absolute Monocytes 0.7 Absolute Eosinophils 0.3 Absolute Basophils 0.1 Sodium 137.3 Potassium 5.4 H Chloride 98 Carbon Dioxide 20 L Anion Gap 19 BUN 125 H Creatinine 8.95 H Est GFR ( Amer) 7 L Est GFR (Non-Af Amer) 6 L Glucose 90 Calcium 9.0 Total Bilirubin 0.6 AST 55 ALT 78 H Alkaline Phosphatase 81 Total Protein 7.9 Albumin 3.5 Impressions: Chest X-Ray 10/10/16 20:06 IMPRESSION: Patchy consolidation in the right lung, multifocal. Chest CT 10/15/16 00:00 IMPRESSION: Patchy airspace disease is present in the right lower lobe and posterior aspects of the right upper and middle lobe. Small right pleural effusion. Head CT 10/15/16 00:00 IMPRESSION: CHRONIC CHANGES OF ATROPHY AND MICROVASCULAR ISCHEMIA. Law- sinusitis. Renal Ultrasound 10/16/16 00:00 IMPRESSION: No evidence for hydronephrosis is seen. There is bilateral cortical thinning. Other findings as noted above Assessment & Plan - Diagnosis (1) Chronic kidney disease, stage V requiring chronic dialysis Is this a current diagnosis for this admission?: YesPlan: The patient has progressively deteriorating kidney function for several years. Currently there is no acute precipitating factor for worsening of the kidney function. I think the patient's worsening kidney function is just a natural deterioration this progressive kidney disease. Patient has some starting uremic symptoms including weakness and asterixis. He also has severe metabolic acidosis and anemia. All of these are complications of progressive deterioration of his chronic kidney disease currently now at a stage V secondary to hypertensive nephrosclerosis. Currently is not fluid overloaded. He has urine protein/ creatinine ratio of 1.2. We will do dialysis today for 3 hours, using the patient's PermCath, with 2 potassium bath, blood flow rate of 300 mL per minute, dialysate flow rate of 500 mL per minute, ultrafiltration 1-2 L as tolerated, no heparin and no Procrit during dialysis. Monitor the patient during dialysis. We'll continue hemodialysis support while here in the hospital. From nephrology standpoint once outpatient hemodialysis is arranged with [facility] I think the patient can be discharged either to rehabilitation or to home. We will continue to support her hemodialysis while here in the hospital though. (2) Uremia Is this a current diagnosis for this admission?: YesPlan: Resolved (3) Metabolic acidosis Is this a current diagnosis for this admission?: YesPlan: Improved. (4) Anemia in chronic kidney disease (CKD) Is this a current diagnosis for this admission?: YesPlan: Procrit as needed during dialysis. (5) Iron deficiency anemia Is this a current diagnosis for this admission?: YesPlan: As above. (6) Hyperphosphatemia Is this a current diagnosis for this admission?: YesPlan: Start PhosLo 2 capsules with meals. (7) Haemophilus influenzae pneumonia Qualifiers: Laterality: right Lung location: middle lobe of lung Qualified Code(s): J14 - Pneumonia due to Hemophilus influenzae Is this a current diagnosis for this admission?: Yes (8) Multifocal pneumonia Is this a current diagnosis for this admission?: Yes - Time Time with patient: 15-25 minutes
[2016-10-22] MEDS ORDERED: HEPARIN SOD (PORCINE) 1,000 UNIT/ML 10 ML VIAL MC PRN (13:22)
--- NOTE | 2016-10-22 18:26 | PDOC TRANSFER SUMMARY ---
General - Admit/Disc Date/PCP Admission Date/Primary Care Provider: 10/10/16 23:10 BETSY POOL MD Discharge Date: 10/23/16 - Discharge Diagnosis (1) Haemophilus influenzae pneumonia Is this a current diagnosis for this admission?: Yes (2) Multifocal pneumonia Is this a current diagnosis for this admission?: Yes (3) Chronic kidney disease (CKD) stage G5/A1, glomerular filtration rate (GFR) less than or equal to 15 mL/min/1.73 square meter and albuminuria creatinine ratio less than 30 mg/g Is this a current diagnosis for this admission?: Yes (4) Wheezing Is this a current diagnosis for this admission?: Yes (5) End stage kidney disease Is this a current diagnosis for this admission?: Yes (6) History of multiple myeloma Is this a current diagnosis for this admission?: Yes (7) Dementia Is this a current diagnosis for this admission?: Yes (8) HTN (hypertension) Is this a current diagnosis for this admission?: Yes - Additional Information Resuscitation Status: Full Code Discharge Diet: Other (Comments) - Renal diet Discharge Activity: Activity As Tolerated Home Medications: Aspirin [Aspirin 81 mg Chewable Tablet] 81 mg PO DAILY 09/03/16 Atorvastatin Calcium [Lipitor 80 mg Tablet] 80 mg PO QHS 09/03/16 Carvedilol [Coreg 25 mg Tablet] 25 mg PO Q12 09/03/16 Hydralazine HCl [Apresoline 50 mg Tablet] 50 mg PO Q12 09/03/16 Isosorbide Mononitrate [Isosorbide Mononitrate ER] 30 mg PO DAILY 09/03/16 Memantine HCl/Donepezil HCl [Namzaric 28 mg-10 mg Capsule] 1 cap PO QPM Pantoprazole Sodium [Protonix] 40 mg PO DAILY 09/03/16 Amlodipine Besylate [Norvasc 5 mg Tablet] 5 mg PO DAILY 10/10/16 Cholecalciferol (Vitamin D3) [Vitamin D3 1000 Unit Tablet] 1,000 unit PO DAILY 10/10/16 Cyanocobalamin (Vitamin B-12) [Vitamin B-12 1000 mcg Tablet] 1,000 mcg PO DAILY 10/10/16 Ferrous Sulfate [Feosol 325 mg Tablet] 325 mg PO DAILY 10/10/16 Aspirin [Aspirin 81 mg Chewable Tablet] 81 mg PO DAILY #0 tab.chew 10/22/16 Calcium Acetate [Phoslo 667 mg Capsule] 1,334 mg PO MEALS #0 capsule 10/22/16 Cholecalciferol (Vitamin D3) [Vitamin D3 1000 Unit Tablet] 1,000 unit PO DAILY # 0 tablet 10/22/16 Ferrous Sulfate [Feosol 325 mg Tablet] 325 mg PO DAILY #0 tablet 10/22/16 Hydralazine HCl [Apresoline 50 mg Tablet] 50 mg PO Q12 #0 tablet 10/22/16 Isosorbide Mononitrate [Imdur 30 mg Tablet.er] 30 mg PO DAILY #0 tab.er.24h 01/31 Pregabalin [Lyrica 75 mg Capsule] 75 mg PO BID #0 capsule 10/22/16 History of Present Illness Admission Date/PCP: 10/10/16 23:10 BETSY POOL MD History of Present Illness: The patient is a 75-year-old -[place] gentleman known to me with history of chronic kidney disease baseline stage IV, coronary artery disease, hypertension, multiple myeloma in remission who was admitted on October 10 for multilobar pneumonia. Hospital Course Hospital Course: Patient was admitted because of multilobar pneumonia with associated systemic inflammatory response syndrome, he was empirically treated with IV antibiotic to cover community-acquired pneumonia pathogens. Sputum culture grew Haemophilus influenza. Patient had baseline chronic kidney disease stage IV, he was offered kidney replacement therapy outpatient by the survival equipment repairer but patient was not particularly interested at the time. The kidney function progressed to end-stage on this admission there was no other explanation for the progression other than the fact that the kidney progressed to end-stage it was not thought to be due to acute kidney injury, there was no nephrotoxins, there was no hemodynamic instability that would suggests acute tubular necrosis. He became acidotic, and the patient was compensating from a respiratory standpoint, he was hyperventilating trying to compensate for the metabolic acidosis due to kidney failure. Consultation was requested from nephrology Dr. Mckeon, she agreed that patient needed hemodialysis and hemodialysis was started on this admission. He was also severely deconditioned he required more than 2 persons to transfer patient from bed to chair. The plan is to transfer patient to correction home for rehabilitation before discharge from, arrangement is ready made for outpatient hemodialysis Physical Exam Vital Signs: Temp Pulse Resp BP Pulse Ox 97.6 F 77 19 154/75 H 95 10/22/16 15:52 10/22/16 15:52 10/22/16 15:52 10/22/16 15:52 10/22/16 15:52 Intake & Output 10/21/16 10/22/16 10/23/16 06:59 06:59 06:59 Intake Total 1189 1076 721 Output Total 1200 Balance 1189 1076 -479 Weight 77 kg 78.9 kg General appearance: PRESENT: no acute distress, well-developed, well-nourished Head exam: PRESENT: atraumatic, normocephalic Eye exam: PRESENT: conjunctiva pink, EOMI, PERRLA Respiratory exam: PRESENT: clear to auscultation checo Cardiovascular exam: PRESENT: RRR, +S1, +S2 Vascular exam: PRESENT: normal capillary refill GI/Abdominal exam: PRESENT: normal bowel sounds, soft Rectal exam: PRESENT: deferred Neurological exam: PRESENT: alert Skin exam: PRESENT: dry, intact, warm Results Laboratory Results: 10/22/16 06:47 10/22/16 06:47 10/22/16 10/22/16 06:47 06:47 WBC 8.1 RBC 4.02 L Hgb 10.6 L Hct 31.6 L MCV 79 L MCH 26.2 L MCHC 33.4 RDW 18.7 H Plt Count 221 Seg Neutrophils % 61.5 Lymphocytes % 25.4 Monocytes % 8.5 Eosinophils % 3.6 Basophils % 1.0 Absolute Neutrophils 5.0 Absolute Lymphocytes 2.1 Absolute Monocytes 0.7 Absolute Eosinophils 0.3 Absolute Basophils 0.1 Sodium 137.3 Potassium 5.4 H Chloride 98 Carbon Dioxide 20 L Anion Gap 19 BUN 125 H Creatinine 8.95 H Est GFR ( Amer) 7 L Est GFR (Non-Af Amer) 6 L Glucose 90 Calcium 9.0 Total Bilirubin 0.6 AST 55 ALT 78 H Alkaline Phosphatase 81 Total Protein 7.9 Albumin 3.5 Impressions: Chest X-Ray 10/10/16 20:06 IMPRESSION: Patchy consolidation in the right lung, multifocal. Chest CT 10/15/16 00:00 IMPRESSION: Patchy airspace disease is present in the right lower lobe and posterior aspects of the right upper and middle lobe. Small right pleural effusion. Head CT 10/15/16 00:00 IMPRESSION: CHRONIC CHANGES OF ATROPHY AND MICROVASCULAR ISCHEMIA. Law- sinusitis. Renal Ultrasound 10/16/16 00:00 IMPRESSION: No evidence for hydronephrosis is seen. There is bilateral cortical thinning. Other findings as noted above Central Venous Line 10/22/16 00:00 IMPRESSION: Intra procedural imaging and fluoro Guidance Fluoroscopy 10/22/16 00:00
--- NOTE | 2016-10-22 18:30 | PDOC PROGRESS REPORT ---
Subjective Progress Note for:: 10/22/16 Subjective:: Patient is seen by the bedside, the plan is to transfer to a care home tomorrow morning, is doing better today he had hemodialysis today. He will have hemodialysis outpatient on Tuesdays, and Saturdays Physical Exam Vital Signs: Temp Pulse Resp BP Pulse Ox 97.6 F 77 19 154/75 H 95 10/22/16 15:52 10/22/16 15:52 10/22/16 15:52 10/22/16 15:52 10/22/16 15:52 Intake & Output 10/21/16 10/22/16 10/23/16 06:59 06:59 06:59 Intake Total 1189 1076 721 Output Total 1200 Balance 1189 1076 -479 Weight 77 kg 78.9 kg General appearance: PRESENT: no acute distress Eye exam: PRESENT: PERRLA Respiratory exam: PRESENT: clear to auscultation checo Cardiovascular exam: PRESENT: +S1, +S2 GI/Abdominal exam: PRESENT: soft Neurological exam: PRESENT: alert Results Laboratory Results: 10/22/16 06:47 10/22/16 06:47 10/22/16 10/22/16 06:47 06:47 WBC 8.1 RBC 4.02 L Hgb 10.6 L Hct 31.6 L MCV 79 L MCH 26.2 L MCHC 33.4 RDW 18.7 H Plt Count 221 Seg Neutrophils % 61.5 Lymphocytes % 25.4 Monocytes % 8.5 Eosinophils % 3.6 Basophils % 1.0 Absolute Neutrophils 5.0 Absolute Lymphocytes 2.1 Absolute Monocytes 0.7 Absolute Eosinophils 0.3 Absolute Basophils 0.1 Sodium 137.3 Potassium 5.4 H Chloride 98 Carbon Dioxide 20 L Anion Gap 19 BUN 125 H Creatinine 8.95 H Est GFR ( Amer) 7 L Est GFR (Non-Af Amer) 6 L Glucose 90 Calcium 9.0 Total Bilirubin 0.6 AST 55 ALT 78 H Alkaline Phosphatase 81 Total Protein 7.9 Albumin 3.5 Impressions: Chest X-Ray 10/10/16 20:06 IMPRESSION: Patchy consolidation in the right lung, multifocal. Chest CT 10/15/16 00:00 IMPRESSION: Patchy airspace disease is present in the right lower lobe and posterior aspects of the right upper and middle lobe. Small right pleural effusion. Head CT 10/15/16 00:00 IMPRESSION: CHRONIC CHANGES OF ATROPHY AND MICROVASCULAR ISCHEMIA. Law- sinusitis. Renal Ultrasound 10/16/16 00:00 IMPRESSION: No evidence for hydronephrosis is seen. There is bilateral cortical thinning. Other findings as noted above Central Venous Line 10/22/16 00:00 IMPRESSION: Intra procedural imaging and fluoro Guidance Fluoroscopy 10/22/16 00:00 IMPRESSION: Intra procedural imaging and fluoro Assessment & Plan - Diagnosis (1) Haemophilus influenzae pneumonia Qualifiers: Laterality: right Lung location: middle lobe of lung Qualified Code(s): J14 - Pneumonia due to Hemophilus influenzae Is this a current diagnosis for this admission?: Yes (2) Multifocal pneumonia Is this a current diagnosis for this admission?: Yes (3) Chronic kidney disease (CKD) stage G5/A1, glomerular filtration rate (GFR) less than or equal to 15 mL/min/1.73 square meter and albuminuria creatinine ratio less than 30 mg/g Is this a current diagnosis for this admission?: Yes (4) Wheezing Is this a current diagnosis for this admission?: Yes (5) End stage kidney disease Is this a current diagnosis for this admission?: Yes (6) History of multiple myeloma Is this a current diagnosis for this admission?: Yes (7) Dementia Is this a current diagnosis for this admission?: Yes (8) HTN (hypertension) Qualifiers: Hypertension type: essential hypertension Qualified Code(s): I10 - Essential (primary) hypertension Is this a current diagnosis for this admission?: Yes
[2016-10-22] MEDS: ATORVASTATIN CALCIUM 80 MG TABLET PO SCH (22:27)
[2016-10-22] MEDS: DOXEPIN HCL 10 MG CAPSULE PO SCH (22:27)
[2016-10-23] MEDS: HEPARIN SOD (PORCINE) 5,000 UNIT/ML 1 ML SYRINGE SUBCUT SCH ×2 (05:36→14:10)
[2016-10-23] MEDS: LANSOPRAZOLE 30 MG TAB.RAP.DR PO SCH (05:37)
[2016-10-23 06:56] LABS: ABSOLUTE BASOPHILS # (AUTO) 0.1 10^3/uL (0.0-0.2); ABSOLUTE EOSINOPHILS # (AUTO) 0.2 10^3/uL (0.0-0.6); ABSOLUTE LYMPHOCYTES (AUTO) 1.3 10^3/uL (0.5-4.7); ABSOLUTE MONOCYTES (AUTO) 0.7 10^3/uL (0.1-1.4); ABSOLUTE NEUT (AUTO) 4.9 10^3/uL (1.7-8.2); BASOPHILS % (AUTO) 0.7 % (0-2); EOSINOPHILS % (AUTO) 2.5 % (0-6); HEMATOCRIT 30.6 % (37.9-51.0); HEMOGLOBIN 10.1 g/dL (13.5-17.0); HGB HCT DIFFERENCE -0.3; LYMPHOCYTES % (AUTO) 17.9 % (13-45); MEAN CORPUSCULAR HEMOGLOBIN 26.2 pg (27.0-33.4); MEAN CORPUSCULAR VOLUME 79 fl (80-97); MONOCYTES % (AUTO) 9.9 % (3-13); RED BLOOD COUNT 3.85 10^6/uL (4.35-5.55); RED CELL DISTRIBUTION WIDTH 18.5 % (11.5-14.0); WHITE BLOOD COUNT 7.2 10^3/uL (4.0-10.5)
[2016-10-23 07:14] LABS: ALANINE AMINOTRANSFERASE 95 U/L (21-72); ALBUMIN 3.2 g/dL (3.5-5.0); ALKALINE PHOSPHATASE 89 U/L (38-126); ANION GAP 14 (5-19); ASPARTATE AMINO TRANSFERASE 96 U/L (17-59); BILIRUBIN,DIRECT 0.5 mg/dL (0.0-0.4); BILIRUBIN,TOTAL 0.5 mg/dL (0.2-1.3); CALCIUM 8.9 mg/dL (8.4-10.2); CARBON DIOXIDE 26 mmol/L (22-30); CHLORIDE 100 mmol/L (98-107); CREATININE RESULT 5.97 mg/dL (0.52-1.25); GLUCOSE 111 mg/dL (75-110); POTASSIUM 4.9 mmol/L (3.6-5.0); SODIUM 139.5 mmol/L (137-145); TOTAL PROTEIN 7.4 g/dL (6.3-8.2)
[2016-10-23 07:29] LABS: BLOOD UREA NITROGEN 80 mg/dL (7-20)
[2016-10-23] MEDS: CALCIUM ACETATE 667 MG CAPSULE PO SCH ×2 (08:24→13:13)
[2016-10-23] MEDS: CARVEDILOL 12.5 MG TABLET PO SCH (09:32)
[2016-10-23] MEDS: PREGABALIN 75 MG CAPSULE PO SCH (09:33)
[2016-10-23] MEDS: ISOSORBIDE MONONITRATE 30 MG TAB.ER.24H PO SCH (09:33)
[2016-10-23] MEDS: CHOLECALCIFEROL (D3) 1,000 UNIT TABLET PO SCH (09:34)
[2016-10-23] MEDS: AMLODIPINE BESYLATE 5 MG TABLET PO SCH (09:34)
[2016-10-23] MEDS: HYDRALAZINE HCL 50 MG TABLET PO SCH (09:35)
[2016-10-23] MEDS: ASPIRIN 81 MG TABLET, CHEWABLE PO SCH (09:35)
[2016-10-23] MEDS: CYANOCOBALAMIN (VITAMIN B-12) 1,000 MCG TABLET PO SCH (09:35)
[2016-10-23] MEDS: FERROUS SULFATE 325 MG TABLET PO SCH (09:36)
[2016-10-23] MEDS: VITAMIN E (DL, ACETATE) 400 UNIT CAPSULE PO SCH (09:37)
[2016-10-23] MEDS: MEGESTROL ACETATE 20 MG TABLET PO SCH (09:39)
[2016-10-23 16:28] VITALS: BP 124/60
== END 2016-10-23 16:31 | DRG 193 ==
LOC: ER 19:51 → EH 23:10 → 4S 10-11 04:49 → 3N 10-18 23:24 → 3S 10-22 20:44
PROVIDERS: ADMIT Internal Medicine; ATTEND Internal Medicine
PROC: 3E0F73Z Introduction of Anti-inflammatory into Respiratory Tract, Via Natural or Artificial Opening (ICD-10-PCS; principal; 2016-10-15)
PROC: 30233N1 Transfusion of Nonautologous Red Blood Cells into Peripheral Vein, Percutaneous Approach (ICD-10-PCS; 2016-10-17)
PROC: 5A1D60Z (ICD-10-PCS; 2016-10-17)
PROC: 06HM33Z Insertion of Infusion Device into Right Femoral Vein, Percutaneous Approach (ICD-10-PCS; 2016-10-17)
PROC: B54BZZA Ultrasonography of Right Lower Extremity Veins, Guidance (ICD-10-PCS; 2016-10-17)
PROC: 02HV33Z Insertion of Infusion Device into Superior Vena Cava, Percutaneous Approach (ICD-10-PCS; 2016-10-22)
DX: J14 Pneumonia due to Hemophilus influenzae (principal); N18.6 End stage renal disease; I12.0 Hypertensive chronic kidney disease with stage 5 chronic kidney disease or end stage renal disease; F03.90 Unspecified dementia, unspecified severity, without behavioral disturbance, psychotic disturbance, mood disturbance, and anxiety; I25.10 Atherosclerotic heart disease of native coronary artery without angina pectoris; D63.1 Anemia in chronic kidney disease; G89.4 Chronic pain syndrome; Z85.79 Personal history of other malignant neoplasms of lymphoid, hematopoietic and related tissues; Z79.82 Long term (current) use of aspirin; Z79.899 Other long term (current) drug therapy; Z90.49 Acquired absence of other specified parts of digestive tract; Z87.891 Personal history of nicotine dependence; Z83.3 Family history of diabetes mellitus
CPT/HCPCS: 36415; 36430; 36556; 36558; 36600; 70450; 71010; 71250; 76770; 76937; 77001; 80053; 81001; 82550; 82553; 82565; 82570; 82607; 82728; 82746; 82803; 82962; 83540; 83550; 83735; 83970; 84100; 84156; 84466; 84484; 85025; 85027; 85045; 85610; 85730; 86317; 86704; 86850; 86900; 86901; 86920; 87040; 87070; 87077; 87205; 87340; 87522; 93005; 93010; 94640; 96365; 96375; 99285; C1752; G8978-GP; G8979-GP; J0456; J0690; J0692; J1644; J1956; J2250; J2930; J3010; J3490; J7030; J7060; J7620; P9016; Q4081; Q9967

== ENCOUNTER 2016-12-03 11:10 | Day surgery (SDC) | payer MEDICARE ==
[2016-11-26 12:03] LABS: ABSOLUTE BASOPHILS # (AUTO) 0.1 10^3/uL (0.0-0.2); ABSOLUTE EOSINOPHILS # (AUTO) 0.3 10^3/uL (0.0-0.6); ABSOLUTE LYMPHOCYTES (AUTO) 1.5 10^3/uL (0.5-4.7); ABSOLUTE MONOCYTES (AUTO) 0.4 10^3/uL (0.1-1.4); ABSOLUTE NEUT (AUTO) 4.3 10^3/uL (1.7-8.2); EOSINOPHILS % (AUTO) 4.4 % (0-6); HEMATOCRIT 34.9 % (37.9-51.0); HGB HCT DIFFERENCE -1.9; LYMPHOCYTES % (AUTO) 22.9 % (13-45); MEAN CORPUSCULAR HGB CONC 31.6 g/dL (32.0-36.0); MEAN CORPUSCULAR VOLUME 83 fl (80-97); MONOCYTES % (AUTO) 6.4 % (3-13); RED BLOOD COUNT 4.24 10^6/uL (4.35-5.55); RED CELL DISTRIBUTION WIDTH 19.2 % (11.5-14.0); SEGMENTED NEUTROPHILS % (AUTO) 65.3 % (42-78); WHITE BLOOD COUNT 6.6 10^3/uL (4.0-10.5)
[2016-11-26 12:34] LABS: BLOOD UREA NITROGEN 66 mg/dL (7-20); CALCIUM 9.1 mg/dL (8.4-10.2); CARBON DIOXIDE 21 mmol/L (22-30); CHLORIDE 95 mmol/L (98-107); CREATININE RESULT 6.96 mg/dL (0.52-1.25); GLUCOSE 131 mg/dL (75-110); POTASSIUM 4.7 mmol/L (3.6-5.0)
[2016-11-26 12:43] LABS: SODIUM 137.9 mmol/L (137-145)
[2016-11-26 12:48] LABS: ANION GAP 22 (5-19)
--- NOTE | 2016-11-27 00:16 | EKG REPORT ---
SEVERITY:- ABNORMAL ECG - SINUS RHYTHM LEFT ANTERIOR FASCICULAR BLOCK ABNORMAL T, CONSIDER ISCHEMIA, LATERAL LEADS : Confirmed by: Tonia Diaz 27-Nov-2016 00:15:44
[~2016-12-03 11:10] MED LIST: LIDOCAINE 0.5% INJ-PF (5 MG/ML) 50 ML SDV SUBCUT PRN; NORMAL SALINE 1000 ML (RENAL PATIENTS) IV PRN
[2016-12-03] MEDS ORDERED: MIDAZOLAM 2 MG/2 ML INJ ONE (12:40)
[2016-12-03] MEDS ORDERED: FENTANYL CITRATE INJ/PF 100 MCG/2 ML AMPUL ONE (12:40)
[2016-12-03] MEDS ORDERED: MORPHINE SULFATE 10 MG/ML INJ ONE (12:41)
[2016-12-03] MEDS ORDERED: PROPOFOL INJ 200 MG/20 ML VIAL IV ONE (12:41)
[2016-12-03] MEDS ORDERED: BUPIVACAINE HCL 0.25 % INJ/PF (2.5 MG/1 ML) 30 ML VIAL ONE (12:55)
[2016-12-03] MEDS ORDERED: LIDOCAINE 0.5% INJ-PF (5 MG/ML) 50 ML SDV ONE (12:55)
[2016-12-03] MEDS ORDERED: THROMBIN (BOVINE) TOPICAL 5000 UNIT VIAL ONE (12:56)
[2016-12-03] MEDS ORDERED: BACITRACIN INJ 50,000 UNIT VIAL ONE (12:56)
[2016-12-03] MEDS ORDERED: NITROGLYCERIN/D5W 50 MG/250 ML RTUINJ IV ONE (13:02)
[2016-12-03] MEDS ORDERED: HEPARIN SOD (PORCINE) 1,000 UNIT/ML 1 ML VIAL ONE ×2 (13:02→13:17)
[2016-12-03] MEDS ORDERED: LIDOCAINE 1% INJ-PF (10 MG/ML) 30 ML SDV ONE (13:02)
[2016-12-03] MEDS ORDERED: CEFAZOLIN 1 GM/D5W RTU 1 GM/50 ML RTUPB IV ONE (13:06)
[2016-12-03] MEDS ORDERED: FENTANYL CITRATE INJ/PF 100 MCG/2 ML AMPUL IV PRN ×3 (13:45)
[2016-12-03] MEDS ORDERED: MEPERIDINE HCL/PF INJ 25 MG/1 ML DISP.SYRIN IV PRN (13:45)
[2016-12-03] MEDS ORDERED: MORPHINE SULFATE 10 MG/ML INJ IV PRN (13:45)
[2016-12-03] MEDS ORDERED: PROMETHAZINE HCL INJ 25 MG/1 ML VIAL IV PRN ×2 (13:45)
[2016-12-03] MEDS ORDERED: DIPHENHYDRAMINE HCL 50 MG/ML VIAL IV PRN (13:45)
[2016-12-03] MEDS ORDERED: HEPARIN SOD (PORCINE) 1,000 UNIT/ML 10 ML VIAL ONE (14:26)
--- NOTE | 2016-12-03 15:26 | PDOC DISCHARGE SUMMARY ---
Discharge Summary (SDC) - Discharge Final Diagnosis: #1 end-stage renal disease on hemodialysis. 2. Permacatheter in place. 3. Multiple myeloma. 4. History of myocardial infarction. 5. Hypertension. Date of Surgery: 12/03/16 Discharge Date: 12/03/16 Condition: Fair Treatment or Instructions: Discharge home [after recovery per ASU criteria]. Diet , [renal],as tolerated, when fully awake advance as tolerated. Activities within moderation encouraged. Follow up in my office by appointment in about [1 week]. Call for appointment. Leave wounds [covered], [keep clean and dry, until office visit in 1 week]. Hold of on school/work [until evaluation in office]. May shower [in 48 hrs], [try to keep operated area as dry as possible]. Prescriptions: Oxycodone HCl/Acetaminophen [Percocet 5-325 mg Tablet] 1 tab PO ASDIR PRN #15 tab PRN Reason: Discharge Diet: Other (Comments) Respiratory Treatments at Home: Deep Breathing/Coughing Discharge Activity: Activity As Tolerated Report the Following to Your Physician Immediately: Shortness of Breath, Unusual Bleeding
--- NOTE | 2016-12-03 15:34 | Operative Report ---
Operative Report DATE OF SURGERY: 12/03/16 PREOPERATIVE DIAGNOSIS: #1 end-stage renal disease on hemodialysis. 2. Permacatheter in place. 3. Multiple myeloma. 4. History of myocardial infarction. 5. Hypertension. POSTOPERATIVE DIAGNOSIS: #1 end-stage renal disease on hemodialysis. Post insertion of left arm basilic vein transposed fistula. 2. Permacatheter in place. 3. Multiple myeloma. 4. History of myocardial infarction. 5. Hypertension. OPERATION: Insertion of first stage transposed basilic vein fistula, left arm. SURGEON: AISSATOU KERN ANESTHESIA: LMAC TISSUE REMOVED OR ALTERED: Not applicable. COMPLICATIONS: None ESTIMATED BLOOD LOSS: [place] INTRAOPERATIVE FINDINGS: Of apparently acceptable vessels. The basilic vein accepted a 3.5 mm coronary dilator. The cephalic vein was evaluated in the forearm and it may be usable in the future but really quite borderline at 2.4 mm distally. No significant cephalic vein in the arm the drainage is chiefly deep, just below the elbow. Satisfactory anastomosis accomplished in good thrill and bruit at the end of the procedure. PROCEDURE: Operative Report PROCEDURE: After reviewing the procedure with the patient, he was taken to the operating room. The patient was sedated and the [left upper extremity] prepared with chlorhexidine and draped out with sterile linen. After the "" universal timeout", in which it was verified that the patient [received IV antibiotics] the procedure commenced. The sterilely sheathed ultrasound probe was used to evaluate the left upper venous and arterial systems, pertinent to the previously done vein mapping. Local anesthesia was infiltrated and a longitudinal incision made over the lower arm near the antecubital fossa. Dissection proceeded through the subcutaneous tissues down to the brachial vessels. The vein was dissected out proximally and distally for about 4 cm. Likewise major branches. The brachial artery dissected out for a distance of about 1.5 cm. Immediately above the elbow crease. Rubber loops were placed on either end. The patient was given 2500 units of heparin intravenously. Coronary dilators were accepted [up to 3.5 mm] in the vein. The artery was controlled proximally and distally with rubber loops. An arteriotomy approximately [1.5 cm] in length was made, the artery was irrigated proximally and distally with heparinized solution. The transected vein was now transposed from the basilic dissection to the brachial artery dissection. Spatulated, it was then anastomosed end to end to side into the brachial artery. This was done using a continuous suture of 6-0 Prolene. Controls of the fistula were now released and it was analyzed using a Doppler probe. Hemostasis was secured once optimal function was assured , the wound was irrigated with antibiotic containing solution and closed. The redundant vein was now transposed into the subcutaneous tissue laterally, to facilitate second stage. The skin was closed using a continuous subcutaneous suture of 4-0 Monocryl which was reinforced with Steri-Strips over benzoin. I then left the operative field and returned with a stethoscope covered with a sterile Tegaderm dressing. This allowed external auscultation of the fistula. Auscultation was [satisfactory]. The procedure was concluded by applying a Kerlix dressing over the surgical site. DICTATING PHYSICIAN: AISSATOU KERN M.D.
[2016-12-03 19:02] VITALS: BP 124/78
== END 2016-12-03 19:00 ==
LOC: OROUT 11:10
PROVIDERS: ATTEND Surgery
PROC: 05SC0ZZ Reposition Left Basilic Vein, Open Approach (ICD-10-PCS; principal; 2016-12-03 12:00)
DX: I12.0 Hypertensive chronic kidney disease with stage 5 chronic kidney disease or end stage renal disease (principal); N18.6 End stage renal disease; Z99.2 Dependence on renal dialysis; C90.00 Multiple myeloma not having achieved remission; J44.9 Chronic obstructive pulmonary disease, unspecified; I25.10 Atherosclerotic heart disease of native coronary artery without angina pectoris; R01.1 Cardiac murmur, unspecified; I25.2 Old myocardial infarction
CPT/HCPCS: 93005; 36415 ×2; 84132; 85025; 80048; 93010; 36819; J2250; J3490 ×4; J0690; J3010; J1644 ×2; J2270; J2704; 1844

== ENCOUNTER → 2017-02-06 | Outpatient (CLI) | payer MEDICARE ==
--- NOTE | 2017-02-06 11:22 | ST Modified Barium Swallow ---
Recommendation - Recommendations Recommendations: Recommend thin liquids and regular diet, no gross abnormalities or swallowing deficits seen. Educated patient on small sips of liquid. Medical Diagnoses - Medical Diagnoses Medical Diagnosis Description & ICD-10 Code(s): dysphagia R13.10 Other Medical Diagnoses/Co-Morbidities: Patient reports history of reflux and heart attack ST Modified Barium Swallow - General Date: 02/06/17 Referring Physician: Dr. Nigel Abdi Risks/Precautions: Falls - uses rolling walker. Reason for Referral: Patient states he started coughing while eating about 1 month ago - History History obtained from: Patient Medications: Patient unable to state specific medications, but states he does take something for reflux. Allergies: none - Functional Status Prior Functional Status: INDEPENDENT: feeding - independent Current Functional Limitations: feeding - independent - Subjective Patient/caregiver goal(s): safe swallow, r/o aspiration Cognitive-Linguistic Function: Functional Speech Intelligibility: Age appropriate Current Nutritional Means: PO Current PO diet: Regular Current symptoms: Coughing, Pneumonia - Patient states he was hospitalized for pneumonia in October, subsequently [facility]hab. Pain: Patient reports, 0/5 - Objective Assessment: Upright, Left Lateral - Food Trials Used Food trials used: Thin liquids, Pureed, Regular The patient: Was Able to Self Feed, via cup - Oral-Motor Skills Dentition: Full Laryngeal Function: Volitional Cough, Throat Clear, Volitional Swallow, clear voicing Oral Motor Skills: WNL - Assessment Oral prep: Normal Labial closure: Adequate Leakage: None Mastication: Adequate Lingual Movement: Normal Oral stage: Normal for this Procedure - Pharyngeal Stage Initiation of Pharyngeal Stage Reflex: Delayed Reflex Delay Time (Seconds): 1 - liquid trial x1 Decreased laryngeal elevation: No Reduced Velopharyngeal Closure: no Reduced pressure generation: No reduced tongue-based retraction: No Pre-swallow pooling in valleculae: Mild - for liquid trials Pre-Swallow pooling in pyriforms: None Reduced Thyro-Hyoid approximation: No Reduced epiglottic excursion: No Reduced pharyngeal peristalsis/contraction: No Multiple Swallows with: Effective Post-swallow residulas vallecular: Mild Post-Swallow residuals in pyriforms: None - Fall Risk Assessment Medications/Conditions that increase fall risks include: Antidepressants, sedatives, anti-arrhythmic, diuretic, benzodiazipenes, neuroleptics. BP regulation problems, cardiac problems, balance or gait deficits, neurological problems. Is patient considered at risk for falls: yes Fall Risk Actions Taken: No action needed - Behavioral Observations During evaluation process patient: was pleasant, was cooperative, able to answer questions, provided medical history Mental Status: Alert & Oriented X3 - Treatment / Educational Needs: Treatment/Education Needs: Treatment consisted of patient education on the role of the Speech Pathologist. Patient's plan of care and golas were communicated as well as scheduling and attendance policies. Recommendations for initial home program were shared. Patient demonstrated understanding and verbalized agreement. - Impression/Summary Laryngeal Penetration: No Tracheal Aspiration: no Risk of Aspiration: Minimal Risk of nutritional compromise: None Evaluation and Findings: Patient presented with generally good swallow function. Mild premature spillage to valleculae on thin liquid trials, good clearance with swallow. Mild residue seen at times in valleculae post swallow, this cleared easily with second dry swallow or bolus swallow. - Recommendations Solid diet recommendations: Regular Liquid Diet Modification: Thin Dysphagia therapy with CLINICAL ORTHOPTIST: no Recommended techniques: Small Bites and Sips Supervision: Independent Information, Precautions and Recommendations: Patient (Written), Patient (Verbal ) - Time Total Time: 20 - Plan of Care Patient to follow-up with referring physician: Yes Strategies to optimize patient understanding include:: ongoing assessment of educational needs, implementation of educational strategies, and re-education. - - -: Thank you for the opportunity to work with this patient and his/her family. Should you have any questions about this patient's plan or progress, I can be reached at [phone]. Charge G Code? - - -: Yes ST F.L. Impairment Category - Swallowing Current G8996: CH 0% Impaired Goal G8997: CH 0% Impaired Discharge G8998: CH 0% Impaired
--- NOTE | 2017-02-07 08:43 | RADIOLOGY REPORT (SQ) ---
EXAM DESCRIPTION: COOKIE SWALLOW COMPLETED DATE/TIME: 02/06/2017 8:23 am REASON FOR STUDY: R13.10 DYSPHAGIA, UNSPECIFIED FOOD IN PHARYNX CAUSING OTHER INJURY, SEQUELA T17.228S COMPARISON: UPPER GI SMALL BOWEL 02/23/2015 TECHNIQUE: Videofluoroscopic swallowing examination was performed in conjunction with speech patholo gy. Videofluoroscopic imaging was obtained and reviewed and these are the findings: RADIATION DOSE: Total fluoroscopy time: 1 minutes and 8 seconds 1 fluoroscopy image saved to PACS. LIMITATIONS: None FINDINGS: The patient was brought into the fluoro room and placed upright on a modified barium swall ow chair. The patient was then given multiple consistencies mixed with barium to swallow under live fluoroscopic video guidance. According to the Speech Pathologist there was no laryngeal penetration and no tracheal aspiration. Normal oral and pharyngeal transit time was observed. No significant po st swallow residuals was seen. Please see speech pathology report for further details and recommenda tions. IMPRESSION: NO EVIDENCE OF LARYNGEAL PENETRATION OR TRACHEAL ASPIRATION.PLEASE SEE SPEECH PATHOLOGIS T REPORT FOR OTHER FINDINGS AND RECOMMENDATIONS. COMMENT: Quality ID [id number]: Final reports for procedures using fluoroscopy that document radiation exp osure indices, or exposure time and number of fluorographic images (if radiation exposure indices are not available) TECHNICAL DOCUMENTATION: JOB ID: [id number] [employer]- All Rights Reserved
== END ==
LOC: RAD 07:39
PROVIDERS: ATTEND Otolaryngology
DX: R13.10 Dysphagia, unspecified (principal)
CPT/HCPCS: 74230; 92611; G8996; G8997; G8998

== ENCOUNTER 2017-02-11 11:24 | Day surgery (SDC) | payer MEDICARE ==
[2017-02-04 10:29] LABS: HEMATOCRIT 37.4 % (37.9-51.0); HGB HCT DIFFERENCE -1.4; MEAN CORPUSCULAR HEMOGLOBIN 28.3 pg (27.0-33.4); MEAN CORPUSCULAR VOLUME 88 fl (80-97); RED BLOOD COUNT 4.23 10^6/uL (4.35-5.55); RED CELL DISTRIBUTION WIDTH 17.9 % (11.5-14.0); WHITE BLOOD COUNT 4.6 10^3/uL (4.0-10.5)
[2017-02-04 10:52] LABS: BLOOD UREA NITROGEN 63 mg/dL (7-20); CALCIUM 9.3 mg/dL (8.4-10.2); CARBON DIOXIDE 24 mmol/L (22-30); CREATININE RESULT 10.76 mg/dL (0.52-1.25); GLUCOSE 107 mg/dL (75-110); POTASSIUM 4.4 mmol/L (3.6-5.0)
--- NOTE | 2017-02-04 10:56 | RADIOLOGY REPORT (SQ) ---
EXAM DESCRIPTION: CHEST PA/LATERAL COMPLETED DATE/TIME: 02/04/2017 10:25 am REASON FOR STUDY: PRE-OP COMPARISON: CT 10/22/2016 chest x-ray 08/25/2015 TECHNIQUE: Frontal and lateral radiographic views of the chest acquired. NUMBER OF VIEWS: Two view. LIMITATIONS: None. FINDINGS: LUNGS AND PLEURA: No opacities, masses or pneumothorax. No pleural effusion. MEDIASTINUM AND HILAR STRUCTURES: No masses or contour abnormalities. HEART AND VASCULAR STRUCTURES: Heart normal size. No evidence for failure. BONES: No acute findings. HARDWARE: Right sided double lumen catheter with the tip in the right atrium. Abdominal aortic stent . OTHER: No other significant finding. IMPRESSION: NO SIGNIFICANT RADIOGRAPHIC FINDING IN THE CHEST. TECHNICAL DOCUMENTATION: JOB ID: [id number] [employer]- All Rights Reserved
[2017-02-04 11:03] LABS: CHLORIDE 95 mmol/L (98-107); SODIUM 138.5 mmol/L (137-145)
[2017-02-04 11:12] LABS: ANION GAP 20 (5-19)
--- NOTE | 2017-02-04 20:08 | EKG REPORT ---
SEVERITY:- ABNORMAL ECG - SINUS RHYTHM LEFT ANTERIOR FASCICULAR BLOCK CONSIDER RVH OR POSTERIOR INFARCT BORDERLINE PROLONGED QT INTERVAL : Confirmed by: Tonia Diaz 04-Feb-2017 20:08:07
[~2017-02-11 11:24] MED LIST changes: +BACITRACIN INJ 50,000 UNIT VIAL ONE; +BUPIVACAINE HCL 0.25 % INJ/PF (2.5 MG/1 ML) 30 ML VIAL ONE; +CEFAZOLIN 1 GM/D5W RTU 1 GM/50 ML RTUPB IV PRN; +GLYCOPYRROLATE INJ 0.4 MG/2 ML VIAL ONE; +HEPARIN SOD (PORCINE) 1,000 UNIT/ML 10 ML VIAL ONE; +LIDOCAINE 0.5% INJ-PF (5 MG/ML) 50 ML SDV ONE; +LIDOCAINE 1% INJ-PF (10 MG/ML) 30 ML SDV ONE; +LIDOCAINE 2% INJ-PF (20 MG/ML) 10 ML AMPUL ONE; +ONDANSETRON HCL INJ/PF 4 MG/2 ML SDV ONE
[2017-02-11] MEDS ORDERED: KETAMINE HCL INJ 500 MG/10 ML VIAL ONE (12:00)
[2017-02-11] MEDS ORDERED: FENTANYL CITRATE INJ/PF 100 MCG/2 ML AMPUL ONE ×3 (12:01→15:36)
[2017-02-11] MEDS ORDERED: PROPOFOL INJ 200 MG/20 ML VIAL IV ONE ×2 (12:02→14:46)
[2017-02-11] MEDS ORDERED: MIDAZOLAM 2 MG/2 ML INJ ONE (12:02)
[2017-02-11] MEDS ORDERED: FENTANYL CITRATE INJ/PF 100 MCG/2 ML AMPUL IV PRN ×2 (14:07)
--- NOTE | 2017-02-11 15:44 | PDOC DISCHARGE SUMMARY ---
Discharge Summary (SDC) - Discharge Final Diagnosis: 1. End-stage renal disease on hemodialysis. 2. PermCath in place. 3. Mild dementia. 4. Coronary artery disease. 5. Multiple myeloma. 6. Hypertension. Date of Surgery: 02/11/17 Discharge Date: 02/11/17 Condition: Fair Treatment or Instructions: Discharge home [after recovery per ASU criteria]. Diet , [renal],as tolerated, when fully awake advance as tolerated. Activities within moderation encouraged. Follow up in my office by appointment in about [1 week]. Call for appointment. Leave wounds [covered], [keep clean and dry, until office visit in 1 week]. Empty Sergo-Pederson drain as needed. May shower [in 48 hrs], [try to keep operated area as dry as possible]. Prescriptions: Oxycodone HCl/Acetaminophen [Percocet 5-325 mg Tablet] 1 tab PO ASDIR PRN #15 tab PRN Reason: Referrals: JORGE LUIS FIERRO MD [Primary Care Provider] - Discharge Diet: Other (Comments) - Renal Respiratory Treatments at Home: Deep Breathing/Coughing Discharge Activity: Activity As Tolerated Report the Following to Your Physician Immediately: Shortness of Breath, Unusual Bleeding
--- NOTE | 2017-02-11 15:47 | Operative Report ---
Operative Report DATE OF SURGERY: 02/11/17 PREOPERATIVE DIAGNOSIS: 1. End-stage renal disease on hemodialysis. 2. PermCath in place. 3. Mild dementia. 4. Coronary artery disease. 5. Multiple myeloma. 6. Hypertension. POSTOPERATIVE DIAGNOSIS: 1. End-stage renal disease on hemodialysis. Post second stage transposition. 2. PermCath in place. 3. Mild dementia. 4. Coronary artery disease. 5. Multiple myeloma. 6. Hypertension. OPERATION: Insertion of arteriovenous fistula left arm, second stage basilic transposition. SURGEON: AISSATOU QUIÑONES CUSTODIAL MANAGER: None ANESTHESIA: LMAC TISSUE REMOVED OR ALTERED: Not applicable. COMPLICATIONS: None ESTIMATED BLOOD LOSS: 20 mL. INTRAOPERATIVE FINDINGS: Of a fairly robust basilic vein fistula estimated to be about 6 mm in diameter. Transposed laterally into a subcutaneous tunnel. Quite nicely palpable postprocedure. Good thrill and bruit at the end of the procedure. PROCEDURE: Operative Report PROCEDURE: After reviewing the procedure with the patient, he was taken to the operating room. The patient was sedated and the left upper extremity prepared with chlorhexidine and draped out with sterile linen. After the "" universal timeout", in which it was verified that the patient [received IV antibiotics] the procedure commenced. The sterilely sheathed ultrasound probe was used to evaluate the size and topographic location of the existing veins. The fistula function was noted. This was transcribed topographical using a marking pen. Local anesthesia was infiltrated and a longitudinal incision started just above the elbow and dissection proceeded down to the vein. Sequential infiltration of local anesthesia, incision and dissection of the vein proceeded up to the axillary fold. The basilic vein was now dissected away from its branches which were either clipped and/or ligated and divided. In this way the basilic vein was freed up for its entire visible length. Its length was now measured with a dry umbilical tape which was used to transpose a tunnel onto the skin anteriorly and laterally. With this marked in ink, local anesthesia was infiltrated in the skin and subcutaneous tissue of the tunnel. A Casscoe tunneler was now inserted and the tunnel exposed. Serial sutures of 3-0 PDS were placed at about 3 cm intervals and placed on clamps. These gave lateral traction. Cautery was now used to incise the subcutaneous tissues so as to reveal the Casscoe tunneler. The length of the basilic vein was now shifted into the tunnel and sustained there by interrupted sutures of 3-0 PDS placed from the subcutaneous tissue on one side of the tunnel to the other. Once this was done the lateral flap was now approximated to the medial flap using interrupted sutures of 3-0 PDS. The fistula was interrogated from time to time to make sure that it was patent. A 15 [place] Jarred drain was placed deep in the wound and exiting inferiorly the it was sutured using 2-0 Prolene. The skin was closed with a continuous subcutaneous suture of 4-0 Monocryl. Steri-Strips were applied over benzoin and then a Kerlix wrap. The procedure was concluded. Copies dictated operative report to Dr. Aissatou Bertrand MD thank you. DICTATING PHYSICIAN: AISSATOU BERTRAND M.D
[2017-02-11 17:56] VITALS: BP 127/70
== END 2017-02-11 17:35 | disposition home or self-care (01) ==
LOC: OROUT 11:24
PROVIDERS: ATTEND Surgery
PROC: 05SC0ZZ Reposition Left Basilic Vein, Open Approach (ICD-10-PCS; principal; 2017-02-11 13:00)
DX: I12.0 Hypertensive chronic kidney disease with stage 5 chronic kidney disease or end stage renal disease (principal); Z99.2 Dependence on renal dialysis; N18.6 End stage renal disease; E78.5 Hyperlipidemia, unspecified; K21.9 Gastro-esophageal reflux disease without esophagitis; I77.0 Arteriovenous fistula, acquired; E87.2 Acidosis; F03.91 Unspecified dementia, unspecified severity, with behavioral disturbance; I51.9 Heart disease, unspecified; I25.2 Old myocardial infarction; J45.909 Unspecified asthma, uncomplicated; I25.10 Atherosclerotic heart disease of native coronary artery without angina pectoris; M19.90 Unspecified osteoarthritis, unspecified site; Z79.82 Long term (current) use of aspirin; Z79.899 Other long term (current) drug therapy; Z87.891 Personal history of nicotine dependence
CPT/HCPCS: 93005; 36415 ×2; 84132; 85027; 80048; 71020; 93010; 36821; J2250; J3490 ×5; J0690; J3010; J1644; J2405; J2704; 1844

== ENCOUNTER 2017-04-29 08:29 | Day surgery (SDC) | payer MEDICARE ==
[2017-04-29 09:46] LABS: HEMATOCRIT 32.1 % (37.9-51.0); HEMOGLOBIN 10.6 g/dL (13.5-17.0); HGB HCT DIFFERENCE -0.3; MEAN CORPUSCULAR HEMOGLOBIN 28.2 pg (27.0-33.4); MEAN CORPUSCULAR HGB CONC 33.1 g/dL (32.0-36.0); MEAN CORPUSCULAR VOLUME 85 fl (80-97); RED BLOOD COUNT 3.78 10^6/uL (4.35-5.55); RED CELL DISTRIBUTION WIDTH 15.9 % (11.5-14.0); WHITE BLOOD COUNT 4.4 10^3/uL (4.0-10.5)
[2017-04-29] MEDS ORDERED: MIDAZOLAM 2 MG/2 ML INJ ONE (09:55)
[2017-04-29] MEDS ORDERED: HEPARIN SOD (PORCINE) 5,000 UNIT/ML 1 ML SYRINGE ONE (09:56)
[2017-04-29] MEDS ORDERED: FENTANYL CITRATE INJ/PF 100 MCG/2 ML AMPUL ONE (09:56)
[2017-04-29] MEDS ORDERED: LIDOCAINE 0.5% INJ-PF (5 MG/ML) 50 ML SDV ONE (10:03)
[2017-04-29 10:06] LABS: BLOOD UREA NITROGEN 61 mg/dL (7-20); CALCIUM 8.5 mg/dL (8.4-10.2); CARBON DIOXIDE 24 mmol/L (22-30); GLUCOSE 87 mg/dL (75-110); POTASSIUM 4.1 mmol/L (3.6-5.0)
[2017-04-29 10:18] LABS: CHLORIDE 98 mmol/L (98-107); SODIUM 142.5 mmol/L (137-145)
[2017-04-29 10:19] LABS: ANION GAP 21 (5-19)
--- NOTE | 2017-04-29 11:33 | PDOC DISCHARGE SUMMARY ---
Discharge Summary (SDC) - Discharge Final Diagnosis: #1 malfunctioning arteriovenous fistula, left transposed basilic. 2. End-stage renal disease on hemodialysis. 3. Multiple myeloma. 4. Hypertension Date of Surgery: 04/29/17 Discharge Date: 04/29/17 Condition: Good Treatment or Instructions: Discharge home [after recovery per ASU criteria]. Diet , [renal],as tolerated, when fully awake advance as tolerated. Activities within moderation encouraged. Follow up in my office by appointment in about [1 month. Call for appointment. Leave wounds [covered], [keep clean and dry, until hemodialysis]. Hold of on school/work [until evaluation in office]. May shower [in 48 hrs], [try to keep operated area as dry as possible]. Referrals: BETSY POOL MD [Primary Care Provider] - Discharge Diet: Other (Comments) - Renal Respiratory Treatments at Home: Deep Breathing/Coughing Discharge Activity: Activity As Tolerated Report the Following to Your Physician Immediately: Shortness of Breath, Unusual Bleeding
--- NOTE | 2017-04-29 11:40 | Operative Report ---
Operative Report DATE OF SURGERY: 04/29/17 PREOPERATIVE DIAGNOSIS: #1 malfunctioning arteriovenous fistula, left transposed basilic. 2. End-stage renal disease on hemodialysis. 3. Multiple myeloma. 4. Hypertension POSTOPERATIVE DIAGNOSIS: #1 malfunctioning arteriovenous fistula, left transposed basilic. Post angioplasty. 2. End-stage renal disease on hemodialysis. 3. Multiple myeloma. 4. Hypertension OPERATION: 1. Needle access in left arm AV fistula. 2. Peripheral angioplasty in the upper cephalic. 3. Central angioplasty at the innominate. 4. Angiogram and interpretation. SURGEON: AISSATOU QUIÑONES VESSEL LINER: None ANESTHESIA: Moderate Sedation TISSUE REMOVED OR ALTERED: None COMPLICATIONS: None ESTIMATED BLOOD LOSS: 5 mL INTRAOPERATIVE FINDINGS: Of a well founded left arm transposed basilic vein fistula. Initially quite firm, after angioplasty appropriately softer. Stenosis noted at the innominate vein. Quite large collateralization around this area. Difficult to quantify but sees her own 70% of the adjacent lumen. The collaterals almost extinguished after angioplasty up to 8 mm. A second area of stenosis easily 80% of the adjacent lumen and about half a centimeter long noted in the most cephalad cephalic vein. This was eliminated by angioplasty. May well need to repeat angioplasty of the innominate possibly up to 10 mm or so possibly use a drug-eluting balloon. The hope for so doing is to reduce the risk of total occlusion in the future and possibly obviate the need for a stent. This could probably be done in the next few months. PROCEDURE: PROCEDURE: After verifying the procedure and having obtained informed consent, the patient's left arm was prepared with Chlorhexidine and draped out with sterile linen. Local anesthesia infiltrated. Percutaneous access into the fistula ,[ antegrade], obtained about [4 cm] from the arteriovenous anastomosis using a micro puncture needle followed by micro puncture wire and then a micro puncture catheter. A 0.035 Jackson wire was inserted, and over this, a 7 [place] short introducer was placed,Angiogram demonstrated the aforementioned findings. Angioplasty was elected. this was followed by a [8-mm] angioplasty balloon . Angioplasty was done from first of the innominate segment. The waist was noted and eliminated. Inflation with a 3 mils syringe for 2 minutes. Angioplasty was now done of the cephalic segment likewise with a 3 mils syringe up to 2 minutes..]. Completion angiogram demonstrated [satisfactory result]. The instrumentation was now withdrawn over and pressure for 10 minutes. Dressings applied, procedure concluded. DICTATING PHYSICIAN: AISSATOU KERN M.D. cc: AISSATOU KERN M.D. ([id number]) >>
[2017-04-29 12:54] VITALS: BP 142/78
--- NOTE | 2017-05-01 09:05 | RADIOLOGY REPORT (SQ) ---
EXAM DESCRIPTION: FISTULAGRAM W/PLASTY COMPLETED DATE/TIME: 04/30/2017 9:21 am REASON FOR STUDY: T82.858A FISTULAGRAM T82.858A STENOSIS OF OTHER VASCULAR PROSTH DEV/GRFT, INIT COMPARISON: 10/22/2016 FLUOROSCOPY TIME: 1.4 minutes Cine fluoro images saved to PACS. TECHNIQUE: Intra-operative images acquired during surgical procedure to evaluate progress. NUMBER OF IMAGES: Cine fluoroscopic images. LIMITATIONS: None. FINDINGS: Intra procedural imaging and fluoro during evaluation and plasty of left dialysis access. Please see the operative report for further details IMPRESSION: Intra procedural imaging and fluoro COMMENT: Quality ID [id number]: Final reports for procedures using fluoroscopy that document radiation exp osure indices, or exposure time and number of fluorographic images (if radiation exposure indices are not available) Please consult full operative report of the attending physician for description of the procedure. TECHNICAL DOCUMENTATION: JOB ID: [id number] [employer]- All Rights Reserved
== END 2017-04-29 12:55 | disposition home or self-care (01) ==
LOC: CCL 08:29
PROVIDERS: ATTEND Surgery
PROC: 057C3DZ Dilation of Left Basilic Vein with Intraluminal Device, Percutaneous Approach (ICD-10-PCS; principal; 2017-04-29)
DX: T82.858A Stenosis of other vascular prosthetic devices, implants and grafts, initial encounter (principal); Y83.2 Surgical operation with anastomosis, bypass or graft as the cause of abnormal reaction of the patient, or of later complication, without mention of misadventure at the time of the procedure; I10 Essential (primary) hypertension; N18.6 End stage renal disease; Z99.2 Dependence on renal dialysis; E78.5 Hyperlipidemia, unspecified; R53.81 Other malaise; I51.9 Heart disease, unspecified; E87.2 Acidosis; R06.2 Wheezing; R65.10 Systemic inflammatory response syndrome (SIRS) of non-infectious origin without acute organ dysfunction; R05 Cough; K21.9 Gastro-esophageal reflux disease without esophagitis; E73.9 Lactose intolerance, unspecified; F03.91 Unspecified dementia, unspecified severity, with behavioral disturbance; Z85.79 Personal history of other malignant neoplasms of lymphoid, hematopoietic and related tissues; I25.2 Old myocardial infarction; Z79.82 Long term (current) use of aspirin; Z79.899 Other long term (current) drug therapy
CPT/HCPCS: 36415; 85027; 80048; 36902; C1752; C1887; C1769; J2250; J1644 ×2; J3010; J3490

== ENCOUNTER 2017-08-13 15:17 | Observation (INO) | payer MEDICARE ==
--- NOTE | 2017-08-13 16:02 | ER Document Report ---
ED Medical Screen (RME) - General Chief Complaint: Weakness Stated Complaint: DIRECT ADMIT Time Seen by Provider: 08/13/17 15:42 Mode of Arrival: Wheelchair Information source: Patient Notes: 76-year-old male presents with 1 month duration of generalized weakness, dialysis today I have greeted and performed a rapid initial assessment of this patient. A comprehensive ED assessment and evaluation of the patient, analysis of test results and completion of the medical decision making process will be conducted by additional ED providers. PHYSICAL EXAMINATION: GENERAL: elderly frain HEAD: Atraumatic, normocephalic. EYES: Pupils equal round extraocular movements intact, conjunctiva are normal. ENT: Nares patent NECK: Normal range of motion LUNGS: No respiratory distress Musculoskeletal: lower extremity weakness NEUROLOGICAL: Normal speech, normal gait. PSYCH: Normal mood, normal affect. SKIN: Warm, Dry, normal turgor, no rashes or lesions noted. TRAVEL OUTSIDE OF THE [place] IN LAST 30 DAYS: No - Related Data Allergies/Adverse Reactions: No Known Allergies Allergy (Verified 09/03/16 11:41) Past Medical History - Social History Chew tobacco use (# tins/day): No Frequency of alcohol use: None Drug Abuse: None - Past Medical History Cardiac Medical History: Reports: Hx Coronary Artery Disease, Hx Heart Attack - 5 years ago, Hx Hypercholesterolemia, Hx Hypertension - on meds, Hx Heart Murmur Pulmonary Medical History: Reports: Hx Pneumonia - hx of Denies: Hx Asthma, Hx Bronchitis, Hx Tuberculosis Neurological Medical History: Denies: Hx Cerebrovascular Accident, Hx Seizures Renal/ Medical History: Denies: Hx Peritoneal Dialysis - hemodialysis GI Medical History: Reports: Hx Gastroesophageal Reflux Disease, Hx Ulcer Musculoskeltal Medical History: Reports Hx Arthritis - generalized Past Surgical History: Reports: Hx Abdominal Surgery - abdominal aneurysm repair , Hx Cholecystectomy, Hx Vascular Surgery - Abdominal aortic aneurysm repair. Denies: Hx Pacemaker - Immunizations Hx Diphtheria, Pertussis, Tetanus Vaccination: No - Pt unsure History of Influenza Vaccine for 03/2017 - 08/2017 Season: Unknown Physical Exam - Vital signs Vitals: Temp Pulse Resp BP Pulse Ox 98.8 F 80 16 152/112 H 100 08/13/17 15:33 08/13/17 15:33 08/13/17 15:33 08/13/17 15:33 02/27/18 15:33 Course - Vital Signs Vital signs: Temp Pulse Resp BP Pulse Ox 98.8 F 80 16 152/112 H 100 08/13/17 15:33 08/13/17 15:33 08/13/17 15:33 08/13/17 15:33 08/13/17 15:33
--- NOTE | 2017-08-13 16:35 | RADIOLOGY REPORT (SQ) ---
EXAM DESCRIPTION: CHEST PA/LAT COMPLETED DATE/TIME: 08/13/2017 4:24 pm REASON FOR STUDY: weakness COMPARISON: 08/25/2015 EXAM PARAMETERS: NUMBER OF VIEWS: two views TECHNIQUE: Digital Frontal and Lateral radiographic views of the chest acquired. RADIATION DOSE: NA LIMITATIONS: none FINDINGS: LUNGS AND PLEURA: Minimal chronic change in the right mid lung. No acute opacities, felix s or pneumothorax. No pleural effusion. MEDIASTINUM AND HILAR STRUCTURES: No masses or contour abnormalities. HEART AND VASCULAR STRUCTURES: Heart normal size. No evidence for failure. BONES: No acute findings. HARDWARE: Stent grafting of the aorta and renal artery is OTHER: No other significant finding. IMPRESSION: No evidence of acute cardiopulmonary disease. TECHNICAL DOCUMENTATION: JOB ID: [id number] [employer]- All Rights Reserved Reading location - IP/workstation name: [email or web address]
[2017-08-13 17:11] LABS: ABSOLUTE EOSINOPHILS # (AUTO) 0.1 10^3/uL (0.0-0.6); ABSOLUTE LYMPHOCYTES (AUTO) 1.1 10^3/uL (0.5-4.7); ABSOLUTE MONOCYTES (AUTO) 0.3 10^3/uL (0.1-1.4); EOSINOPHILS % (AUTO) 3.3 % (0-6); HEMATOCRIT 34.2 % (37.9-51.0); HEMOGLOBIN 11.2 g/dL (13.5-17.0); MEAN CORPUSCULAR HEMOGLOBIN 27.7 pg (27.0-33.4); MEAN CORPUSCULAR HGB CONC 32.8 g/dL (32.0-36.0); MEAN CORPUSCULAR VOLUME 85 fl (80-97); MONOCYTES % (AUTO) 9.4 % (3-13); PLATELET COUNT 208 10^3/uL (150-450); RED BLOOD COUNT 4.04 10^6/uL (4.35-5.55); RED CELL DISTRIBUTION WIDTH 16.9 % (11.5-14.0); SEGMENTED NEUTROPHILS % (AUTO) 55.3 % (42-78); TOTAL CELLS COUNTED % (AUTO) 100 %; WHITE BLOOD COUNT 3.6 10^3/uL (4.0-10.5)
[2017-08-13 17:21] LABS: ALANINE AMINOTRANSFERASE 27 U/L (21-72); ALBUMIN 4.3 g/dL (3.5-5.0); ALKALINE PHOSPHATASE 58 U/L (38-126); ANION GAP 11 (5-19); ASPARTATE AMINO TRANSFERASE 24 U/L (17-59); BILIRUBIN,DIRECT 0.6 mg/dL (0.0-0.4); BILIRUBIN,TOTAL 0.6 mg/dL (0.2-1.3); BLOOD UREA NITROGEN 17 mg/dL (7-20); CALCIUM 8.7 mg/dL (8.4-10.2); CARBON DIOXIDE 31 mmol/L (22-30); CHLORIDE 99 mmol/L (98-107); GLUCOSE 92 mg/dL (75-110); SODIUM 140.7 mmol/L (137-145)
[2017-08-13 17:28] LABS: POTASSIUM 2.9 mmol/L (3.6-5.0)
[2017-08-13 17:36] LABS: FREE T4 (FREE THYROXINE) 1.32 ng/dL (0.78-2.19)
[2017-08-13 17:50] LABS: THYROID STIMULATING HORMONE 0.52 uIU/mL (0.47-4.68)
--- NOTE | 2017-08-13 17:58 | ER Document Report ---
ED Dizziness/Weakness - General Chief Complaint: Weakness Stated Complaint: DIRECT ADMIT Time Seen by Provider: 08/13/17 15:42 Mode of Arrival: Wheelchair Notes: Patient is a dialysis patient, Saturday, , Saturday. He missed his dialysis treatment this past Saturday because he was feeling so weak. He did go to dialysis and had a normal dialysis today. Has been on dialysis for a couple of years. He is complaining today of feeling weak and inability to lift his legs. Patient went to his primary care provider, Dr. Romero, on Saturday and he felt that the patient's dementia was worsening. His appetite has been poor. He has not been vomiting. He has had some diarrhea for quite a while, but no blood present in it. He has had some cough and congestion and shortness of breath. Denies any fevers. Has had a headache for a month to month and a half. TRAVEL OUTSIDE OF THE [place] IN LAST 30 DAYS: No - Related Data Allergies/Adverse Reactions: No Known Allergies Allergy (Verified 09/03/16 11:41) Past Medical History - General Information source: Patient - Social History Smoking Status: Former Smoker Chew tobacco use (# tins/day): No Frequency of alcohol use: None Drug Abuse: None Family History: Reviewed & Not Pertinent, DM Patient has suicidal ideation: No Patient has homicidal ideation: No - Past Medical History Cardiac Medical History: Reports: Hx Coronary Artery Disease, Hx Heart Attack - 5 years ago, Hx Hypercholesterolemia, Hx Hypertension - on meds, Hx Heart Murmur Pulmonary Medical History: Reports: Hx Pneumonia - hx of Neurological Medical History: Denies: Hx Cerebrovascular Accident Endocrine Medical History: Denies: Hx Diabetes Mellitus Type 1, Hx Diabetes Mellitus Type 2 Renal/ Medical History: Reports: Hx Hemodialysis Malignancy Medical History: Reports Other - 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 GI Medical History: Reports: Hx Gastroesophageal Reflux Disease, Hx Ulcer Musculoskeltal Medical History: Reports Hx Arthritis - generalized Past Surgical History: Reports: Hx Abdominal Surgery - abdominal aneurysm repair , Hx Cholecystectomy, Hx Vascular Surgery - Abdominal aortic aneurysm repair - Immunizations Hx Diphtheria, Pertussis, Tetanus Vaccination: No - Pt unsure Hx Pneumococcal Vaccination: 06/25/07 Review of Systems - Review of Systems Notes: REVIEW OF SYSTEMS: CONSTITUTIONAL : Denies fever. EENT: Denies eye, ear, nose or mouth or throat pain or other symptoms. CARDIOVASCULAR: Denies chest pain. RESPIRATORY: Has some cough, chest congestion, but not shortness of breath and his cough and congestion have been better recently.. GASTROINTESTINAL: Denies abdominal pain or nausea, vomiting, but is having diarrhea. GENITOURINARY: Denies difficulty or painful urinating, urinary frequency, blood in urine. MUSCULOSKELETAL: Denies back or neck pain. Denies joint pain or swelling. SKIN: Denies rash or skin lesions. NEUROLOGICAL: Denies LOC or altered mental status. Has had a headache for months. Generalized weakness, especially of his legs, has difficulty raising or lifting his legs and using them and bearing weight. ALL OTHER SYSTEMS REVIEWED AND NEGATIVE. Physical Exam - Vital signs Vitals: Temp Pulse Resp BP Pulse Ox 98.8 F 80 16 152/112 H 100 08/13/17 15:33 08/13/17 15:08/13/17 15:08/13/17 15:08/13/17 15:33 Interpretation: Hypertensive - Notes Notes: PHYSICAL EXAMINATION: GENERAL: Well-appearing, in no acute distress. Sounds week. Blood pressure elevated but other vital signs essentially normal. HEAD: Atraumatic, normocephalic. EYES: Pupils equal round and reactive to light, extraocular movements intact. ENT: oropharynx clear without exudates. Moist mucous membranes. NECK: Normal range of motion, supple. No carotid bruits heard. LUNGS: Breath sounds clear and equal bilaterally. HEART: Regular rate and rhythm without murmurs. ABDOMEN: Soft, nontender. No guarding or rebound. No masses. BACK: No tenderness throughout entire back. EXTREMITIES: Normal range of motion without pain. NEUROLOGICAL: Normal speech, though sounds week. Gait not tested. Normal sensory, motor, and reflex exams. Awake, alert, and oriented x3. PSYCH: Normal mood, normal affect. SKIN: Warm, dry, no rashes. Course - Re-evaluation Re-evalutation: 08/13/17 17:[address] Romero and he will admit for observation and workup. - Vital Signs Vital signs: Temp Pulse Resp BP Pulse Ox 98.8 F 80 16 152/112 H 100 08/13/17 15:33 08/13/17 15:33 08/13/17 15:08/13/17 15:08/13/17 15:33 - Laboratory Result Diagrams: 08/13/17 16:50 08/13/17 16:50 Laboratory results interpreted by me: 08/13/17 08/13/17 16:50 16:50 WBC 3.6 L RBC 4.04 L Hgb 11.2 L Hct 34.2 L RDW 16.9 H Potassium 2.9 L* Carbon Dioxide 31 H Creatinine 4.32 H Est GFR ( Amer) 16 L Est GFR (Non-Af Amer) 13 L Direct Bilirubin 0.6 H Discharge - Discharge Clinical Impression: Weakness, End stage renal failure on dialysis, Hypokalemia Condition: Stable Disposition: ADMITTED OBSERVATION Admitting Provider: [facility] Admitted: Telemetry
[2017-08-13] MEDS ORDERED: [UNRECOGNIZED DRUG - OTHER] PO SCH (21:15)
[2017-08-13] MEDS ORDERED: (PENDING PHARMACY ID) (Cholecalciferol (Vitamin D3) [Vitamin D3] 1,000 UNIT) PO SCH (21:15)
[2017-08-13] MEDS ORDERED: [UNRECOGNIZED DRUG - OTHER] PO SCH ×2 (21:15→22:00)
[2017-08-13] MEDS ORDERED: CYANOCOBALAMIN PO SCH (21:15)
[2017-08-13] MEDS ORDERED: DONEPEZIL HCL PO SCH ×2 (21:15→22:00)
[2017-08-13] MEDS ORDERED: MEMANTINE HCL PO SCH ×2 (21:15→22:00)
[2017-08-13] MEDS ORDERED: (PENDING PHARMACY ID) (Megestrol Acetate [Megestrol Acetate] 40 MG) PO SCH (21:15)
[2017-08-13 22:03] LABS: INTERNATIONAL RATION (INR) 0.98; PROTHROMBIN TIME 13.7 SEC (11.4-15.4)
[2017-08-13 22:11] LABS: LIPASE 52.3 U/L (23-300); PHOSPHORUS 2.8 mg/dL (2.5-4.5)
[2017-08-13 22:25] LABS: CREATINE KINASE MB 0.36 ng/mL (<4.55)
[2017-08-13 22:28] LABS: FREE T4 (FREE THYROXINE) 1.17 ng/dL (0.78-2.19)
[2017-08-13 22:30] LABS: TROPONIN I 0.122 ng/mL
[2017-08-13] MEDS ORDERED: FOLIC ACID/VITAMIN B COMP W-C CAPSULE PO ONE ×2 (22:30)
[2017-08-13] MEDS ORDERED: ASPIRIN 81 MG TABLET, CHEWABLE PO ONE (22:30)
[2017-08-13] MEDS ORDERED: ISOSORBIDE MONONITRATE 30 MG TAB.ER.24H PO ONE (22:30)
[2017-08-13] MEDS ORDERED: AMLODIPINE BESYLATE 5 MG TABLET PO ONE (22:30)
[2017-08-13 22:42] LABS: THYROID STIMULATING HORMONE 0.66 uIU/mL (0.47-4.68)
--- NOTE | 2017-08-13 22:53 | RADIOLOGY REPORT (SQ) ---
EXAM DESCRIPTION: MRI HEAD WITHOUT COMPLETED DATE/TIME: 08/13/2017 8:11 pm REASON FOR STUDY: weakness COMPARISON: None. TECHNIQUE: Multiplanar imaging includes non-contrasted T1, T2, FLAIR, and diffusion with ADC map seq uences. Images stored on PACS. LIMITATIONS: None. FINDINGS: ANATOMY: No anomalies. Normal vascular flow voids. Pituitary fossa normal. CSF SPACES: Atrophy induced prominence of ventricles and CSF spaces. Ventricles more prominent than expected and therefore normal pressure hydrocephalus should be considered. CEREBRUM: High signal intensity lesions scattered throughout the white matter on FLAIR imaging with d istribution suggesting micro-vascular ischemic changes. No evidence of hemorrhage, mass, or extraaxi al fluid collection. POSTERIOR FOSSA: No signal alteration. No hemorrhage. No edema, masses or mass effect. Internal madeline tory canals, cerebello-pontine angles, mastoids normal. DIFFUSION IMAGING: Negative for acute or sub-acute infarction. ORBITS: No masses. Globes normal. PARANASAL SINUSES: No fluid levels. Mucosa normal. OTHER: No other significant finding. IMPRESSION: ATROPHY AND CHRONIC MICRO-VASCULAR ISCHEMIC CHANGES. Ventriculomegaly out of proportion to the atrophy. Consider normal pressure hydrocephalus. no acute intracranial process. . EVIDENCE OF ACUTE STROKE: NO. TECHNICAL DOCUMENTATION: JOB ID: [id number] [employer]- All Rights Reserved Reading location - IP/workstation name: [email or web address]
[2017-08-13] MEDS: ATORVASTATIN CALCIUM 80 MG TABLET PO SCH (23:30)
[2017-08-13] MEDS: PREGABALIN 75 MG CAPSULE PO SCH (23:30)
[2017-08-13] MEDS: CARVEDILOL 12.5 MG TABLET PO SCH (23:32)
[2017-08-14 04:51] LABS: ABSOLUTE EOSINOPHILS # (AUTO) 0.1 10^3/uL (0.0-0.6); ABSOLUTE LYMPHOCYTES (AUTO) 1.1 10^3/uL (0.5-4.7); ABSOLUTE MONOCYTES (AUTO) 0.4 10^3/uL (0.1-1.4); ABSOLUTE NEUT (AUTO) 1.4 10^3/uL (1.7-8.2); BASOPHILS % (AUTO) 1.1 % (0-2); HEMATOCRIT 32.3 % (37.9-51.0); HEMOGLOBIN 10.7 g/dL (13.5-17.0); MEAN CORPUSCULAR HGB CONC 33.2 g/dL (32.0-36.0); MEAN CORPUSCULAR VOLUME 84 fl (80-97); MONOCYTES % (AUTO) 13.4 % (3-13); PLATELET COUNT 182 10^3/uL (150-450); RED BLOOD COUNT 3.83 10^6/uL (4.35-5.55); RED CELL DISTRIBUTION WIDTH 16.5 % (11.5-14.0); SEGMENTED NEUTROPHILS % (AUTO) 45.5 % (42-78); TOTAL CELLS COUNTED % (AUTO) 100 %; WHITE BLOOD COUNT 3.2 10^3/uL (4.0-10.5)
[2017-08-14 05:08] LABS: ALANINE AMINOTRANSFERASE 22 U/L (21-72); ALBUMIN 4.1 g/dL (3.5-5.0); ALKALINE PHOSPHATASE 52 U/L (38-126); ANION GAP 13 (5-19); ASPARTATE AMINO TRANSFERASE 25 U/L (17-59); BILIRUBIN,DIRECT 0.3 mg/dL (0.0-0.4); BILIRUBIN,TOTAL 0.7 mg/dL (0.2-1.3); BLOOD UREA NITROGEN 22 mg/dL (7-20); CALCIUM 8.7 mg/dL (8.4-10.2); CARBON DIOXIDE 31 mmol/L (22-30); CHLORIDE 98 mmol/L (98-107); CREATINE KINASE 69 U/L (55-170); GLUCOSE 89 mg/dL (75-110); POTASSIUM 3.2 mmol/L (3.6-5.0); SODIUM 141.8 mmol/L (137-145); TOTAL PROTEIN 7.3 g/dL (6.3-8.2)
[2017-08-14 05:18] LABS: CREATINE KINASE MB 0.36 ng/mL (<4.55); TROPONIN I 0.119 ng/mL
[2017-08-14] MEDS: LANSOPRAZOLE 30 MG TAB.RAP.DR PO SCH (05:20)
[2017-08-14] MEDS ORDERED: LANSOPRAZOLE 15 MG TAB.RAP.DR PO SCH (06:00)
[2017-08-14] MEDS ORDERED: ACETAMINOPHEN 325 MG TABLET ONE (08:46)
[2017-08-14] MEDS: CALCIUM ACETATE 667 MG CAPSULE PO SCH ×3 (08:53→18:39)
[2017-08-14] MEDS ORDERED: ISOSORBIDE MONONITRATE 30 MG TAB.ER.24H PO SCH (10:00)
[2017-08-14 10:47] LABS: CREATINE KINASE MB 0.31 ng/mL (<4.55); TROPONIN I 0.091 ng/mL
[2017-08-14] MEDS: FOLIC ACID/VITAMIN B COMP W-C CAPSULE PO SCH (11:25)
[2017-08-14] MEDS: CHOLECALCIFEROL (D3) 1,000 UNIT TABLET PO SCH (11:26)
[2017-08-14] MEDS: CYANOCOBALAMIN (VITAMIN B-12) 1,000 MCG TABLET PO SCH (11:27)
[2017-08-14] MEDS: DULOXETINE HCL 30 MG CAPSULE.DR PO SCH (11:27)
[2017-08-14] MEDS: CARVEDILOL 12.5 MG TABLET PO SCH ×2 (11:27→21:27)
[2017-08-14] MEDS: HYDRALAZINE HCL 50 MG TABLET PO SCH (11:28)
[2017-08-14] MEDS: ISOSORBIDE MONONITRATE 30 MG TAB.ER.24H PO SCH (11:28)
[2017-08-14] MEDS: PREGABALIN 75 MG CAPSULE PO SCH ×2 (11:28→21:27)
[2017-08-14] MEDS: ASPIRIN 81 MG TABLET, CHEWABLE PO SCH (11:29)
[2017-08-14] MEDS: AMLODIPINE BESYLATE 5 MG TABLET PO SCH (11:29)
[2017-08-14] MEDS: MEGESTROL ACETATE 20 MG TABLET PO SCH ×2 (11:38→21:27)
--- NOTE | 2017-08-14 17:46 | PDOC H&P ---
History of Present Illness Admission Date/PCP: 08/13/17 18:07 BETSY POOL MD History of Present Illness: LUPE ZURITA is a 76 year old male he has end-stage renal disease on maintenance hemodialysis, he was hemodialyzed today, he came to the office with family members because of inability to ambulate. Family said he has progressively developed ambulatory dysfunction, he will shuffle his gait without moving much but presently is not able to walk. He came to the office in a wheelchair, the exact etiology of the loss of ambulation was not apparent in the office, he was admitted directly from the office into the hospital for evaluation. There was no bed available for direct admission to the hospital, he was triaged to the emergency room department where he was evaluated, blood work was done and there was hypokalemia. MRI of the brain was done it showed ventriculomegaly out of proportion to the atrophy consistent with normal pressure hydrocephalus. 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 GI Medical History: Reports: Gastroesophageal Reflux Disease Musculoskeltal Medical History: Reports: Arthritis - generalized Hematology: Reports: Anemia - hx of Past Surgical History Past Surgical History: Reports: Cholecystectomy, Vascular Surgery - Abdominal aortic aneurysm repair Social History Smoking Status: Former Smoker Last Time Smoked: 2002 Frequency of Alcohol Use: None Hx Recreational Drug Use: Yes Drugs: None Hx Prescription Drug Abuse: No Family History Family History: Reviewed & Not Pertinent, DM Parental Family History Reviewed: Yes Children Family History Reviewed: Yes Sibling(s) Family History Reviewed.: Yes Medication/Allergy Home Medications: Amlodipine Besylate [Norvasc 5 mg Tablet] 5 mg PO DAILY 08/13/17 Aspirin [Aspirin 81 mg Chewable Tablet] 81 mg PO DAILY 08/13/17 Atorvastatin Calcium [Lipitor 80 mg Tablet] 80 mg PO QHS 08/13/17 B Complex W-C No.20/Folic Acid [Nephrocaps Softgel] 1 cap PO DAILY 08/13/17 Calcium Acetate [Phoslo 667 Mg Capsule] 1,334 mg PO MEALS 08/13/17 Carvedilol [Coreg 25 mg Tablet] 25 mg PO Q12 08/13/17 Cholecalciferol (Vitamin D3) [Vitamin D3] 1,000 unit PO DAILY 08/13/17 Cyanocobalamin (Vitamin B-12) [Vitamin B-12 SL 1000 mcg Tablet] 1,000 mcg PO DAILY 08/13/17 Duloxetine HCl [Cymbalta] 60 mg PO DAILY 08/13/17 Hydralazine HCl [Apresoline 50 mg Tablet] 50 mg PO DAILY 08/13/17 Isosorbide Mononitrate [Imdur 30 mg Tablet.er] 30 mg PO DAILY 08/13/17 Isosorbide Mononitrate [Isosorbide Mononitrate ER] 30 mg PO DAILY 08/13/17 Megestrol Acetate 40 mg PO BID 08/13/17 Memantine HCl/Donepezil HCl [Namzaric 14 mg-10 mg Capsule] 1 cap PO QPM Omeprazole Magnesium [Prilosec Otc] 20 mg PO DAILY 08/13/17 Pantoprazole Sodium [Protonix] 40 mg PO DAILY 08/13/17 Pregabalin [Lyrica 75 mg Capsule] 75 mg PO Q12 08/13/17 Allergies/Adverse Reactions: No Known Allergies Allergy (Verified 09/03/16 11:41) Review of Systems Constitutional: PRESENT: anorexia, weight loss Cardiovascular: ABSENT: as per HPI, chest pain, dyspnea on exertion, edema, orthropnea, palpitations, other Gastrointestinal: PRESENT: diarrhea Neurological: PRESENT: abnormal gait, confusion, frequent falls, memory loss, paresthesias, weakness Endocrine: ABSENT: as per HPI, cold intolerance, flushing, heat intolerance, menstrual abnormalities, polydipsia, polyphagia, polyuria, other Physical Exam Vital Signs: Temp Pulse Resp BP Pulse Ox 99.2 F 115 H 18 118/103 H 100 08/14/17 12:56 08/14/17 12:56 08/14/17 12:56 08/14/17 12:56 08/14/17 12:56 Intake & Output 08/13/17 08/14/17 08/15/17 06:59 06:59 06:59 Intake Total 53 100 Balance 53 100 Weight 73.2 kg General appearance: PRESENT: mild distress Eye exam: PRESENT: conjunctiva pink, EOMI, PERRLA Neck exam: PRESENT: full ROM Respiratory exam: PRESENT: clear to auscultation checo Cardiovascular exam: PRESENT: RRR, +S1, +S2 Vascular exam: PRESENT: normal capillary refill GI/Abdominal exam: PRESENT: normal bowel sounds, soft Rectal exam: PRESENT: deferred Neurological exam: PRESENT: alert, oriented to situation, abnormal gait, ataxia , motor sensory deficit - Loss of mobility Skin exam: PRESENT: dry, intact, warm Results Laboratory Results: 08/14/17 03:54 08/14/17 03:54 08/13/17 08/13/17 08/14/17 21:30 21:30 03:54 WBC 3.2 L RBC 3.83 L Hgb 10.7 L Hct 32.3 L MCV 84 MCH 28.0 MCHC 33.2 RDW 16.5 H Plt Count 182 Seg Neutrophils % 45.5 Lymphocytes % 36.0 Monocytes % 13.4 H Eosinophils % 4.0 Basophils % 1.1 Absolute Neutrophils 1.4 L Absolute Lymphocytes 1.1 Absolute Monocytes 0.4 Absolute Eosinophils 0.1 Absolute Basophils 0.0 Sodium Potassium Chloride Carbon Dioxide Anion Gap BUN Creatinine Est GFR ( Amer) Est GFR (Non-Af Amer) Glucose Calcium Phosphorus 2.8 Magnesium 1.7 Total Bilirubin AST ALT Alkaline Phosphatase Total Protein Albumin Amylase 71 Lipase 52.3 TSH 0.66 Free T4 1.17 08/14/17 03:54 WBC RBC Hgb Hct MCV MCH MCHC RDW Plt Count Seg Neutrophils % Lymphocytes % Monocytes % Eosinophils % Basophils % Absolute Neutrophils Absolute Lymphocytes Absolute Monocytes Absolute Eosinophils Absolute Basophils Sodium 141.8 Potassium 3.2 L Chloride 98 Carbon Dioxide 31 H Anion Gap 13 BUN 22 H Creatinine 5.52 H Est GFR ( Amer) 12 L Est GFR (Non-Af Amer) 10 L Glucose 89 Calcium 8.7 Phosphorus Magnesium Total Bilirubin 0.7 AST 25 ALT 22 Alkaline Phosphatase 52 Total Protein 7.3 Albumin 4.1 Amylase Lipase TSH Free T4 08/13/17 08/13/17 08/13/17 21:30 21:30 21:30 Creatine Kinase 81 CK-MB (CK-2) 0.36 Troponin I 0.122 NT-Pro-B Natriuret Pep [id number] H 08/14/17 08/14/17 08/14/17 03:54 03:54 09:36 Creatine Kinase 69 70 CK-MB (CK-2) 0.36 Troponin I 0.119 NT-Pro-B Natriuret Pep 08/14/17 09:36 Creatine Kinase CK-MB (CK-2) 0.31 Troponin I 0.091 NT-Pro-B Natriuret Pep Impressions: Chest X-Ray 08/13/17 16:01 IMPRESSION: No evidence of acute cardiopulmonary disease. Head MRI 08/13/17 16:01 IMPRESSION: ATROPHY AND CHRONIC MICRO-VASCULAR ISCHEMIC CHANGES. Ventriculomegaly out of proportion to the atrophy. Consider normal pressure hydrocephalus. no acute intracranial process. . EVIDENCE OF ACUTE STROKE: NO. Assessment & Plan - Diagnosis (1) Normal pressure hydrocephalus Is this a current diagnosis for this admission?: Yes Plan: MRI brain suggest normal pressure hydrocephalus associated with loss of mobility , (2) Ambulatory dysfunction Is this a current diagnosis for this admission?: Yes (3) End-stage renal disease on hemodialysis Is this a current diagnosis for this admission?: Yes Plan: Obtain consultation from nephrology (4) Dementia Qualifiers: Dementia type: unspecified type Dementia behavioral disturbance: without behavioral disturbance Qualified Code(s): F03.90 - Unspecified dementia without behavioral disturbance Is this a current diagnosis for this admission?: Yes
[2017-08-14] MEDS ORDERED: POTASSIUM CHLORIDE 10 MEQ TABLET.SA PO ONE (18:45)
[2017-08-14] MEDS: ATORVASTATIN CALCIUM 80 MG TABLET PO SCH (21:27)
[2017-08-15] MEDS: LANSOPRAZOLE 30 MG TAB.RAP.DR PO SCH (05:17)
[2017-08-15 06:00] LABS: ABSOLUTE EOSINOPHILS # (AUTO) 0.2 10^3/uL (0.0-0.6); ABSOLUTE LYMPHOCYTES (AUTO) 1.4 10^3/uL (0.5-4.7); ABSOLUTE MONOCYTES (AUTO) 0.4 10^3/uL (0.1-1.4); ABSOLUTE NEUT (AUTO) 1.9 10^3/uL (1.7-8.2); BASOPHILS % (AUTO) 0.9 % (0-2); EOSINOPHILS % (AUTO) 6.1 % (0-6); HEMATOCRIT 30.7 % (37.9-51.0); HEMOGLOBIN 10.4 g/dL (13.5-17.0); LYMPHOCYTES % (AUTO) 36.1 % (13-45); MEAN CORPUSCULAR HEMOGLOBIN 28.1 pg (27.0-33.4); MEAN CORPUSCULAR HGB CONC 33.7 g/dL (32.0-36.0); MEAN CORPUSCULAR VOLUME 84 fl (80-97); MONOCYTES % (AUTO) 10.1 % (3-13); PLATELET COUNT 185 10^3/uL (150-450); RED BLOOD COUNT 3.68 10^6/uL (4.35-5.55); RED CELL DISTRIBUTION WIDTH 16.6 % (11.5-14.0); SEGMENTED NEUTROPHILS % (AUTO) 46.8 % (42-78); TOTAL CELLS COUNTED % (AUTO) 100 %
[2017-08-15 06:17] LABS: ALANINE AMINOTRANSFERASE 20 U/L (21-72); ALBUMIN 3.6 g/dL (3.5-5.0); ALKALINE PHOSPHATASE 49 U/L (38-126); ANION GAP 11 (5-19); ASPARTATE AMINO TRANSFERASE 19 U/L (17-59); BILIRUBIN,DIRECT 0.5 mg/dL (0.0-0.4); BILIRUBIN,TOTAL 0.5 mg/dL (0.2-1.3); BLOOD UREA NITROGEN 38 mg/dL (7-20); CALCIUM 8.6 mg/dL (8.4-10.2); CARBON DIOXIDE 26 mmol/L (22-30); CHLORIDE 103 mmol/L (98-107); GLUCOSE 98 mg/dL (75-110); POTASSIUM 3.6 mmol/L (3.6-5.0); SODIUM 140.2 mmol/L (137-145); TOTAL PROTEIN 6.8 g/dL (6.3-8.2)
[2017-08-15] MEDS: ASPIRIN 81 MG TABLET, CHEWABLE PO SCH (09:06)
[2017-08-15] MEDS: PREGABALIN 75 MG CAPSULE PO SCH ×2 (09:06→21:12)
[2017-08-15] MEDS: DULOXETINE HCL 30 MG CAPSULE.DR PO SCH (09:06)
[2017-08-15] MEDS: ISOSORBIDE MONONITRATE 30 MG TAB.ER.24H PO SCH (09:06)
[2017-08-15] MEDS: FOLIC ACID/VITAMIN B COMP W-C CAPSULE PO SCH (09:06)
[2017-08-15] MEDS: CHOLECALCIFEROL (D3) 1,000 UNIT TABLET PO SCH (09:06)
[2017-08-15] MEDS: CYANOCOBALAMIN (VITAMIN B-12) 1,000 MCG TABLET PO SCH (09:06)
[2017-08-15] MEDS: HYDRALAZINE HCL 50 MG TABLET PO SCH (09:07)
[2017-08-15] MEDS: CARVEDILOL 12.5 MG TABLET PO SCH ×2 (09:07→21:12)
[2017-08-15] MEDS: AMLODIPINE BESYLATE 5 MG TABLET PO SCH (09:07)
[2017-08-15] MEDS: MEGESTROL ACETATE 20 MG TABLET PO SCH ×2 (09:07→21:14)
[2017-08-15] MEDS: CALCIUM ACETATE 667 MG CAPSULE PO SCH ×3 (09:13→17:33)
[2017-08-15] MEDS: ATORVASTATIN CALCIUM 80 MG TABLET PO SCH (21:12)
--- NOTE | 2017-08-15 22:05 | PDOC PROGRESS REPORT ---
Subjective Progress Note for:: 08/15/17 Subjective:: Patient was seen by physical therapy today, he cannot move, physical therapy is recommending rehabilitation, he has end-stage renal disease on maintenance hemodialysis, he is due for dialysis tomorrow consultation will be requested from nephrology for dialysis for this patient. Reason For Visit: LOSS OF MOBILITY,WEAKNESS OF LOWER EXTREMITY,CVA Physical Exam Vital Signs: Temp Pulse Resp BP Pulse Ox 99.4 F 76 16 153/72 H 96 08/15/17 20:11 08/15/17 20:31 08/15/17 20:11 08/15/17 20:11 08/15/17 20:11 Intake & Output 08/14/17 08/15/17 08/16/17 06:59 06:59 06:59 Intake Total 53 603 10 Balance 53 603 10 Weight 73.2 kg 80.2 kg General appearance: PRESENT: mild distress Eye exam: PRESENT: PERRLA Respiratory exam: PRESENT: clear to auscultation checo Cardiovascular exam: PRESENT: +S1, +S2 GI/Abdominal exam: PRESENT: soft Neurological exam: PRESENT: alert Results Laboratory Results: 08/15/17 05:52 08/15/17 05:52 08/15/17 08/15/17 05:52 05:52 WBC 4.0 RBC 3.68 L Hgb 10.4 L Hct 30.7 L MCV 84 MCH 28.1 MCHC 33.7 RDW 16.6 H Plt Count 185 Seg Neutrophils % 46.8 Lymphocytes % 36.1 Monocytes % 10.1 Eosinophils % 6.1 H Basophils % 0.9 Absolute Neutrophils 1.9 Absolute Lymphocytes 1.4 Absolute Monocytes 0.4 Absolute Eosinophils 0.2 Absolute Basophils 0.0 Sodium 140.2 Potassium 3.6 Chloride 103 Carbon Dioxide 26 Anion Gap 11 BUN 38 H Creatinine 7.27 H Est GFR ( Amer) 9 L Est GFR (Non-Af Amer) 7 L Glucose 98 Calcium 8.6 Total Bilirubin 0.5 AST 19 ALT 20 L Alkaline Phosphatase 49 Total Protein 6.8 Albumin 3.6 08/13/17 08/13/17 08/13/17 21:30 21:30 21:30 Creatine Kinase 81 CK-MB (CK-2) 0.36 Troponin I 0.122 NT-Pro-B Natriuret Pep [id number] H 08/14/17 08/14/1718 03:54 03:54 09:36 Creatine Kinase 69 70 CK-MB (CK-2) 0.36 Troponin I 0.119 NT-Pro-B Natriuret Pep 08/14/17 09:36 Creatine Kinase CK-MB (CK-2) 0.31 Troponin I 0.091 NT-Pro-B Natriuret Pep Impressions: Chest X-Ray 08/13/17 16:01 IMPRESSION: No evidence of acute cardiopulmonary disease. Head MRI 08/13/17 16:01 IMPRESSION: ATROPHY AND CHRONIC MICRO-VASCULAR ISCHEMIC CHANGES. Ventriculomegaly out of proportion to the atrophy. Consider normal pressure hydrocephalus. no acute intracranial process. . EVIDENCE OF ACUTE STROKE: NO. Assessment & Plan - Diagnosis (1) Normal pressure hydrocephalus Is this a current diagnosis for this admission?: Yes (2) Ambulatory dysfunction Is this a current diagnosis for this admission?: Yes (3) End-stage renal disease on hemodialysis Is this a current diagnosis for this admission?: Yes (4) Dementia Qualifiers: Dementia type: unspecified type Dementia behavioral disturbance: without behavioral disturbance Qualified Code(s): F03.90 - Unspecified dementia without behavioral disturbance Is this a current diagnosis for this admission?: Yes - Plan Summary Plan Summary: Patient is seen by the bedside, continue treatment
[2017-08-16 04:54] LABS: ABSOLUTE BASOPHILS # (AUTO) 0.1 10^3/uL (0.0-0.2); ABSOLUTE EOSINOPHILS # (AUTO) 0.3 10^3/uL (0.0-0.6); ABSOLUTE LYMPHOCYTES (AUTO) 1.7 10^3/uL (0.5-4.7); ABSOLUTE MONOCYTES (AUTO) 0.4 10^3/uL (0.1-1.4); ABSOLUTE NEUT (AUTO) 2.4 10^3/uL (1.7-8.2); BASOPHILS % (AUTO) 1.2 % (0-2); EOSINOPHILS % (AUTO) 5.6 % (0-6); HEMATOCRIT 32.3 % (37.9-51.0); HEMOGLOBIN 10.3 g/dL (13.5-17.0); LYMPHOCYTES % (AUTO) 34.6 % (13-45); MEAN CORPUSCULAR HEMOGLOBIN 27.1 pg (27.0-33.4); MEAN CORPUSCULAR VOLUME 85 fl (80-97); MONOCYTES % (AUTO) 8.5 % (3-13); PLATELET COUNT 177 10^3/uL (150-450); RED BLOOD COUNT 3.82 10^6/uL (4.35-5.55); RED CELL DISTRIBUTION WIDTH 16.7 % (11.5-14.0); SEGMENTED NEUTROPHILS % (AUTO) 50.1 % (42-78); TOTAL CELLS COUNTED % (AUTO) 100 %; WHITE BLOOD COUNT 4.8 10^3/uL (4.0-10.5)
[2017-08-16] MEDS ORDERED: NORMAL SALINE 1000 ML 1,000 ML IV PRN (05:00)
[2017-08-16] MEDS: LANSOPRAZOLE 30 MG TAB.RAP.DR PO SCH (05:07)
[2017-08-16 06:55] LABS: ALANINE AMINOTRANSFERASE 26 U/L (21-72); ALKALINE PHOSPHATASE 52 U/L (38-126); ANION GAP 13 (5-19); ASPARTATE AMINO TRANSFERASE 20 U/L (17-59); BILIRUBIN,DIRECT 0.3 mg/dL (0.0-0.4); BILIRUBIN,TOTAL 0.3 mg/dL (0.2-1.3); BLOOD UREA NITROGEN 55 mg/dL (7-20); CALCIUM 9.1 mg/dL (8.4-10.2); CARBON DIOXIDE 26 mmol/L (22-30); CHLORIDE 101 mmol/L (98-107); GLUCOSE 92 mg/dL (75-110); POTASSIUM 3.9 mmol/L (3.6-5.0); TOTAL PROTEIN 6.9 g/dL (6.3-8.2)
[2017-08-16] MEDS: CALCIUM ACETATE 667 MG CAPSULE PO SCH ×3 (07:33→18:10)
[2017-08-16] MEDS: FOLIC ACID/VITAMIN B COMP W-C CAPSULE PO SCH (09:02)
[2017-08-16] MEDS: DULOXETINE HCL 30 MG CAPSULE.DR PO SCH (09:02)
[2017-08-16] MEDS: CHOLECALCIFEROL (D3) 1,000 UNIT TABLET PO SCH (09:02)
[2017-08-16] MEDS: ASPIRIN 81 MG TABLET, CHEWABLE PO SCH (09:02)
[2017-08-16] MEDS: ISOSORBIDE MONONITRATE 30 MG TAB.ER.24H PO SCH (09:02)
[2017-08-16] MEDS: CARVEDILOL 12.5 MG TABLET PO SCH ×2 (09:03→22:55)
[2017-08-16] MEDS: HYDRALAZINE HCL 50 MG TABLET PO SCH (09:03)
[2017-08-16] MEDS: PREGABALIN 75 MG CAPSULE PO SCH ×2 (09:03→22:55)
[2017-08-16] MEDS: AMLODIPINE BESYLATE 5 MG TABLET PO SCH (09:03)
[2017-08-16] MEDS: CYANOCOBALAMIN (VITAMIN B-12) 1,000 MCG TABLET PO SCH (09:03)
[2017-08-16] MEDS: MEGESTROL ACETATE 20 MG TABLET PO SCH ×2 (09:07→22:55)
--- NOTE | 2017-08-16 13:42 | PDOC CONSULTATION ---
Consultation Consult Date: 08/16/17 Attending physician:: BETSY POOL Consult reason:: I was asked to see the patient to supervise dialysis while here in the hospital. History of Present Illness Admission Date/PCP: 08/13/17 18:07 BETSY POOL MD History of Present Illness: LUPE ZURITA is a 76 year old male he has end-stage renal disease on maintenance hemodialysis on Tuesdays, and Saturdays, also with coronary artery disease, hypertension, and multiple myeloma in remission who was brought in to Dr. Pool's office by family members because of inability to ambulate after dialysis on Saturday. Family said he has progressively developed ambulatory dysfunction, he will shuffle his gait without moving much but presently is not able to walk. He came to his office in a wheelchair. The exact etiology of the loss of ambulation was not apparent in the office. He was admitted directly from his office into the hospital for evaluation. MRI of the brain was done it showed ventriculomegaly out of proportion to the atrophy consistent with normal pressure hydrocephalus. He also has underlying dementia. For the past month the patient has been noticeably getting weaker and weaker and able to move his legs. Usually he is brought in by a service van to [facility] for his dialysis. However most recently since the patient is not able to stand up and walk to actually go to the van, our dialysis nurses at [facility] had to call a family member to come and pick him up from dialysis. Family reports that he also takes him a while to prepare to go to dialysis and sometimes he arrives so late that he will miss his appointment for dialysis. Last Saturday when he was admitted I had a chance to speak to his and daughter at bedside when I initially saw him. I recommended that he probably would need some rehabilitation in a rehab facility to see if he can strengthen his legs start to at least stand up and walk a few steps if he still plans to go home. Daughter seems to be understanding. The is a little hesitant and the patient does not seem to welcome that idea. Today I asked him if he is willing to go to a rehab facility and he tells me he is decided yet at this time. I am seeing him at the initiation of dialysis at this time. His legs are still weak. He otherwise does not complain of any chest pains, shortness of breath, nor any other complaints. He is hemodynamically stable otherwise. He seems to get a little bit confused at times though. 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 GI Medical History: Reports: Gastroesophageal Reflux Disease Musculoskeltal Medical History: Reports: Arthritis - generalized Hematology Medical History: Reports Anemia of Chronic Kidney Disease Past Surgical History Past Surgical History: Reports: Cholecystectomy, Dialysis Access Surgery AVF, Vascular Surgery - Abdominal aortic aneurysm repair; PermCath placement for dialysis Social History Information Source: [facility] Records Lives with: Family - and daughter Smoking Status: Former Smoker Last Time Smoked: 2002 Frequency of Alcohol Use: None Hx Recreational Drug Use: Yes Drugs: None Hx Prescription Drug Abuse: No Family History Family History: Reviewed & Not Pertinent Parental Family History Reviewed: Yes Children Family History Reviewed: Yes Sibling(s) Family History Reviewed.: Yes Medication/Allergy Home Medications: Amlodipine Besylate [Norvasc 5 mg Tablet] 5 mg PO DAILY 08/13/17 Aspirin [Aspirin 81 mg Chewable Tablet] 81 mg PO DAILY 08/13/17 Atorvastatin Calcium [Lipitor 80 mg Tablet] 80 mg PO QHS 08/13/17 B Complex W-C No.20/Folic Acid [Nephrocaps Softgel] 1 cap PO DAILY 08/13/17 Calcium Acetate [Phoslo 667 Mg Capsule] 1,334 mg PO MEALS 08/13/17 Carvedilol [Coreg 25 mg Tablet] 25 mg PO Q12 08/13/17 Cholecalciferol (Vitamin D3) [Vitamin D3] 1,000 unit PO DAILY 08/13/17 Cyanocobalamin (Vitamin B-12) [Vitamin B-12 SL 1000 mcg Tablet] 1,000 mcg PO DAILY 08/13/17 Duloxetine HCl [Cymbalta] 60 mg PO DAILY 08/13/17 Hydralazine HCl [Apresoline 50 mg Tablet] 50 mg PO DAILY 08/13/17 Isosorbide Mononitrate [Imdur 30 mg Tablet.er] 30 mg PO DAILY 08/13/17 Isosorbide Mononitrate [Isosorbide Mononitrate ER] 30 mg PO DAILY 08/13/17 Megestrol Acetate 40 mg PO BID 08/13/17 Memantine HCl/Donepezil HCl [Namzaric 14 mg-10 mg Capsule] 1 cap PO QPM Omeprazole Magnesium [Prilosec Otc] 20 mg PO DAILY 08/13/17 Pantoprazole Sodium [Protonix] 40 mg PO DAILY 08/13/17 Pregabalin [Lyrica 75 mg Capsule] 75 mg PO Q12 08/13/17 Allergies/Adverse Reactions: No Known Allergies Allergy (Verified 09/03/16 11:41) Review of Systems All systems: reviewed and no additional remarkable complaints except as stated Review of Systems: Constitutional: ABSENT: chills, fatigue, fever(s), headache(s), weight gain, weight loss Eyes: ABSENT: visual disturbances Ears: ABSENT: hearing changes Cardiovascular: ABSENT: chest pain, dyspnea on exertion, edema, orthropnea, palpitations Respiratory: ABSENT: cough, dyspnea, hemoptysis Gastrointestinal: ABSENT: abdominal pain, constipation, diarrhea, hematemesis, hematochezia, nausea, vomiting Genitourinary: ABSENT: dysuria, hematuria Musculoskeletal: ABSENT: joint swelling; lower extremity weakness Integumentary: ABSENT: rash, wounds Neurological: ABSENT: abnormal gait, abnormal speech, confusion, dizziness, numbness, syncope; leg weakness Psychiatric: ABSENT: anxiety, depression Endocrine: ABSENT: cold intolerance, heat intolerance, polydipsia, polyuria Hematologic/Lymphatic: ABSENT: easy bleeding, easy bruising, lymphadenopathy Physical Exam Vital Signs: Temp Pulse Resp BP Pulse Ox 98.6 F 62 20 132/71 H 96 08/16/17 11:25 08/16/17 11:25 08/16/17 11:25 08/16/17 11:25 08/16/17 11:25 Intake & Output 08/15/17 08/16/17 08/17/17 06:59 06:59 06:59 Intake Total 603 368 Balance 603 368 Weight 80.2 kg 71.8 kg Vitals during initiation of dialysis: Blood pressure 115/66, heart rate of 64, blood flow rate of 250 mL/min, dialysate flow rate of 600 mL/min. Exam: General appearance: no acute distress, cooperative, well-developed, well- nourished Head exam: PRESENT: atraumatic, normocephalic Eye exam: PRESENT: Conjunctiva slightly pale, EOMI, PERRLA. ABSENT: conjunctival injection, scleral icterus Mouth exam: PRESENT: moist, neck supple, tongue midline Neck exam: PRESENT: full ROM. ABSENT: carotid bruit, JVD, lymphadenopathy, thyromegaly Respiratory exam: PRESENT: Diminished to auscultation bilaterally. ABSENT: rales, rhonchi, stridor, wheezes Cardiovascular exam: PRESENT: RRR, +S1, +S2. Grade 2 over systolic murmur Pulses: PRESENT: normal radial pulses, normal dorsalis pedis pulses GI/Abdominal exam: PRESENT: normal bowel sounds, soft. ABSENT: guarding, mass, tenderness Rectal exam: deferred Extremities exam: PRESENT: full ROM. ABSENT: calf tenderness, pedal edema Musculoskeletal: PRESENT: full ROM. ABSENT: deformity Neurological exam: PRESENT: alert, Awake, Oriented to person, Oriented to place , Oriented to time, reflexes normal, CN II-XII grossly intact. ABSENT: motor sensory deficit Psychiatric exam: PRESENT: appropriate affect, normal mood. ABSENT: homicidal ideation, suicidal ideation Skin exam: PRESENT: intact, dry, warm. ABSENT: rash Results Laboratory Results: 08/16/17 03:46 08/16/17 06:26 08/16/17 08/16/17 08/16/17 03:46 03:46 06:26 WBC 4.8 RBC 3.82 L Hgb 10.3 L Hct 32.3 L MCV 85 MCH 27.1 MCHC 32.0 RDW 16.7 H Plt Count 177 Seg Neutrophils % 50.1 Lymphocytes % 34.6 Monocytes % 8.5 Eosinophils % 5.6 Basophils % 1.2 Absolute Neutrophils 2.4 Absolute Lymphocytes 1.7 Absolute Monocytes 0.4 Absolute Eosinophils 0.3 Absolute Basophils 0.1 Sodium Cancelled 140.0 Potassium Cancelled 3.9 Chloride Cancelled 101 Carbon Dioxide Cancelled 26 Anion Gap Cancelled 13 BUN Cancelled 55 H Creatinine Cancelled 8.35 H Est GFR ( Amer) Cancelled 8 L Est GFR (Non-Af Amer) Cancelled 6 L Glucose Cancelled 92 Calcium Cancelled 9.1 Total Bilirubin Cancelled 0.3 AST Cancelled 20 ALT Cancelled 26 Alkaline Phosphatase Cancelled 52 Total Protein Cancelled 6.9 Albumin Cancelled 4.0 08/13/17 08/13/17 08/13/17 21:30 21:30 21:30 Creatine Kinase 81 CK-MB (CK-2) 0.36 Troponin I 0.122 NT-Pro-B Natriuret Pep [id number] H 08/14/17 08/14/17 08/14/17 03:54 03:54 09:36 Creatine Kinase 69 70 CK-MB (CK-2) 0.36 Troponin I 0.119 NT-Pro-B Natriuret Pep 08/14/17 09:36 Creatine Kinase CK-MB (CK-2) 0.31 Troponin I 0.091 NT-Pro-B Natriuret Pep Impressions: Chest X-Ray 08/13/17 16:01 IMPRESSION: No evidence of acute cardiopulmonary disease. Head MRI 08/13/17 16:01 IMPRESSION: ATROPHY AND CHRONIC MICRO-VASCULAR ISCHEMIC CHANGES. Ventriculomegaly out of proportion to the atrophy. Consider normal pressure hydrocephalus. no acute intracranial process. . EVIDENCE OF ACUTE STROKE: NO. Assessment & Plan - Diagnosis (1) End-stage renal disease on hemodialysis Is this a current diagnosis for this admission?: Yes Plan: We will do dialysis today for 3 hours, using the patient's AV fistula, with 3 potassium bath, blood flow rate of 350 mL per minute, dialysate flow rate of 600 mL per minute, ultrafiltration 1-2 L as tolerated, no heparin and no Procrit during dialysis. Patient will be monitored toward by our dialysis nurse throughout dialysis treatment. (2) Anemia in chronic kidney disease (CKD) Is this a current diagnosis for this admission?: Yes Plan: We will give Procrit on dialysis as needed. (3) Ambulatory dysfunction Is this a current diagnosis for this admission?: Yes Plan: Recommend rehab for this patient. (4) HTN (hypertension) Qualifiers: Hypertension type: essential hypertension Qualified Code(s): I10 - Essential (primary) hypertension Is this a current diagnosis for this admission?: Yes Plan: Continue current medications. (5) Normal pressure hydrocephalus Is this a current diagnosis for this admission?: Yes (6) Dementia Is this a current diagnosis for this admission?: Yes - Notes Notes: Thank you for this consultation. Discussed with Dr. Ojebuoboh. We will continue hemodialysis support while here in the hospital. - Time Time Spent: 50 to 70 Minutes
[2017-08-16] MEDS: ATORVASTATIN CALCIUM 80 MG TABLET PO SCH (22:55)
[2017-08-17] MEDS: LANSOPRAZOLE 30 MG TAB.RAP.DR PO SCH (06:43)
--- NOTE | 2017-08-17 10:16 | PDOC PROGRESS REPORT ---
Subjective Progress Note for:: 08/17/17 Subjective:: Patient is currently doing fair Since still very unsteady but physical therapy Patient's denied any chest pain denied any shortness of the breath seen seen by the programming specialist Reason For Visit: LOSS OF MOBILITY,WEAKNESS OF LOWER EXTREMITY,CVA Physical Exam Vital Signs: Temp Pulse Resp BP Pulse Ox 98.7 F 71 18 153/77 H 98 08/17/17 07:42 08/17/17 07:42 08/17/17 07:42 08/17/17 07:42 08/17/17 07:42 Intake & Output 08/16/17 08/17/17 08/18/17 06:59 06:59 06:59 Intake Total 368 527 Output Total 2100 Balance 368 -1573 Weight 71.8 kg 74.4 kg General appearance: PRESENT: no acute distress, well-developed, well-nourished Head exam: PRESENT: atraumatic, normocephalic Eye exam: PRESENT: conjunctiva pink, EOMI, PERRLA. ABSENT: scleral icterus Ear exam: PRESENT: normal external ear exam Mouth exam: PRESENT: moist, tongue midline Neck exam: PRESENT: full ROM. ABSENT: carotid bruit, JVD, lymphadenopathy, thyromegaly Respiratory exam: PRESENT: clear to auscultation checo Cardiovascular exam: PRESENT: RRR. ABSENT: diastolic murmur, rubs, systolic murmur Pulses: PRESENT: normal dorsalis pedis pul, +2 pedal pulses bilateral Vascular exam: PRESENT: normal capillary refill GI/Abdominal exam: PRESENT: normal bowel sounds, soft. ABSENT: distended, guarding, mass, organolmegaly, rebound, tenderness Rectal exam: PRESENT: deferred Extremities exam: ABSENT: pedal edema Neurological exam: PRESENT: alert, awake, oriented to person. ABSENT: motor sensory deficit Psychiatric exam: PRESENT: appropriate affect, normal mood. ABSENT: homicidal ideation, suicidal ideation Skin exam: PRESENT: dry, intact, warm. ABSENT: cyanosis, rash Results Laboratory Results: 08/16/17 03:46 08/16/17 06:26 08/13/17 08/13/17 08/13/17 21:30 21:30 21:30 Creatine Kinase 81 CK-MB (CK-2) 0.36 Troponin I 0.122 NT-Pro-B Natriuret Pep [id number] H 08/14/17 08/14/17 08/14/17 03:54 03:54 09:36 Creatine Kinase 69 70 CK-MB (CK-2) 0.36 Troponin I 0.119 NT-Pro-B Natriuret Pep 08/14/17 09:36 Creatine Kinase CK-MB (CK-2) 0.31 Troponin I 0.091 NT-Pro-B Natriuret Pep Impressions: Chest X-Ray 08/13/17 16:01 IMPRESSION: No evidence of acute cardiopulmonary disease. Head MRI 08/13/17 16:01 IMPRESSION: ATROPHY AND CHRONIC MICRO-VASCULAR ISCHEMIC CHANGES. Ventriculomegaly out of proportion to the atrophy. Consider normal pressure hydrocephalus. no acute intracranial process. . EVIDENCE OF ACUTE STROKE: NO. Assessment & Plan - Diagnosis (1) End-stage renal disease on hemodialysis Is this a current diagnosis for this admission?: Yes Plan: Currently on hemodialysis will nephrology (2) Normal pressure hydrocephalus Is this a current diagnosis for this admission?: Yes Plan: Patients might need neurology evaluation as outpatient if is not getting better continues to physical therapy (3) Weakness Is this a current diagnosis for this admission?: Yes Plan: Due to the above conditions (4) Anemia in chronic kidney disease (CKD) Is this a current diagnosis for this admission?: Yes Plan: stable - Time Time Spent with patient: 15-24 minutes Medications reviewed and adjusted accordingly: Yes Within: Other - Inpatient Certification Medical Necessity: Significant Comorbidiites Make Outpatient Treatment Too Risky , Need Close Monitoring Due to Risk of Patient Decompensation Post Hospital Care: D/C [employer] Documentation - Plan Summary Plan Summary: Continues to current medication
[2017-08-17] MEDS: DULOXETINE HCL 30 MG CAPSULE.DR PO SCH (11:21)
[2017-08-17] MEDS: FOLIC ACID/VITAMIN B COMP W-C CAPSULE PO SCH (11:22)
[2017-08-17] MEDS: AMLODIPINE BESYLATE 5 MG TABLET PO SCH (11:22)
[2017-08-17] MEDS: PREGABALIN 75 MG CAPSULE PO SCH ×2 (11:22→22:13)
[2017-08-17] MEDS: CHOLECALCIFEROL (D3) 1,000 UNIT TABLET PO SCH (11:22)
[2017-08-17] MEDS: CARVEDILOL 12.5 MG TABLET PO SCH ×2 (11:22→22:13)
[2017-08-17] MEDS: ASPIRIN 81 MG TABLET, CHEWABLE PO SCH (11:23)
[2017-08-17] MEDS: CYANOCOBALAMIN (VITAMIN B-12) 1,000 MCG TABLET PO SCH (11:23)
[2017-08-17] MEDS: HYDRALAZINE HCL 50 MG TABLET PO SCH (11:23)
[2017-08-17] MEDS: ISOSORBIDE MONONITRATE 30 MG TAB.ER.24H PO SCH (11:23)
[2017-08-17] MEDS: CALCIUM ACETATE 667 MG CAPSULE PO SCH ×2 (11:23→22:11)
[2017-08-17] MEDS: MEGESTROL ACETATE 20 MG TABLET PO SCH ×2 (11:24→22:13)
[2017-08-17] MEDS: ACETAMINOPHEN 325 MG TABLET PO PRN (17:30)
[2017-08-17] MEDS: ATORVASTATIN CALCIUM 80 MG TABLET PO SCH (22:13)
[2017-08-18] MEDS: LANSOPRAZOLE 30 MG TAB.RAP.DR PO SCH (07:00)
--- NOTE | 2017-08-18 09:39 | PDOC PROGRESS REPORT ---
Subjective Progress Note for:: 08/18/17 Subjective:: Patient is currently doing fair Since still very unsteady but physical therapy Patient's denied any chest pain denied any shortness of the breath seen seen by the art supervisor Reason For Visit: LOSS OF MOBILITY,WEAKNESS OF LOWER EXTREMITY,CVA Physical Exam Vital Signs: Temp Pulse Resp BP Pulse Ox 99.0 F 58 L 16 142/82 H 100 08/18/17 08:10 08/18/17 08:10 08/18/17 08:10 08/18/17 08:10 08/18/17 08:10 Intake & Output 08/17/17 08/18/17 08/19/17 06:59 06:59 06:59 Intake Total 527 250 Output Total 2100 0 Balance -1573 250 Weight 74.4 kg 78.3 kg General appearance: PRESENT: no acute distress, well-developed, well-nourished Head exam: PRESENT: atraumatic, normocephalic Eye exam: PRESENT: conjunctiva pink, EOMI, PERRLA. ABSENT: scleral icterus Ear exam: PRESENT: normal external ear exam Mouth exam: PRESENT: moist, tongue midline Neck exam: PRESENT: full ROM. ABSENT: carotid bruit, JVD, lymphadenopathy, thyromegaly Respiratory exam: PRESENT: clear to auscultation checo Cardiovascular exam: PRESENT: RRR. ABSENT: diastolic murmur, rubs, systolic murmur Pulses: PRESENT: normal dorsalis pedis pul, +2 pedal pulses bilateral Vascular exam: PRESENT: normal capillary refill GI/Abdominal exam: PRESENT: normal bowel sounds, soft. ABSENT: distended, guarding, mass, organolmegaly, rebound, tenderness Rectal exam: PRESENT: deferred Neurological exam: PRESENT: alert, awake, oriented to person. ABSENT: motor sensory deficit Psychiatric exam: PRESENT: appropriate affect, normal mood. ABSENT: homicidal ideation, suicidal ideation Skin exam: PRESENT: dry, intact, warm. ABSENT: cyanosis, rash Results Laboratory Results: 08/16/17 03:46 08/16/17 06:26 08/13/17 08/13/17 08/13/17 21:30 21:30 21:30 Creatine Kinase 81 CK-MB (CK-2) 0.36 Troponin I 0.122 NT-Pro-B Natriuret Pep [id number] H 08/14/17 08/14/17 08/14/17 03:54 03:54 09:36 Creatine Kinase 69 70 CK-MB (CK-2) 0.36 Troponin I 0.119 NT-Pro-B Natriuret Pep 08/14/17 09:36 Creatine Kinase CK-MB (CK-2) 0.31 Troponin I 0.091 NT-Pro-B Natriuret Pep Impressions: Chest X-Ray 08/13/17 16:01 IMPRESSION: No evidence of acute cardiopulmonary disease. Head MRI 08/13/17 16:01 IMPRESSION: ATROPHY AND CHRONIC MICRO-VASCULAR ISCHEMIC CHANGES. Ventriculomegaly out of proportion to the atrophy. Consider normal pressure hydrocephalus. no acute intracranial process. . EVIDENCE OF ACUTE STROKE: NO. Assessment & Plan - Diagnosis (1) End-stage renal disease on hemodialysis Is this a current diagnosis for this admission?: Yes Plan: Currently on hemodialysis will nephrology (2) Normal pressure hydrocephalus Is this a current diagnosis for this admission?: Yes Plan: Patients might need neurology evaluation as outpatient if is not getting better continues to physical therapy (3) Weakness Is this a current diagnosis for this admission?: Yes Plan: Due to the above conditions (4) Anemia in chronic kidney disease (CKD) Is this a current diagnosis for this admission?: Yes Plan: stable - Time Time Spent with patient: 15-24 minutes Medications reviewed and adjusted accordingly: Yes Anticipated discharge: Other Within: Other - Inpatient Certification Medical Necessity: Need Close Monitoring Due to Risk of Patient Decompensation Post Hospital Care: D/C Electric[employer] Documentation - Plan Summary Plan Summary: Continues current medications
[2017-08-18] MEDS: ACETAMINOPHEN 325 MG TABLET PO PRN (10:50)
[2017-08-18] MEDS: CYANOCOBALAMIN (VITAMIN B-12) 1,000 MCG TABLET PO SCH (10:51)
[2017-08-18] MEDS: DULOXETINE HCL 30 MG CAPSULE.DR PO SCH (10:51)
[2017-08-18] MEDS: CHOLECALCIFEROL (D3) 1,000 UNIT TABLET PO SCH (10:51)
[2017-08-18] MEDS: MEGESTROL ACETATE 20 MG TABLET PO SCH ×2 (10:51→22:39)
[2017-08-18] MEDS: CALCIUM ACETATE 667 MG CAPSULE PO SCH ×3 (10:51→18:28)
[2017-08-18] MEDS: HYDRALAZINE HCL 50 MG TABLET PO SCH (10:52)
[2017-08-18] MEDS: AMLODIPINE BESYLATE 5 MG TABLET PO SCH (10:52)
[2017-08-18] MEDS: ASPIRIN 81 MG TABLET, CHEWABLE PO SCH (10:52)
[2017-08-18] MEDS: PREGABALIN 75 MG CAPSULE PO SCH ×2 (10:52→22:39)
[2017-08-18] MEDS: FOLIC ACID/VITAMIN B COMP W-C CAPSULE PO SCH (10:52)
[2017-08-18] MEDS: CARVEDILOL 12.5 MG TABLET PO SCH ×2 (10:52→22:39)
[2017-08-18] MEDS: ISOSORBIDE MONONITRATE 30 MG TAB.ER.24H PO SCH (10:52)
[2017-08-18] MEDS: ATORVASTATIN CALCIUM 80 MG TABLET PO SCH (22:39)
[2017-08-19] MEDS ORDERED: NORMAL SALINE 1000 ML 1,000 ML IV PRN (05:00)
[2017-08-19 05:18] LABS: ABSOLUTE EOSINOPHILS # (AUTO) 0.3 10^3/uL (0.0-0.6); ABSOLUTE LYMPHOCYTES (AUTO) 1.7 10^3/uL (0.5-4.7); ABSOLUTE MONOCYTES (AUTO) 0.5 10^3/uL (0.1-1.4); ABSOLUTE NEUT (AUTO) 2.8 10^3/uL (1.7-8.2); BASOPHILS % (AUTO) 0.8 % (0-2); HEMATOCRIT 29.9 % (37.9-51.0); HEMOGLOBIN 9.9 g/dL (13.5-17.0); LYMPHOCYTES % (AUTO) 32.7 % (13-45); MEAN CORPUSCULAR HGB CONC 33.1 g/dL (32.0-36.0); MEAN CORPUSCULAR VOLUME 85 fl (80-97); MONOCYTES % (AUTO) 8.8 % (3-13); PLATELET COUNT 196 10^3/uL (150-450); RED BLOOD COUNT 3.54 10^6/uL (4.35-5.55); RED CELL DISTRIBUTION WIDTH 16.8 % (11.5-14.0); SEGMENTED NEUTROPHILS % (AUTO) 52.7 % (42-78); TOTAL CELLS COUNTED % (AUTO) 100 %; WHITE BLOOD COUNT 5.3 10^3/uL (4.0-10.5)
[2017-08-19 05:33] LABS: ANION GAP 15 (5-19); BLOOD UREA NITROGEN 77 mg/dL (7-20); CALCIUM 9.4 mg/dL (8.4-10.2); CARBON DIOXIDE 24 mmol/L (22-30); CHLORIDE 102 mmol/L (98-107); GLUCOSE 93 mg/dL (75-110); POTASSIUM 4.3 mmol/L (3.6-5.0); SODIUM 140.8 mmol/L (137-145)
[2017-08-19] MEDS: LANSOPRAZOLE 30 MG TAB.RAP.DR PO SCH (06:02)
[2017-08-19] MEDS: CALCIUM ACETATE 667 MG CAPSULE PO SCH ×3 (08:53→18:23)
[2017-08-19] MEDS: CYANOCOBALAMIN (VITAMIN B-12) 1,000 MCG TABLET PO SCH (09:17)
[2017-08-19] MEDS: FOLIC ACID/VITAMIN B COMP W-C CAPSULE PO SCH (09:17)
[2017-08-19] MEDS: DULOXETINE HCL 30 MG CAPSULE.DR PO SCH (09:17)
[2017-08-19] MEDS: MEGESTROL ACETATE 20 MG TABLET PO SCH ×2 (09:18→22:30)
[2017-08-19] MEDS: ASPIRIN 81 MG TABLET, CHEWABLE PO SCH (09:18)
[2017-08-19] MEDS: CHOLECALCIFEROL (D3) 1,000 UNIT TABLET PO SCH (09:18)
[2017-08-19] MEDS: PREGABALIN 75 MG CAPSULE PO SCH ×2 (09:18→22:30)
[2017-08-19] MEDS: ISOSORBIDE MONONITRATE 30 MG TAB.ER.24H PO SCH (10:48)
[2017-08-19] MEDS: AMLODIPINE BESYLATE 5 MG TABLET PO SCH (10:48)
[2017-08-19] MEDS: CARVEDILOL 12.5 MG TABLET PO SCH ×2 (10:48→22:30)
[2017-08-19] MEDS: HYDRALAZINE HCL 50 MG TABLET PO SCH (10:48)
--- NOTE | 2017-08-19 18:48 | PDOC PROGRESS REPORT ---
Subjective Progress Note for:: 08/19/17 Subjective:: I saw the patient earlier at around 12:50 PM during initiation of dialysis. He said he is doing fine and does not have any new complaints. His appetite is fair. He is still unable to move around because his legs continues to be weak. Reason For Visit: LOSS OF MOBILITY,WEAKNESS OF LOWER EXTREMITY, ESRD Physical Exam Vital Signs: Temp Pulse Resp BP Pulse Ox 98.1 F 69 16 147/79 H 97 08/19/17 12:17 08/19/17 14:00 08/19/17 12:17 08/19/17 12:17 08/19/17 12:17 Intake & Output 08/18/17 08/19/17 08/20/17 06:59 06:59 06:59 Intake Total 250 850 795 Output Total 0 2000 Balance 250 -1150 795 Weight 78.3 kg 71.6 kg Vitals during dialysis: Blood pressure is 170/70, heart rate of 63, oxygen saturation 94%, temperature 97.2. Exam: General appearance: PRESENT: no acute distress, cooperative, well-developed, well-nourished Head exam: PRESENT: atraumatic, normocephalic Eye exam: PRESENT: conjunctiva slightly pale, PERRLA. ABSENT: scleral icterus Neck exam: ABSENT: JVD Respiratory exam: PRESENT: Diminished breath sounds. ABSENT: crackles, rales, rhonchi, unlabored, wheezes Cardiovascular exam: PRESENT: Regular rate rhythm -+S1, +S2. ABSENT: diastolic murmur, systolic murmur GI/Abdominal exam: PRESENT: normal bowel sounds, soft. ABSENT: guarding, mass, tenderness Extremities exam: ABSENT: No edema Neurological exam: PRESENT: alert, awake, oriented to person, place and time. Skin exam: PRESENT: dry, warm, Results Laboratory Results: 08/19/17 04:54 08/19/17 04:54 08/19/17 08/19/17 04:54 04:54 WBC 5.3 RBC 3.54 L Hgb 9.9 L Hct 29.9 L MCV 85 MCH 28.0 MCHC 33.1 RDW 16.8 H Plt Count 196 Seg Neutrophils % 52.7 Lymphocytes % 32.7 Monocytes % 8.8 Eosinophils % 5.0 Basophils % 0.8 Absolute Neutrophils 2.8 Absolute Lymphocytes 1.7 Absolute Monocytes 0.5 Absolute Eosinophils 0.3 Absolute Basophils 0.0 Sodium 140.8 Potassium 4.3 Chloride 102 Carbon Dioxide 24 Anion Gap 15 BUN 77 H Creatinine 9.98 H Est GFR ( Amer) 6 L Est GFR (Non-Af Amer) 5 L Glucose 93 Calcium 9.4 08/13/17 21:41 Blood Blood Culture - Final NO GROWTH IN 5 DAYS 08/13/17 21:30 Blood Blood Culture - Final NO GROWTH IN 5 DAYS 08/13/17 08/13/17 08/13/17 21:30 21:30 21:30 Creatine Kinase 81 CK-MB (CK-2) 0.36 Troponin I 0.122 NT-Pro-B Natriuret Pep [id number] H 08/14/17 08/14/17 08/14/17 03:54 03:54 09:36 Creatine Kinase 69 70 CK-MB (CK-2) 0.36 Troponin I 0.119 NT-Pro-B Natriuret Pep 08/14/17 09:36 Creatine Kinase CK-MB (CK-2) 0.31 Troponin I 0.091 NT-Pro-B Natriuret Pep Impressions: Chest X-Ray 08/13/17 16:01 IMPRESSION: No evidence of acute cardiopulmonary disease. Head MRI 08/13/17 16:01 IMPRESSION: ATROPHY AND CHRONIC MICRO-VASCULAR ISCHEMIC CHANGES. Ventriculomegaly out of proportion to the atrophy. Consider normal pressure hydrocephalus. no acute intracranial process. . EVIDENCE OF ACUTE STROKE: NO. Assessment & Plan - Diagnosis (1) End-stage renal disease on hemodialysis Is this a current diagnosis for this admission?: Yes Plan: We did dialysis today for 3 hours, using the patient's AV fistula, with 3 potassium bath, blood flow rate of 350 mL per minute, dialysate flow rate of 600 mL per minute, ultrafiltration 1-2 L as tolerated, no heparin and no Procrit during dialysis. (2) Anemia in chronic kidney disease (CKD) Is this a current diagnosis for this admission?: Yes Plan: We will give Procrit on dialysis as needed. (3) Ambulatory dysfunction Is this a current diagnosis for this admission?: Yes Plan: Recommend rehab for this patient. (4) HTN (hypertension) Qualifiers: Hypertension type: essential hypertension Qualified Code(s): I10 - Essential (primary) hypertension Is this a current diagnosis for this admission?: Yes Plan: Continue current medications. (5) Normal pressure hydrocephalus Is this a current diagnosis for this admission?: Yes (6) Dementia Is this a current diagnosis for this admission?: Yes - Time Time with patient: 15-25 minutes
--- NOTE | 2017-08-19 20:14 | PDOC PROGRESS REPORT ---
Subjective Progress Note for:: 08/19/17 Subjective:: Patient was admitted because of inability to ambulate, he has normal pressure hydrocephalus with gait difficulty, cognitive impairment. Before patient lost complete mobility he had gait that was charaterized with a short steps with diminished stride with increased fall.. Patient stays with the spouse also elderly with multiple comorbid conditions, the treatment of choice for normal pressure hydrocephalus is shunting but patient is not a good candidate for shunting, he is also on hemodialysis. He was seen by physical therapy in the hospital he was considered to be a fall risk, it was recommended that patient should not be out of bed, they recommend rehabilitation but the challenge is that the utilization review nurses stated that patient only admits for observation and not for inpatientHe was dialyzed today, he was seen by the bedside is somewhat drowsy not talking much.It is not safe to discharge this patient home knowing fully well that he is a fall risk and it is foreseeable that he would return to the emergency room with complication from fall injuries. Reason For Visit: LOSS OF MOBILITY,WEAKNESS OF LOWER EXTREMITY,CVA Physical Exam Vital Signs: Temp Pulse Resp BP Pulse Ox 98.1 F 69 16 147/79 H 97 08/19/17 12:17 08/19/17 14:00 08/19/17 12:17 08/19/17 12:17 08/19/17 12:17 Intake & Output 08/18/17 08/19/17 08/20/17 06:59 06:59 06:59 Intake Total 250 850 795 Output Total 0 2000 1900 Balance 250 -1150 -1105 Weight 78.3 kg 71.6 kg General appearance: PRESENT: no acute distress Eye exam: PRESENT: PERRLA Respiratory exam: PRESENT: clear to auscultation checo Cardiovascular exam: PRESENT: +S1, +S2 GI/Abdominal exam: PRESENT: soft Neurological exam: PRESENT: alert Results Laboratory Results: 08/19/17 04:54 08/19/17 04:54 08/19/17 08/19/17 04:54 04:54 WBC 5.3 RBC 3.54 L Hgb 9.9 L Hct 29.9 L MCV 85 MCH 28.0 MCHC 33.1 RDW 16.8 H Plt Count 196 Seg Neutrophils % 52.7 Lymphocytes % 32.7 Monocytes % 8.8 Eosinophils % 5.0 Basophils % 0.8 Absolute Neutrophils 2.8 Absolute Lymphocytes 1.7 Absolute Monocytes 0.5 Absolute Eosinophils 0.3 Absolute Basophils 0.0 Sodium 140.8 Potassium 4.3 Chloride 102 Carbon Dioxide 24 Anion Gap 15 BUN 77 H Creatinine 9.98 H Est GFR ( Amer) 6 L Est GFR (Non-Af Amer) 5 L Glucose 93 Calcium 9.4 08/13/17 21:41 Blood Blood Culture - Final NO GROWTH IN 5 DAYS 08/13/17 21:30 Blood Blood Culture - Final NO GROWTH IN 5 DAYS 08/13/17 08/13/17 08/13/17 21:30 21:30 21:30 Creatine Kinase 81 CK-MB (CK-2) 0.36 Troponin I 0.122 NT-Pro-B Natriuret Pep 42713 H 08/14/17 08/14/17 08/14/17 03:54 03:54 09:36 Creatine Kinase 69 70 CK-MB (CK-2) 0.36 Troponin I 0.119 NT-Pro-B Natriuret Pep 08/14/17 09:36 Creatine Kinase CK-MB (CK-2) 0.31 Troponin I 0.091 NT-Pro-B Natriuret Pep Impressions: Chest X-Ray 08/13/17 16:01 IMPRESSION: No evidence of acute cardiopulmonary disease. Head MRI 08/13/17 16:01 IMPRESSION: ATROPHY AND CHRONIC MICRO-VASCULAR ISCHEMIC CHANGES. Ventriculomegaly out of proportion to the atrophy. Consider normal pressure hydrocephalus. no acute intracranial process. . EVIDENCE OF ACUTE STROKE: NO. Assessment & Plan - Diagnosis (1) Normal pressure hydrocephalus Is this a current diagnosis for this admission?: Yes (2) Ambulatory dysfunction Is this a current diagnosis for this admission?: Yes (3) End-stage renal disease on hemodialysis Is this a current diagnosis for this admission?: Yes (4) Dementia Qualifiers: Dementia type: unspecified type Dementia behavioral disturbance: without behavioral disturbance Qualified Code(s): F03.90 - Unspecified dementia without behavioral disturbance Is this a current diagnosis for this admission?: Yes
[2017-08-19] MEDS: ATORVASTATIN CALCIUM 80 MG TABLET PO SCH (22:30)
[2017-08-20] MEDS: LANSOPRAZOLE 30 MG TAB.RAP.DR PO SCH (05:28)
[2017-08-20] MEDS: CALCIUM ACETATE 667 MG CAPSULE PO SCH ×3 (08:45→22:18)
[2017-08-20] MEDS: CYANOCOBALAMIN (VITAMIN B-12) 1,000 MCG TABLET PO SCH (11:14)
[2017-08-20] MEDS: CARVEDILOL 12.5 MG TABLET PO SCH ×2 (11:14→22:24)
[2017-08-20] MEDS: ASPIRIN 81 MG TABLET, CHEWABLE PO SCH (11:15)
[2017-08-20] MEDS: AMLODIPINE BESYLATE 5 MG TABLET PO SCH (11:15)
[2017-08-20] MEDS: ISOSORBIDE MONONITRATE 30 MG TAB.ER.24H PO SCH (11:15)
[2017-08-20] MEDS: DULOXETINE HCL 30 MG CAPSULE.DR PO SCH (11:15)
[2017-08-20] MEDS: CHOLECALCIFEROL (D3) 1,000 UNIT TABLET PO SCH (11:16)
[2017-08-20] MEDS: PREGABALIN 75 MG CAPSULE PO SCH ×2 (11:16→22:24)
[2017-08-20] MEDS: HYDRALAZINE HCL 50 MG TABLET PO SCH (11:16)
[2017-08-20] MEDS: FOLIC ACID/VITAMIN B COMP W-C CAPSULE PO SCH (11:16)
[2017-08-20] MEDS: MEGESTROL ACETATE 20 MG TABLET PO SCH ×2 (13:17→22:24)
[2017-08-20] MEDS: ACETAMINOPHEN 325 MG TABLET PO PRN (13:17)
--- NOTE | 2017-08-20 20:11 | PDOC PROGRESS REPORT ---
Subjective Progress Note for:: 08/20/17 Subjective:: Patient was admitted because of inability to ambulate, he has normal pressure hydrocephalus with gait difficulty, cognitive impairment. Before patient lost complete mobility he had gait that was charaterized with a short steps with diminished stride with increased fall.. Patient stays with the spouse also elderly with multiple comorbid conditions, the treatment of choice for normal pressure hydrocephalus is shunting but patient is not a good candidate for shunting, he is also on hemodialysis. He was seen by physical therapy in the hospital he was considered to be a fall risk, it was recommended that patient should not be out of bed, they recommend rehabilitation but the challenge is that the utilization review nurses stated that patient only admits for observation and not for inpatientHe was dialyzed today, he was seen by the bedside is somewhat drowsy not talking much.It is not safe to discharge this patient home knowing fully well that he is a fall risk and it is foreseeable that he would return to the emergency room with complication from fall injuries.He was seen by physical therapy today, he had sensations of physical therapy. Reason For Visit: LOSS OF MOBILITY,WEAKNESS OF LOWER EXTREMITY,CVA Physical Exam Vital Signs: Temp Pulse Resp BP Pulse Ox 98.4 F 68 16 98/55 L 96 08/20/17 14:53 08/20/17 14:53 08/20/17 14:53 08/20/17 14:53 08/20/17 14:53 Intake & Output 08/19/17 08/20/17 08/21/17 06:59 06:59 06:59 Intake Total 850 1032 570 Output Total 1999 1900 300 Balance -1150 -868 270 Weight 71.6 kg 79.7 kg Eye exam: PRESENT: PERRLA Respiratory exam: PRESENT: clear to auscultation checo Cardiovascular exam: PRESENT: +S1, +S2 GI/Abdominal exam: PRESENT: soft Neurological exam: PRESENT: alert Results Laboratory Results: 08/19/17 04:54 08/19/17 04:54 08/13/17 08/13/17 08/13/17 21:30 21:30 21:30 Creatine Kinase 81 CK-MB (CK-2) 0.36 Troponin I 0.122 NT-Pro-B Natriuret Pep 34824 H 08/14/17 08/14/17 08/14/17 03:54 03:54 09:36 Creatine Kinase 69 70 CK-MB (CK-2) 0.36 Troponin I 0.119 NT-Pro-B Natriuret Pep 08/14/17 09:36 Creatine Kinase CK-MB (CK-2) 0.31 Troponin I 0.091 NT-Pro-B Natriuret Pep Impressions: Chest X-Ray 08/13/17 16:01 IMPRESSION: No evidence of acute cardiopulmonary disease. Head MRI 08/13/17 16:01 IMPRESSION: ATROPHY AND CHRONIC MICRO-VASCULAR ISCHEMIC CHANGES. Ventriculomegaly out of proportion to the atrophy. Consider normal pressure hydrocephalus. no acute intracranial process. . EVIDENCE OF ACUTE STROKE: NO. Assessment & Plan - Diagnosis (1) Normal pressure hydrocephalus Is this a current diagnosis for this admission?: Yes (2) Ambulatory dysfunction Is this a current diagnosis for this admission?: Yes (3) End-stage renal disease on hemodialysis Is this a current diagnosis for this admission?: Yes (4) Dementia Qualifiers: Dementia type: unspecified type Dementia behavioral disturbance: without behavioral disturbance Qualified Code(s): F03.90 - Unspecified dementia without behavioral disturbance Is this a current diagnosis for this admission?: Yes - Plan Summary Plan Summary: Continue present treatment, due for dialysis tomorrow
--- NOTE | 2017-08-20 21:13 | Physician Advisory Note ---
Physician Advisor ProgressNote .: Pursuant to the plan for [facility], I have reviewed the medical record for this patient. Physician Advisor Statement: Asked to review case. EHR has previously ok'd Obs on 08/14, then said not appropriate for hospital care by 08/17. Status discussion - Ambulatory dysfunction is not considered a reason for Inpatient status, though need to evaluate cause of acute gait decompensation can warrant initial Observation to determine whether there is an acute issue requiring admission. Same for generalized weakness. Ongoing PT for a pt who has been gradually declining over weeks is not a reason to change to Inpatient status - especially when he will skip PT on HD days (3 out of every 7 days). Needing SNF rehab is not in itself sufficient to make a patient Inpatient status. This reviewer finds no clear medical reason that pt has needed ongoing hospital level care since first couple days, beyond the current level of care which could be done at an SNF, if only he could get a bed offer. (Which is a terrible catch-22, since bed offers are elusive without 3 nights of Inpatient status.) - This reviewer took the extra step to discuss this case further with another Physician Advisor at [facility], in hopes that they might find something in the 08/19 progress note or the 08/15 PT eval, etc, that would change their determination - unfortunately, without an acute new clinical issue, there is just not enough medical necessity/severity of illness/intensity of service there to warrant a payer paying for hospital level care in this case under the current CMS rules for Medicare. - "If pt has not walked in 2 weeks prior to admission, what makes him NOW have to be in hospital care when he wasn't for 2 weeks prior - he was high falls risk then too", & "Some patients are kept at home x months or years even when bed-bound or high falls risk" are some points a payer might make. Thoughts, ideas for documentation: -Any thought of evaluation for/transition to palliative care? -Is there anything acutely new amongst his s/s, workup, & tx so far? (Need/ desire for SNF rehab unfortunately does not count from the payer standpoint towards making pt Inpatient. So far, record is clear that pt's weakness/gait sx have been very slow progressive onset.) -could there be something else going on acutely that would warrant close monitoring in hospital? Meds that might be causing/contributing to presentation (see below under Summary)? -How likely is pt to regain mobility if his ambulatory dysfunction is due to NPH (which typically causes wide based gait w/body bent forward, like on a boat , as opposed to the description so far of his gait), and he cannot have a shunt ? -Would rehab be likely to benefit him significantly, or is he basically just needing transfer to SNF for long-term care? Could he get, & benefit from, home health PT? -Any concern for parkinsonism (backward leaning, short steps, ...)? -"Anemia of Chronic Kidney Disease" -Does he have "malnutrition"? What severity, & what effects? -Could his poor po intake be contributing to his weakness? Could the weakness be due to progressive dementia, or Rx side effect, or ...? Hospital course Summary: 76yo Medicare pt w/: -ESRD on HD, having increasing difficulty making it to outpt HD appts due to weakness & ambulatory dysfunction -dementia, with impression of worsening -poor appetite & intake, + diarrhea for quite some time -on Memantine, which can cause headache, diarrhea, fatigue, confusion, depression, among other things (is on max dose for his renal fn) -on donepezil, which can cause headache, diarrhea, fatigue, anorexia, wt loss, depression, dizziness, among other things (is on max dose for his ESRD) -on Cymbalta, which can cause headache, diarrhea, fatigue, anorexia, wt loss, dizziness, among other things -on Lyrica, which can cause abnormal thinking, impaired coordination, dizziness , somnolence, among other things, & has cautions if renal impairment or elderly pt -CAD, past MS, HTN, HLD -past MM & bone marrow transplant yrs ago -past AAA repair -> came to hospital 08/13 PM due to progressive ambulatory dysfunction (not an Inpatient-qualifying dx) to the point he had become unable to lift his legs. (+ )headache x months, anorexia/wt loss, frequent falls, confusion, weakness. Attending documented "abnormal gait" on physical exam [Details? Payer may say, "PT says pt hasn't walked in 2 weeks, & PT couldn't get him to even take a step , so this is a documentation discrepancy that needs explaining or we'll not pay..."], ataxia, motor sensory deficit (loss of mobility). Usual meds, nephrology consult for continuing usual HD, & multiple lab tests were ordered. On 08/14, he was kept for 2nd midnight, but that day's note (H&P) did not explicitly indicate what further was planned/needed by patient that required continued hospital level of care. MRI done the first night was consistent w/ possible NPH, but he is not felt to be a candidate for a shunt, so therefore would not benefit from a large-volume LP to see if this improved his ambulation. Trop I's were elevated, but fairly flat-line, consistent with his ESRD. Initial hypokalemia was present w/K 2.9. Director Of Regional Sales said pt's intake was reported to be only <25% for past 3 days. PT was consulted, & K was given po. The only new bit of info this reviewer sees in the 08/14 progress note is that PT would be consulted. EHR reviewed & said Obs was appropriate so far. On 08/15, PT eval'd pt & documents he had not ambulated in last 2 weeks, was confused but alert & able to follow 1-step commands. Strength less in LEs than UEs, not just ambulation but even bed mobility & transfers needed mod-max assist of 2, & he was unable to take steps yet. Balance/standing fair to poor, posterior lean in standing. They recommended SNF rehab. On 08/16, liquefied natural gas operator gave helpful additional info that pt had been gradually getting weaker & weaker x 1mo, eventually becoming too weak to stand & walk to his transportation van so family had to transport him. He was also having trouble getting ready to go in time, so missing HD appts. She had recommended PT/rehab for strengthening, hoping he might become able to take a few steps again, enough to get to/from HD, but pt wasn't sure he wanted to do that in prior weeks. Also on 08/16, PT documented that pt's declined for them to work w/him that day because he had HD that afternoon & she didn't want him to be too tired before HD. Notes on 08/17 & 08/18 (essentially exactly the same, which is a red flag to payers looking for reasons not to pay) indicated pt very unsteady, might need neuro eval outpt if not getting better, & planned continued PT. On 08/17, EHR's review of status was that pt no longer showed any clear acute need for hospitalization. On 08/19, attending documented pt was brought in for inability to ambulate. Falls risk. Not felt safe to go home because of falls risk. CK
[2017-08-20] MEDS: ATORVASTATIN CALCIUM 80 MG TABLET PO SCH (22:24)
[2017-08-21] MEDS ORDERED: NORMAL SALINE 1000 ML 1,000 ML IV PRN (05:00)
[2017-08-21] MEDS: LANSOPRAZOLE 30 MG TAB.RAP.DR PO SCH (05:08)
[2017-08-21 05:30] LABS: HEMATOCRIT 31.5 % (37.9-51.0); HEMOGLOBIN 10.5 g/dL (13.5-17.0); MEAN CORPUSCULAR HGB CONC 33.4 g/dL (32.0-36.0); MEAN CORPUSCULAR VOLUME 84 fl (80-97); PLATELET COUNT 187 10^3/uL (150-450); RED BLOOD COUNT 3.76 10^6/uL (4.35-5.55); RED CELL DISTRIBUTION WIDTH 16.5 % (11.5-14.0); WHITE BLOOD COUNT 4.7 10^3/uL (4.0-10.5)
[2017-08-21 05:51] LABS: BLOOD UREA NITROGEN 63 mg/dL (7-20); CALCIUM 9.7 mg/dL (8.4-10.2); CARBON DIOXIDE 27 mmol/L (22-30); CHLORIDE 99 mmol/L (98-107); GLUCOSE 89 mg/dL (75-110); POTASSIUM 4.3 mmol/L (3.6-5.0); SODIUM 141.6 mmol/L (137-145)
[2017-08-21 05:52] LABS: ANION GAP 16 (5-19)
[2017-08-21] MEDS: CALCIUM ACETATE 667 MG CAPSULE PO SCH ×3 (08:40→18:22)
[2017-08-21] MEDS: ASPIRIN 81 MG TABLET, CHEWABLE PO SCH (10:04)
[2017-08-21] MEDS: AMLODIPINE BESYLATE 5 MG TABLET PO SCH (10:04)
[2017-08-21] MEDS: DULOXETINE HCL 30 MG CAPSULE.DR PO SCH (10:04)
[2017-08-21] MEDS: CYANOCOBALAMIN (VITAMIN B-12) 1,000 MCG TABLET PO SCH (10:04)
[2017-08-21] MEDS: HYDRALAZINE HCL 50 MG TABLET PO SCH (10:05)
[2017-08-21] MEDS: CARVEDILOL 12.5 MG TABLET PO SCH (10:05)
[2017-08-21] MEDS: CHOLECALCIFEROL (D3) 1,000 UNIT TABLET PO SCH (10:06)
[2017-08-21] MEDS: PREGABALIN 75 MG CAPSULE PO SCH (10:06)
[2017-08-21] MEDS: FOLIC ACID/VITAMIN B COMP W-C CAPSULE PO SCH (10:06)
[2017-08-21] MEDS: ISOSORBIDE MONONITRATE 30 MG TAB.ER.24H PO SCH (10:06)
[2017-08-21] MEDS: MEGESTROL ACETATE 20 MG TABLET PO SCH (10:07)
--- NOTE | 2017-08-21 14:30 | PDOC DISCHARGE SUMMARY ---
General - Admit/Disc Date/PCP Admission Date/Primary Care Provider: 08/13/17 18:07 BETSY POOL MD Discharge Date: 08/21/17 - Discharge Diagnosis (1) Normal pressure hydrocephalus Is this a current diagnosis for this admission?: Yes (2) Ambulatory dysfunction Is this a current diagnosis for this admission?: Yes (3) End-stage renal disease on hemodialysis Is this a current diagnosis for this admission?: Yes (4) Dementia Is this a current diagnosis for this admission?: Yes - Additional Information Home Medications: Amlodipine Besylate [Norvasc 5 mg Tablet] 5 mg PO DAILY 08/13/17 Aspirin [Aspirin 81 mg Chewable Tablet] 81 mg PO DAILY 08/13/17 Atorvastatin Calcium [Lipitor 80 mg Tablet] 80 mg PO QHS 08/13/17 B Complex W-C No.20/Folic Acid [Nephrocaps Softgel] 1 cap PO DAILY 08/13/17 Calcium Acetate [Phoslo 667 mg Capsule] 1,334 mg PO MEALS 08/13/17 Carvedilol [Coreg 25 mg Tablet] 25 mg PO Q12 08/13/17 Cholecalciferol (Vitamin D3) [Vitamin D3] 1,000 unit PO DAILY 08/13/17 Cyanocobalamin (Vitamin B-12) [Vitamin B-12 SL 1000 mcg Tablet] 1,000 mcg PO DAILY 08/13/17 Duloxetine HCl [Cymbalta] 60 mg PO DAILY 08/13/17 Hydralazine HCl [Apresoline 50 mg Tablet] 50 mg PO DAILY 08/13/17 Isosorbide Mononitrate [Imdur 30 mg Tablet.er] 30 mg PO DAILY 08/13/17 Isosorbide Mononitrate [Isosorbide Mononitrate ER] 30 mg PO DAILY 08/13/17 Megestrol Acetate 40 mg PO BID 08/13/17 Memantine HCl/Donepezil HCl [Namzaric 14 mg-10 mg Capsule] 1 cap PO QPM Omeprazole Magnesium [Prilosec Otc] 20 mg PO DAILY 08/13/17 Pantoprazole Sodium [Protonix] 40 mg PO DAILY 08/13/17 Pregabalin [Lyrica 75 mg Capsule] 75 mg PO Q12 08/13/17 History of Present Illness History of Present Illness: LUPE ZURITA is a 76 year old male he has end-stage renal disease on maintenance hemodialysis, he was hemodialyzed today, he came to the office with family members because of inability to ambulate. Family said he has progressively developed ambulatory dysfunction, he will shuffle his gait without moving much but presently is not able to walk. He came to the office in a wheelchair, the exact etiology of the loss of ambulation was not apparent in the office, he was admitted directly from the office into the hospital for evaluation. There was no bed available for direct admission to the hospital, he was triaged to the emergency room department where he was evaluated, blood work was done and there was hypokalemia. MRI of the brain was done it showed ventriculomegaly out of proportion to the atrophy consistent with normal pressure hydrocephalus. He also has underlying dementia Hospital Course Hospital Course: He was admitted for the management of normal pressure hydrocephalus, typically shunt is the treatment of choice for this condition but patient is not particularly a good candidate for shunt placement, he also have end-stage renal disease on hemodialysis. He is a fall risk, he was seen by physical therapy the recommendation was for patient to have rehabilitation but it was stated that the patient only meets for observation so it could not be transferred to penitentiary rehab because of the requirement for inpatient care. Patient is being discharged home with outpatient nursing and physical therapy also a wheelchair for ambulation, patient is no longer able to ambulate. He was seen by nephrology and he had hemodialysis on this admission. Physical Exam Vital Signs: Temp Pulse Resp BP Pulse Ox 98.8 F 64 16 115/54 L 98 08/21/17 11:03 08/21/17 11:03 08/21/17 11:03 08/21/17 11:03 08/21/17 11:03 Intake & Output 08/20/17 08/21/17 08/22/17 06:59 06:59 06:59 Intake Total 1032 807 250 Output Total 1900 300 Balance -868 507 250 Weight 79.7 kg 80.3 kg General appearance: PRESENT: no acute distress, well-developed, well-nourished Head exam: PRESENT: atraumatic, normocephalic Eye exam: PRESENT: PERRLA Neck exam: PRESENT: full ROM Respiratory exam: PRESENT: clear to auscultation checo Cardiovascular exam: PRESENT: RRR, +S1, +S2 Vascular exam: PRESENT: normal capillary refill GI/Abdominal exam: PRESENT: normal bowel sounds, soft Rectal exam: PRESENT: deferred Neurological exam: PRESENT: alert Psychiatric exam: PRESENT: appropriate affect, normal mood Skin exam: PRESENT: dry, intact, warm Results Laboratory Results: 08/21/17 05:21 08/21/17 05:21 08/21/17 08/21/17 05:21 05:21 WBC 4.7 RBC 3.76 L Hgb 10.5 L Hct 31.5 L MCV 84 MCH 28.0 MCHC 33.4 RDW 16.5 H Plt Count 187 Sodium 141.6 Potassium 4.3 Chloride 99 Carbon Dioxide 27 Anion Gap 16 BUN 63 H Creatinine 8.29 H Est GFR ( Amer) 8 L Est GFR (Non-Af Amer) 6 L Glucose 89 Calcium 9.7 08/13/17 08/13/17 08/13/17 21:30 21:30 21:30 Creatine Kinase 81 CK-MB (CK-2) 0.36 Troponin I 0.122 NT-Pro-B Natriuret Pep 15879 H 08/14/17 08/14/17 08/14/17 03:54 03:54 09:36 Creatine Kinase 69 70 CK-MB (CK-2) 0.36 Troponin I 0.119 NT-Pro-B Natriuret Pep 08/14/17 09:36 Creatine Kinase CK-MB (CK-2) 0.31 Troponin I 0.091 NT-Pro-B Natriuret Pep Impressions: Chest X-Ray 08/13/17 16:01 IMPRESSION: No evidence of acute cardiopulmonary disease. Head MRI 08/13/17 16:01 IMPRESSION: ATROPHY AND CHRONIC MICRO-VASCULAR ISCHEMIC CHANGES. Ventriculomegaly out of proportion to the atrophy. Consider normal pressure hydrocephalus. no acute intracranial process. . EVIDENCE OF ACUTE STROKE: NO. Qualifiers - * PATEINT BEING DISCHARGED WITH ANY OF THE FOLLOWING DIAGNOSIS?: No
[2017-08-21 16:05] VITALS: BP 159/96
--- NOTE | 2017-08-21 19:48 | PDOC PROGRESS REPORT ---
Subjective Progress Note for:: 08/21/17 Subjective:: I saw the patient during dialysis treatment this afternoon at around 3:50 PM. Patient was in good spirits and is excited to go home. He was stable in dialysis except for some lowish blood pressure so were not able to take much ultrafiltration. Otherwise he did not really have any complaints. However patient continues to be non-ambulatory. Patient did not qualify for admission and therefore did not qualify for admission to rehab the patient which is unfortunate since I think this patient needs it. Plan was to discharge the patient home with physical therapy and family support. Reason For Visit: LOSS OF MOBILITY, ESRD Physical Exam Vital Signs: Temp Pulse Resp BP Pulse Ox 98.8 F 66 16 159/96 H 98 08/21/17 15:30 08/21/17 15:30 08/21/17 15:30 08/21/17 15:30 08/21/17 15:30 Intake & Output 08/20/17 08/21/17 08/22/17 06:59 06:59 06:59 Intake Total 1032 807 250 Output Total 6762 295 3154 Balance -868 507 -750 Weight 79.7 kg 80.3 kg Vitals during dialysis: Blood pressure 1O 6/68, heart rate of 68, blood flow rate of 350 mL/min, dialysate flow rate of 800 mL/min. Exam: General appearance: PRESENT: no acute distress, cooperative, well-developed, well-nourished Head exam: PRESENT: atraumatic, normocephalic Eye exam: PRESENT: conjunctiva slightly pale, PERRLA. ABSENT: scleral icterus Neck exam: ABSENT: JVD Respiratory exam: PRESENT: Diminished breath sounds. ABSENT: crackles, rales, rhonchi, unlabored, wheezes Cardiovascular exam: PRESENT: Regular rate rhythm -+S1, +S2. ABSENT: diastolic murmur, systolic murmur GI/Abdominal exam: PRESENT: normal bowel sounds, soft. ABSENT: guarding, mass, tenderness Extremities exam: ABSENT: No edema Neurological exam: PRESENT: alert, awake, oriented to person, place and time. Skin exam: PRESENT: dry, warm, Results Laboratory Results: 08/21/17 05:21 08/21/17 05:21 08/21/17 08/21/17 05:21 05:21 WBC 4.7 RBC 3.76 L Hgb 10.5 L Hct 31.5 L MCV 84 MCH 28.0 MCHC 33.4 RDW 16.5 H Plt Count 187 Sodium 141.6 Potassium 4.3 Chloride 99 Carbon Dioxide 27 Anion Gap 16 BUN 63 H Creatinine 8.29 H Est GFR ( Amer) 8 L Est GFR (Non-Af Amer) 6 L Glucose 89 Calcium 9.7 08/13/17 08/13/17 08/13/17 21:30 21:30 21:30 Creatine Kinase 81 CK-MB (CK-2) 0.36 Troponin I 0.122 NT-Pro-B Natriuret Pep 34681 H 08/14/17 08/14/17 08/14/17 03:54 03:54 09:36 Creatine Kinase 69 70 CK-MB (CK-2) 0.36 Troponin I 0.119 NT-Pro-B Natriuret Pep 08/14/17 09:36 Creatine Kinase CK-MB (CK-2) 0.31 Troponin I 0.091 NT-Pro-B Natriuret Pep Impressions: Chest X-Ray 08/13/17 16:01 IMPRESSION: No evidence of acute cardiopulmonary disease. Head MRI 08/13/17 16:01 IMPRESSION: ATROPHY AND CHRONIC MICRO-VASCULAR ISCHEMIC CHANGES. Ventriculomegaly out of proportion to the atrophy. Consider normal pressure hydrocephalus. no acute intracranial process. . EVIDENCE OF ACUTE STROKE: NO. Assessment & Plan - Diagnosis (1) End-stage renal disease on hemodialysis Is this a current diagnosis for this admission?: Yes Plan: We did dialysis today for 3 hours, using the patient's AV fistula, with 3 potassium bath, blood flow rate of 350 mL per minute, dialysate flow rate of 800 mL per minute, ultrafiltration 1 L, no heparin and no Procrit during dialysis. Patient tolerated dialysis and was hemodynamically stable. If discharged today patient patient's next dialysis will be on his regular scheduled time on Saturday at [facility] [place]. (2) Anemia in chronic kidney disease (CKD) Is this a current diagnosis for this admission?: Yes Plan: We will give Procrit on dialysis as needed. He does not need Procrit today. (3) Ambulatory dysfunction Is this a current diagnosis for this admission?: Yes Plan: Recommend rehab for this patient. Patient unfortunately did not qualify for insurance to cover patient to be placed to a rehab facility. Plan is to discharge the patient home with physical therapy. As for his dialysis I think the patient needs to be transported to and from dialysis by family members as the patient cannot use the van because he cannot stand up and walk. (4) HTN (hypertension) Qualifiers: Hypertension type: essential hypertension Qualified Code(s): I10 - Essential (primary) hypertension Is this a current diagnosis for this admission?: Yes Plan: Continue current medications. (5) Normal pressure hydrocephalus Is this a current diagnosis for this admission?: Yes (6) Dementia Is this a current diagnosis for this admission?: Yes - Time Time with patient: 15-25 minutes
== END 2017-08-21 18:25 | disposition home health service (06) ==
LOC: ER 15:17 → EH 18:07 → 3N 21:10
PROVIDERS: ADMIT Internal Medicine; ATTEND Internal Medicine
PROC: 5A1D70Z Performance of Urinary Filtration, Intermittent, Less than 6 Hours Per Day (ICD-10-PCS; principal; 2017-08-16)
PROC: 5A1D70Z Performance of Urinary Filtration, Intermittent, Less than 6 Hours Per Day (ICD-10-PCS; 2017-08-19)
PROC: 5A1D70Z Performance of Urinary Filtration, Intermittent, Less than 6 Hours Per Day (ICD-10-PCS; 2017-08-21)
DX: G91.2 (Idiopathic) normal pressure hydrocephalus (principal); R26.9 Unspecified abnormalities of gait and mobility; F03.90 Unspecified dementia, unspecified severity, without behavioral disturbance, psychotic disturbance, mood disturbance, and anxiety; I12.0 Hypertensive chronic kidney disease with stage 5 chronic kidney disease or end stage renal disease; N18.6 End stage renal disease; D63.1 Anemia in chronic kidney disease; E87.6 Hypokalemia; I25.10 Atherosclerotic heart disease of native coronary artery without angina pectoris; I73.9 Peripheral vascular disease, unspecified; M13.89 Other specified arthritis, multiple sites; K21.9 Gastro-esophageal reflux disease without esophagitis; I25.2 Old myocardial infarction; Z99.2 Dependence on renal dialysis; R63.0 Anorexia; R63.4 Abnormal weight loss; R19.7 Diarrhea, unspecified; R29.6 Repeated falls; R20.2 Paresthesia of skin; R53.2 Functional quadriplegia; R05 Cough; R06.02 Shortness of breath; R09.89 Other specified symptoms and signs involving the circulatory and respiratory systems; Z79.899 Other long term (current) drug therapy; Z79.82 Long term (current) use of aspirin; Z85.79 Personal history of other malignant neoplasms of lymphoid, hematopoietic and related tissues; Z94.81 Bone marrow transplant status; Z90.49 Acquired absence of other specified parts of digestive tract; Z87.891 Personal history of nicotine dependence; Z87.01 Personal history of pneumonia (recurrent); Z98.890 Other specified postprocedural states
CPT/HCPCS: 36415 ×6; 87040; 84439; 82553 ×2; 82962; 82150; 82550 ×2; 83690; 83735; 84100; 84443; 85025 ×5; 85027; 85610; 85730; 80076 ×3; 80048 ×5; 80053; 84484 ×2; 83036; 87493; 83880; 70551; 71046; 97530; 97110 ×2; 97116; 97163; A9270 ×112; G8978; G8979; G0257 ×3

== ENCOUNTER 2017-09-24 14:32 | Emergency (ER) | payer MEDICARE ==
[2017-09-24 15:04] VITALS: BP 130/93
--- NOTE | 2017-09-24 16:09 | ER Document Report ---
HPI - HPI Pain Level: Denies Context: Patient is a 76 year old male who presents to the ED complaining of rash. Patient is demented so history is per EMS and phone call with his granddaughter. Granddaughter Niecy states that after dialysis he came home and she was doing any incontinence change and she knows that he had some bleeding from the surface of the scrotum. She states that they have been treating a diaper rash for the past 4 days. She states that today she just started using a barrier cream. She states that she was concerned with the amount of bleeding and wanted it evaluated. Otherwise denies any surrounding redness, purulent drainage, fevers or chills. Patient is otherwise been doing well. Primary care is with Dr. Pool - CONSTITUTIONAL Constitutional: DENIES: Fever, Chills - EENT EENT: DENIES: Sore Throat, Ear Pain, Eye problems - NEURO Neurology: DENIES: Headache, Weakness, Vision blurred, Dizzinesss / Vertigo - CARDIOVASCULAR Cardiovascular: DENIES: Chest pain - RESPIRATORY Respiratory: DENIES: Trouble Breathing, Coughing - GASTROINTESTINAL Gastrointestinal: DENIES: Abdominal Pain, Black / Bloody Stools - URINARY Urinary: DENIES: Dysuria, Urgency, Frequency - REPRODUCTIVE Reproductive: DENIES: : - MUSCULOSKELETAL Musculoskeletal: DENIES: Extremity pain Past Medical History - Social History Smoking Status: Unknown if Ever Smoked Family History: Reviewed & Not Pertinent, DM Patient has suicidal ideation: No Patient has homicidal ideation: No - Past Medical History Cardiac Medical History: Reports: Hx Coronary Artery Disease, Hx Heart Attack - 5 years ago, Hx Hypercholesterolemia, Hx Hypertension - on meds, Hx Peripheral Vascular Disease, Hx Heart Murmur Pulmonary Medical History: Reports: Hx Pneumonia - hx of Denies: Hx Asthma, Hx Bronchitis, Hx Tuberculosis Neurological Medical History: Denies: Hx Cerebrovascular Accident, Hx Seizures Endocrine Medical History: Denies: Hx Diabetes Mellitus Type 1, Hx Diabetes Mellitus Type 2 Renal/ Medical History: Reports: Hx End Stage Renal Disease, Hx Hemodialysis. Denies: Hx Peritoneal Dialysis GI Medical History: Reports: Hx Gastroesophageal Reflux Disease, Hx Ulcer Musculoskeltal Medical History: Reports Hx Arthritis - generalized Psychiatric Medical History: Denies: Hx Depression Past Surgical History: Reports: Hx Abdominal Surgery - abdominal aneurysm repair , Hx Cholecystectomy, Hx Vascular Surgery - Abdominal aortic aneurysm repair; PermCath placement for dialysis. Denies: Hx Pacemaker - Immunizations Hx Diphtheria, Pertussis, Tetanus Vaccination: No - Pt unsure Hx Pneumococcal Vaccination: 06/25/07 Vertical Provider Document - CONSTITUTIONAL Agree With Documented VS: Yes Notes: PHYSICAL EXAM GENERAL: Alert, interacts well. HEAD: Normocephalic, atraumatic. ABDOMEN: Soft, nondistended, nontender. No guarding, rebound, or rigidity.. Bowel sounds present in all 4 quadrants. Male : Anterior scrotum with evidence of mild skin breakdown without evidence of erythema, folliculitis, active bleeding. Testicles equal bilaterally, nontender. NEUROLOGICAL: Alert and oriented to name, place.. Normal speech. PSYCH: Normal affect, normal mood. SKIN: Warm, dry, normal turgor. No rashes or lesions noted. - INFECTION CONTROL TRAVEL OUTSIDE OF THE [place] IN LAST 30 DAYS: No Course - Re-evaluation Re-evalutation: 09/24/17 16:04 Patient is a 76-year-old male is hemodynamically stable, no acute distress and afebrile. Presentation is consistent with diaper rash. No evidence of active bleeding, associated secondary cellulitis. Discussed with daughter over the phone to continue using barrier cream and given the amount of sensitivity and erythema will discharge with coverage with Mycolog. Educated on strict return precautions and otherwise to follow-up with Dr. Pool. Family agrees with plan and stable for discharge home - Vital Signs Vital signs: Temp Pulse Resp BP Pulse Ox 98.4 F 79 130/93 H 96 09/24/17 15:01 09/24/17 15:01 09/24/17 15:01 09/24/17 15:01 Discharge - Discharge Clinical Impression: Diaper rash Condition: Good Disposition: HOME, SELF-CARE Instructions: Diaper Rash ([facility]) Prescriptions: Nystatin/Triamcin [Mycolog-II Cream 15 gm] 15 applic TP DAILY #1 tube Zinc Oxide [Desitin] 56 gm TP PRN PRN #1 cream..g. PRN Reason: Referrals: BETSY POOL MD [Primary Care Provider] - Follow up as needed
== END 2017-09-24 16:21 | disposition home or self-care (01) ==
LOC: ER 14:32
DX: L22 Diaper dermatitis (principal); F03.90 Unspecified dementia, unspecified severity, without behavioral disturbance, psychotic disturbance, mood disturbance, and anxiety; I25.10 Atherosclerotic heart disease of native coronary artery without angina pectoris; E78.00 Pure hypercholesterolemia, unspecified; I12.0 Hypertensive chronic kidney disease with stage 5 chronic kidney disease or end stage renal disease; N18.6 End stage renal disease; Z99.2 Dependence on renal dialysis; I25.2 Old myocardial infarction; Z90.49 Acquired absence of other specified parts of digestive tract
CPT/HCPCS: 99283

== ENCOUNTER 2018-01-20 10:00 | Day surgery (SDC) | payer MEDICARE ==
[~2018-01-20 10:00] MED LIST changes: -BACITRACIN INJ 50,000 UNIT VIAL ONE; -BUPIVACAINE HCL 0.25 % INJ/PF (2.5 MG/1 ML) 30 ML VIAL ONE; -CEFAZOLIN 1 GM/D5W RTU 1 GM/50 ML RTUPB IV PRN; +DIAZEPAM 5 MG TABLET PO PRN; -GLYCOPYRROLATE INJ 0.4 MG/2 ML VIAL ONE; -HEPARIN SOD (PORCINE) 1,000 UNIT/ML 10 ML VIAL ONE; -LIDOCAINE 0.5% INJ-PF (5 MG/ML) 50 ML SDV ONE; -LIDOCAINE 0.5% INJ-PF (5 MG/ML) 50 ML SDV SUBCUT PRN; -LIDOCAINE 1% INJ-PF (10 MG/ML) 30 ML SDV ONE; -LIDOCAINE 2% INJ-PF (20 MG/ML) 10 ML AMPUL ONE; -NORMAL SALINE 1000 ML (RENAL PATIENTS) IV PRN; -ONDANSETRON HCL INJ/PF 4 MG/2 ML SDV ONE
[2018-01-20 10:48] LABS: HEMATOCRIT 34.3 % (37.9-51.0); HEMOGLOBIN 11.2 g/dL (13.5-17.0); MEAN CORPUSCULAR HGB CONC 32.7 g/dL (32.0-36.0); MEAN CORPUSCULAR VOLUME 86 fl (80-97); PLATELET COUNT 161 10^3/uL (150-450); RED BLOOD COUNT 4.01 10^6/uL (4.35-5.55); RED CELL DISTRIBUTION WIDTH 16.2 % (11.5-14.0); WHITE BLOOD COUNT 4.4 10^3/uL (4.0-10.5)
[2018-01-20] MEDS ORDERED: MIDAZOLAM 2 MG/2 ML INJ ONE (10:54)
[2018-01-20] MEDS ORDERED: HEPARIN SOD (PORCINE) 5,000 UNIT/ML 1 ML SYRINGE ONE (10:55)
[2018-01-20] MEDS ORDERED: FENTANYL CITRATE INJ/PF 100 MCG/2 ML AMPUL ONE (10:55)
[2018-01-20] MEDS ORDERED: OXYCODONE-ACETAMINOPHEN 5-325 MG TABLET ONE (11:10)
[2018-01-20 11:33] LABS: ANION GAP 19 (5-19); BLOOD UREA NITROGEN 69 mg/dL (7-20); CALCIUM 9.6 mg/dL (8.4-10.2); CARBON DIOXIDE 23 mmol/L (22-30); CHLORIDE 102 mmol/L (98-107); GLUCOSE 91 mg/dL (75-110); POTASSIUM 4.9 mmol/L (3.6-5.0); SODIUM 143.7 mmol/L (137-145)
[2018-01-20] MEDS ORDERED: LIDOCAINE 0.5% INJ-PF (5 MG/ML) 50 ML SDV ONE (11:42)
--- NOTE | 2018-01-20 13:27 | Discharge Summary ---
Discharge Summary (SDC) - Discharge Final Diagnosis: #1 malfunctioning AV fistula, left transposed basilic. 2. End-stage renal disease on hemodialysis. 3. History of multiple myeloma. 4. Hypertension. Date of Surgery: 01/20/18 Discharge Date: 01/20/18 Condition: Fair Treatment or Instructions: Discharge home [after recovery per ASU criteria]. Diet , [renal],as tolerated, when fully awake advance as tolerated. Activities within moderation encouraged. Follow up in my office by appointment in about [1 month]. Call for appointment. Leave wounds [covered], [keep clean and dry, until office hemodialysis. Hold of on school/work [until evaluation in office]. Meds per med rec. May shower [in 48 hrs], [try to keep operated area as dry as possible]. Referrals: BETSY POOL MD [Primary Care Provider] - Discharge Diet: Other (Comments) - Renal. Respiratory Treatments at Home: Deep Breathing/Coughing Discharge Activity: Activity As Tolerated Report the Following to Your Physician Immediately: Shortness of Breath, Unusual Bleeding
[2018-01-20 14:20] VITALS: BP 165/94
--- NOTE | 2018-01-20 15:08 | RADIOLOGY REPORT (SQ) ---
EXAM DESCRIPTION: FISTULAGRAM W/PLASTY; ANGIOPLASTY BRACHIOCEPHALIC COMPLETED DATE/TIME: 01/20/2018 1:05 pm REASON FOR STUDY: T82.858A T82.858A STENOSIS OF OTHER VASCULAR PROSTH DEV/GRFT, INIT FLUOROSCOPY TIME: 2.9 minutes 120 digital Images saved to PACS TECHNIQUE: Intra-operative images acquired during surgical procedure to evaluate progress. NUMBER OF IMAGES: 120 digital images LIMITATIONS: None. FINDINGS: An intra procedural imaging and fluoro during evaluation and plasty along a left upper ext remity dialysis access. Please see Dr. Bertrand operative report for further details IMPRESSION: Intra procedural imaging and fluoro COMMENT: Quality ID 145: Final reports for procedures using fluoroscopy that document radiation exp osure indices, or exposure time and number of fluorographic images (if radiation exposure indices are not available) Please consult full operative report of the attending physician for description of the procedure. TECHNICAL DOCUMENTATION: JOB ID: [id number] [employer]- All Rights Reserved COMPARISON: None. 04/29/2017 Reading location - IP/workstation name: [email or web address]
--- NOTE | 2018-01-20 15:08 | RADIOLOGY REPORT (SQ) ---
EXAM DESCRIPTION: FISTULAGRAM W/PLASTY; ANGIOPLASTY BRACHIOCEPHALIC COMPLETED DATE/TIME: 01/20/2018 1:05 pm REASON FOR STUDY: T82.858A T82.858A STENOSIS OF OTHER VASCULAR PROSTH DEV/GRFT, INIT FLUOROSCOPY TIME: 2.9 minutes 120 digital Images saved to PACS TECHNIQUE: Intra-operative images acquired during surgical procedure to evaluate progress. NUMBER OF IMAGES: 120 digital images LIMITATIONS: None. FINDINGS: An intra procedural imaging and fluoro during evaluation and plasty along a left upper ext remity dialysis access. Please see Dr. Bertrand operative report for further details IMPRESSION: Intra procedural imaging and fluoro COMMENT: Quality ID 145: Final reports for procedures using fluoroscopy that document radiation exp osure indices, or exposure time and number of fluorographic images (if radiation exposure indices are not available) Please consult full operative report of the attending physician for description of the procedure. TECHNICAL DOCUMENTATION: JOB ID: [id number] [employer]- All Rights Reserved COMPARISON: None. 04/29/2017 Reading location - IP/workstation name: [email or web address]
--- NOTE | 2018-01-20 15:31 | Operative Report ---
Operative Report DATE OF SURGERY: 01/20/18 PREOPERATIVE DIAGNOSIS: 1. Malfunctioning arteriovenous fistula, left transposed basilic vein. 2. End-stage renal disease on hemodialysis. 3. History of multiple myeloma. 4. Hypertension. POSTOPERATIVE DIAGNOSIS: 1. Malfunctioning arteriovenous fistula, left transposed basilic vein. 2. End-stage renal disease on hemodialysis. 3. History of multiple myeloma. 4. Hypertension. OPERATION: 1. Needle access into fistula. 2. Central angioplasty. 3. Peripheral arterial venous angioplasty. 4. Drug-eluting balloon angioplasty peripherally. 4. Angiogram and interpretation. SURGEON: AISSATOU QUIÑONES YOUTH ASSOCIATE: None. ANESTHESIA: Moderate Sedation TISSUE REMOVED OR ALTERED: Not applicable. COMPLICATIONS: None. ESTIMATED BLOOD LOSS: 5 mL. INTRAOPERATIVE FINDINGS: Complex. Firstly 80% stenosis for about 3 cm at about 25 cm from the arteriovenous anastomosis. Eliminated by angioplasty with a 7 mm balloon and drug-eluting balloon, 8 mm. Secondly tight stenosis at the subclavian cephalic junction with numerous collaterals. Estimated to be a 90% stenosis. Corrected with a residual about 5% stenosis with a 9 mm angioplasty balloon. Improvement in collaterals. Also in the innominate a suggestion of stenosis by angioplasty which showed a slight area of stenosis in the distal left innominate vein. Thirdly a [place] stenoses in the proximal 3 cm of the fistula adjacent to the arteriovenous anastomosis. This was not addressed today because of the length of the procedure. It does need to be addressed in the near future we will plan to look at this in 2-3 weeks. In addition the area of stenosis at the cephalic subclavian is level to require as many application of a drug-eluting balloon. In this patient with a marilee fistula. PROCEDURE: PROCEDURE: After verifying the procedure and having obtained informed consent, the patient's left arm was prepared with Chlorhexidine and draped out with sterile linen. Local anesthesia infiltrated. Percutaneous access into the fistula ,[ antegrade], obtained about [6 cm] from the arteriovenous anastomosis using a micro puncture needle followed by micro puncture wire and then a micro puncture catheter. A 0.035 [place] wire was inserted, and over this, a 6, later 7 [place] short introducer was placed, angiogram done. Angioplasty was elected.this was followed by a [7-mm] angioplasty balloon. This was used to dilate the area at 25 cm inflating up to 16 albaro for 3 minutes. Completion angiogram demonstrated a satisfactory outcome. The area at the cephalic subclavian was now addressed first with an 8 mm balloon which was placed in the innominate and inflated up to 16 albaro for 2 minutes. Again at the culprit lesion in the cephalic subclavian junction for minutes at 18 albaro. The waist was completely eliminated. Angiogram demonstrated the aforementioned findings. This was not replaced with a 9 mm angioplasty balloon which was used to balloon the fairly resistant area at the subclavian, cephalic. This was done up to 18 albaro for 3. Angioplasty was A drug-eluting balloon, 8 mm was now placed over the culprit region in the 25 cm ray of the fistula. This is because this has recurred. It was inflated to 12 albaro and sustained for 4 minutes. Completion angiogram demonstrated [satisfactory result]. Retrograde angiogram was now done with temporary occlusion of the fistula with the findings of perianastomotic stenoses. These will need to be addressed at another date. The instrumentation was now withdrawn over hand pressure for 10 minutes. Dressings applied, procedure concluded. Exposure time: 2.9 minutes. Radiation: 35.4 Gail ramirez. Contrast: 25 mils of Isovue-300, low osmolality. DICTATING PHYSICIAN: AISSATOU KERN M.D. cc: AISSATOU KERN M.D. ([id number]) >>
== END 2018-01-20 14:20 | disposition home or self-care (01) ==
LOC: CCL 10:00
PROVIDERS: ATTEND Surgery
DX: T82.858A Stenosis of other vascular prosthetic devices, implants and grafts, initial encounter (principal); Y83.2 Surgical operation with anastomosis, bypass or graft as the cause of abnormal reaction of the patient, or of later complication, without mention of misadventure at the time of the procedure; I12.0 Hypertensive chronic kidney disease with stage 5 chronic kidney disease or end stage renal disease; N18.6 End stage renal disease; Z99.2 Dependence on renal dialysis; Z85.79 Personal history of other malignant neoplasms of lymphoid, hematopoietic and related tissues
CPT/HCPCS: 36415; 85027; 80048; 36907; 36902; C1725 ×2; C1752; C1894; Q9967; C1769; J2250; J1644 ×2; A9270 ×2; J3010; J3490

== ENCOUNTER 2018-02-03 07:42 | Inpatient (IN) | payer MEDICARE ==
[2018-02-03] MEDS ORDERED: OXYCODONE-ACETAMINOPHEN 5-325 MG TABLET ONE (08:36)
[2018-02-03] MEDS ORDERED: DIAZEPAM 5 MG TABLET ONE (08:37)
[2018-02-03] MEDS ORDERED: HEPARIN SOD (PORCINE) 5,000 UNIT/ML 1 ML SYRINGE ONE (09:57)
[2018-02-03] MEDS ORDERED: LIDOCAINE 0.5% INJ-PF (5 MG/ML) 50 ML SDV ONE (09:57)
[2018-02-03] MEDS ORDERED: FENTANYL CITRATE INJ/PF 100 MCG/2 ML AMPUL ONE (09:57)
[2018-02-03] MEDS ORDERED: MIDAZOLAM 2 MG/2 ML INJ ONE (09:57)
[2018-02-03 10:08] LABS: HEMATOCRIT 28.5 % (37.9-51.0); HEMOGLOBIN 9.7 g/dL (13.5-17.0); MEAN CORPUSCULAR HEMOGLOBIN 28.7 pg (27.0-33.4); MEAN CORPUSCULAR HGB CONC 33.9 g/dL (32.0-36.0); MEAN CORPUSCULAR VOLUME 85 fl (80-97); PLATELET COUNT 169 10^3/uL (150-450); RED BLOOD COUNT 3.36 10^6/uL (4.35-5.55); RED CELL DISTRIBUTION WIDTH 15.6 % (11.5-14.0); WHITE BLOOD COUNT 4.9 10^3/uL (4.0-10.5)
[2018-02-03 11:02] LABS: ANION GAP 18 (5-19); BLOOD UREA NITROGEN 69 mg/dL (7-20); CALCIUM 8.8 mg/dL (8.4-10.2); CARBON DIOXIDE 23 mmol/L (22-30); CHLORIDE 101 mmol/L (98-107); GLUCOSE 87 mg/dL (75-110); POTASSIUM 4.2 mmol/L (3.6-5.0); SODIUM 141.9 mmol/L (137-145)
[2018-02-03] MEDS ORDERED: ALTEPLASE INJ 2 MG VIAL (CATH CLEARANCE) ONE (11:53)
[2018-02-03] MEDS ORDERED: NITROGLYCERIN 0.4 MG/TAB 25 TAB/BOTTLE ONE (12:16)
--- NOTE | 2018-02-03 13:07 | Operative Report ---
Operative Report DATE OF SURGERY: 02/03/18 Operative Report: #1 malfunctioning AV fistula, left transposed basilic. 2. End-stage renal disease on hemodialysis. 3. History of multiple myeloma. 4. History of myocardial infarction. 5. Hypertension. PREOPERATIVE DIAGNOSIS: #1 malfunctioning AV fistula, left transposed basilic. 2. End-stage renal disease on hemodialysis. 3. History of multiple myeloma. 4. History of myocardial infarction. 5. Hypertension. POSTOPERATIVE DIAGNOSIS: Same as, with chest pain intraoperative. OPERATION: 1. Ultrasound evaluation of arteriovenous fistula. 2. Ultrasound- guided access into arteriovenous fistula. 3. Angioplasty. 4. AngioJet thrombectomy. 5. Angiogram and interpretation. SURGEON: AISSATOU QUIÑONES MOVIE CRITIC: None. ANESTHESIA: Moderate Sedation TISSUE REMOVED OR ALTERED: Thrombectomy. COMPLICATIONS: Intraprocedure chest pain. ESTIMATED BLOOD LOSS: 5 mL. INTRAOPERATIVE FINDINGS: Of a partially clotted AV fistula left arm. Satisfactory access. Stenosis of the first 4 cm of the fistula with an additional stenosis at about 5 cm. Estimated to be 70-80% of the normal lumen. The arteriovenous anastomosis seems adequate in size and comparable to the diameter of the [place] artery. Cephalad stenosis, some residual, previously addressed. At the conclusion of the procedure johnson flow of contrast through the fairly normal fistula, adequate to palpation. Resolution of the inflow stenoses with the exception of about 5% residual. The patient's chest pain was prominent during the procedure particularly during thrombectomy and thrombolysis with AngioJet device. He was treated with IV fentanyl and will be admitted for evaluation and observation. I discussed the case with Dr. Caicedo at about [address] Gtaes shortly thereafter. The patient's chest pain resolved after the procedure and his blood pressure also declined to within almost normal levels. PROCEDURE: PROCEDURE: After verifying the procedure and having obtained informed consent, the patient's left arm and forearm were prepared with Chlorhexidine and draped out with sterile linen. Local anesthesia infiltrated. Percutaneous access into the fistula ,[retrograde], obtained about [20 cm] from the arteriovenous anastomosis using a micro puncture needle followed by micro puncture wire and then a micro puncture catheter. This was done on ultrasound guidance using real-time access into the vein. Ultrasound was also used to size the vein. Angiogram demonstrated the aforementioned findings. Angioplasty was elected. A 0.035 [place] wire was inserted, and over this, a 6 [place] short introducer was placed, this was followed by a [place] catheter. Thrombectomy was elected. A AngioJet catheter and device were prepared and primed and introduced to the introducer. The large clot burden between about 6 and 12 cm was addressed diligently. It seemed to coincide with chest pain and so was done and intervals allowing chest pain to receded. 4 units of Activase was now diluted in 20 mils and injected directly into the remaining thrombus. Angiogram demonstrated the aforementioned findings. Angioplasty was elected. Angioplasty was now done at the perianastomotic segment. This was done very carefully using a 3 mils syringe and sustained for 2 minutes. This was repeated along and to cover the entire stenotic segment. Angiogram demonstrated an acceptable outcome. The instrumentation was now withdrawn over hand pressure for 10 minutes . Dressings applied, procedure concluded. Exposure time: 0.8 minutes Radiation: 12.14 Gail ramirez. Contrast: 25 mL of Isovue-M 300 low osmolality. DICTATING PHYSICIAN: AISSATOU KERN M.D. cc: AISSATOU KERN M.D. ([id number]) >>
--- NOTE | 2018-02-03 13:31 | RADIOLOGY REPORT (SQ) ---
EXAM DESCRIPTION: FISTULAGRAM W/PLASTY/THROMBECT COMPLETED DATE/TIME: 02/03/2018 12:19 pm REASON FOR STUDY: T82.858A T82.858A STENOSIS OF OTHER VASCULAR PROSTH DEV/GRFT, INIT COMPARISON: 01/20/2018 FLUOROSCOPY TIME: 0.8 minutes 105 images saved to PACS. TECHNIQUE: Intra-operative images acquired during surgical procedure to evaluate progress. NUMBER OF IMAGES: 105 digital images LIMITATIONS: None. FINDINGS: Intra procedural imaging and fluoro during left upper extremity dialysis access and plasty by Dr. Bertrand. Please see the operative report for further details IMPRESSION: Intra procedural imaging and fluoro COMMENT: Quality ID 145: Final reports for procedures using fluoroscopy that document radiation exp osure indices, or exposure time and number of fluorographic images (if radiation exposure indices are not available) Please consult full operative report of the attending physician for description of the procedure. TECHNICAL DOCUMENTATION: JOB ID: [id number] [employer]- All Rights Reserved Reading location - IP/workstation name: [email or web address]
[2018-02-03] MEDS ORDERED: MAG HYDROX/AL HYDROX/SIMETH SUSP 30 ML UDCUP PO PRN (13:39)
[2018-02-03] MEDS ORDERED: MORPHINE SULFATE 10 MG/ML INJ IV PRN (13:39)
[2018-02-03] MEDS ORDERED: HYDRALAZINE HCL 50 MG TABLET PO SCH (13:45)
[2018-02-03] MEDS ORDERED: ASPIRIN 325 MG TABLET PO ONE (14:00)
[2018-02-03] MEDS: ISOSORBIDE MONONITRATE 30 MG TAB.ER.24H PO SCH (14:39)
[2018-02-03] MEDS: NITROGLYCERIN 0.4 MG/TAB 25 TAB/BOTTLE SL PRN ×3 (14:39→22:19)
--- NOTE | 2018-02-03 14:54 | RADIOLOGY REPORT (SQ) ---
EXAM DESCRIPTION: CHEST SINGLE VIEW COMPLETED DATE/TIME: 02/03/2018 2:25 pm REASON FOR STUDY: chest pain COMPARISON: 08/13/2017 EXAM PARAMETERS: NUMBER OF VIEWS: One view. TECHNIQUE: Single frontal radiographic view of the chest acquired. RADIATION DOSE: NA LIMITATIONS: None. FINDINGS: LUNGS AND PLEURA: No opacities, masses or pneumothorax. No pleural effusion. MEDIASTINUM AND HILAR STRUCTURES: No masses. Contour normal. HEART AND VASCULAR STRUCTURES: Heart normal in size. Normal vasculature. BONES: No acute findings. HARDWARE: None in the chest. OTHER: No other significant finding. IMPRESSION: NO ACUTE RADIOGRAPHIC FINDING IN THE CHEST. TECHNICAL DOCUMENTATION: JOB ID: [id number] [employer]- All Rights Reserved Reading location - IP/workstation name: [email or web address]
[2018-02-03 17:53] LABS: CREATINE KINASE MB 1.29 ng/mL (<4.55)
[2018-02-03] MEDS: MEGESTROL ACETATE 20 MG TABLET PO SCH (17:58)
[2018-02-03] MEDS: CALCIUM ACETATE 667 MG CAPSULE PO SCH (17:58)
[2018-02-03] MEDS ORDERED: DONEPEZIL HCL PO SCH (18:00)
[2018-02-03] MEDS ORDERED: [UNRECOGNIZED DRUG - OTHER] PO SCH (18:00)
[2018-02-03] MEDS ORDERED: MEMANTINE HCL PO SCH (18:00)
[2018-02-03 18:02] LABS: TROPONIN I 0.413 ng/mL
--- NOTE | 2018-02-03 18:40 | PDOC CONSULTATION ---
Consultation Consult Date: 02/03/18 Consult reason:: dialysis/fistula evaluation History of Present Illness Admission Date/PCP: BETSY POOL MD History of Present Illness: LUPE ZURITA is a 77 year old male with ESRD on HD, and prior cardiac history , he initially was having an outpatient procedure on his fistula. The procedure was almost done, when the patient started to have chest pain. At that time the procedure was stopped, an EKG, chest x-ray and labs were done. The EKG and chest x-ray were WNL. Troponin was elevated at 0.4, which is to be expected with ESRD patients. Blood pressure was slightly elevated into the 180s systolic. According to the patient when the chest pain was happening it was mostly on the right side of his chest, it did not radiate anywhere, he could not describe it and it was an 8 out of 10. During examination he denied currently having chest pain, SOB, nausea, or vomiting. Past Medical History Cardiac Medical History: Reports: Heart Murmur, Hyperlipidemia, Hypertension- primary, Myocardial Infarction, Peripheral Vascular Disease Denies: Coronary Artery Disease Pulmonary Medical History: Reports: Pneumonia Denies: Asthma, Bronchitis, Chronic Obstructive Pulmonary Disease (COPD), Tuberculosis Neurological Medical History: Denies: Seizures Endocrine Medical History: Denies: Diabetes Mellitus Type 1, Diabetes Mellitus Type 2 Renal/ Medical History: Reports: End Stage Renal Disease GI Medical History: Reports: Gastroesophageal Reflux Disease Musculoskeltal Medical History: Denies: Arthritis Psychiatric Medical History: Denies: Depression Past Surgical History Past Surgical History: Reports: Cholecystectomy, Dialysis Access Surgery AVF, Vascular Surgery - Abdominal aortic aneurysm repair; PermCath placement for dialysis Denies: Pacemaker Social History Smoking Status: Former Smoker Last Time Smoked: 2002 Frequency of Alcohol Use: None Hx Recreational Drug Use: No Drugs: None Hx Prescription Drug Abuse: No Family History Family History: Chronic Kidney Disease Parental Family History Reviewed: No Children Family History Reviewed: NA Sibling(s) Family History Reviewed.: Yes Medication/Allergy Home Medications: Atorvastatin Calcium [Lipitor 80 mg Tablet] 80 mg PO QHS 08/13/17 B Complex W-C No.20/Folic Acid [Nephrocaps Softgel] 1 cap PO DAILY 08/13/17 Calcium Acetate [Phoslo 667 mg Capsule] 1,334 mg PO MEALS 08/13/17 Carvedilol [Coreg 25 mg Tablet] 25 mg PO Q12 08/13/17 Cholecalciferol (Vitamin D3) [Vitamin D3] 1,000 unit PO DAILY 08/13/17 Cyanocobalamin (Vitamin B-12) [Vitamin B-12 SL 1000 mcg Tablet] 1,000 mcg PO DAILY 08/13/17 Duloxetine HCl [Cymbalta] 60 mg PO DAILY 08/13/17 Hydralazine HCl [Apresoline 50 mg Tablet] 50 mg PO DAILY 08/13/17 Isosorbide Mononitrate [Isosorbide Mononitrate ER] 30 mg PO DAILY 08/13/17 Megestrol Acetate 40 mg PO BID 08/13/17 Memantine HCl/Donepezil HCl [Namzaric 14 mg-10 mg Capsule] 1 cap PO QPM Pantoprazole Sodium [Protonix] 40 mg PO DAILY 08/13/17 Allergies/Adverse Reactions: No Known Allergies Allergy (Verified 09/24/17 14:36) Review of Systems Constitutional: ABSENT: chills, fever(s), headache(s), weakness Eyes: ABSENT: visual disturbances Nose, Mouth, and Throat: ABSENT: headache(s) Cardiovascular: PRESENT: chest pain. ABSENT: dyspnea on exertion, edema, orthropnea, palpitations Respiratory: ABSENT: cough, dyspnea, sputum Gastrointestinal: ABSENT: abdominal pain, constipation, diarrhea, nausea, vomiting Genitourinary: ABSENT: difficulty urinating, dysuria Neurological: ABSENT: dizziness, focal weakness, weakness Psychiatric: PRESENT: anxiety Physical Exam Vital Signs: Temp Pulse Resp BP Pulse Ox 97.8 F 77 12 185/85 H 96 02/03/18 12:55 02/03/18 12:55 02/03/18 12:55 02/03/18 12:55 02/03/18 12:55 Intake & Output 02/02/18 02/03/18 02/04/18 06:59 06:59 06:59 Weight 77.9 kg General appearance: PRESENT: no acute distress, well-developed, well-nourished Mouth exam: PRESENT: moist, neck supple Neck exam: PRESENT: full ROM. ABSENT: JVD Respiratory exam: PRESENT: clear to auscultation checo. ABSENT: accessory muscle use, crackles, rales, rhonchi, wheezes Cardiovascular exam: PRESENT: RRR, +S1, +S2 GI/Abdominal exam: PRESENT: soft. ABSENT: ascites, distended, tenderness Extremities exam: ABSENT: pedal edema, tenderness, +1 edema, +2 edema Musculoskeletal exam: PRESENT: normal inspection. ABSENT: tenderness Neurological exam: PRESENT: alert, awake, oriented to person, oriented to place , oriented to time, oriented to situation Skin exam: PRESENT: dry, intact, warm Results Laboratory Results: 02/03/18 09:58 02/03/18 09:58 02/03/18 02/03/18 09:58 09:58 WBC 4.9 RBC 3.36 L Hgb 9.7 L Hct 28.5 L MCV 85 MCH 28.7 MCHC 33.9 RDW 15.6 H Plt Count 169 Sodium 141.9 Potassium 4.2 Chloride 101 Carbon Dioxide 23 Anion Gap 18 BUN 69 H Creatinine 12.87 H Est GFR ( Amer) 5 L Est GFR (Non-Af Amer) 4 L Glucose 87 Calcium 8.8 02/03/18 02/03/18 02/03/18 13:55 13:55 15:30 Creatine Kinase Cancelled Cancelled CK-MB (CK-2) Cancelled Troponin I Cancelled 02/03/18 02/03/18 02/03/18 15:30 17:00 17:00 Creatine Kinase 84 CK-MB (CK-2) Cancelled 1.29 Troponin I Cancelled 0.413 Impressions: Fistulogram 02/03/18 00:00 IMPRESSION: Intra procedural imaging and fluoro Chest X-Ray 02/03/18 13:42 IMPRESSION: NO ACUTE RADIOGRAPHIC FINDING IN THE CHEST. Assessment & Plan - Diagnosis (1) Chest pain Plan: most likely due to anxiety, according to Dr. Bertrand he was anxious during the procedure. Other possible factors could be CAD or due to elevated blood pressure. (2) End-stage renal disease on hemodialysis Plan: Currently in no need of dialysis today. Will re-evaluate tomorrow if he remains in here. Typically has dialysis on Saturday, and Saturday. Last treatment was last a partial treatment on Saturday. (3) HTN (hypertension) Qualifiers: Hypertension type: essential hypertension Qualified Code(s): I10 - Essential (primary) hypertension Plan: will monitor to trend the blood pressure, normally it is controlled. Does have some anxiety towards procedures on his fistula. (4) Elevated troponin Plan: most likely due to ESRD, will see what the trend of the second one is.
[2018-02-03 21:36] LABS: INTERNATIONAL RATION (INR) 1.11; PARTIAL THROMBOPLASTIN TIME 31.9 SEC (23.5-35.8); PROTHROMBIN TIME 14.8 SEC (11.4-15.4)
[2018-02-03] MEDS: CARVEDILOL 12.5 MG TABLET PO SCH (21:44)
[2018-02-03] MEDS: ATORVASTATIN CALCIUM 80 MG TABLET PO SCH (21:44)
[2018-02-03] MEDS ORDERED: ENOXAPARIN SODIUM INJ 80 MG/0.8 ML DISP.SYRIN SUBCUT SCH (22:00)
[2018-02-03] MEDS: HEPARIN SODIUM,PORCINE/D5W 25,000 UNIT/250 ML RTUINJ IV PRN (22:21)
[2018-02-03] MEDS: HEPARIN SOD (PORCINE) 1,000 UNIT/ML 10 ML VIAL IV PRN (22:22)
--- NOTE | 2018-02-03 22:45 | Progress Note ---
Provider Note Provider Note: Received call from nursing that the patient had arrived to floor from the [employer] [facility] where he had been undergoing a procedure for occluded dialysis fistula with Dr. Bertrand when he developed chest pain. I arrived to his room at approximately 1330 to find the patient resting in bed comfortably on supplemental oxygen via NC with his present. The patient was drowsy, presumably from sedation related to his procedure, but was easily aroused and A&O x4. He reported continued chest pain described as tense, non- radiating, substernal chest pressure rated 4/5. He denied associated RAMSEY, dizziness, dyspnea, orthopnea, or nausea. The patient's expressed concern about missing a planned dialysis session that afternoon. She was assured that we would consult Nephrology so that he would receive continued dialysis as necessary. The patient then began grimacing and asked me to "do something about the pain." I stepped out to the nursing desk to review the orders already implemented by Dr. Bertrand and determine the most appropriate pain medication. The full chest pain admission order set was initiated. Nursing then informed me that the patient's PCP was Dr. Rock and that it was possible Dr. Hinojosa was covering. Nursing was asked to contact Dr. Rock or Dr. Hinojosa for the admission. They were advised to notify the Hospitalist service if there was any delay in obtaining confirmation of acceptance by the PCP's service and to call me for any patient status changes or panic/critical results while waiting for the PCP to assume care. -Only the chief complaint was discussed; full HPI and medical history was not obtained. Patient exam was not completed.
--- NOTE | 2018-02-03 22:45 | EKG REPORT ---
SEVERITY:- ABNORMAL ECG - SINUS RHYTHM LEFT AXIS DEVIATION LOW VOLTAGE IN FRONTAL LEADS NONSPECIFIC T ABNORMALITIES, LATERAL LEADS BORDERLINE PROLONGED QT INTERVAL : Confirmed by: Tonia Diaz 03-Feb-2018 22:44:32
[2018-02-04] MEDS: LANSOPRAZOLE 30 MG TAB.RAP.DR PO SCH (05:48)
[2018-02-04] MEDS: CARVEDILOL 12.5 MG TABLET PO SCH ×2 (09:17→21:02)
[2018-02-04] MEDS: CHOLECALCIFEROL (D3) 1,000 UNIT TABLET PO SCH (09:17)
[2018-02-04] MEDS: ISOSORBIDE MONONITRATE 30 MG TAB.ER.24H PO SCH (09:17)
[2018-02-04] MEDS: CYANOCOBALAMIN (VITAMIN B-12) 1,000 MCG TABLET PO SCH (09:17)
[2018-02-04] MEDS: DOCUSATE SODIUM 100 MG CAPSULE PO SCH (09:17)
[2018-02-04] MEDS: CALCIUM ACETATE 667 MG CAPSULE PO SCH ×3 (09:17→18:32)
[2018-02-04] MEDS: ASPIRIN 81 MG TABLET, CHEWABLE PO SCH (09:17)
[2018-02-04] MEDS: FOLIC ACID/VITAMIN B COMP W-C CAPSULE PO SCH (09:17)
[2018-02-04] MEDS: MEGESTROL ACETATE 20 MG TABLET PO SCH ×2 (09:18→18:31)
[2018-02-04 09:31] LABS: HEMATOCRIT 28.9 % (37.9-51.0); HEMOGLOBIN 9.6 g/dL (13.5-17.0); MEAN CORPUSCULAR HEMOGLOBIN 28.5 pg (27.0-33.4); MEAN CORPUSCULAR HGB CONC 33.4 g/dL (32.0-36.0); MEAN CORPUSCULAR VOLUME 85 fl (80-97); PLATELET COUNT 181 10^3/uL (150-450); RED BLOOD COUNT 3.38 10^6/uL (4.35-5.55); RED CELL DISTRIBUTION WIDTH 15.4 % (11.5-14.0); WHITE BLOOD COUNT 5.4 10^3/uL (4.0-10.5)
[2018-02-04 09:51] LABS: BLOOD UREA NITROGEN 76 mg/dL (7-20); CALCIUM 9.2 mg/dL (8.4-10.2); GLUCOSE 89 mg/dL (75-110); POTASSIUM 4.4 mmol/L (3.6-5.0); TRIGLYCERIDES 96 mg/dL (<150)
[2018-02-04 09:57] LABS: ANION GAP 18 (5-19); CARBON DIOXIDE 21 mmol/L (22-30); CHLORIDE 103 mmol/L (98-107); SODIUM 142.3 mmol/L (137-145)
[2018-02-04] MEDS ORDERED: DULOXETINE HCL 30 MG CAPSULE.DR PO SCH (10:00)
[2018-02-04] MEDS ORDERED: HYDRALAZINE HCL 50 MG TABLET PO SCH (10:00)
[2018-02-04] MEDS ORDERED: [UNRECOGNIZED DRUG - OTHER] PO SCH (10:00)
[2018-02-04] MEDS ORDERED: (PENDING PHARMACY ID) (Cholecalciferol (Vitamin D3) [Vitamin D3] 1,000 UNIT) PO SCH (10:00)
[2018-02-04] MEDS ORDERED: CYANOCOBALAMIN PO SCH (10:00)
[2018-02-04 10:01] LABS: DIRECT LDL 47 mg/dL (<100)
[2018-02-04] MEDS: HEPARIN SODIUM,PORCINE/D5W 25,000 UNIT/250 ML RTUINJ IV PRN (10:41)
[2018-02-04] MEDS: HEPARIN SOD (PORCINE) 1,000 UNIT/ML 10 ML VIAL IV PRN ×2 (10:46→18:28)
--- NOTE | 2018-02-04 10:58 | PDOC H&P ---
<SHANDRA HOWE Chauncey - Last Filed: 02/04/18 10:54> History of Present Illness Admission Date/PCP: BETSY POOL MD Patient complains of: CHEST PAIN History of Present Illness: LUPE ZURITA is a 77 year old male who arrived to on 02/03/2018 from the [facility] where he had been undergoing a procedure for occluded dialysis fistula with Dr. Bertrand when he developed chest pain. He reported continued chest pain described as tense, non-radiating, substernal chest pressure rated 4/5. He denied associated RAMSEY, dizziness, dyspnea, orthopnea, or nausea. EKG showed NSR, no indication of infarction or ischemia. STAT Troponin was elevated to 0.4. Controls Designer, Dr. Caicedo, was consulted. He recommended initiating a heparin gtt. The patient was admitted to [facility] for chest pain observation. Upon evaluation this morning (02/04/2018), the patient is awake, alert and oriented. He is resting comfortably in bed on room air. Lungs are clear. S1S2. Faint pulses in upper and lower extremities. No evidence of peripheral edema. The patient endorses intermittent chest pain overnight, but at the time of assessment he stated he was chest pain free. Unfortunately, the patient refused all lab work overnight. Unable to trend troponins. The patient was able to be convinced by medical staff this morning regarding the importance of trending his lab work, specifically troponin and PTT while he is on a heparin gtt. Repeat troponin this morning was 2.7. Cardiology aware. Continue heparin gtt. Plan for STAT ECHOcardiogram. If patient develops persistent chest pain or EKG changes, consider transfer to tertiary facility. Past Medical History Cardiac Medical History: Reports: Myocardial Infarction - medically treated. no stents., Hyperlipidema, Hypertension, Peripheral Vascular Disease, Heart Murmur Denies: Coronary Artery Disease Cardiac History Note: ABDOMINAL AORTIC ANEURYSM Pulmonary Medical History: Reports: Pneumonia Denies: Asthma, Bronchitis, Chronic Obstructive Pulmonary Disease (COPD), Tuberculosis Neurological Medical History: Denies: Seizures Endocrine Medical History: Denies: Diabetes Mellitus Type 1, Diabetes Mellitus Type 2 Renal/ Medical History: Reports: End Stage Renal Disease - TU/R/SA HD Malignancy Medical History: Reports: Other - MULTIPLE MYELOMA GI Medical History: Reports: Gastroesophageal Reflux Disease Musculoskeltal Medical History: Denies: Arthritis Psychiatric Medical History: Denies: Depression Hematology: Denies: Anemia Past Surgical History Past Surgical History: Reports: Cholecystectomy, Vascular Surgery - Abdominal aortic aneurysm repair; PermCath placement for dialysis Denies: Pacemaker Social History Information Source: Patient Lives with: Family Smoking Status: Former Smoker Last Time Smoked: 2002 Frequency of Alcohol Use: None Hx Recreational Drug Use: No Drugs: None Hx Prescription Drug Abuse: No - Advance Directive Resuscitation Status: Full Code Family History Family History: Reviewed & Not Pertinent, DM Parental Family History Reviewed: No Children Family History Reviewed: Unknown Sibling(s) Family History Reviewed.: Unknown Medication/Allergy Home Medications: Atorvastatin Calcium [Lipitor 80 mg Tablet] 80 mg PO QHS 08/13/17 B Complex W-C No.20/Folic Acid [Nephrocaps Softgel] 1 cap PO DAILY 08/13/17 Calcium Acetate [Phoslo 667 mg Capsule] 1,334 mg PO MEALS 08/13/17 Carvedilol [Coreg 25 mg Tablet] 25 mg PO Q12 08/13/17 Cholecalciferol (Vitamin D3) [Vitamin D3] 1,000 unit PO DAILY 08/13/17 Cyanocobalamin (Vitamin B-12) [Vitamin B-12 SL 1000 mcg Tablet] 1,000 mcg PO DAILY 08/13/17 Duloxetine HCl [Cymbalta] 60 mg PO DAILY 08/13/17 Hydralazine HCl [Apresoline 50 mg Tablet] 50 mg PO DAILY 08/13/17 Isosorbide Mononitrate [Isosorbide Mononitrate ER] 30 mg PO DAILY 08/13/17 Megestrol Acetate 40 mg PO BID 08/13/17 Memantine HCl/Donepezil HCl [Namzaric 14 mg-10 mg Capsule] 1 cap PO QPM Pantoprazole Sodium [Protonix] 40 mg PO DAILY 08/13/17 Nitroglycerin [Nitro-Dur 5 mg (0.2 mg/Hr) Transdermal Patch] 1 each TD DAILY # 30 patch.td24 02/07/18 Nitroglycerin [Nitrostat 0.4 mg (1/150 Gr) Tabs 25/Bottle] 1 tab SL Q5MP PRN #1 bottle 02/07/18 Allergies/Adverse Reactions: No Known Allergies Allergy (Verified 09/24/17 14:36) Review of Systems All systems: reviewed and no additional remarkable complaints except as stated Physical Exam Vital Signs: Temp Pulse Resp BP Pulse Ox 98.2 F 67 18 136/64 H 98 02/04/18 07:46 02/04/18 07:46 02/04/18 07:46 02/04/18 07:46 02/04/18 07:46 Intake & Output 02/03/18 02/04/18 02/05/18 06:59 06:59 06:59 Intake Total 265 Balance 265 Weight 79.5 kg General appearance: PRESENT: no acute distress, well-developed, well-nourished Eye exam: PRESENT: conjunctiva pink Mouth exam: PRESENT: moist Neck exam: PRESENT: full ROM Respiratory exam: PRESENT: clear to auscultation checo, symmetrical, unlabored Cardiovascular exam: PRESENT: +S1, +S2 Pulses: PRESENT: normal radial pulses, normal dorsalis pedis pul Vascular exam: PRESENT: normal capillary refill GI/Abdominal exam: PRESENT: normal bowel sounds, soft. ABSENT: tenderness Rectal exam: PRESENT: deferred Extremities exam: PRESENT: full ROM. ABSENT: pedal edema Musculoskeletal exam: PRESENT: full ROM Neurological exam: PRESENT: alert, awake, oriented to person, oriented to place , oriented to time, oriented to situation Psychiatric exam: PRESENT: appropriate affect Skin exam: PRESENT: normal color Results Laboratory Results: 02/04/18 08:42 02/03/18 02/03/18 02/04/18 09:58 09:58 08:42 WBC 4.9 5.4 RBC 3.36 L 3.38 L Hgb 9.7 L 9.6 L Hct 28.5 L 28.9 L MCV 85 85 MCH 28.7 28.5 MCHC 33.9 33.4 RDW 15.6 H 15.4 H Plt Count 169 181 Sodium 141.9 Potassium 4.2 Chloride 101 Carbon Dioxide 23 Anion Gap 18 BUN 69 H Creatinine 12.87 H Est GFR ( Amer) 5 L Est GFR (Non-Af Amer) 4 L Glucose 87 Calcium 8.8 02/03/18 02/03/18 02/03/18 13:55 13:55 15:30 Creatine Kinase Cancelled Cancelled CK-MB (CK-2) Cancelled Troponin I Cancelled 02/03/18 02/03/18 02/03/18 15:30 17:00 17:00 Creatine Kinase 84 CK-MB (CK-2) Cancelled 1.29 Troponin I Cancelled 0.413 Impressions: Fistulogram 02/03/18 00:00 IMPRESSION: Intra procedural imaging and fluoro Chest X-Ray 02/03/18 13:42 IMPRESSION: NO ACUTE RADIOGRAPHIC FINDING IN THE CHEST. Status: Imported from PACS Assessment & Plan - Diagnosis (1) Chest pain QualifierTitle: Ischemic chest pain type: unspecified angina pectoris type Is this a current diagnosis for this admission?: Yes Plan: Patient began complaining of chest pain yesterday during fistulogram procedure. Stat EKG demonstrated NSR, no evidence of acute ischemia or infarction Initial troponin 0.4. Continue to trend cardiac enzymes every 6 hours. Cardiology was consulted. Dr. Toure recommended initiating heparin GTT. Patient refused labs all night long. Repeat troponin this a.m. is 2.7, cardiology aware. Plan for stat echocardiogram. Patient remains chest pain-free. EKG continues to show NSR, no evidence of acute infarction or ischemia. If patient develops persistent chest pain and/EKG changes, consider transfer to tertiary facility. (2) Elevated troponin Is this a current diagnosis for this admission?: Yes Plan: Initial troponin 0.4 following episode of chest pain Unclear etiology, can be related to ESRD or cardiac in nature Cardiology consulted Continue to trend every 6 hours until troponin has peaked. If patient begins to complain of persistent chest pain or experiences EKG changes, consider transfer to tertiary facility. (3) End-stage renal disease on hemodialysis Is this a current diagnosis for this admission?: Yes Plan: History of ESRD, currently on Saturday//Saturday HD schedule Fistulogram performed by Dr. Bertrand at [facility] 02/03/2018 Patient reports last complete HD session was 01/30/[address] Manning this a.m. No need for emergent dialysis at the current time. (4) HTN (hypertension) QualifierTitle: Hypertension type: essential hypertension Qualified Code( s): I10 - Essential (primary) hypertension Is this a current diagnosis for this admission?: Yes Plan: Patient endorses history of hypertension. Resume home dose carvedilol, Imdur, aspirin and statin therapy - Time Time Spent: 30 to 50 Minutes Medications reviewed and adjusted accordingly: Yes Anticipated discharge: Home Within: within 48 hours - Inpatient Certification Based on my medical assessment, after consideration of the patient's comorbidities, presenting symptoms, or acuity I expect that the services needed warrant INPATIENT care.: Yes I certify that my determination is in accordance with my understanding of Medicare's requirements for reasonable and necessary INPATIENT services [42 CFR 412.3e].: Yes Medical Necessity: Need For Continuous Telemetry Monitoring - Plan Summary Plan Summary: REPEAT LAB WORK. TROPONIN PENDING. <NOREEN SCANLON M - Last Filed: 02/18/18 15:30> History of Present Illness Admission Date/PCP: 02/05/18 19:18 BETSY POOL MD History of Present Illness: LUPE ZURITA is a 77 year old male Physical Exam Vital Signs: Temp Pulse Resp BP Pulse Ox 98.5 F 74 20 124/54 L 100 02/07/18 10:07 02/07/18 10:07 02/07/18 10:07 02/07/18 10:07 02/07/18 10:07 Results Laboratory Results: 02/07/18 05:43 02/07/18 05:43 02/03/18 02/03/18 02/03/18 13:55 13:55 15:30 Creatine Kinase Cancelled Cancelled CK-MB (CK-2) Cancelled Troponin I Cancelled 02/03/18 02/03/18 02/03/18 15:30 17:00 17:00 Creatine Kinase 84 CK-MB (CK-2) Cancelled 1.29 Troponin I Cancelled 0.413 02/04/18 02/04/18 02/04/18 08:42 22:25 22:25 Creatine Kinase 97 CK-MB (CK-2) 1.94 Troponin I 2.720 1.070 02/05/18 02/05/18 02/05/18 04:24 04:24 10:37 Creatine Kinase 102 101 CK-MB (CK-2) 1.56 Troponin I 0.835 02/05/18 16:10 Creatine Kinase CK-MB (CK-2) 1.25 Troponin I 0.480 Impressions: Fistulogram 02/03/18 00:00 IMPRESSION: Intra procedural imaging and fluoro Chest X-Ray 02/03/18 13:42 IMPRESSION: NO ACUTE RADIOGRAPHIC FINDING IN THE CHEST. Chest CT 02/04/18 00:00 IMPRESSION: No acute findings in the chest. Renal atrophy. Interventional Vascular Procedure 02/05/18 00:00 IMPRESSION: Ultrasound for vascular access. Central Venous Line 02/06/18 00:00 IMPRESSION: IMAGE(S) OBTAINED DURING PROCEDURE. Provider Note Provider Note: I have discussed this patient in detail with JAQUAN Cadleron. I am in agreement with her evaluation and plan.
[2018-02-04] MEDS ORDERED: NITROGLYCERIN 0.4 MG/TAB 25 TAB/BOTTLE SL PRN (10:59)
--- NOTE | 2018-02-04 12:47 | PDOC PROGRESS REPORT ---
Subjective Progress Note for:: 02/04/18 Reason For Visit: Patient seen today. He is doing well today. He denies any chest pains or shortness of breath currently. Blood pressures are well controlled today unlike yesterday. He denies any history of headaches focal deficits. He still makes about a cup of urine every day.Labs and medications were reviewed with the patient. Physical Exam Vital Signs: Temp Pulse Resp BP Pulse Ox 98.2 F 67 18 136/64 H 98 02/04/18 07:46 02/04/18 07:46 02/04/18 07:46 02/04/18 07:46 02/04/18 07:46 Intake & Output 02/03/18 02/04/18 02/05/18 06:59 06:59 06:59 Intake Total 265 115 Balance 265 115 Weight 79.5 kg General appearance: PRESENT: no acute distress Respiratory exam: PRESENT: clear to auscultation checo, symmetrical. ABSENT: crackles Cardiovascular exam: PRESENT: RRR, +S1, +S2 GI/Abdominal exam: PRESENT: soft. ABSENT: ascites, distended, tenderness Extremities exam: ABSENT: pedal edema Neurological exam: PRESENT: alert, awake, oriented to person, oriented to place , oriented to time Skin exam: ABSENT: mottled, rash Results Laboratory Results: 02/04/18 08:42 02/04/18 08:42 02/04/18 02/04/18 08:42 08:42 WBC 5.4 RBC 3.38 L Hgb 9.6 L Hct 28.9 L MCV 85 MCH 28.5 MCHC 33.4 RDW 15.4 H Plt Count 181 Sodium 142.3 Potassium 4.4 Chloride 103 Carbon Dioxide 21 L Anion Gap 18 BUN 76 H Creatinine 13.62 H Est GFR ( Amer) 4 L Est GFR (Non-Af Amer) 4 L Glucose 89 Calcium 9.2 Triglycerides 96 Cholesterol 112.40 LDL Cholesterol Direct 47 VLDL Cholesterol 19.0 HDL Cholesterol 32 L 02/03/18 02/03/18 02/03/18 13:55 13:55 15:30 Creatine Kinase Cancelled Cancelled CK-MB (CK-2) Cancelled Troponin I Cancelled 02/03/18 02/03/18 02/03/18 15:30 17:00 17:00 Creatine Kinase 84 CK-MB (CK-2) Cancelled 1.29 Troponin I Cancelled 0.413 02/04/18 08:42 Creatine Kinase CK-MB (CK-2) Troponin I 2.720 Impressions: Fistulogram 02/03/18 00:00 IMPRESSION: Intra procedural imaging and fluoro Chest X-Ray 02/03/18 13:42 IMPRESSION: NO ACUTE RADIOGRAPHIC FINDING IN THE CHEST. Assessment & Plan - Diagnosis (1) Chest pain Qualifiers: Ischemic chest pain type: unspecified angina pectoris type Is this a current diagnosis for this admission?: Yes Plan: Currently being worked up by cabinet maker to rule out acute coronary syndrome.Currently chest pain-free and stable. (2) Anemia in chronic kidney disease (CKD) Plan: Plan for erythropoietin during dialysis which is being planned for tomorrow. (3) End-stage renal disease on hemodialysis Is this a current diagnosis for this admission?: Yes Plan: No acute indications for renal replacements currently. Will place orders for renal replacement tomorrow. (4) HTN (hypertension) Qualifiers: Hypertension type: essential hypertension Qualified Code(s): I10 - Essential (primary) hypertension Is this a current diagnosis for this admission?: Yes Plan: Controlled currently.
--- NOTE | 2018-02-04 18:18 | RADIOLOGY REPORT (SQ) ---
EXAM DESCRIPTION: CT CHEST WITH COMPLETED DATE/TIME: 02/04/2018 6:06 pm REASON FOR STUDY: CP / SOB .Assess PE. T82.858A STENOSIS OF OTHER VASCULAR PROSTH DEV/GRFT, INIT R0 7.9 CHEST PAIN, UNSPECIFIED K92.1 MELENA COMPARISON: Chest x-ray 02/03/2018 CT 10/15/2016 TECHNIQUE: CT scan of the chest performed using helical scanning technique with dynamic intravenous contrast injection. Images reviewed with lung, soft tissue and bone windows. Reconstructed coronal and sagittal MPR and MIP images reviewed. All images stored on PACS. All CT scanners at this facility use dose modulation, iterative reconstruction, and/or weight based d osing when appropriate to reduce radiation dose to as low as reasonably achievable (ALARA). [facility]: Dose Right [facility]: CareDose [facility]: Dose Right [facility]: Teradose 4D [facility]: Prognosis [employer] CONTRAST TYPE AND DOSE: 80 mL Isovue 300- low osmolar. RENAL FUNCTION: BUN 76 creatinine 13.6. Dialysis patient. RADIATION DOSE: . LIMITATIONS: None. FINDINGS: LUNGS AND PLEURA: No opacities, nodules, masses. No pneumothorax. No effusions. HILAR AND MEDIASTINAL STRUCTURES: No identified masses or abnormal nodes. HEART AND VASCULAR STRUCTURES: No aneurysm or dissection. No central pulmonary emboli. No pericardi al effusion. HARDWARE: None in the chest. UPPER ABDOMEN: Renal atrophy. Aortic endograft. THYROID AND OTHER SOFT TISSUES: No masses. No adenopathy. BONES: No significant finding. OTHER: No other significant finding. IMPRESSION: No acute findings in the chest. Renal atrophy. TECHNICAL DOCUMENTATION: JOB ID: [id number] Quality ID # [id number]: Final reports with documentation of one or more dose reduction techniques (e.g., Au tomated exposure control, adjustment of the mA and/or kV according to patient size, use of iterative reconstruction technique) 2010 [employer]- All Rights Reserved Reading location - IP/workstation name: [email or web address]
[2018-02-04] MEDS ORDERED: RIVAROXABAN 10 MG TABLET PO SCH (20:00)
--- NOTE | 2018-02-04 20:48 | XCELERA REPORT ---
[address] [address] Transthoracic Echocardiogram Report Name: LUPE ZURITA Age: 77 yrs Gender: Male : 1940 Patient Status: Outpatient Patient Location: [address] [place] [address] Study Date: 02/04/2018 02:17 PM Procedure: A two-dimensional transthoracic echocardiogram with color flow Doppler was performed. Study Quality: Technically suboptimal. The study was technically difficult with many images being suboptimal in quality. Reason For Study: CHEST PAIN. ELEVATED TROPONIN. NSTEMI. History: CHEST PAIN. ELEVATED TROPONIN. NSTEMI. Ordering Physician: SHANDRA HOWE Performed By: Soniya Gates Interpretation Summary Poor endocardial visualisation.Cannot comment on LVH.Probably no regional wall motion abnormality.LVEF is normal at about 65%. Doppler measurements suggest impaired left ventricular relaxation, which is associated with grade I/IV or mild diastolic dysfunction The right ventricle is not well visualized secondary to technical limitations Right atrium not well visualized secondary to technical limitations Probaly no MS or MR. There is no aortic valve stenosis There is aortic sclerosis without aortic stenosis. There is a trace to mild amount of aortic regurgitation Not well interogated.Probably no TR , and hence cannot estimate RVSP. MMode/2D Measurements & Calculations Ao root diam: 2.8 cm EDV(MOD-sp4): 111.7 ml SV(MOD-sp4): 66.1 ml Ao root area: 6.2 cm2 ESV(MOD-sp4): 45.6 ml EF(MOD-sp4): 59.2 % Doppler Measurements & Calculations MV E max merissa: MV dec slope: Ao V2 max: AI max merissa: 56.5 cm/sec 188.2 cm/sec 277.0 cm/sec MV A max merissa: 221.8 cm/sec2 Ao max PG: AI max P.7 mmHg 68.4 cm/sec MV dec time: 14.2 mmHg AI dec slope: MV E/A: 0.83 0.25 sec 143.5 cm/sec2 AI P1/2t: 565.4 msec LV V1 max PG: PA V2 max: 10.0 mmHg 142.0 cm/sec LV V1 max: PA max P.1 mmHg 157.9 cm/sec Left Ventricle Poor endocardial visualisation.Cannot comment on LVH.Probably no regional wall motion abnormality.LVEF is normal at about 65%. Doppler measurements suggest impaired left ventricular relaxation, which is associated with grade I/IV or mild diastolic dysfunction. Right Ventricle The right ventricle is not well visualized secondary to technical limitations. Atria Right atrium not well visualized secondary to technical limitations. The left atrium is not well visualized secondary to technical limitations. Mitral Valve Probaly no MS or MR. Aortic Valve There is no aortic valve stenosis. There is aortic sclerosis without aortic stenosis. There is a trace to mild amount of aortic regurgitation. Tricuspid Valve Not well interogated.Probably no TR , and hence cannot estimate RVSP. Pulmonic Valve The pulmonic valve is not well visualized. Great Vessels The aortic root is not well visualized. Effusions There is no pericardial effusion. : SHANDRA HOWE > Anna Toure
[2018-02-04] MEDS: ATORVASTATIN CALCIUM 80 MG TABLET PO SCH (21:03)
[2018-02-04] MEDS ORDERED: TRAMADOL HCL 50 MG TABLET PO SCH (22:00)
--- NOTE | 2018-02-04 22:03 | PDOC PROGRESS REPORT ---
Subjective Progress Note for:: 02/04/18 Subjective:: Patient was transferred to [facility] service today. He was admitted following left arm thrombectomy with intraprocedure reported of chest pain. His cardiac enzymes post procedure was elevated in this patient with ESRD on hemodialysis. Patient denied any subsequent chest pain or difficulty with breathing. Presently declined stress test and he is not a candidate for cardiac cath presently. He denied any nausea or vomiting. No abdominal pain. No fever or chills. Reason For Visit: T82.858A STENOSIS OF OTHER VASCULAR PROSTH DEV/GRF Physical Exam Vital Signs: Temp Pulse Resp BP Pulse Ox 98.1 F 79 18 136/69 H 100 02/04/18 19:35 02/04/18 20:13 02/04/18 19:35 02/04/18 19:35 02/04/18 19:35 Intake & Output 02/03/18 02/04/18 02/05/18 06:59 06:59 06:59 Intake Total 265 893 Output Total 100 Balance 265 793 Weight 79.5 kg General appearance: PRESENT: no acute distress, well-developed, well-nourished Head exam: PRESENT: atraumatic, normocephalic Eye exam: PRESENT: conjunctiva pink, EOMI, PERRLA. ABSENT: scleral icterus Ear exam: PRESENT: normal external ear exam Mouth exam: PRESENT: moist Respiratory exam: PRESENT: clear to auscultation checo Cardiovascular exam: PRESENT: RRR. ABSENT: diastolic murmur, rubs, systolic murmur Pulses: PRESENT: +1 pedal pulses bilateral Vascular exam: PRESENT: normal capillary refill. ABSENT: pallor GI/Abdominal exam: PRESENT: normal bowel sounds, soft. ABSENT: distended, guarding, mass, organolmegaly, rebound, tenderness Extremities exam: PRESENT: other - left arm AV fistular site dressing ok.. ABSENT: pedal edema Musculoskeletal exam: ABSENT: tenderness Neurological exam: PRESENT: alert, awake, oriented to person, oriented to place , oriented to time, oriented to situation, CN II-XII grossly intact. ABSENT: motor sensory deficit Psychiatric exam: PRESENT: appropriate affect, normal mood. ABSENT: homicidal ideation, suicidal ideation Results Laboratory Results: 02/04/18 08:42 02/04/18 08:42 02/04/18 02/04/18 08:42 08:42 WBC 5.4 RBC 3.38 L Hgb 9.6 L Hct 28.9 L MCV 85 MCH 28.5 MCHC 33.4 RDW 15.4 H Plt Count 181 Sodium 142.3 Potassium 4.4 Chloride 103 Carbon Dioxide 21 L Anion Gap 18 BUN 76 H Creatinine 13.62 H Est GFR ( Amer) 4 L Est GFR (Non-Af Amer) 4 L Glucose 89 Calcium 9.2 Triglycerides 96 Cholesterol 112.40 LDL Cholesterol Direct 47 VLDL Cholesterol 19.0 HDL Cholesterol 32 L 02/03/18 02/03/18 02/03/18 13:55 13:55 15:30 Creatine Kinase Cancelled Cancelled CK-MB (CK-2) Cancelled Troponin I Cancelled 02/03/18 02/03/18 02/03/18 15:30 17:00 17:00 Creatine Kinase 84 CK-MB (CK-2) Cancelled 1.29 Troponin I Cancelled 0.413 02/04/18 08:42 Creatine Kinase CK-MB (CK-2) Troponin I 2.720 Impressions: Fistulogram 02/03/18 00:00 IMPRESSION: Intra procedural imaging and fluoro Chest X-Ray 02/03/18 13:42 IMPRESSION: NO ACUTE RADIOGRAPHIC FINDING IN THE CHEST. Chest CT 02/04/18 00:00 IMPRESSION: No acute findings in the chest. Renal atrophy. Assessment & Plan - Diagnosis (1) Chest pain Qualifiers: Ischemic chest pain type: unspecified angina pectoris type Is this a current diagnosis for this admission?: Yes Plan: See covering attending physician orders. (2) Elevated troponin Is this a current diagnosis for this admission?: Yes Plan: See covering attending physician orders. (3) Chronic kidney disease, stage V requiring chronic dialysis Is this a current diagnosis for this admission?: Yes Plan: See covering attending physician orders. (4) HTN (hypertension) Qualifiers: Hypertension type: essential hypertension Qualified Code(s): I10 - Essential (primary) hypertension Is this a current diagnosis for this admission?: Yes Plan: See covering attending physician orders. (5) History of multiple myeloma Is this a current diagnosis for this admission?: Yes Plan: See covering attending physician orders. - Time Time Spent with patient: 25-34 minutes Medications reviewed and adjusted accordingly: Yes Anticipated discharge: Home Within: Other - Inpatient Certification Based on my medical assessment, after consideration of the patient's comorbidities, presenting symptoms, or acuity I expect that the services needed warrant INPATIENT care.: Yes I certify that my determination is in accordance with my understanding of Medicare's requirements for reasonable and necessary INPATIENT services [42 CFR 412.3e].: Yes Medical Necessity: Need Close Monitoring Due to Risk of Patient Decompensation, Need For IV Fluids, Need For Continuous Telemetry Monitoring, Risk of Complication if Not Cared For in Hospital Post Hospital Care: D/C Executive Secretary Documentation - Plan Summary Plan Summary: See covering attending physician orders.
--- NOTE | 2018-02-04 22:18 | EKG REPORT ---
SEVERITY:- ABNORMAL ECG - SINUS RHYTHM LEFT ANTERIOR FASCICULAR BLOCK CONSIDER RIGHT VENTRICULAR HYPERTROPHY ABNRM R PROG, CONSIDER ASMI OR LEAD PLACEMENT PROLONGED QT INTERVAL RVH VS POSTERIOR NC : Confirmed by: Tonia Diaz 04-Feb-2018 22:17:51
[2018-02-04 23:05] LABS: CREATINE KINASE MB 1.94 ng/mL (<4.55); TROPONIN I 1.07 ng/mL
[2018-02-05] MEDS: HEPARIN SODIUM,PORCINE/D5W 25,000 UNIT/250 ML RTUINJ IV PRN (04:22)
[2018-02-05] MEDS ORDERED: EPOETIN ALFA INJ 20000 UNIT/1 ML VIAL (RENAL) IV PRN ×2 (05:00→09:05)
[2018-02-05 05:46] LABS: HEMATOCRIT 26.4 % (37.9-51.0); HEMOGLOBIN 8.8 g/dL (13.5-17.0); MEAN CORPUSCULAR HEMOGLOBIN 28.5 pg (27.0-33.4); MEAN CORPUSCULAR HGB CONC 33.3 g/dL (32.0-36.0); MEAN CORPUSCULAR VOLUME 86 fl (80-97); PLATELET COUNT 177 10^3/uL (150-450); RED BLOOD COUNT 3.08 10^6/uL (4.35-5.55); WHITE BLOOD COUNT 5.6 10^3/uL (4.0-10.5)
[2018-02-05 05:50] LABS: CREATINE KINASE MB 1.56 ng/mL (<4.55)
[2018-02-05 05:53] LABS: TROPONIN I 0.835 ng/mL
[2018-02-05 05:55] LABS: ANION GAP 17 (5-19); BLOOD UREA NITROGEN 88 mg/dL (7-20); CALCIUM 8.6 mg/dL (8.4-10.2); CARBON DIOXIDE 20 mmol/L (22-30); CHLORIDE 103 mmol/L (98-107); CREATINE KINASE 102 U/L (55-170); GLUCOSE 87 mg/dL (75-110); POTASSIUM 4.2 mmol/L (3.6-5.0); SODIUM 140.3 mmol/L (137-145)
[2018-02-05] MEDS: LANSOPRAZOLE 30 MG TAB.RAP.DR PO SCH (06:08)
[2018-02-05] MEDS: ASPIRIN 81 MG TABLET, CHEWABLE PO SCH (10:49)
[2018-02-05] MEDS: DOCUSATE SODIUM 100 MG CAPSULE PO SCH (10:49)
[2018-02-05] MEDS: HYDRALAZINE HCL 25 MG TABLET PO SCH ×2 (10:49→21:38)
[2018-02-05] MEDS: NITROGLYCERIN 5 MG (0.2 MG/HR) PATCH.TD24 TD SCH (10:49)
[2018-02-05] MEDS: CARVEDILOL 12.5 MG TABLET PO SCH ×2 (10:50→21:37)
[2018-02-05] MEDS: CALCIUM ACETATE 667 MG CAPSULE PO SCH ×3 (10:50→17:50)
[2018-02-05] MEDS: CHOLECALCIFEROL (D3) 1,000 UNIT TABLET PO SCH (10:50)
[2018-02-05] MEDS: CYANOCOBALAMIN (VITAMIN B-12) 1,000 MCG TABLET PO SCH (10:50)
[2018-02-05] MEDS: ISOSORBIDE MONONITRATE 30 MG TAB.ER.24H PO SCH (10:50)
[2018-02-05] MEDS: FOLIC ACID/VITAMIN B COMP W-C CAPSULE PO SCH (10:50)
[2018-02-05] MEDS: MEGESTROL ACETATE 20 MG TABLET PO SCH ×2 (10:52→17:50)
--- NOTE | 2018-02-05 12:17 | Operative Report ---
Operative Report DATE OF SURGERY: 02/03/18 PREOPERATIVE DIAGNOSIS: #1 malfunctioning AV fistula, left transposed basilic. 2. End-stage renal disease on hemodialysis. 3. History of multiple myeloma. 4. History of myocardial infarction. 5. Hypertension. POSTOPERATIVE DIAGNOSIS: Same as. OPERATION: 1. Ultrasound evaluation of right femoral vein. 2. Ultrasound- guided access into right femoral vein. 3. Insertion of temporary hemodialysis catheter in real-time guidance, right femoral vein. SURGEON: AISSATOU QUIÑONES STATE INSPECTOR: None. ANESTHESIA: Local TISSUE REMOVED OR ALTERED: Not applicable. ESTIMATED BLOOD LOSS: 5 mL. INTRAOPERATIVE FINDINGS: Satisfactory and safe access in the right femoral vein. Done under real-time ultrasound guidance. Satisfactory placement of catheter with easy egress of blood and ingress of heparinized solution through all 3 ports. PROCEDURE: After obtaining informed consent, the patient was positioned supine at bedside. The right groin and adjacent areas were prepared with chlorhexidine and draped out with sterile linen. After the universal timeout the procedure commenced. A steriley sheathed ultrasound probe was used to evaluate the [l right femoral vein]. Local anesthesia was infiltrated adjacent to the probe. Access into the right femoral was accomplished using a micropuncture needle followed, by micropuncture wire and then with a micropuncture catheter. This was followed by introduction of a 0.035 guidewire, the skin opening was enlarged slightly, serially larger dilators were now placed followed by introduction of a triaysis catheter. All of these transitions were smooth. Each lumen was aspirated of blood and irrigated with heparinized solution. The catheter was now sutured to the skin using 3-0 nylon. A Bio A patch was now applied, followed by sterile dressings. Caps were placed on the end of the each of the lumens. The procedure concluded. Copies dictated operative report to Dr. Aissatou Bertrand MD.
--- NOTE | 2018-02-05 12:44 | RADIOLOGY REPORT (SQ) ---
EXAM DESCRIPTION: NON-TUNNEL CV CATH COMPLETED DATE/TIME: 02/05/2018 12:13 pm REASON FOR STUDY: NEED FOR VASCULAR ACCESS COMPARISON: None. TECHNIQUE: Single hard copy ultrasound image from vascular procedure performed by Dr. Bertrand. LIMITATIONS: None. FINDINGS: No official interpretation. IMPRESSION: Ultrasound for vascular access. TECHNICAL DOCUMENTATION: JOB ID: [id number] [employer]- All Rights Reserved Reading location - IP/workstation name: [email or web address]
[2018-02-05 13:17] LABS: APPEARANCE,URINE CLEAR; BILIRUBIN,URINE NEGATIVE (NEGATIVE); COLOR,URINE YELLOW; GLUCOSE, URINE NEGATIVE (NEGATIVE); KETONES,URINE NEGATIVE (NEGATIVE); LEUKOCYTE ESTERASE,URINE SMALL (NEGATIVE); NITRITE,URINE NEGATIVE (NEGATIVE); PROTEIN,URINE 30 mg/dL (NEGATIVE); URINE SPECIFIC GRAVITY 1.023; UROBILINOGEN,URINE NEGATIVE mg/dL (<2.0)
--- NOTE | 2018-02-05 15:43 | CONSULTATION REPORT E ---
Consultation Report NAME: LUPE ZURITA : 1940 AGE: 77Y DATE: 02/03/2018 ROOM: 328 A TO: VELMA BORRERO M.D. FROM: BETSY POOL M.D. Requesting Physician Patient was seen at 4 p.m. on 02/03/2018. Sixty minutes were spent on this patient with more than 50% of the time spent on direct patient care. His records from the office, which included records from [facility], were reviewed. More than 50% was taken up in direct care of the patient. REASON FOR CONSULTATION: Chest pain with abnormal troponin I. HISTORY OF PRESENT ILLNESS: The patient is a 77-year-old -[place] male with a history of hypertension, end-stage renal disease, history of multiple myeloma in remission, who had a malfunctioning left arm AV fistula for which he was brought in for angioplasty and thrombectomy. The patient underwent angioplasty of the lesion in the fistula and subsequently had AngioJet thrombectomy. During the time of the first episode of the procedure of thrombectomy with AngioJet, the patient had chest pain which relieved with temporary cessation of the procedure. Subsequently, repeat attempt caused severe chest pain. His blood pressure was also 184/94 and hence the procedure was stopped and the patient was admitted to the telemetry unit for further cardiac workup. The patient describes the chest pain as a dull ache in the lower chest just to the right side of the sternum. It is associated with shortness of breath. He states that the initial episode lasted for about a little over an hour. Subsequently the patient has similar pains which were easily relieved with sublingual nitroglycerin within 5 minutes. The patient's troponin I also came back elevated at 0.4. He has nonspecific T inversions in the lateral leads, I and aVL. He denies any palpitations, syncope, near syncope, or dizziness. There is no PND, orthopnea, or leg edema. At present after the second sublingual nitroglycerin the patient is pain free. PAST MEDICAL HISTORY: Positive for history of hypertension and history of end-stage renal disease, on hemodialysis. He also has a history of multiple myeloma which he says has been in remission for many years. In 2016 he was diagnosed with cke-DY-gdezkxocu MN and was transferred to [facility] where an echo report said there was noncompaction of the left anterior apex, but the discharge summary states that the patient's echocardiogram was consistent with Takotsubo cardiomyopathy. He had nonobstructive coronary artery disease at that time. Also, it was suspected that the plaque ruptured and lysis was suspected. The site of plaque rupture could not be assessed in the multiple nonobstructive coronary artery disease issues. Patient was placed on Plavix. When he was diagnosed with Takotsubo cardiomyopathy, at that time his LV ejection fraction was 45%. The patient also has a history of abdominal aortic aneurysm, GERD, history of peptic ulcer disease, history of cataracts, history of xdr-MO-mfdzkmlar MN, and history of COPD. He has no history of heart failure in spite of the cardiomyopathy. Other past medical history is positive for history of gout, history of chronic back pain, and he has osteoarthritis also. He also has a history of hyperparathyroidism. PAST SURGICAL HISTORY: Includes abdominal aortic aneurysm repair, bladder surgery, cardiac catheterization, cataract surgery, stem cell transplants, and colonoscopy and hernia surgery. FAMILY HISTORY: Father had history of myocardial infarction, Father had congestive heart failure, and Father had sudden . SOCIAL HISTORY: The patient is a former smoker. He quit smoking in 2002. DISPOSITION: THE PATIENT IS A FULL CODE. His is his surrogate healthcare decision maker. REVIEW OF SYSTEMS: CONSTITUTIONAL: Denies any fevers, chills, or rigors. Complains of generalized fatigue but no generalized weakness. HEAD: Denies headaches or head injury. There is no dizziness. EYES: No history of diplopia or amblyopia. No history of amaurosis fugax. EARS: No history of hearing loss. No history of tinnitus. No history of recurrent ear infections. NOSE: No history of nosebleeds. No history of hay fever. No history of nasal polyps. MOUTH: No history of altered taste sensation. No ulcers in the mouth. No bleeding from the gums. THROAT: No odynophagia or dysphagia. No recurrent sore throats. SKIN: No history of pruritus. No history of eczema. No history of yellowish discoloration of the skin. NECK: No history of symptoms of C-spine arthritis. No history of goiter. No history of swelling in the neck. LUNGS: History of COPD; no symptoms of acute exacerbation of COPD. No history of pulmonary embolism. No history of sleep apnea. No history of hemoptysis. No history of pleuritic chest pain, although the patient has chest pain/discomfort with shortness of breath in the lower chest just to the right of the sternum. There is no history of cough or sputum production. No wheezing. CARDIAC: History of hypertension. History of abp-AA-hwsujpywu MN as mentioned earlier. History of Takotsubo cardiomyopathy. History of cardiomyopathy with LV ejection fraction in 2016 EF of 45%. No history of palpitations or congestive heart failure. No history of palpitations or syncope. Atypical chest pain but relieved with sublingual nitroglycerin with elevated troponin I, need to seriously think that this is an atypical presentation of acute coronary syndrome; the other differential diagnosis would be pulmonary embolism due to thrombectomy, will discuss with the attending physician. GASTROINTESTINAL: Past history of ulcer disease. No history of GI bleed. History of GERD present. No history of fatty food intolerance. No abdominal pain. No history of altered bowel movements. RENAL: History of end-stage renal disease, on hemodialysis. No symptoms of hematuria or pyuria. History of gout present. METABOLIC: History of gout present. No history of obesity. ENDOCRINE: No history of diabetes mellitus. No history of thyroid disease. No history of polydipsia or polyuria. No history of heat or cold intolerance. MUSCULOSKELETAL: History of osteoarthritis and chronic back pain. History of multiple myeloma, in remission. CENTRAL NERVOUS SYSTEM: No history of TIA or CVA. No history of headaches, migraines, or seizures. PSYCHIATRIC: No history of anxiety or depression. No history of homicidal ideation. No history of suicidal ideation. VASCULAR: There is no history of calf claudication or buttock claudication. No history of DVT. History of malfunctioning left AV fistula. HEMATOLOGICAL: History of anemia of chronic disease. No history of bleeding diathesis. No history of clotting disorders. MEDICATIONS: Medications reviewed as per MAR. PHYSICAL EXAMINATION: GENERAL: The patient is well built and well nourished, appears to be slightly anxious. He is well groomed. VITAL SIGNS: He is afebrile with a temperature of 98.3 degrees Fahrenheit. His pulse is 72 beats per minute. Blood pressure is 175/86. Respirations are 14 per minute. O2 sats are 99% on room air. HEENT: Head is atraumatic and normocephalic. Eyes - Pupils are equal, round, regular, reactive to light and accommodation. Extraocular movements are normal. There is no conjunctival pallor. There is no scleral icterus. Ears - Tympanic membranes are intact. External auditory canals are clear. Nose - There is no deviated nasal septum. There is no inflammation of the nasal mucous membranes. Mouth - Mucous membranes of the mouth are moist. Tongue is moist. There are no ulcers. There is no bleeding from the gums. Throat - There is no redness of the oropharynx. There are no exudates. SKIN: There are no skin rashes. There are no skin lesions. There is no petechia or ecchymosis. NECK: Supple. There is no JVD. Carotids are equal. There is no bruit. There is no lymphadenopathy. There is no goiter. Trachea is central. LUNGS: Diminished air entry and prolonged expiration. . There is no chest wall tenderness. On percussion, . CENTRAL NERVOUS SYSTEM: The patient is conscious, awake, oriented x3 with no focal deficits. PSYCHIATRIC: The patient . DICTATING PHYSICIAN: VELMA BORRERO M.D. [id number] PHY#: [id number] ID: [id number] JOB#: [id number] ACCT: [id number] cc:VELMA BORRERO M.D. >
[2018-02-05] MEDS ORDERED: HEPARIN SOD (PORCINE) 1,000 UNIT/ML 10 ML VIAL IV PRN (15:44)
[2018-02-05 17:00] LABS: CREATINE KINASE MB 1.25 ng/mL (<4.55)
[2018-02-05 17:07] LABS: TROPONIN I 0.48 ng/mL
--- NOTE | 2018-02-05 18:57 | PDOC PROGRESS REPORT ---
Subjective Progress Note for:: 02/05/18 Subjective:: Due to difficulty with accessing his AV fistula patient had temporary right groin dialysis cath placement. Patient will need IJ cath for dialysis with further evaluation of his AV fistula to continue outpatient hemodialysis session. He denied any pain presently. No nausea, vomiting or abdominal pain. No fever or chills. Reason For Visit: T82.858A STENOSIS OF OTHER VASCULAR PROSTH DEV/GRF Physical Exam Vital Signs: Temp Pulse Resp BP Pulse Ox 97.6 F 72 18 121/60 97 02/05/18 12:16 02/05/18 14:00 02/05/18 12:16 02/05/18 12:16 02/05/18 12:16 Intake & Output 02/04/18 02/05/18 02/06/18 06:59 06:59 06:59 Intake Total 265 1293 521 Output Total 100 600 Balance 265 1193 -79 Weight 79.5 kg 82.4 kg General appearance: PRESENT: no acute distress, well-developed, well-nourished Head exam: PRESENT: atraumatic, normocephalic Ear exam: PRESENT: normal external ear exam Mouth exam: PRESENT: moist Respiratory exam: PRESENT: clear to auscultation checo, decreased breath sounds - at lung bases Cardiovascular exam: PRESENT: RRR. ABSENT: diastolic murmur, rubs, systolic murmur Vascular exam: ABSENT: pallor GI/Abdominal exam: PRESENT: normal bowel sounds, soft. ABSENT: distended, guarding, mass, organolmegaly, rebound, tenderness Extremities exam: ABSENT: pedal edema Musculoskeletal exam: PRESENT: deformity - related to multiple joints involvement with arthritis Neurological exam: PRESENT: alert, awake, oriented to person, oriented to place , oriented to time, oriented to situation, CN II-XII grossly intact. ABSENT: motor sensory deficit Psychiatric exam: PRESENT: appropriate affect, normal mood. ABSENT: homicidal ideation, suicidal ideation Skin exam: PRESENT: dry, warm. ABSENT: cyanosis, rash Results Laboratory Results: 02/05/18 04:24 02/05/18 04:24 02/05/18 02/05/18 02/05/18 04:24 04:24 12:55 WBC 5.6 RBC 3.08 L Hgb 8.8 L Hct 26.4 L MCV 86 MCH 28.5 MCHC 33.3 RDW 16.0 H Plt Count 177 Sodium 140.3 Potassium 4.2 Chloride 103 Carbon Dioxide 20 L Anion Gap 17 BUN 88 H Creatinine 14.63 H Est GFR ( Amer) 4 L Est GFR (Non-Af Amer) 3 L Glucose 87 Calcium 8.6 Urine Color YELLOW Urine Appearance CLEAR Urine pH 7.0 Ur Specific [place] 1.023 Urine Protein 30 H Urine Glucose (UA) NEGATIVE Urine Ketones NEGATIVE Urine Blood NEGATIVE Urine Nitrite NEGATIVE Ur Leukocyte Esterase SMALL H Urine WBC (Auto) 13 Urine RBC (Auto) 1 02/03/18 02/03/18 02/03/18 13:55 13:55 15:30 Creatine Kinase Cancelled Cancelled CK-MB (CK-2) Cancelled Troponin I Cancelled 02/03/18 02/03/18 02/03/18 15:30 17:00 17:00 Creatine Kinase 84 CK-MB (CK-2) Cancelled 1.29 Troponin I Cancelled 0.413 02/04/18 02/04/18 02/04/18 08:42 22:25 22:25 Creatine Kinase 97 CK-MB (CK-2) 1.94 Troponin I 2.720 1.070 02/05/18 02/05/18 02/05/18 04:24 04:24 10:37 Creatine Kinase 102 101 CK-MB (CK-2) 1.56 Troponin I 0.835 02/05/18 16:10 Creatine Kinase CK-MB (CK-2) 1.25 Troponin I 0.480 Impressions: Fistulogram 02/03/18 00:00 IMPRESSION: Intra procedural imaging and fluoro Chest X-Ray 02/03/18 13:42 IMPRESSION: NO ACUTE RADIOGRAPHIC FINDING IN THE CHEST. Chest CT 02/04/18 00:00 IMPRESSION: No acute findings in the chest. Renal atrophy. Interventional Vascular Procedure 02/05/18 00:00 IMPRESSION: Ultrasound for vascular access. Assessment & Plan - Diagnosis (1) Chest pain Qualifiers: Ischemic chest pain type: unspecified angina pectoris type Is this a current diagnosis for this admission?: Yes (2) Elevated troponin Is this a current diagnosis for this admission?: Yes (3) Chronic kidney disease, stage V requiring chronic dialysis Is this a current diagnosis for this admission?: Yes (4) HTN (hypertension) Qualifiers: Hypertension type: essential hypertension Qualified Code(s): I10 - Essential (primary) hypertension Is this a current diagnosis for this admission?: Yes (5) History of multiple myeloma Is this a current diagnosis for this admission?: Yes (6) Malfunction of arteriovenous dialysis fistula Qualifiers: Encounter type: initial encounter Qualified Code(s): T82.590A - Other mechanical complication of surgically created arteriovenous fistula, initial encounter Is this a current diagnosis for this admission?: Yes Plan: See attending physician order. - Time Time Spent with patient: 25-34 minutes Medications reviewed and adjusted accordingly: Yes Anticipated discharge: Home Within: Other - Inpatient Certification Based on my medical assessment, after consideration of the patient's comorbidities, presenting symptoms, or acuity I expect that the services needed warrant INPATIENT care.: Yes I certify that my determination is in accordance with my understanding of Medicare's requirements for reasonable and necessary INPATIENT services [42 CFR 412.3e].: Yes Medical Necessity: Need Close Monitoring Due to Risk of Patient Decompensation, Need For Continuous Telemetry Monitoring, Need for Surgery, Risk of Complication if Not Cared For in Hospital Post Hospital Care: D/C Metal Template Maker Documentation - Plan Summary Plan Summary: I will convert patient status to full admission due to malfunction n his AV fistula and need for surgical intervention for IJ cath placement and continue hemodialysis support.
[2018-02-05] MEDS ORDERED: DEXTROSE 40% GEL 15 GM TUBE PO PRN ×2 (18:58)
[2018-02-05] MEDS ORDERED: GLUCAGON,HUMAN RECOMB 1 MG INJ SUBCUT PRN (18:58)
[2018-02-05] MEDS ORDERED: DEXTROSE 50%-WATER 25 GM/50 ML DISP.SYRIN IV PRN ×2 (18:58)
[2018-02-05] MEDS: ATORVASTATIN CALCIUM 80 MG TABLET PO SCH (21:36)
[2018-02-06] MEDS: LANSOPRAZOLE 30 MG TAB.RAP.DR PO SCH (05:12)
[2018-02-06] MEDS: CALCIUM ACETATE 667 MG CAPSULE PO SCH ×3 (08:15→16:35)
[2018-02-06] MEDS: HYDRALAZINE HCL 25 MG TABLET PO SCH ×2 (09:02→22:03)
[2018-02-06] MEDS: ASPIRIN 81 MG TABLET, CHEWABLE PO SCH (09:03)
[2018-02-06] MEDS: CARVEDILOL 12.5 MG TABLET PO SCH ×2 (09:03→22:04)
[2018-02-06] MEDS: DOCUSATE SODIUM 100 MG CAPSULE PO SCH (09:03)
[2018-02-06] MEDS: MEGESTROL ACETATE 20 MG TABLET PO SCH ×2 (09:03→17:25)
[2018-02-06] MEDS: CHOLECALCIFEROL (D3) 1,000 UNIT TABLET PO SCH (09:04)
[2018-02-06] MEDS: NITROGLYCERIN 5 MG (0.2 MG/HR) PATCH.TD24 TD SCH (09:04)
[2018-02-06] MEDS: FOLIC ACID/VITAMIN B COMP W-C CAPSULE PO SCH (09:04)
[2018-02-06] MEDS: CYANOCOBALAMIN (VITAMIN B-12) 1,000 MCG TABLET PO SCH (09:04)
[2018-02-06] MEDS: ISOSORBIDE MONONITRATE 30 MG TAB.ER.24H PO SCH (09:05)
[2018-02-06] MEDS ORDERED: LIDOCAINE 0.5% INJ-PF (5 MG/ML) 50 ML SDV ONE (13:16)
[2018-02-06] MEDS ORDERED: BACITRACIN INJ 50,000 UNIT VIAL ONE (13:16)
[2018-02-06] MEDS ORDERED: MIDAZOLAM 2 MG/2 ML INJ ONE (13:41)
[2018-02-06] MEDS ORDERED: FENTANYL CITRATE INJ/PF 100 MCG/2 ML AMPUL ONE (13:41)
[2018-02-06] MEDS ORDERED: CEFAZOLIN INJ 1 GM VIAL ONE (14:15)
--- NOTE | 2018-02-06 15:43 | Operative Report ---
Operative Report DATE OF SURGERY: 02/06/18 PREOPERATIVE DIAGNOSIS: #1 malfunctioning AV fistula, left transposed basilic. 2. End-stage renal disease on hemodialysis. 3. History of multiple myeloma. 4. History of myocardial infarction. 5. Hypertension. POSTOPERATIVE DIAGNOSIS: Same as. OPERATION: 1. Ultrasound evaluation of right internal jugular vein. 2. Ultrasound-guided access into right internal jugular vein. 3. Insertion of PermCath hemodialysis catheter in real-time guidance, right internal jugular vein. SURGEON: AISSATOU QUIÑONES AR MANAGER: None. ANESTHESIA: Moderate Sedation TISSUE REMOVED OR ALTERED: Not applicable. ESTIMATED BLOOD LOSS: 5 mL. INTRAOPERATIVE FINDINGS: Satisfactory and safe access in the right internal jugular vein. Done under real-time ultrasound guidance. Satisfactory placement of catheter with easy egress of blood and ingress of heparinized solution through both ports. Smooth flow of contrast through the right atrium, ventricle and pulmonary outflow tract. The tip of the catheter is well known in the right atrial pool, was somewhat close to the right border. PROCEDURE: After obtaining informed consent, the patient was taken to the [Varnisher] and positioned supine. The [right neck] and chest were prepared with chlorhexidine and draped out with sterile linen. After the " universal timeout", in which it was verified that the patient continued to receive antibiotic, the procedure commenced. A steriley sheathed ultrasound probe was used to evaluate the [ right internal jugular] vein. Local anesthesia was infiltrated adjacent to the probe. Access into the [right internal jugular] vein was obtained using a micropuncture needle, followed by micropuncture wire and then a micropuncture catheter. This was followed by introduction of a 0.035 guidewire the tip of which was placed down into the inferior vena cava . A 23 cm long PermCath was now positioned over the chest and an exit site marked and locally anesthetized , the catheter was placed between the 2 incisions. Proximally, the catheter was now positioned using a peel-away sheath, after dilation. Easy ingress of heparinized solution and egress of blood obtained through both ports. A completion angiogram was done by injecting contrast. The findings were as dictated. The neck incision was now closed using interrupted 3-0 PDS to the subcutaneous tissues, the catheter was anchored at the exit site using 3-0 PDS. A Biopatch device was now placed adjacent to the catheter. Dressings were applied and the procedure concluded. Exposure time: [0.2 minutes]. Exposure: [6.23 Gail Grry Contrast amount: [5 mL] of [id number] low osmolality. Copies of the dictated operative report for Dr. Aissatou Bertrand MD.concluded. Copies of the dictated operative report for Dr. Aissatou Bertrand MD.
--- NOTE | 2018-02-06 16:10 | RADIOLOGY REPORT (SQ) ---
EXAM DESCRIPTION: TUNNELED CENTRAL LINE COMPLETED DATE/TIME: 02/06/2018 3:57 pm REASON FOR STUDY: NEED FOR VASCULAR ACCESS T82.858A STENOSIS OF OTHER VASCULAR PROSTH DEV/GRFT, INI T R07.9 CHEST PAIN, UNSPECIFIED K92.1 MELENA COMPARISON: None. FLUOROSCOPY TIME: 0.2 minutes 16 images saved to PACS. TECHNIQUE: Intra-operative images acquired during surgical procedure to evaluate progress. NUMBER OF IMAGES: 16 LIMITATIONS: None. FINDINGS: Selected images from right side central line placement performed by Dr. Bertrand. Line ti p overlies SVC. IMPRESSION: IMAGE(S) OBTAINED DURING PROCEDURE. COMMENT: Quality ID 145: Final reports for procedures using fluoroscopy that document radiation exp osure indices, or exposure time and number of fluorographic images (if radiation exposure indices are not available) Please consult full operative report of the attending physician for description of the procedure. TECHNICAL DOCUMENTATION: JOB ID: [id number] [employer]- All Rights Reserved Reading location - IP/workstation name: [email or web address]
--- NOTE | 2018-02-06 18:48 | PDOC PROGRESS REPORT ---
Subjective Progress Note for:: 02/06/18 Subjective:: Patient is s/p placement of IJ catheter for dialysis. He denied any pain presently. No chest pain or difficulty with breathing. No nausea, vomiting or abdominal pain. No fever or chills. Reason For Visit: CHEST PAIN;MALFUNCTION OF AV FISTULA; ESRD ON Physical Exam Vital Signs: Temp Pulse Resp BP Pulse Ox 98.5 F 69 17 100/53 L 98 02/06/18 13:44 02/06/18 14:00 02/06/18 13:44 02/06/18 13:44 02/06/18 13:44 Intake & Output 02/05/18 02/06/18 02/07/18 06:59 06:59 06:59 Intake Total 1293 943 0 Output Total 100 600 Balance 1193 343 0 Weight 82.4 kg 82 kg Physical Exam: General appearance: PRESENT: no acute distress, well-developed, well-nourished Head exam: PRESENT: atraumatic, normocephalic Ear exam: PRESENT: normal external ear exam Mouth exam: PRESENT: moist Respiratory exam: PRESENT: clear to auscultation checo, decreased breath sounds - at lung bases Cardiovascular exam: PRESENT: RRR. ABSENT: diastolic murmur, rubs, systolic murmur Vascular exam: ABSENT: pallor. Site of right IJ cath dressing satisfactory. GI/Abdominal exam: PRESENT: normal bowel sounds, soft. ABSENT: distended, guarding, mass, organomegaly, rebound, tenderness Extremities exam: ABSENT: pedal edema Musculoskeletal exam: PRESENT: deformity - related to multiple joints involvement with arthritis Neurological exam: PRESENT: alert, awake, oriented to person, oriented to place , oriented to time, oriented to situation, CN II-XII grossly intact. ABSENT: motor sensory deficit Psychiatric exam: PRESENT: appropriate affect, normal mood. ABSENT: homicidal ideation, suicidal ideation Skin exam: PRESENT: dry, warm. ABSENT: cyanosis, rash Results Laboratory Results: 02/05/18 04:24 02/05/18 04:24 02/03/18 02/03/18 02/03/18 13:55 13:55 15:30 Creatine Kinase Cancelled Cancelled CK-MB (CK-2) Cancelled Troponin I Cancelled 02/03/18 02/03/18 02/03/18 15:30 17:00 17:00 Creatine Kinase 84 CK-MB (CK-2) Cancelled 1.29 Troponin I Cancelled 0.413 02/04/18 02/04/18 02/04/18 08:42 22:25 22:25 Creatine Kinase 97 CK-MB (CK-2) 1.94 Troponin I 2.720 1.070 02/05/18 02/05/18 02/05/18 04:24 04:24 10:37 Creatine Kinase 102 101 CK-MB (CK-2) 1.56 Troponin I 0.835 02/05/18 16:10 Creatine Kinase CK-MB (CK-2) 1.25 Troponin I 0.480 Impressions: Fistulogram 02/03/18 00:00 IMPRESSION: Intra procedural imaging and fluoro Chest X-Ray 02/03/18 13:42 IMPRESSION: NO ACUTE RADIOGRAPHIC FINDING IN THE CHEST. Chest CT 02/04/18 00:00 IMPRESSION: No acute findings in the chest. Renal atrophy. Interventional Vascular Procedure 02/05/18 00:00 IMPRESSION: Ultrasound for vascular access. Central Venous Line 02/06/18 00:00 IMPRESSION: IMAGE(S) OBTAINED DURING PROCEDURE. Assessment & Plan - Diagnosis (1) Chest pain Qualifiers: Ischemic chest pain type: unspecified angina pectoris type Is this a current diagnosis for this admission?: Yes (2) Elevated troponin Is this a current diagnosis for this admission?: Yes (3) Chronic kidney disease, stage V requiring chronic dialysis Is this a current diagnosis for this admission?: Yes (4) HTN (hypertension) Qualifiers: Hypertension type: essential hypertension Qualified Code(s): I10 - Essential (primary) hypertension Is this a current diagnosis for this admission?: Yes (5) History of multiple myeloma Is this a current diagnosis for this admission?: Yes (6) Malfunction of arteriovenous dialysis fistula Qualifiers: Encounter type: initial encounter Qualified Code(s): T82.590A - Other mechanical complication of surgically created arteriovenous fistula, initial encounter Is this a current diagnosis for this admission?: Yes - Time Time Spent with patient: 25-34 minutes Medications reviewed and adjusted accordingly: Yes Anticipated discharge: Home Within: within 24 hours - Inpatient Certification Based on my medical assessment, after consideration of the patient's comorbidities, presenting symptoms, or acuity I expect that the services needed warrant INPATIENT care.: Yes I certify that my determination is in accordance with my understanding of Medicare's requirements for reasonable and necessary INPATIENT services [42 CFR 412.3e].: Yes Medical Necessity: Need Close Monitoring Due to Risk of Patient Decompensation, Need For Continuous Telemetry Monitoring, Risk of Complication if Not Cared For in Hospital Post Hospital Care: D/C Telecommunications Engineer Documentation - Plan Summary Plan Summary: See attending physician orders.
[2018-02-06] MEDS: ATORVASTATIN CALCIUM 80 MG TABLET PO SCH (22:04)
[2018-02-07] MEDS ORDERED: EPOETIN ALFA INJ 20000 UNIT/1 ML VIAL (RENAL) IV PRN (05:00)
[2018-02-07] MEDS: LANSOPRAZOLE 30 MG TAB.RAP.DR PO SCH (05:35)
[2018-02-07 06:21] LABS: HEMATOCRIT 22.9 % (37.9-51.0); MEAN CORPUSCULAR HEMOGLOBIN 29.2 pg (27.0-33.4); MEAN CORPUSCULAR HGB CONC 33.8 g/dL (32.0-36.0); MEAN CORPUSCULAR VOLUME 86 fl (80-97); PLATELET COUNT 145 10^3/uL (150-450); RED BLOOD COUNT 2.66 10^6/uL (4.35-5.55); RED CELL DISTRIBUTION WIDTH 16.3 % (11.5-14.0); WHITE BLOOD COUNT 4.8 10^3/uL (4.0-10.5)
[2018-02-07 06:28] LABS: HEMOGLOBIN 7.8 g/dL (13.5-17.0)
[2018-02-07 06:36] LABS: ANION GAP 16 (5-19); BLOOD UREA NITROGEN 57 mg/dL (7-20); CALCIUM 8.6 mg/dL (8.4-10.2); CARBON DIOXIDE 22 mmol/L (22-30); CHLORIDE 104 mmol/L (98-107); GLUCOSE 92 mg/dL (75-110); POTASSIUM 4.2 mmol/L (3.6-5.0); SODIUM 141.5 mmol/L (137-145)
--- NOTE | 2018-02-07 08:25 | PDOC DISCHARGE SUMMARY ---
General - Admit/Disc Date/PCP Admission Date/Primary Care Provider: 02/05/18 19:18 BETSY POOL MD Discharge Date: 02/07/18 - Discharge Diagnosis (1) Chest pain Is this a current diagnosis for this admission?: Yes Summary: Resolved (2) Elevated troponin Is this a current diagnosis for this admission?: Yes Summary: Improved (3) Chronic kidney disease, stage V requiring chronic dialysis Is this a current diagnosis for this admission?: Yes Summary: Stable (4) HTN (hypertension) Is this a current diagnosis for this admission?: Yes Summary: Stable (5) History of multiple myeloma Is this a current diagnosis for this admission?: Yes Summary: Stable (6) Malfunction of arteriovenous dialysis fistula Is this a current diagnosis for this admission?: Yes Summary: Will need further intervention on outpatient follow up. - Additional Information Resuscitation Status: Full Code Prescriptions: Nitroglycerin [Nitro-Dur 5 mg (0.2 mg/Hr) Transdermal Patch] 1 each TD DAILY # 30 patch.td24 Nitroglycerin [Nitrostat 0.4 mg (1/150 Gr) Tabs 25/Bottle] 1 tab SL Q5MP PRN #1 bottle PRN Reason: Home Medications: Atorvastatin Calcium [Lipitor 80 mg Tablet] 80 mg PO QHS 08/13/17 B Complex W-C No.20/Folic Acid [Nephrocaps Softgel] 1 cap PO DAILY 08/13/17 Calcium Acetate [Phoslo 667 mg Capsule] 1,334 mg PO MEALS 08/13/17 Carvedilol [Coreg 25 mg Tablet] 25 mg PO Q12 08/13/17 Cholecalciferol (Vitamin D3) [Vitamin D3] 1,000 unit PO DAILY 08/13/17 Cyanocobalamin (Vitamin B-12) [Vitamin B-12 SL 1000 mcg Tablet] 1,000 mcg PO DAILY 08/13/17 Duloxetine HCl [Cymbalta] 60 mg PO DAILY 08/13/17 Hydralazine HCl [Apresoline 50 mg Tablet] 50 mg PO DAILY 08/13/17 Isosorbide Mononitrate [Isosorbide Mononitrate ER] 30 mg PO DAILY 08/13/17 Megestrol Acetate 40 mg PO BID 08/13/17 Memantine HCl/Donepezil HCl [Namzaric 14 mg-10 mg Capsule] 1 cap PO QPM Pantoprazole Sodium [Protonix] 40 mg PO DAILY 08/13/17 Nitroglycerin [Nitro-Dur 5 mg (0.2 mg/Hr) Transdermal Patch] 1 each TD DAILY # 30 patch.td24 02/07/18 Nitroglycerin [Nitrostat 0.4 mg (1/150 Gr) Tabs 25/Bottle] 1 tab SL Q5MP PRN #1 bottle 02/07/18 History of Present Illness Patient complains of: Chest pain History of Present Illness: LUPE ZURITA is a 77 year old male who arrived to on 02/03/2018 from the [facility] where he had been undergoing a procedure for occluded dialysis fistula with Dr. Bertrand when he developed chest pain. He reported continued chest pain described as tense, non-radiating, substernal chest pressure rated 4/5. He denied associated RAMSEY, dizziness, dyspnea, orthopnea, or nausea. EKG showed NSR, no indication of infarction or ischemia. STAT Troponin was elevated to 0.4. Telecommunications Facility Examiner, Dr. Caicedo, was consulted. He recommended initiating a heparin gtt. The patient was admitted to [facility] for chest pain observation. Upon evaluation this morning (02/04/2018), the patient is awake, alert and oriented. He is resting comfortably in bed on room air. Lungs are clear. S1S2. Faint pulses in upper and lower extremities. No evidence of peripheral edema. The patient endorses intermittent chest pain overnight, but at the time of assessment he stated he was chest pain free. Unfortunately, the patient refused all lab work overnight. Unable to trend troponins. The patient was able to be convinced by medical staff this morning regarding the importance of trending his lab work, specifically troponin and PTT while he is on a heparin gtt. Repeat troponin this morning was 2.7. Cardiology aware. Continue heparin gtt. Plan for STAT ECHOcardiogram. If patient develops persistent chest pain or EKG changes, consider transfer to tertiary facility. Hospital Course Hospital Course: Patient was managed with IV heparin and Nitroglycerin with improvement in his symptoms. He was eventually transition to Nitroglycerin patch. Unfortunately his AV fistula remain nonfunctional despite thrombectomy procedure necessitating emergent temporary dialysis catheter and eventual placement of right IJ cath. He had drop in his hemoglobin this morning which may be due to his chronic kidney disease. There was no reported significant blood loss during his procedure. He will remain on Procrit therapy with increase dose adjustment at dialysis tomorrow. He will be discharge home today and report to [facility] tomorrow. He will follow up with Dr. Ranjeet Manning, Dr. Caicedo, Dr Obinna Bertrand and Shweta as instructed upon discharge. Physical Exam Vital Signs: Temp Pulse Resp BP Pulse Ox 98.5 F 74 20 138/61 H 100 02/07/18 07:23 02/07/18 07:23 02/07/18 07:23 02/07/18 07:23 02/07/18 07:23 Intake & Output 02/06/18 02/07/18 02/08/18 06:59 06:59 06:59 Intake Total 943 437 Output Total 600 Balance 343 437 Weight 82 kg 81.7 kg Physical Exam: General appearance: PRESENT: no acute distress, well-developed, well-nourished Head exam: PRESENT: atraumatic, normocephalic Ear exam: PRESENT: normal external ear exam Mouth exam: PRESENT: moist Respiratory exam: PRESENT: clear to auscultation checo, decreased breath sounds - at lung bases Cardiovascular exam: PRESENT: RRR. ABSENT: diastolic murmur, rubs, systolic murmur Vascular exam: ABSENT: pallor. Site of right IJ cath dressing satisfactory. GI/Abdominal exam: PRESENT: normal bowel sounds, soft. ABSENT: distended, guarding, mass, organomegaly, rebound, tenderness Extremities exam: ABSENT: pedal edema Musculoskeletal exam: PRESENT: deformity - related to multiple joints involvement with arthritis Neurological exam: PRESENT: alert, awake, oriented to person, oriented to place , oriented to time, oriented to situation, CN II-XII grossly intact. ABSENT: motor sensory deficit Psychiatric exam: PRESENT: appropriate affect, normal mood. ABSENT: homicidal ideation, suicidal ideation Skin exam: PRESENT: dry, warm. ABSENT: cyanosis, rash Results Laboratory Results: 02/07/18 05:43 02/07/18 05:43 02/07/18 02/07/18 05:43 05:43 WBC 4.8 RBC 2.66 L Hgb 7.8 L Hct 22.9 L MCV 86 MCH 29.2 MCHC 33.8 RDW 16.3 H Plt Count 145 L Sodium 141.5 Potassium 4.2 Chloride 104 Carbon Dioxide 22 Anion Gap 16 BUN 57 H Creatinine 11.23 H Est GFR ( Amer) 5 L Est GFR (Non-Af Amer) 4 L Glucose 92 Calcium 8.6 02/03/18 02/03/18 02/03/18 13:55 13:55 15:30 Creatine Kinase Cancelled Cancelled CK-MB (CK-2) Cancelled Troponin I Cancelled 02/03/18 02/03/18 02/03/18 15:30 17:00 17:00 Creatine Kinase 84 CK-MB (CK-2) Cancelled 1.29 Troponin I Cancelled 0.413 02/04/18 02/04/18 02/04/18 08:42 22:25 22:25 Creatine Kinase 97 CK-MB (CK-2) 1.94 Troponin I 2.720 1.070 02/05/18 02/05/18 02/05/18 04:24 04:24 10:37 Creatine Kinase 102 101 CK-MB (CK-2) 1.56 Troponin I 0.835 02/05/18 16:10 Creatine Kinase CK-MB (CK-2) 1.25 Troponin I 0.480 Impressions: Fistulogram 02/03/18 00:00 IMPRESSION: Intra procedural imaging and fluoro Chest X-Ray 02/03/18 13:42 IMPRESSION: NO ACUTE RADIOGRAPHIC FINDING IN THE CHEST. Chest CT 02/04/18 00:00 IMPRESSION: No acute findings in the chest. Renal atrophy. Interventional Vascular Procedure 02/05/18 00:00 IMPRESSION: Ultrasound for vascular access. Central Venous Line 02/06/18 00:00 IMPRESSION: IMAGE(S) OBTAINED DURING PROCEDURE. Qualifiers - * PATIENT BEING DISCHARGED WITH ANY OF THE FOLLOWING DIAGNOSIS: No Plan Discharge Plan: D/C home today. Follow up at [facility] tomorrow. He will follow up with consultants and PCP as instructed upon discharge.
[2018-02-07] MEDS: CALCIUM ACETATE 667 MG CAPSULE PO SCH (09:51)
[2018-02-07] MEDS: HYDRALAZINE HCL 25 MG TABLET PO SCH (09:53)
[2018-02-07] MEDS: ASPIRIN 81 MG TABLET, CHEWABLE PO SCH (09:54)
[2018-02-07] MEDS: DOCUSATE SODIUM 100 MG CAPSULE PO SCH (09:54)
[2018-02-07] MEDS: CARVEDILOL 12.5 MG TABLET PO SCH (09:54)
[2018-02-07] MEDS: CHOLECALCIFEROL (D3) 1,000 UNIT TABLET PO SCH (09:55)
[2018-02-07] MEDS: CYANOCOBALAMIN (VITAMIN B-12) 1,000 MCG TABLET PO SCH (09:55)
[2018-02-07] MEDS: ISOSORBIDE MONONITRATE 30 MG TAB.ER.24H PO SCH (09:55)
[2018-02-07] MEDS: FOLIC ACID/VITAMIN B COMP W-C CAPSULE PO SCH (09:55)
[2018-02-07] MEDS: MEGESTROL ACETATE 20 MG TABLET PO SCH (09:55)
[2018-02-07] MEDS: NITROGLYCERIN 5 MG (0.2 MG/HR) PATCH.TD24 TD SCH (09:57)
[2018-02-07 10:09] VITALS: BP 124/54
== END 2018-02-07 10:38 | disposition home or self-care (01) | DRG 252 ==
LOC: CCL 07:42 → 3S 12:52 → CCL 02-05 19:18 → 3S 02-05 19:18
PROVIDERS: ADMIT Internal Medicine Geriatric Medicine; ATTEND Internal Medicine
PROC: 05CC3ZZ Extirpation of Matter from Left Basilic Vein, Percutaneous Approach (ICD-10-PCS; principal; 2018-02-03)
PROC: 057C3ZZ Dilation of Left Basilic Vein, Percutaneous Approach (ICD-10-PCS; 2018-02-03)
PROC: B54BZZA Ultrasonography of Right Lower Extremity Veins, Guidance (ICD-10-PCS; 2018-02-03)
PROC: 5A1D70Z Performance of Urinary Filtration, Intermittent, Less than 6 Hours Per Day (ICD-10-PCS; 2018-02-03)
PROC: 3E03317 Introduction of Other Thrombolytic into Peripheral Vein, Percutaneous Approach (ICD-10-PCS; 2018-02-03)
PROC: 5A1D70Z Performance of Urinary Filtration, Intermittent, Less than 6 Hours Per Day (ICD-10-PCS; 2018-02-05)
PROC: 06H033Z Insertion of Infusion Device into Inferior Vena Cava, Percutaneous Approach (ICD-10-PCS; 2018-02-06)
PROC: B549ZZA Ultrasonography of Inferior Vena Cava, Guidance (ICD-10-PCS; 2018-02-06)
DX: R07.89 Other chest pain (principal); N18.6 End stage renal disease; T82.590A Other mechanical complication of surgically created arteriovenous fistula, initial encounter; C90.01 Multiple myeloma in remission; I12.0 Hypertensive chronic kidney disease with stage 5 chronic kidney disease or end stage renal disease; I51.81 Takotsubo syndrome; Z94.84 Stem cells transplant status; I73.9 Peripheral vascular disease, unspecified; K21.9 Gastro-esophageal reflux disease without esophagitis; R74.8 Abnormal levels of other serum enzymes; Z99.2 Dependence on renal dialysis; I25.2 Old myocardial infarction; Z90.49 Acquired absence of other specified parts of digestive tract; Z87.891 Personal history of nicotine dependence; Z83.3 Family history of diabetes mellitus; Z79.899 Other long term (current) drug therapy; Z82.49 Family history of ischemic heart disease and other diseases of the circulatory system
CPT/HCPCS: 36415; 36558; 36905; 71045; 71260; 76937; 77001; 80048; 80061; 81001; 82550; 82553; 84484; 85027; 85610; 85730; 93005; 93010; 93306; C1752; C1757; C1769; G0378; G0379; J0690; J1644; J2250; J2997; J3010; J3490; Q9967

== ENCOUNTER 2018-03-17 09:36 | Day surgery (SDC) | payer MEDICARE ==
[2018-03-17] MEDS ORDERED: DIAZEPAM 5 MG TABLET ONE (10:12)
[2018-03-17] MEDS ORDERED: LIDOCAINE 0.5% INJ-PF (5 MG/ML) 50 ML SDV ONE (10:27)
[2018-03-17] MEDS ORDERED: MIDAZOLAM 2 MG/2 ML INJ ONE (10:27)
[2018-03-17] MEDS ORDERED: FENTANYL CITRATE INJ/PF 100 MCG/2 ML AMPUL ONE (10:28)
[2018-03-17] MEDS ORDERED: HEPARIN SOD (PORCINE) 5,000 UNIT/ML 1 ML SYRINGE ONE (10:28)
[2018-03-17 10:30] LABS: HEMATOCRIT 30.6 % (37.9-51.0); HEMOGLOBIN 10.1 g/dL (13.5-17.0); MEAN CORPUSCULAR HEMOGLOBIN 29.3 pg (27.0-33.4); MEAN CORPUSCULAR HGB CONC 33.2 g/dL (32.0-36.0); MEAN CORPUSCULAR VOLUME 89 fl (80-97); PLATELET COUNT 182 10^3/uL (150-450); RED BLOOD COUNT 3.46 10^6/uL (4.35-5.55); WHITE BLOOD COUNT 4.9 10^3/uL (4.0-10.5)
[2018-03-17] MEDS ORDERED: ALTEPLASE INJ 2 MG VIAL (CATH CLEARANCE) ONE (10:32)
[2018-03-17 10:45] LABS: ANION GAP 12 (5-19); BLOOD UREA NITROGEN 38 mg/dL (7-20); CALCIUM 9.2 mg/dL (8.4-10.2); CARBON DIOXIDE 26 mmol/L (22-30); CHLORIDE 102 mmol/L (98-107); GLUCOSE 98 mg/dL (75-110); POTASSIUM 4.5 mmol/L (3.6-5.0); SODIUM 139.8 mmol/L (137-145)
--- NOTE | 2018-03-17 12:28 | Discharge Summary ---
Discharge Summary (SDC) - Discharge Final Diagnosis: #1 right-sided PermCath in place. 2. Malfunctioning left arm transposed basilic arteriovenous fistula. 3. End-stage renal disease on hemodialysis. 4. History of multiple myeloma. 5. Coronary artery disease. 6. Hypertension Date of Surgery: 03/17/18 Discharge Date: 03/17/18 Condition: Fair Treatment or Instructions: Discharge home [after recovery per ASU criteria]. Diet , [renal],as tolerated, when fully awake advance as tolerated. Activities within moderation encouraged. Follow up in my office by appointment in about [2 weeks. Call for appointment. Leave wounds [covered], [keep clean and dry, until hemodialysis. Hold of on school/work [until evaluation in office]. Meds per med rec. May shower [in 48 hrs], [try to keep operated area as dry as possible]. Referrals: BETSY POOL MD [Primary Care Provider] - Discharge Diet: Other (Comments) - Renal. Respiratory Treatments at Home: Deep Breathing/Coughing Discharge Activity: Activity As Tolerated Report the Following to Your Physician Immediately: Shortness of Breath, Unusual Bleeding
--- NOTE | 2018-03-17 12:47 | Operative Report ---
Operative Report DATE OF SURGERY: 03/17/18 PREOPERATIVE DIAGNOSIS: #1 right-sided PermCath in place. 2. Malfunctioning left arm transposed basilic arteriovenous fistula. 3. End-stage renal disease on hemodialysis. 4. History of multiple myeloma. 5. Coronary artery disease. 6. Hypertension POSTOPERATIVE DIAGNOSIS: #1 right-sided PermCath in place. 2. Malfunctioning left arm transposed basilic arteriovenous fistula. 3. End-stage renal disease on hemodialysis. 4. History of multiple myeloma. 5. Coronary artery disease. 6. Hypertension OPERATION: 1. Needle introduction into the fistula. 2. Fistula angioplasty. 3. Angiogram and interpretation. SURGEON: AISSATOU QUIÑONES AVIAN KEEPER: None. ANESTHESIA: Moderate Sedation TISSUE REMOVED OR ALTERED: Not applicable. COMPLICATIONS: None. ESTIMATED BLOOD LOSS: 5 mL. INTRAOPERATIVE FINDINGS: Of a well founded left arm transposed basilic vein fistula. Appropriately pulsatile. Excellent inflow with slight possibility of expansion in the first 4 cm which is slightly ragged slightly smaller than the feeding brachial artery. Inflow does not seem to be an issue. A stenosis appreciated in the mid subclavian about 60% of the adjacent lumen. This was resolved with a 9 mm angioplasty balloon. Thrombus adherent to the wall of the fistula was much less than this was addressed by irrigating with about 2 mils of TPA. PROCEDURE: PROCEDURE: After verifying the procedure and having obtained informed consent, the patient's left arm was prepared with Chlorhexidine and draped out with sterile linen. Local anesthesia infiltrated. Percutaneous access into the fistula ,[ antegrade], obtained about [8 cm] from the arteriovenous anastomosis using a micro puncture needle followed by micro puncture wire and then a micro puncture catheter. A 0.035 [place] wire was inserted, and over this, a 7 Hungarian short introducer was placed. Angiogram demonstrated the aforementioned findings. Angioplasty was elected.this was followed by a [8 -mm] angioplasty balloon . Angioplasty was done in the mid subclavian vein. Inflating using a 3 mils syringe for 3 minutes. Completion angiogram demonstrated significant residual stenosis. A 9 mm angioplasty balloon, ultra burst type was now inserted]. This allowed angioplasty in the affected subclavian vein using a 3 mils syringe for 3 minutes. Completion angiogram demonstrated [satisfactory result]. A retrograde angiogram was now obtained in the proximal fistula and the brachial artery with the findings as dictated. The instrumentation was now withdrawn over hand pressure for 10 minutes. Dressings applied, procedure concluded. Exposure time: 2 minutes. Radiation: 24.56 nearly 3. Contrast: 25 mils of Isovue-300, low osmolality. DICTATING PHYSICIAN: AISSATOU KERN M.D. cc: AISSATOU KERN M.D. ([id number]) >>
[2018-03-17 13:24] VITALS: BP 161/85
--- NOTE | 2018-03-17 14:16 | RADIOLOGY REPORT (SQ) ---
EXAM DESCRIPTION: FISTULAGRAM W/PLASTY; ANGIOPLASTY BRACHIOCEPHALIC COMPLETED DATE/TIME: 03/17/2018 12:09 pm REASON FOR STUDY: T82.858A T82.858A STENOSIS OF OTHER VASCULAR PROSTH DEV/GRFT, INIT COMPARISON: None. FLUOROSCOPY TIME: 1.2 minutes 79 images saved to PACS. TECHNIQUE: Intra-operative images acquired during surgical procedure to evaluate progress. NUMBER OF IMAGES: Cine fluoroscopic images. LIMITATIONS: None. FINDINGS: Selected images from venography and angioplasty in the left upper extremity. IMPRESSION: IMAGE(S) OBTAINED DURING PROCEDURE. COMMENT: Quality ID 145: Final reports for procedures using fluoroscopy that document radiation exp osure indices, or exposure time and number of fluorographic images (if radiation exposure indices are not available) Please consult full operative report of the attending physician for description of the procedure. TECHNICAL DOCUMENTATION: JOB ID: [id number] [employer]- All Rights Reserved Reading location - IP/workstation name: [facility]
--- NOTE | 2018-03-17 14:16 | RADIOLOGY REPORT (SQ) ---
EXAM DESCRIPTION: FISTULAGRAM W/PLASTY; ANGIOPLASTY BRACHIOCEPHALIC COMPLETED DATE/TIME: 03/17/2018 12:09 pm REASON FOR STUDY: T82.858A T82.858A STENOSIS OF OTHER VASCULAR PROSTH DEV/GRFT, INIT COMPARISON: None. FLUOROSCOPY TIME: 1.2 minutes 79 images saved to PACS. TECHNIQUE: Intra-operative images acquired during surgical procedure to evaluate progress. NUMBER OF IMAGES: Cine fluoroscopic images. LIMITATIONS: None. FINDINGS: Selected images from venography and angioplasty in the left upper extremity. IMPRESSION: IMAGE(S) OBTAINED DURING PROCEDURE. COMMENT: Quality ID 145: Final reports for procedures using fluoroscopy that document radiation exp osure indices, or exposure time and number of fluorographic images (if radiation exposure indices are not available) Please consult full operative report of the attending physician for description of the procedure. TECHNICAL DOCUMENTATION: JOB ID: [id number] [employer]- All Rights Reserved Reading location - IP/workstation name: [facility]
--- NOTE | 2018-03-17 16:01 | EKG REPORT ---
SEVERITY:- ABNORMAL ECG - SINUS RHYTHM LEFT ANTERIOR FASCICULAR BLOCK BORDERLINE PROLONGED QT INTERVAL : Confirmed by: Tonia Diaz 17-Mar-2018 16:00:30
== END 2018-03-17 13:28 | disposition home or self-care (01) ==
LOC: CCL 09:36
PROVIDERS: ATTEND Surgery
DX: T82.858A Stenosis of other vascular prosthetic devices, implants and grafts, initial encounter (principal); Y83.2 Surgical operation with anastomosis, bypass or graft as the cause of abnormal reaction of the patient, or of later complication, without mention of misadventure at the time of the procedure; I12.0 Hypertensive chronic kidney disease with stage 5 chronic kidney disease or end stage renal disease; N18.6 End stage renal disease; Z99.2 Dependence on renal dialysis; I25.10 Atherosclerotic heart disease of native coronary artery without angina pectoris; E87.5 Hyperkalemia; R53.81 Other malaise; I51.9 Heart disease, unspecified; R01.1 Cardiac murmur, unspecified; E87.2 Acidosis; R06.2 Wheezing; K21.9 Gastro-esophageal reflux disease without esophagitis; E73.9 Lactose intolerance, unspecified; C96.9 Malignant neoplasm of lymphoid, hematopoietic and related tissue, unspecified; I25.2 Old myocardial infarction; F03.91 Unspecified dementia, unspecified severity, with behavioral disturbance; Z79.899 Other long term (current) drug therapy
CPT/HCPCS: 36415; 85027; 80048; 36907; 36902; 76937; 93005; 93010; C1725; C1752; C1887; C1894; Q9967; C1769; J2997; J2250; J1644 ×2; A9270; J3010; J3490

== ENCOUNTER 2018-08-19 12:01 | Day surgery (SDC) | payer MEDICARE ==
[~2018-08-19 12:01] MED LIST changes: +OXYCODONE-ACETAMINOPHEN 5-325 MG TABLET PO PRN
[2018-08-19] MEDS ORDERED: OXYCODONE-ACETAMINOPHEN 5-325 MG TABLET ONE (12:21)
[2018-08-19] MEDS ORDERED: DIAZEPAM 5 MG TABLET ONE (12:21)
[2018-08-19 12:36] LABS: HEMATOCRIT 35.3 % (37.9-51.0); MEAN CORPUSCULAR HEMOGLOBIN 29.1 pg (27.0-33.4); MEAN CORPUSCULAR VOLUME 85 fl (80-97); PLATELET COUNT 230 10^3/uL (150-450); RED BLOOD COUNT 4.14 10^6/uL (4.35-5.55); RED CELL DISTRIBUTION WIDTH 16.2 % (11.5-14.0); WHITE BLOOD COUNT 7.5 10^3/uL (4.0-10.5)
[2018-08-19] MEDS ORDERED: LIDOCAINE 0.5% INJ-PF (5 MG/ML) 50 ML SDV ONE (12:39)
[2018-08-19] MEDS ORDERED: MIDAZOLAM 2 MG/2 ML INJ ONE (12:41)
[2018-08-19] MEDS ORDERED: FENTANYL CITRATE INJ/PF 100 MCG/2 ML AMPUL ONE (12:41)
[2018-08-19] MEDS ORDERED: HEPARIN SOD (PORCINE) 5,000 UNIT/ML 1 ML SYRINGE ONE (12:41)
[2018-08-19 13:00] LABS: ANION GAP 14 (5-19); BLOOD UREA NITROGEN 20 mg/dL (7-20); CALCIUM 9.6 mg/dL (8.4-10.2); CARBON DIOXIDE 33 mmol/L (22-30); CHLORIDE 94 mmol/L (98-107); GLUCOSE 100 mg/dL (75-110); POTASSIUM 3.3 mmol/L (3.6-5.0); SODIUM 140.7 mmol/L (137-145)
--- NOTE | 2018-08-19 15:07 | Discharge Summary ---
Discharge Summary (SDC) - Discharge Final Diagnosis: #1 malfunctioning transposed basilic vein fistula, left arm. 2. End-stage renal disease on hemodialysis. 3. History of multiple myeloma. 4. Hypertension. Date of Surgery: 08/19/18 Discharge Date: 08/19/18 Condition: Poor Forms: Sedation D/C Instructions, Discharge POC-Surgical Service Treatment or Instructions: Return to surgical paviliion next week, to be scheduled by [facility]. Discharge home [after recovery per ASU criteria]. Diet , [renal],as tolerated, when fully awake advance as tolerated. Activities within moderation encouraged. Follow up in my office by appointment in about [1 month. Call for appointment. Leave wounds [covered], [keep clean and dry, until office hemodialysis. Meds per med rec. May shower [in 48 hrs], [try to keep operated area as dry as possible]. Referrals: AISSATOU KERN MD [ACTIVE STAFF] - Discharge Diet: Other (Comments) - Renal. Respiratory Treatments at Home: Deep Breathing/Coughing Discharge Activity: Activity As Tolerated Home Care Assistance: None Needed Report the Following to Your Physician Immediately: Shortness of Breath, Nausea, Vomiting, Increase in Pain, Fever over 101 Degrees, Unusual Bleeding, Redness, Swelling, Warmth, Numbness, Tingling Sensation
--- NOTE | 2018-08-19 16:01 | Operative Report ---
Operative Report DATE OF SURGERY: 08/19/18 PREOPERATIVE DIAGNOSIS: #1 malfunctioning transposed basilic vein fistula, left arm. 2. End-stage renal disease on hemodialysis. 3. History of multiple myeloma. 4. Hypertension. POSTOPERATIVE DIAGNOSIS: #1 malfunctioning transposed basilic vein fistula, left arm. 2. End-stage renal disease on hemodialysis. 3. History of multiple myeloma. 4. Hypertension. OPERATION: 1. Needle introduction into the fistula. 2. Angioplasty and subclavian cephalic junction. 3. Angioplasty in mid fistula. 4. Drug-eluting balloon angioplasty in mid fistula. 5. Angiogram and interpretation. SURGEON: AISSATOU QUIÑONES UNCRATER: None. ANESTHESIA: Moderate Sedation TISSUE REMOVED OR ALTERED: Not applicable. COMPLICATIONS: None. ESTIMATED BLOOD LOSS: 5 mL. INTRAOPERATIVE FINDINGS: Of a well founded left transposed basilic vein fistula. Somewhat firmer than expected. Angiogram demonstrated a tight stenosis at about the subclavian cephalic junction estimated 70% of the adjacent lumen. This was also just suggested by the finding of appropriate collaterals in this area. Additional findings consisted of a 2 cm long narrowing at about 30 cm ecchymosis. This is about 70-80% of the adjacent lumen. Both areas were improved with a residual 5% stenosis at the subclavian cephalic. The elimination of the arm stenosis. In addition to these the patient has a chain of stenosis noted in the first 6 cm of the fistula. This will need to be ad dressed. Because the patient has come from dialysis today and had quite a bit of work done cephalad I believe this is better done next week or the week after. PROCEDURE: PROCEDURE: After verifying the procedure and having obtained informed consent, the patient's left arm was prepared with Chlorhexidine and draped out with sterile linen. Local anesthesia infiltrated. Percutaneous access into the fistula ,[ antegrade], obtained about [10 cm] from the arteriovenous anastomosis using a micro puncture needle followed by micro puncture wire and then a micro puncture catheter. A 0.035 [place] wire was inserted, and over this, a 7 Kazakh short introducer was placed.Angiogram demonstrated the aforementioned findings. Angioplasty was elected., this was followed by a [8 -mm] angioplasty balloon . Angioplasty was at the cephalic subclavian junction using an insufflator going up to 10 albaro.. Inflating for 3-4 minutes at the time. Completion angiogram demonstrated residual stenosis. A 9 mm high-pressure angioplasty balloon was now inserted over the culprit region and inflated up to 10 albaro for 3 minutes. Completion angiogram demonstrated considerable improvement with only slight residual stenosis. The angioplasty balloon was no moved down to the culprit area in the arm. This is inflated up to 10 albaro using an insufflator. Completion angiogram demonstrated reasonable outcome with slight irregularity to the chand. This is recurrent still decided to use a drug-eluting balloon. A 9 mm drug-eluting balloon was now inserted over this arm culprit area and inflated up to 10 albaro for 4 minutes..]. Completion angiogram demonstrated [satisfactory result]. The instrumentation was now withdrawn over hand pressure for 10 minutes . Dressings applied, procedure concluded. Exposure time: 0.8 minutes. Radiation: 10.4 Kimberly ramirez. Contrast: 4 cc of Omnipaque 300. DICTATING PHYSICIAN: AISSATOU KERN M.D. cc: AISSATOU KERN M.D. ([id number]) >>
--- NOTE | 2018-08-19 16:03 | PDOC H&P ---
General Chief Complaint: This patient presents with increased bleeding from his fistula at hemodialysis. He last had angioplasty in about March of last year - Current Medications/Allergies Home Medications: Atorvastatin Calcium [Lipitor 80 mg Tablet] 80 mg PO QHS 08/13/17 B Complex W-C No.20/Folic Acid [Nephrocaps Softgel] 1 cap PO DAILY 08/13/17 Calcium Acetate [Phoslo 667 mg Capsule] 1,334 mg PO MEALS 08/13/17 Carvedilol [Coreg 25 mg Tablet] 25 mg PO Q12 08/13/17 Cholecalciferol (Vitamin D3) [Vitamin D3] 1,000 unit PO DAILY 08/13/17 Cyanocobalamin (Vitamin B-12) [Vitamin B-12 SL 1000 mcg Tablet] 1,000 mcg PO DAILY 08/13/17 Duloxetine HCl [Cymbalta] 60 mg PO DAILY 08/13/17 Hydralazine HCl [Apresoline 50 mg Tablet] 50 mg PO DAILY 08/13/17 Isosorbide Mononitrate [Isosorbide Mononitrate ER] 30 mg PO DAILY 08/13/17 Megestrol Acetate 40 mg PO BID 08/13/17 Memantine HCl/Donepezil HCl [Namzaric 14 mg-10 mg Capsule] 1 cap PO QPM 08/13/17 Pantoprazole Sodium [Protonix] 40 mg PO DAILY 08/13/17 Allergies/Adverse Reactions: No Known Allergies Allergy (Verified 03/14/18 15:55) Past Medical History Cardiac Medical History: Reports: Myocardial Infarction - "Atiya had a couple of heart attacks", no stents., Hyperlipidema, Hypertension, Peripheral Vascular Disease, Heart Murmur Denies: Coronary Artery Disease Pulmonary Medical History: Reports: Pneumonia Denies: Asthma, Bronchitis, Chronic Obstructive Pulmonary Disease (COPD), Tuberculosis Neurological Medical History: Denies: Seizures Endocrine Medical History: Denies: Diabetes Mellitus Type 1, Diabetes Mellitus Type 2 Renal/ Medical History: Reports: End Stage Renal Disease - /R/ HD GI Medical History: Reports: Gastroesophageal Reflux Disease Musculoskeltal Medical History: Denies: Arthritis Psychiatric Medical History: Denies: Depression Hematology: Denies: Anemia Past Surgical History Past Surgical History: Reports: Cholecystectomy, Vascular Surgery - Abdominal aortic aneurysm repair; PermCath placement for dialysis Denies: Pacemaker Family History Family History: Reviewed & Not Pertinent, DM Parental Family History Reviewed: No Children Family History Reviewed: NA Sibling(s) Family History Reviewed.: NA Social History Smoking Status: Unknown if Ever Smoked Frequency of Alcohol Use: None Hx Recreational Drug Use: No Drugs: None Hx Prescription Drug Abuse: No Physical Exam Vital Signs: Temp Pulse Resp BP Pulse Ox 98.9 F 88 16 149/88 H 99 08/19/18 14:50 08/19/18 15:05 08/19/18 15:05 08/19/18 15:05 08/19/18 15:05 Intake & Output 08/18/18 08/19/18 08/20/18 06:59 06:59 06:59 Weight 77.111 kg 77.111 kg Additional comments: Constitutional: Well-developed well-nourished -[place] gentleman. No apparent acute distress. Eyes: Mucous membranes pink and moist, pupils equal and reactive to light. Conjunctiva normal. Cornea normal. ENT: Hearing grossly normal. External pinna normal to inspection. Teeth partially intact. Tongue normal to inspection. Cardiac: Heart sounds 1 and 2 normal. Respiratory breath sounds are present bilaterally, normal. Normal respiratory effort. Psychiatric: Judgment, memory, insight seem normal. Mood is pleasant and appropriate. Extremities: Upper extremities show normal range of movement. Pulses not easily felt the radial arteries. Capillary refill normal. No cyanosis noted. No muscle wasting noted. Left arm AV fistula palpable somewhat firm to be expected. Considerable swelling compared to the right. Impression/Plan Plan: In this patient with probable cephalad stenosis angiogram with possible angioplasty is recommended. The procedure is familiar to the patient. He understands risks, benefits, expected and alternatives and he is agreeable.
[2018-08-19 16:16] VITALS: BP 135/79
--- NOTE | 2018-08-19 16:36 | RADIOLOGY REPORT (SQ) ---
EXAM DESCRIPTION: FISTULAGRAM W/PLASTY COMPLETED DATE/TIME: 08/19/2018 2:47 pm REASON FOR STUDY: T82.858A T82.858A STENOSIS OF OTHER VASCULAR PROSTH DEV/GRFT, INIT COMPARISON: 03/17/2018 FLUOROSCOPY TIME: 2.8 minutes 107 images saved to PACS. TECHNIQUE: Intra-operative images acquired during surgical procedure to evaluate progress. NUMBER OF IMAGES: 107 digital images LIMITATIONS: None. FINDINGS: Intra procedural imaging and fluoro during evaluation and plasty of left upper extremity d ialysis access by Dr. Bertrand. IMPRESSION: Intra procedural imaging and fluoro COMMENT: Quality ID [id number]: Final reports for procedures using fluoroscopy that document radiation exp osure indices, or exposure time and number of fluorographic images (if radiation exposure indices are not available) Please consult full operative report of the attending physician for description of the procedure. TECHNICAL DOCUMENTATION: JOB ID: [id number] [employer]- All Rights Reserved Reading location - IP/workstation name: [email or web address]
== END 2018-08-19 16:15 | disposition home or self-care (01) ==
LOC: CCL 12:01
PROVIDERS: ATTEND Surgery
DX: T82.858A Stenosis of other vascular prosthetic devices, implants and grafts, initial encounter (principal); Y83.2 Surgical operation with anastomosis, bypass or graft as the cause of abnormal reaction of the patient, or of later complication, without mention of misadventure at the time of the procedure; I12.0 Hypertensive chronic kidney disease with stage 5 chronic kidney disease or end stage renal disease; N18.6 End stage renal disease; Z99.2 Dependence on renal dialysis; I25.2 Old myocardial infarction; E78.5 Hyperlipidemia, unspecified; I73.9 Peripheral vascular disease, unspecified; R01.1 Cardiac murmur, unspecified; C96.9 Malignant neoplasm of lymphoid, hematopoietic and related tissue, unspecified; I51.9 Heart disease, unspecified; Z79.899 Other long term (current) drug therapy; Z01.818 Encounter for other preprocedural examination
CPT/HCPCS: 36415; 85027; 80048; 36907; 36902; C1725; C1752; C1887; C1894; Q9967; C1769; J2250; J1644 ×2; A9270 ×2; J3010; J3490

== ENCOUNTER 2019-05-16 04:00 | Emergency (ER) | payer MEDICARE ==
[2019-05-16] MEDS ORDERED: HYDRALAZINE HCL 50 MG TABLET PO ONE (04:58)
[2019-05-16] MEDS ORDERED: CLONIDINE HCL 0.2 MG TABLET PO ONE (04:59)
--- NOTE | 2019-05-16 05:01 | RADIOLOGY REPORT (SQ) ---
EXAM DESCRIPTION: XR CHEST 1 VIEW COMPLETED DATE/TME: 05/16/2019 04:24 CLINICAL HISTORY: 78 years, Male, CP/SOB COMPARISON: 08/13/2017 chest NUMBER OF VIEWS: 1 TECHNIQUE: Portable chest LIMITATIONS: None. FINDINGS: The heart size is stable. Atheromatous change of the thoracic aorta. Postsurgical change left axilla. No pneumothorax. Endovascular stent graft of the abdominal aorta. Mild interstitial edema IMPRESSION: Mild interstitial edema. Stable postsurgical change copyright 2010 [employer]- All Rights Reserved
--- NOTE | 2019-05-16 05:06 | ER Document Report ---
ED Medical Screen (RME) - General Chief Complaint: Chest Pain Stated Complaint: CHEST PAIN Time Seen by Provider: 05/16/19 04:49 Primary Care Provider: GUSTABO CALDERÓN PA-C [Primary Care Provider] - Follow up as needed BETSY POOL MD [ACTIVE STAFF] - Follow up as needed Mode of Arrival: Medic Information source: Patient, [facility] Records TRAVEL OUTSIDE OF THE [place] IN LAST 30 DAYS: No - HPI Notes: 05/16/19 05:04 Patient is a 78-year-old male who presents to the emergency department for evaluation. He is a very difficult historian. He states to me that he has been having chest pain. He really cannot describe it for me. He states is across his entire chest, occasionally radiates up into bilateral aspects of his neck. He states he felt intimately short of breath. He states the pain is been present intermittently over the last 2 days, lasted for about an hour prior to arrival, but he has absolutely no chest pain now. He did not try any interventions to make it feel better. Patient also admits that he has had a cough. He feels intimately short of breath. He is not on oxygen at home. He has not yet taken his medications for blood pressure this morning. The patient is normally Saturday dialysis. He did not go to dialysis yesterday, he states to me that they were "closed." - Related Data Smoking: Quit greater than 1 year Frequency of alcohol use: None Drug Abuse: None Allergies/Adverse Reactions: No Known Allergies Allergy (Verified 03/14/18 15:55) Past Medical History - General Information source: Patient, [facility] Records - Social History Cigarette use (# per day): No Chew tobacco use (# tins/day): No Frequency of alcohol use: None Drug Abuse: None Family history: Reviewed & Not Pertinent, CAD - Past Medical History Cardiac Medical History: Reports: Hx Coronary Artery Disease, Hx Heart Attack - "Atiya had a couple of heart attacks", no stents., Hx Hypercholesterolemia, Hx Hypertension, Hx Peripheral Vascular Disease, Hx Heart Murmur Pulmonary Medical History: Reports: Hx Pneumonia Denies: Hx Asthma, Hx Bronchitis, Hx COPD, Hx Tuberculosis Neurological Medical History: Denies: Hx Cerebrovascular Accident, Hx Seizures Endocrine Medical History: Denies: Hx Diabetes Mellitus Type 1, Hx Diabetes Mellitus Type 2 Renal/ Medical History: Reports: Hx End Stage Renal Disease, Hx Hemodialysis. Denies: Hx Peritoneal Dialysis Malignancy Medical History: Reports Other - History of multiple myeloma GI Medical History: Reports: Hx Gastroesophageal Reflux Disease, Hx Ulcer Musculoskeltal Medical History: Denies Hx Arthritis Psychiatric Medical History: Denies: Hx Depression Past Surgical History: Reports: Hx Abdominal Surgery - abdominal aneurysm repair, Hx Cholecystectomy, Hx Vascular Surgery - Abdominal aortic aneurysm repair; PermCath placement for dialysis. Denies: Hx Pacemaker - Immunizations Hx Diphtheria, Pertussis, Tetanus Vaccination: Yes Review of Systems - Review of Systems Constitutional: No symptoms reported EENT: No symptoms reported Cardiovascular: See HPI Respiratory: See HPI Gastrointestinal: No symptoms reported Genitourinary: No symptoms reported Musculoskeletal: No symptoms reported Skin: No symptoms reported Neurological/Psychological: No symptoms reported Physical Exam - Notes Notes: Is a hypertensive 78-year-old male who appears her stated age. Head is normocephalic and appears atraumatic, pupils are equal round, reactive to light. Heart regular rate and rhythm, lungs show diminished breath sounds throughout, mild basilar rales noted. Extremities without cyanosis, clubbing, edema. Course - Re-evaluation Re-evalutation: 05/16/19 05:14 This is a 78-year-old male with a history of hypertension, end-stage renal disease, his missed dialysis, who presented to the emergency department for evaluation of chest pain. At the time of my evaluation the patient had no chest pain. He has had some coughing. He is markedly hypertensive. I did go ahead and give him his hydralazine and clonidine, which are medications that he normally takes in the morning for his blood pressure. He is not hypoxic. Maria Elena use of his cough I did add blood cultures. EKG failed to show any acute ST elevation at this time. Patient remained stable. I have greeted and performed a rapid initial assessment of this patient. A comprehensive ED assessment and evaluation of the patient, analysis of test results and completion of medical decision making process will be conducted by additional ED providers. Doctor's Discharge - Discharge Referrals: BETSY POOL MD [ACTIVE STAFF] - Follow up as needed GUSTABO CALDERÓN PA-C [Primary Care Provider] - Follow up as needed
[2019-05-16 05:56] LABS: ABSOLUTE EOSINOPHILS # (AUTO) 0.1 10^3/uL (0.0-0.6); ABSOLUTE LYMPHOCYTES (AUTO) 0.8 10^3/uL (0.5-4.7); ABSOLUTE MONOCYTES (AUTO) 0.4 10^3/uL (0.1-1.4); ABSOLUTE NEUT (AUTO) 3.2 10^3/uL (1.7-8.2); BASOPHILS % (AUTO) 0.5 % (0-2); EOSINOPHILS % (AUTO) 1.7 % (0-6); HEMATOCRIT 34.7 % (37.9-51.0); HEMOGLOBIN 11.1 g/dL (13.5-17.0); LYMPHOCYTES % (AUTO) 17.2 % (13-45); MEAN CORPUSCULAR HEMOGLOBIN 26.1 pg (27.0-33.4); MEAN CORPUSCULAR HGB CONC 31.9 g/dL (32.0-36.0); MEAN CORPUSCULAR VOLUME 82 fl (80-97); MONOCYTES % (AUTO) 9.3 % (3-13); PLATELET COUNT 217 10^3/uL (150-450); RED BLOOD COUNT 4.25 10^6/uL (4.35-5.55); RED CELL DISTRIBUTION WIDTH 18.6 % (11.5-14.0); SEGMENTED NEUTROPHILS % (AUTO) 71.3 % (42-78); TOTAL CELLS COUNTED % (AUTO) 100 %; WHITE BLOOD COUNT 4.5 10^3/uL (4.0-10.5)
[2019-05-16 06:10] LABS: ALBUMIN 4.1 g/dL (3.5-5.0); ALKALINE PHOSPHATASE 76 U/L (38-126); ANION GAP 14 (5-19); ASPARTATE AMINO TRANSFERASE 23 U/L (17-59); BILIRUBIN,DIRECT 0.5 mg/dL (0.0-0.4); BILIRUBIN,TOTAL 1.1 mg/dL (0.2-1.3); BLOOD UREA NITROGEN 53 mg/dL (7-20); CALCIUM 9.2 mg/dL (8.4-10.2); CARBON DIOXIDE 23 mmol/L (22-30); CHLORIDE 106 mmol/L (98-107); CREATINE KINASE 57 U/L (55-170); GLUCOSE 109 mg/dL (75-110); POTASSIUM 3.9 mmol/L (3.6-5.0); TOTAL PROTEIN 7.8 g/dL (6.3-8.2)
[2019-05-16 06:21] LABS: CREATINE KINASE MB 1.27 ng/mL (<4.55)
[2019-05-16 06:23] LABS: TROPONIN I 0.121 ng/mL
[2019-05-16 06:48] LABS: VENOUS BLOOD BASE EXCESS -2.5 mmol/L; VENOUS BLOOD HCO3 22.2 mmol/L (20-32); VENOUS BLOOD PCO2 38.1 mmHg (35-63); VENOUS BLOOD PH 7.38 (7.30-7.42)
--- NOTE | 2019-05-16 09:59 | ER Document Report ---
ED General - General Mode of Arrival: Medic TRAVEL OUTSIDE OF THE [place] IN LAST 30 DAYS: No - HPI Onset: Other - 2 days Onset/Duration: Intermittent Quality of pain: No pain Severity: Moderate - Related Data Home Medications: Patient does not know home meds and is noncompliant per EMS <OMID HERNANDEZ - Last Filed: 05/16/19 14:48> <HARDY GARCIA Yadiel - Last Filed: 05/16/19 21:44> - General Chief Complaint: Chest Pain Stated Complaint: CHEST PAIN Time Seen by Provider: 05/16/19 04:49 Primary Care Provider: BETSY POOL MD [ACTIVE STAFF] - Follow up as needed Notes: 78 year old male with multiple comorbidities - htn, chf, esrd on hd mwf, chronically elevated trop, multiple myeloma is here with chest pain for about 2 days. He is a difficult historian. Did not attend hd yesterday and can not tell me when he last went to hd. No fever or chills. Chest pain reportedly this am, but no pain when I see him. No vomiting. (OMID HERNANDEZ) - Related Data Allergies/Adverse Reactions: No Known Allergies Allergy (Verified 03/14/18 15:55) Past Medical History - General Information source: Patient, [facility] Records - Social History Smoking Status: Never Smoker Cigarette use (# per day): No Chew tobacco use (# tins/day): No Frequency of alcohol use: None Drug Abuse: None Family History: Reviewed & Not Pertinent, DM Patient has suicidal ideation: No Patient has homicidal ideation: No - Past Medical History Cardiac Medical History: Reports: Hx Coronary Artery Disease, Hx Heart Attack - "Atiya had a couple of heart attacks", no stents., Hx Hypercholesterolemia, Hx Hypertension, Hx Peripheral Vascular Disease, Hx Heart Murmur Pulmonary Medical History: Reports: Hx Pneumonia Denies: Hx Asthma, Hx Bronchitis, Hx COPD, Hx Tuberculosis Neurological Medical History: Denies: Hx Cerebrovascular Accident, Hx Seizures Endocrine Medical History: Denies: Hx Diabetes Mellitus Type 1, Hx Diabetes Mellitus Type 2 Renal/ Medical History: Reports: Hx End Stage Renal Disease, Hx Hemodialysis. Denies: Hx Peritoneal Dialysis Malignancy Medical History: Reports Other - History of multiple myeloma GI Medical History: Reports: Hx Gastroesophageal Reflux Disease, Hx Ulcer Musculoskeletal Medical History: Denies Hx Arthritis Psychiatric Medical History: Denies: Hx Depression Past Surgical History: Reports: Hx Abdominal Surgery - abdominal aneurysm repair, Hx Cholecystectomy, Hx Vascular Surgery - Abdominal aortic aneurysm repair; PermCath placement for dialysis. Denies: Hx Pacemaker - Immunizations Hx Diphtheria, Pertussis, Tetanus Vaccination: Yes Hx Pneumococcal Vaccination: 03/17/17 <OMID HERNANDEZ P - Last Filed: 05/16/19 14:48> Review of Systems - Review of Systems Constitutional: No symptoms reported EENT: No symptoms reported Cardiovascular: See HPI, Chest pain Respiratory: No symptoms reported Gastrointestinal: No symptoms reported Genitourinary: No symptoms reported Male Genitourinary: No symptoms reported Musculoskeletal: No symptoms reported Skin: No symptoms reported Hematologic/Lymphatic: No symptoms reported Neurological/Psychological: No symptoms reported <OMID HERNANDEZ P - Last Filed: 05/16/19 14:48> Physical Exam - Vital signs Interpretation: Normal - General General appearance: Appears well, Alert - HEENT Head: Normocephalic, Atraumatic Eyes: Normal Pupils: PERRL - Respiratory Respiratory status: No respiratory distress Chest status: Nontender Breath sounds: Normal Chest palpation: Normal - Cardiovascular Rhythm: Regular Heart sounds: Normal auscultation Murmur: No - Abdominal Inspection: Normal Distension: No distension Bowel sounds: Normal Tenderness: Nontender Organomegaly: No organomegaly - Back Back: Normal, Nontender - Extremities General upper extremity: Normal inspection, Nontender, Normal color, Normal ROM, Normal temperature General lower extremity: Normal inspection, Nontender, Normal color, Normal ROM, Normal temperature, Normal weight bearing. No: Fidel's sign - Neurological Neuro grossly intact: Yes Cognition: Normal Orientation: AAOx4 [place] Coma Scale Eye Opening: Spontaneous [place] Coma Scale Verbal: Oriented [place] Coma Scale Motor: Obeys Commands Ricky Coma Scale Total: 15 Speech: Normal Motor strength normal: LUE, RUE, LLE, RLE Sensory: Normal - Psychological Associated symptoms: Normal affect, Normal mood - Skin Skin Temperature: Warm Skin Moisture: Dry Skin Color: Normal <OMID HERNANDEZ P - Last Filed: 05/16/19 14:48> - Vital signs Vitals: Resp 27 H 05/16/19 04:02 Course - Laboratory Result Diagrams: 05/16/19 05:20 05/16/19 05:20 - Diagnostic Test Radiology reviewed: Reports reviewed - EKG Interpretation by Me EKG shows normal: Sinus rhythm - NSR 91 BPM Left axis no st elevation or depression my interpretation. Rate: Normal Rhythm: NSR [place]/QRS: Left axis deviation <OMID HERNANDEZ - Last Filed: 05/16/19 14:48> - Laboratory Result Diagrams: 05/16/19 05:20 05/16/19 05:20 <HARDY GARCIA - Last Filed: 05/16/19 21:44> - Re-evaluation Re-evalutation: 05/16/19 09:57 MDM Pt received at beginning of shift with exam consistent with chf and hd pt. His bp was up when he arrived - 200's/ 110 and is improved after medicine here. 05/16/19 09:59 I have discussed the pt with Dr. Alvarez - covering for Dr. Romero - and since we have no hd over the weekend (today is Saturday) we will work on a transfer. I have contacted [facility] at Dr. Alvarez's suggestion and await a return phone call. 05/16/19 13:53 We have spoken with [facility] earlier today and they have no open chairs for today. They did inform us they spoke with Mr Adams yesterday and offered him an appt yesterday afternoon and this morning and he refused both. I have spoken with hospitalist physician at [facility] and she - Dr. Freeman -has graciously accepted the pt in transfer to [facility]. (OMID HERNANDEZ) 05/16/19 21:43 ED patient is remained stable no additional episodes of chest pain when I went to check on but before discharge he just finished eating. Blood pressure did gradually creep up and was given additional dose of medication (HARDY GARCIA) - Vital Signs Vital signs: Temp Pulse Resp BP Pulse Ox 98.7 F 20 191/88 H 97 05/16/19 05:37 05/16/19 19:01 05/16/19 19:01 05/16/19 19:01 - Laboratory Laboratory results interpreted by me: 05/16/19 05/16/19 05:20 05:20 RBC 4.25 L Hgb 11.1 L Hct 34.7 L MCH 26.1 L MCHC 31.9 L RDW 18.6 H BUN 53 H Creatinine 10.09 H Est GFR ( Amer) 6 L Est GFR (MDRD) Non-Af 5 L Direct Bilirubin 0.5 H Discharge <OMID HERNANDEZ P - Last Filed: 05/16/19 14:48> <HARDY GARCIA - Last Filed: 05/16/19 21:44> - Discharge Clinical Impression: CHF (congestive heart failure) Qualifiers: Heart failure type: systolic Heart failure chronicity: acute Qualified Code(s): I50.21 - Acute systolic (congestive) heart failure Condition: Fair Disposition: Pending Sale To [facility] Instructions: [place] Catheter Care ([facility]), Urinary Tract Infection ([facility]) Additional Instructions: See your doctor in follow up. Take the antibiotics as directed. Please return here for any problems or any concerns. Prescriptions: Cephalexin Monohydrate [Keflex 500 mg Capsule] 500 mg PO TID 10 Days #30 capsule Referrals: BETSY POOL MD [ACTIVE STAFF] - Follow up as needed
--- NOTE | 2019-05-16 12:39 | EKG REPORT ---
SEVERITY:- ABNORMAL ECG - SINUS RHYTHM BORDERLINE LEFT AXIS DEVIATION CONSIDER ANTERIOR INFARCT PROLONGED QT INTERVAL : Confirmed by: Tonia Diaz 16-May-2019 12:38:06
[2019-05-16] MEDS ORDERED: ENALAPRILAT DIHYDRATE INJ/PF 1.25 MG/1 ML SDV IV ONE (20:19)
[2019-05-16 21:48] VITALS: BP 199/86
--- NOTE | 2019-05-17 12:08 | EKG REPORT ---
SEVERITY:- ABNORMAL ECG - SINUS RHYTHM BORDERLINE LEFT AXIS DEVIATION NONSPECIFIC T ABNORMALITIES, LATERAL LEADS PROLONGED QT INTERVAL : Confirmed by: Tonia Diaz 17-May-2019 12:07:28
== END 2019-05-16 21:36 | disposition short-term general hospital (02) ==
LOC: ER 04:00
DX: I50.21 Acute systolic (congestive) heart failure (principal); R07.9 Chest pain, unspecified; I11.0 Hypertensive heart disease with heart failure; I13.2 Hypertensive heart and chronic kidney disease with heart failure and with stage 5 chronic kidney disease, or end stage renal disease; N18.6 End stage renal disease; Z99.2 Dependence on renal dialysis; I25.2 Old myocardial infarction
CPT/HCPCS: 93005; 99285; 96374; 36415; 87040; 82553; 82550; 85025; 87077; 80053; 84484; 87186; 82803; 87150 ×26; 71045; 93010; A9270 ×2; J3490